=== PATIENT | male | born 1960 | race Caucasian/White ===

== ENCOUNTER 2023-01-01 08:17 | Outpatient (OUT) | payer OTHER, SELFPAY ==
[2023-01-01 09:12] LABS: Alanine Aminotransferase 40 U/L (16-63); Albumin Globulin Ratio 0.9; Albumin Level 3.5 g/dL (3.4-5.0); Alkaline Phosphatase 65 U/L (46-116); Anion Gap 12.2; Aspartate Amino Transferase 29 U/L (15-37); BUN Creatinine Ratio 21.7; Bilirubin Total 0.7 mg/dL (0.2-1.0); Calcium 9.1 mg/dL (8.5-10.1); Carbon Dioxide 28.7 mmol/L (21.0-32.0); Chloride 104 mmol/L (98-107); Chol HDL Ratio 2.1; Cholesterol 144 mg/dL (<=200); Estimated GFR (African America >60 (>=60); Estimated GFR (Non-African Ame >60 (>=60); Globulin 3.9 g/dL; Glucose 103 mg/dL (74-106); HDL Cholesterol 69 mg/dL (40-60); Potassium 3.9 mmol/L (3.5-5.1); Sodium 141 mmol/L (136-145); Total Protein 7.4 g/dL (6.4-8.2); Triglycerides 46 mg/dL (<=150); VLDL CHOLESTEROL 9.2 mg/dL
[2023-01-01 09:36] LABS: Basophils Percent Auto 0.6 % (0.2-2.0); Eosinophils Absolute Auto 0.1 10^3/uL (0.0-0.7); Eosinophils Percent Auto 1.9 % (0.9-7.0); Hematocrit 41.9 % (42.0-54.0); Hemoglobin 13.9 g/dL (14.0-18.0); Immature Granulocytes Abs Auto 0.04 10^3/uL (0.00-0.03); Immature Granulocytes Pct Auto 0.6 % (0.0-0.5); Lymphocytes Absolute Auto 1.8 10^3/uL (1.2-3.8); Lymphocytes Percent Auto 28.7 % (20.5-60.0); Mean Corpuscular HGB Conc 33.2 g/dL (29.9-35.2); Mean Corpuscular Hemoglobin 30.9 pg (25.9-34.0); Mean Corpuscular Volume 93.1 fL (80.0-94.0); Mean Platelet Volume 9.6 fL (9.5-13.5); Monocytes Absolute Auto 0.7 10^3/uL (0.3-0.8); Monocytes Percent Auto 11.1 % (1.7-12.0); Neutrophils Absolute Auto 3.6 10^3/uL (1.4-6.5); Neutrophils Percent Auto 57.1 % (43.0-75.0); Platelet Count 288 10^3/uL (150-450); Red Cell Distribution Width 14.4 % (11.0-15.0); White Blood Count 6.3 10^3/uL (4.0-11.0)
[2023-01-01 09:53] LABS: Estimated Average Glucose 108 mg/dL; Glycohemoglobin A1C 5.4 % (4.5-6.2)
== END 2023-01-01 08:18 | disposition home or self-care (01) ==
LOC: LAB 08:23
PROVIDERS: PCP Family Medicine; Visit Provider Family Medicine
DX: D64.9 Anemia, unspecified (principal); I10 Essential (primary) hypertension; E78.2 Mixed hyperlipidemia; R73.01 Impaired fasting glucose; Z79.899 Other long term (current) drug therapy
CPT/HCPCS: 36415; 80053; 80061; 83036; 85025

== ENCOUNTER 2023-06-17 09:17 | Outpatient (OUT) | payer MEDICARE, SELFPAY ==
[2023-06-17 09:57] LABS: Basophils Percent Auto 0.6 % (0.2-2.0); Eosinophils Absolute Auto 0.1 10^3/uL (0.0-0.7); Eosinophils Percent Auto 1.4 % (0.9-7.0); Hematocrit 41.7 % (42.0-54.0); Hemoglobin 13.5 g/dL (14.0-18.0); Immature Granulocytes Abs Auto 0.04 10^3/uL (0.00-0.03); Immature Granulocytes Pct Auto 0.6 % (0.0-0.5); Lymphocytes Absolute Auto 1.4 10^3/uL (1.2-3.8); Lymphocytes Percent Auto 20.1 % (20.5-60.0); Mean Corpuscular HGB Conc 32.4 g/dL (29.9-35.2); Mean Corpuscular Hemoglobin 30.5 pg (25.9-34.0); Mean Corpuscular Volume 94.3 fL (80.0-94.0); Mean Platelet Volume 10.2 fL (9.5-13.5); Monocytes Absolute Auto 0.8 10^3/uL (0.3-0.8); Monocytes Percent Auto 10.8 % (1.7-12.0); Neutrophils Absolute Auto 4.7 10^3/uL (1.4-6.5); Neutrophils Percent Auto 66.5 % (43.0-75.0); Platelet Count 236 10^3/uL (150-450); Red Blood Count 4.42 10^6/uL (4.70-6.10); Red Cell Distribution Width 14.6 % (11.0-15.0); White Blood Count 7.1 10^3/uL (4.0-11.0)
[2023-06-17 10:11] LABS: Estimated Average Glucose 114 mg/dL; Glycohemoglobin A1C 5.6 % (4.5-6.2)
[2023-06-17 10:24] LABS: Alanine Aminotransferase 37 U/L (16-63); Albumin Globulin Ratio 0.9; Albumin Level 3.4 g/dL (3.4-5.0); Alkaline Phosphatase 69 U/L (46-116); Anion Gap 11.1; Aspartate Amino Transferase 21 U/L (15-37); BUN Creatinine Ratio 18.9; Bilirubin Total 0.8 mg/dL (0.2-1.0); Calcium 9.1 mg/dL (8.5-10.1); Carbon Dioxide 30.8 mmol/L (21.0-32.0); Chloride 105 mmol/L (98-107); Chol HDL Ratio 2.1; Cholesterol 161 mg/dL (<=200); Estimated GFR (African America >60 (>=60); Estimated GFR (Non-African Ame >60 (>=60); Globulin 3.7 g/dL; Glucose 91 mg/dL (74-106); HDL Cholesterol 75 mg/dL (40-60); Potassium 3.9 mmol/L (3.5-5.1); Sodium 143 mmol/L (136-145); Total Protein 7.1 g/dL (6.4-8.2); Triglycerides 52 mg/dL (<=150); VLDL CHOLESTEROL 10.4 mg/dL
[2023-06-17 10:47] LABS: Prostate Specific Antigen Scrn 1.48 ng/mL (<=4.00)
== END 2023-06-17 09:18 | disposition home or self-care (01) ==
PROVIDERS: PCP Family Medicine; Visit Provider Family Medicine
DX: D50.0 Iron deficiency anemia secondary to blood loss (chronic) (principal); N18.6 End stage renal disease; R73.01 Impaired fasting glucose; K91.2 Postsurgical malabsorption, not elsewhere classified; Z79.899 Other long term (current) drug therapy; E53.8 Deficiency of other specified B group vitamins; Z12.5 Encounter for screening for malignant neoplasm of prostate
CPT/HCPCS: 36415; 80053; 80061; 82607; 82728; 83036; 83540; 85025; G0103

== ENCOUNTER 2023-12-03 07:29 | Outpatient (OUT) | payer SELFPAY ==
[2023-12-03 09:08] LABS: Estimated Average Glucose 114 mg/dL; Glycohemoglobin A1C 5.6 % (4.5-6.2)
[2023-12-03 10:55] LABS: Alanine Aminotransferase 39 U/L (16-63); Albumin Level 3.6 g/dL (3.4-5.0); Alkaline Phosphatase 72 U/L (46-116); Anion Gap 10.5; Aspartate Amino Transferase 27 U/L (15-37); BUN Creatinine Ratio 19.8; Bilirubin Total 0.9 mg/dL (0.2-1.0); Calcium 9.3 mg/dL (8.5-10.1); Carbon Dioxide 29.1 mmol/L (21.0-32.0); Chloride 103 mmol/L (98-107); Chol HDL Ratio 2.3; Cholesterol 165 mg/dL (<=200); Estimated GFR (African America >60 (>=60); Estimated GFR (Non-African Ame >60 (>=60); Globulin 3.7 g/dL; Glucose 93 mg/dL (74-106); HDL Cholesterol 73 mg/dL (40-60); Potassium 3.6 mmol/L (3.5-5.1); Sodium 139 mmol/L (136-145); Total Protein 7.3 g/dL (6.4-8.2); Triglycerides 49 mg/dL (<=150); VLDL CHOLESTEROL 9.8 mg/dL
== END 2023-12-03 07:30 | disposition home or self-care (01) ==
LOC: LAB 07:32
PROVIDERS: PCP Family Medicine; Visit Provider Family Medicine
DX: E78.2 Mixed hyperlipidemia (principal); I10 Essential (primary) hypertension; Z83.3 Family history of diabetes mellitus; R73.01 Impaired fasting glucose; Z79.899 Other long term (current) drug therapy
CPT/HCPCS: 36415; 80053; 80061; 83036

== ENCOUNTER 2023-12-12 15:47 | Emergency (ER) | payer MEDICARE, SELFPAY ==
--- OUTSIDE RECORDS SUMMARY | 2023-12-12 15:56 | XMS_ITS | CCD ---
Author Organization [facility] Care Team Providers Care Stroke Belt Sander Operator Name Role Phone SIMONE PRIDE Referring Unavailable KRIEGEL, GARIMA Admitting Unavailable KRIEGEL, GARIMA Attending Unavailable BUNTING, ANDERS Primary Care Unavailable EBRAHEIM, VASYL Admitting Unavailable UNKNOWN, PHYSICIAN Primary Care Unavailable UNKNOWN, PHYSICIAN Referring Unavailable [place] Procedure Practitioner Unavailab le EBRAHEIM, VASYL Attending Unavailable EBRAHEIM, VASYL Surgeon Unavailable BUNTING, DR MCNAMARA Primary Care Unavailable BUNTING, DR MCNAMARA Admitting Unavailable BUNTING, DR MCNAMARA Attending Unavailable BUNTING, DR MCNAMARA Consulting Unavailable BUNTING, DR MCNAMARA Primary Care Unavailable BUNTING, DR MCNAMARA Admitting Unavailable BUNTING, DR MCNAMARA Attending Unavailable BUNTING, DR MCNAMARA Consulting Unavailable BUNTING, DR MCNAMARA Primary Care Unavailable MISC, DR PINTO Attending Unavailable MISC, DR PINTO Admitting Unavailable BUNTING, DR MCNAMARA Primary Care Unavailable BUNTING, DR MCNAMARA Admitting Unavailable BUNTING, DR MCNAMARA Attending Unavailable BUNTING, DR MCNAMARA Consulting Unavailable Bunting, DO Anders Attending Provider Bunting, DO Mcnamara Primary Care Provider Bunting DOAnders Primary Care Provider Bunting, Anders Attending Unavailable Bunting, Anders Primary Care Unavailable Bunting, Anders Admitting Unavailable TRABOULSSI, MOURHAF Attending Unavailable BUNTING, ANDERS RAY Primary Care Unavailable TRABOULSSI, MOURHAF Referring Unavailable BUNTING, ANDERS RAY Primary Care Unavailable TRABOULSSI, MOURHAF Attending Unavailable TRABOULSSI, MOURHAF Referring Unavailable BUNTING, ANDERS RAY Primary Care Unavailable Allergies Allergy Classification Reported Allergen(s) Allergy Type Date of Onset Reaction(s) Facility (7 sources) Codeine; Translations: [CODEINE] Drug Allergy 4 Anxiety [facility] (7 sources) Morphine; Translations: [MORPHINE] Drug Allergy 4 Nausea/vomiting [facility] Medications Current Medications Medication Drug Class(es) Dates Sig (Normalized) Sig (Original) acetaminophen 500 mg oral tablet (1 source) Start: 10-01-2021 take 500 mg by mouth four times daily Acetaminophen Active 500 MG PO Four times daily September 30, 2021 11:00pm acetaminophen 325 mg / HYDROcodone bitartrate 5 mg oral tablet (1 source) Opioid Agonist Start: 10-01-2021 take 1 tablet by mouth every six hours Hydrocodone-Acetam inophen Active 1 TAB PO Q6H September 30, 2021 11:00pm 200 actuat albuterol 0.09 mg/actuat dry powder inhaler (1 source) beta2-Adrenergic Agonist Start: 10-01-2021 Albuterol Sulfate Active 2 INH INHALATION Q4H September 30, 2021 11:00pm amLODIPine 5 mg oral tablet (3 sources) Dihydropyridine Calcium Channel Maggie Start: 10-01-2021 take 5 mg by mouth once daily Amlodipine Active 5 MG PO Daily September 30, 2021 11:00pm take 1 tablet by mouth twice keaton ly amLODIPine (Norvasc) 5 mg tablet Take 1 tablet (5 mg) by mouth 2 times a day. Active aspirin 81 mg oral tablet (1 source) Platelet Aggregation Inhibitor, Nonsteroidal Anti-inflammatory Drug Start: 10-01-2021 take 81 mg by mouth once daily Aspirin Active 81 MG PO Daily September 30, 2021 11:00pm baclofen 10 mg oral tablet (1 source) gamma-Aminobutyric Acid-ergic Agonist Start: 10-01-2021 take 10 mg by mouth three times daily Baclofen Active 10 MG PO Three times daily September 30, 2021 11:00pm cholecalciferol 0.025 mg oral tablet (2 sources) Vitamin D take 2 tablets by mouth once daily cholecalciferol (Vitamin D3) 25 MCG (1000 UT) tablet Take 2 tablets (50 mcg) by mouth once daily. Active chondroitin sulfates 400 mg / glucosamine hydrochloride 500 mg oral tablet (2 sources) take 1 tablet by mouth twice daily glucosamine-chondr oitin 500-400 mg tablet Take 1 tablet by mouth 2 times a day. Active docusate sodium 50 mg / sennosides, chcf 8.6 mg oral tablet (1 source) Start: 10-01-2021 take 1 tablet by mouth twice daily Sennosides-Docusat e Sodium (Senexon-S) 8.6-50 mg Tablet Active 1 TAB-CAP PO Twice daily September 30, 2021 11:00pm 120 actuat fluticasone propionate 0.22 mg/actuat metered dose inhaler (3 sources) Corticosteroid Start: 10-01-2021 take 1 puff(s) by inhalation twice daily Fluticasone Propionate (Flovent Hfa) 220 mcg/actuation Hfa Aerosol Inhaler Active 1 PUFF INHALATION Twice daily September 30, 2021 11:00pm take 2 puff(s) by mouth twice da pham fluticasone (Flovent HFA) 220 mcg/actuation inhaler Inhale 2 puffs 2 times a day. Rinse mouth with water after use to reduce aftertaste and incidence of candidiasis. Do not swallow. Active hydroCHLOROthiazide 12.5 mg / lisinopril 10 mg oral tablet (3 sources) Thiazide Diuretic, Angiotensin Converting Enzyme Inhibitor Start: 10-01-2021 take 1 tablet by mouth once daily Lisinopril-Hydrochlorothiazide Active 1 TAB PO Daily September 30, 2021 11:00pm take 1 tablet by mouth once marta y lisinopril 20 mg tablet 20 mg, hydroCHLOROthiazide 12.5 mg tablet 12.5 mg Take 1 tablet by mouth once daily. Active take 1 tablet by mouth once marta y lisinopril 20 mg tablet 20 mg, hydroCHLOROthiazide 12.5 mg tablet 12.5 mg Take 1 tablet by mouth once daily. 0 Active ammonium lactate 120 mg/ml topical cream (1 source) Start: 10-01-2021 Ammonium Lacta te Active 1 APPLIC TOPICAL Twice daily September 30, 2021 11:00pm loperamide hydrochloride 2 mg oral tablet (3 sources) Opioid Agonist Start: 10-01-2021 take 2 mg by mouth four times daily Loperamide Active 2 MG PO Four times daily September 30, 2021 11:00pm take 1 tablet by adamaris three times daily as needed for diarrhea loperamide (Imodium A-D) 2 mg tablet Amando e 1 tablet (2 mg) by mouth 3 times a day as needed for diarrhea. Active magnesium oxide 400 mg oral tablet (1 source) Start: 10-28-2023 magnesium oxide (Mag-Ox) 400 mg (241.3 mg magnesium) tablet Indications: PVC (premature ventricular contraction) , SVT (supraventricular tachycardia) (CMS-HCC) Take one tablet daily with food, if tolerated can take two tablets 160 tablet 3 10/28/2023 Active omeprazole 20 mg delayed release oral capsule (1 source) Proton Pump Inhibitor Start: 10-01-2021 take 20 mg by mouth twice daily Omeprazole Active 20 MG PO Twice daily September 30, 2021 11:00pm pantoprazole 40 mg delayed release oral tablet (3 sources) Proton Pump Inhibitor Start: 10-01-2021 take 40 mg by mouth once daily Pantoprazole Active 40 MG PO Daily September 30, 2021 11:00pm take 1 tablet by mouth twice keaton ly pantoprazole (ProtoNix) 40 mg EC tablet Take 1 tablet (40 mg) by mouth 2 times a day. Do not crush, chew, or split. Active Completed/Discontinued Medications Medication Drug Class(es) Dates Sig (Normalized) Sig (Original) vitamin b12 0.1 mg oral tablet (2 sources) Vitamin B12 End: 10-28-2023 take 1 tablet by mouth once daily cyanocobalamin (Vitamin B-12) 100 mcg tablet Take 1 tablet (100 mcg) by mouth once daily. 10/28/2023 Discontinued (Discontinued by another clinician) Problems Active Problems Problem Classification Problem Date Documented Date Episodic/Chronic Cardiac dysrhythmias (10 sources) Multiple premature ventricular complexes; Translations: [Ventricular premature depolarization] Onset: 06-29-2023 06-29-2023 Chronic Diabetes mellitus without complication (1 source) Impaired fasting glucose; Translations: [IMPAIRED FASTING GLUCOSE] Onset: 06-24-2022 Episodic Disorders of lipid metabolism (5 sources) Mixed hyperlipidemia; Translations: [MIXED HYPERLIPIDEMIA] Onset: 11-29-2021 Chronic Essential hypertension (11 sources) Essential (primary) hypertension; Translations: [Essential hypertension] Onset: 12-03-2021 Chronic Nutritional deficiencies (1 source) Vitamin D deficiency, unspecified; Translations: [VITAMIN D DEFICIENCY UNSPECIFIED] Onset: 12-03-2021 Chronic Open wounds of extremities (1 source) Open wound of left knee; Translations: [Unspecified open wound, left knee, initial encounter] 10-28-2021 Episodic Other aftercare (1 source) Other terminal superintendent (current) drug therapy; Translations: [OTH HALFWAY CURRENT DRUG THERAPY] Onset: 06-24-2022 Episodic Other nutritional; endocrine; and metabolic disorders (4 sources) Overweight in adulthood with body mass index of 25 or more but less than 30; Translations: [Body mass index (BMI) 28.0-28.9, adult] Onset: 06-29-2023 06-29-2023 Episodic Other nutritional; endocrine; and metabolic disorders (2 sources) Body mass index (BMI) 28.0-28.9, adult; Translations: [Body mass index (BMI) 28.0-28.9, adult] Onset: 06-29-2023 Episodic Other screening for suspected conditions (not mental disorders or infectious disease) (1 source) Encounter for screening for malignant neoplasm of prostate; Translations: [ENC SCREEN MALIG NEOPLASM PROSTATE] Onset: 06-24-2022 Episodic Residual codes; unclassified (1 source) Family history of diabetes mellitus; Translations: [FAMILY HISTORY OF DIABETES MELLITUS] Onset: 06-24-2022 Episodic Residual codes; unclassified (1 source) Edema of left lower leg; Translations: [Localized edema] 10-01-2021 Episodic Residual codes; unclassified (1 source) History of operation on musculoskeletal system; Translations: [Other specified postprocedural states] 10-01-2021 Episodic Residual codes; unclassified (4 sources) Never smoked any substance; Translations: [Other specified health status] Onset: 06-29-2023 06-29-2023 Episodic Unclassified (2 sources) CONTACT W/AND (SUSP) EXPOS COVID-19; Translations: [CONTACT W/AND (SUSP) EXPOS COVID-19] Onset: 12-11-2021 Unclassified (1 source) Bradycardia, unspecified; Translations: [Bradycardia, unspecified] Onset: 06-23-2023 Unclassified (1 source) Supraventricular tachycardia, unspecified (CMS-HCC); Translations: [Supraventricular tachycardia, unspecified (CMS-HCC)] Onset: 06-29-2023 Unclassified (1 source) Supraventricular tachycardia, unspecified; Translations: [Supraventricular tachycardia, unspecified] Onset: 06-29-2023 Varicose veins of lower extremity (1 source) Varicose veins of lower limb co-occurrent with edema; Translations: [Varicose veins of bilateral lower extremities with other complications] 10-01-2021 Episodic Viral infection (1 source) COVID-19; Translations: [COVID-19] Onset: 12-11-2021 Past or Other Problems Problem Classification Problem Date Documented Date Episodic/Chronic Other aftercare (1 source) Encounter for therapeutic drug level monitoring; Translations: [ENC THERAPEUTC DRUG LEVL MONITORING] Onset: 12-03-2021 Episodic Residual codes; unclassified (2 sources) Other specified health status; Translations: [Other specified health status] Onset: 06-29-2023 Episodic Unclassified (1 source) CONTACT W/AND (SUSP) EXPOS COVID-19; Translations: [CONTACT W/AND (SUSP) EXPOS COVID-19] Onset: 12-10-2021 Unclassified (2 sources) Onset: 06-29-2023 Resolved: 10-28-2023 06-29-2023 Unclassified (1 source) Supraventricular tachycardia, unspecified (CMS-HCC); Translations: [Supraventricular tachycardia, unspecified (CMS-HCC)] Onset: 10-28-2023 Unclassified (1 source) Supraventricular tachycardia, unspecified; Translations: [Supraventricular tachycardia, unspecified] Onset: 06-29-2023 Results Test Name Value Interpretation Reference Range Facility ECG 12 Leadon 06-29-2023 Normal sinus rhythm [facility] Work Phone: ECG 12 lead ECGon 06-23-2023 ECG 12 lead ECG [facility] [place] [address] Electrocardiograph Report Signed Patient: Pj Martinez MR#: [id number] : 1960 Acct:[id number] Age/Sex: 63 / M ADM Date: 06/23/23 Loc: Room: Type: [facility] Attending Dr: Anders Salazar DO Ordering Provider: Anders Salazar DO Date of Service: 06/23/23/ ECG/ECG 12 lead ECG: see order Copies to: Test Reason : Blood Pressure : / mmHG Vent. Rate : 064 BPM Atrial Rate : 064 BPM P-R Int : 166 ms QRS Dur : 086 ms QT Int : 418 ms P-R-T Axes : 075 -02 063 degrees QTc Int : 431 ms Sinus rhythm with frequent premature ventricular complexes in a pattern of bigeminy Otherwise normal ECG No previous ECGs available Confirmed by Magy Abbott ([id number]) on 06/23/2023 4:38:00 PM Referred By: Electronically Signed By:Magy Abbott REVISED DOCUMENT/07/16/2023/ wilson (corrected prov sig) Transcribed By: MUS Signed By Magy Abbott MD [address] [facility] CBC AUTO DIFFon 06-21-2022 BASO # 0.1 103/ul Normal 0.0-0.1 [facility] Comment on above: Performed By: #### C BC #### [facility] [address] [place] [address] Dr. Virginia Orourke Basophils/100 WBC (Bld) 0.7 % Normal 0.2-2.0 [facility] Comment on above: Performed By: #### C BC #### [facility] [address] [address] [address] Virginia Orourke EO # 0.2 103/ul Normal 0.0-0.7 [facility] Comment on above: Performed By: #### C BC #### [facility] [address] [address] [address] Virginia Orourke Eosinophils/100 WBC (Bld) 2.1 % Normal 0.9-7.0 [facility] Comment on above: Performed By: #### C BC #### [facility] [address] [address] [address] Virginia Orourke Erythrocyte distribution width (RBC) [Ratio] 13.6 % Normal 11.0-15.0 [facility] Comment on above: Performed By: #### C BC #### [facility] [address] [place] [address] Dr. Virginia Orourke Hematocrit (Bld) [Volume fraction] 39.7 % Critically low 42.0-54.0 [facility] Comment on above: Performed By: #### C BC #### [facility] [address] [place] [address] Dr. Virginia Orourke Hemoglobin (Bld) [Mass/Vol] 13.9 g/dL Critically low 14.0-18.0 [facility] Comment on above: Performed By: #### C BC #### [facility] [address] [place] [address] Dr. Virginia Orourke IG # 0.01 10e3/ul Normal 0.00-0.03 [facility] Comment on above: Performed By: #### C BC #### [facility] [address] [place] [address] Dr. Virginia Orourke IG % 0.1 % Normal 0.0-0.5 [facility] Comment on above: Performed By: #### C BC #### [facility] [address] [place] [address] Dr. Virginia Orourke LYMPH # 1.7 103/ul Normal 1.2-3.8 [facility] Comment on above: Performed By: #### C BC #### [facility] [address] [place] [address] Dr. Virginia Orourke Lymphocytes/100 WBC (Bld) 23.6 % Normal 20.5-60.0 [facility] Comment on above: Performed By: #### C BC #### [facility] [address] [place] [address] Dr. Virginia Oorurke MANUAL DIFF REQ NO Normal [facility] Comment on above: Performed By: #### C BC #### [facility] [address] [place] [address] Dr. Virginia Orourke MCH (RBC) [Entitic mass] 30.1 pg Normal 25.9-34.0 [facility] Comment on above: Performed By: #### C BC #### [facility] [address] [place] [address] Dr. Virginia Orourke MCHC (RBC) [Mass/Vol] 35.0 g/dL Normal 29.9-35.2 [facility] Comment on above: Performed By: #### C BC #### [facility] [address] [address] [address] Virginia Orourke MCV (RBC) [Entitic vol] 85.9 fL Normal 80.0-94.0 [facility] Comment on above: Performed By: #### C BC #### [facility] [address] [address] [address] Virginia Orourke MONO # 0.8 103/ul Normal 0.3-0.8 [facility] Comment on above: Performed By: #### C BC #### [facility] [address] [address] [address] Virginia Orourke Monocytes/100 WBC (Bld) 10.4 % Normal 1.7-12.0 [facility] Comment on above: Performed By: #### C BC #### [facility] [address] [address] [address] Virginia Orourke NEUT # 4.6 103/ul Normal 1.4-6.5 [facility] Comment on above: Performed By: #### C BC #### [facility] [address] [address] [address] Virginia Orourke Neutrophils/100 WBC (Bld) 63.1 % Normal 43.0-75.0 [facility] Comment on above: Performed By: #### C BC #### [facility] [address] [address] [address] Virginia Orourke Platelet mean volume (Bld) [Entitic vol] 8.9 fL Critically low 9.5-13.5 [facility] Comment on above: Performed By: #### C BC #### [facility] [address] [address] [address] Virginia Orourke PLT 255 103/ul Normal 150-450 [facility] Comment on above: Performed By: #### C BC #### [facility] [address] [address] [address] Virginia Orourke RBC 4.62 106/ul Critically low 4.70-6.10 [facility] Comment on above: Performed By: #### C BC #### [facility] [address] [address] [address] Virginia Orourke WBC 7.2 103/ul Normal 4.0-11.0 [facility] Comment on above: Performed By: #### C BC #### [facility] [address] [place] [address] Dr. Virginia Orourke GLYCOHEMOGLOBIN A1Con 2022 ADA RECOMMENDATION SEE BELOW Normal [facility] Comment on above: Result Comment: ADA RECOMMENDED LIMIT 4.0 - 6.0 ADA THERAPEUTIC TARGET < 7.0 ACTION SUGGESTED > 7.0 Performed By: #### A 1C #### [facility] [address] [place] [address] Dr. Virginia Orourke Glucose [Mass/Vol] 111 mg/dL Normal [facility] Comment on above: Performed By: #### A 1C #### [facility] [address] [place] [address] Dr. Virginia Orourke HbA1c (Bld) [Mass fraction] 5.5 % Normal 4.5-6.2 [facility] Comment on above: Performed By: #### A 1C #### [facility] [address] [place] [address] Dr. Virginia Orourke LIPID PROFILEon 06-21-2022 CHOL-HDL RATIO NORM SEE BELOW Normal [facility] Comment on above: Result Comment: 3.3 - 4.4 LOW RISK 4.4 - 7.1 AVERAGE RISK 7.1 - 11.0 MODERATE RISK >11.0 HIGH RISK Performed By: #### C MP, LIPID #### [facility] [address] [place] [address] Dr. Virginia Orourke Cholesterol [Mass/Vol] 145 mg/dL Normal <=200 [facility] Comment on above: Performed By: #### C MP, LIPID #### [facility] [address] [place] [address] Dr. Virginia Orourke Cholesterol in HDL [Mass/Vol] 69 mg/dL Critically high 40-60 [facility] Comment on above: Performed By: #### C MP, LIPID #### [facility] [address] [place] [address] Dr. Virginia Orourke Cholesterol in LDL [Mass/Vol] 62.6 mg/dL Normal [facility] Comment on above: Performed By: #### C MP, LIPID #### [facility] [address] [address] [address] Virginia Orourke Cholesterol.total/Ch olesterol in HDL [Mass ratio] 2.1 {ratio} Normal [facility] Comment on above: Performed By: #### C MP, LIPID #### [facility] [address] [address] [address] Virginia Orourke HDL NORMAL > or = 60 mg/dl - LOW CARDIOVASCULAR RISK <40 mg/dl - HIGH CARDIOVASCULAR RISK Normal [facility] Comment on above: Performed By: #### C MP, LIPID #### [facility] [address] [place] [address] Dr. Virginia Orourke LDL CALC NORMAL SEE BELOW Normal [facility] Comment on above: Result Comment: <100 mg/dl OPTIMAL 100 - 129 mg/dl NEAR OR ABOVE OPTIMAL 130 - 159 mg/dl BORDERLINE HIGH 160 - 189 mg/dl HIGH >190 mg/dl VERY HIGH Performed By: #### C MP, LIPID #### [facility] [address] [address] [address] Virginia Orourke Triglyceride [Mass/Vol] 67 mg/dL Normal <=150 [facility] Comment on above: Performed By: #### C MP, LIPID #### [facility] [address] [place] [address] Dr. Virginia Orourke VLDL CALC 13.4 mg/dL Normal [facility] Comment on above: Performed By: #### C MP, LIPID #### [facility] [address] [place] [address] Dr. Virginia Orourke PROF 14(COMP METB)on 023 Albumin [Mass/Vol] 3.8 g/dL Normal 3.4-5.0 [facility] Comment on above: Performed By: #### C MP, LIPID #### [facility] [address] [place] [address] Dr. Virginia Orourke Albumin/Globulin [Mass ratio] 1.0 {ratio} Normal [facility] Comment on above: Performed By: #### C MP, LIPID #### [facility] [address] [address] [address] Virginia Orourke ALP [Catalytic activity/Vol] 81 U/L Normal 46-116 [facility] Comment on above: Performed By: #### C MP, LIPID #### [facility] [address] [address] [address] Virginia Orourke ALT [Catalytic activity/Vol] 29 U/L Normal 16-63 [facility] Comment on above: Performed By: #### C MP, LIPID #### [facility] [address] [address] [address] Virginia Orourke Anion gap [Moles/Vol] 12.1 mmol/L Normal [facility] Comment on above: Performed By: #### C MP, LIPID #### [facility] [address] [place] [address] Dr. Virginia Orourke AST [Catalytic activity/Vol] 24 U/L Normal 15-37 [facility] Comment on above: Performed By: #### C MP, LIPID #### [facility] [address] [address] [address] Virginia Orourke Bilirubin [Mass/Vol] 0.7 mg/dL Normal 0.2-1.0 [facility] Comment on above: Performed By: #### C MP, LIPID #### [facility] [address] [address] [address] Virginia Orourke Calcium [Mass/Vol] 9.3 mg/dL Normal 8.5-10.1 [facility] Comment on above: Performed By: #### C MP, LIPID #### [facility] [address] [address] [address] Virginia Orourke Chloride [Moles/Vol] 105 mmol/L Normal 98-107 [facility] Comment on above: Performed By: #### C MP, LIPID #### [facility] [address] [address] [address] Virginia Orourke CO2 [Moles/Vol] 29.5 mmol/L Normal 21.0-32.0 [facility] Comment on above: Performed By: #### C MP, LIPID #### [facility] [address] [address] [address] Virginia Orourke Creatinine [Mass/Vol] 0.80 mg/dL Normal 0.70-1.30 [facility] Comment on above: Performed By: #### C MP, LIPID #### [facility] [address] [address] [address] Virginia Orourke EGFR-AF SIERRA LEONEAN >60 Normal >=60 [facility] Comment on above: Performed By: #### C MP, LIPID #### [facility] [address] [address] [address] Virginia Orourke EGFR-NON AF SIERRA LEONEAN >60 Normal >=60 [facility] Comment on above: Performed By: #### C MP, LIPID #### [facility] [address] [place] [address] Dr. Virginia Orourke Globulin (S) [Mass/Vol] 3.7 g/dL Normal [facility] Comment on above: Performed By: #### C MP, LIPID #### [facility] Laboratory [address] [address] [address] Virginia Orourke Glucose [Mass/Vol] 107 mg/dL Critically high 74-106 [facility] Comment on above: Performed By: #### C MP, LIPID #### [facility] [address] [place] [address] Dr. Virginia Orourke Potassium [Moles/Vol] 3.6 mmol/L Normal 3.5-5.1 [facility] Comment on above: Performed By: #### C MP, LIPID #### [facility] [address] [address] [address] Virginia Orourke Protein [Mass/Vol] 7.5 g/dL Normal 6.4-8.2 [facility] Comment on above: Performed By: #### C MP, LIPID #### [facility] [address] [address] [address] Virginia Orourke Sodium [Moles/Vol] 143 mmol/L Normal 136-145 [facility] Comment on above: Performed By: #### C MP, LIPID #### [facility] [address] [address] [address] Virginia Orourke Urea nitrogen [Mass/Vol] 14.0 mg/dL Normal 7.0-18.0 [facility] Comment on above: Performed By: #### C MP, LIPID #### [facility] [address] [address] [address] Virginia Orourke Urea nitrogen/Creatinine [Mass ratio] 17.5 mg/mg Normal [facility] Comment on above: Performed By: #### C MP, LIPID #### [facility] [address] [address] [address] Virginia Orourke Covid-19 PCR (CVDTBH)on 11-22 SARS-CoV-2 (COVID-19) RNA ANDREW+probe Ql (Unsp spec) Detected Critically abnormal NOT DETECTED [facility] Comment on above: Result Comment: This test is not yet approved or cleared by the [place] FDA. When there are no FDA-approved or cleared tests available, and other criteria are met, FDA can make tests available under an emergency access mechanism called an Emergency Use Authorization (EUA). The EUA for this test is supported by the [place] of Health and Human Service's declaration that circumstances exist to justify the emergency use of in vitro diagnostics for the detection and/or diagnosis of the virus that causes COVID-19. This EUA will remain in effect for the duration of the COVID-19 declaration justifying emergency of IVDs, unless it is terminated or revoked by the FDA (after which the test may no longer be used). Performed By: #### C VDTBH #### [facility] [address] [place] [address] Dr. Virginia Orourke CBC AUTO DIFFon 11-29-2021 BASO # 0.0 103/ul Normal 0.0-0.1 [facility] Comment on above: Performed By: #### C BC #### [facility] [address] [address] [address] Virginia Orourke Basophils/100 WBC (Bld) 0.7 % Normal 0.2-2.0 [facility] Comment on above: Performed By: #### C BC #### [facility] [address] [place] [address] Dr. Virginia Orourke EO # 0.1 103/ul Normal 0.0-0.7 [facility] Comment on above: Performed By: #### C BC #### [facility] [address] [place] [address] Dr. Virginia Orourke Eosinophils/100 WBC (Bld) 1.3 % Normal 0.9-7.0 [facility] Comment on above: Performed By: #### C BC #### [facility] [address] [place] [address] Dr. Virginia Orourke Erythrocyte distribution width (RBC) [Ratio] 14.8 % Normal 11.0-15.0 [facility] Comment on above: Performed By: #### C BC #### [facility] [address] [place] [address] Dr. Virginia Orourke Hematocrit (Bld) [Volume fraction] 40.2 % Critically low 42.0-54.0 [facility] Comment on above: Performed By: #### C BC #### [facility] [address] [place] [address] Dr. Virginia Orourke Hemoglobin (Bld) [Mass/Vol] 13.1 g/dL Critically low 14.0-18.0 [facility] Comment on above: Performed By: #### C BC #### [facility] [address] [place] [address] Dr. Virginia Orourke IG # 0.02 10e3/ul Normal 0.00-0.03 [facility] Comment on above: Performed By: #### C BC #### [facility] [address] [place] [address] Dr. Virginia Orourke IG % 0.3 % Normal 0.0-0.5 [facility] Comment on above: Performed By: #### C BC #### [facility] [address] [place] [address] Dr. Virginia Orourke LYMPH # 1.4 103/ul Normal 1.2-3.8 [facility] Comment on above: Performed By: #### C BC #### [facility] [address] [address] [address] Virginia Orourke Lymphocytes/100 WBC (Bld) 22.1 % Normal 20.5-60.0 [facility] Comment on above: Performed By: #### C BC #### [facility] [address] [address] [address] Virginia Orourke MANUAL DIFF REQ NO Normal [facility] Comment on above: Performed By: #### C BC #### [facility] [address] [address] [address] Virginia Orourke MCH (RBC) [Entitic mass] 30.7 pg Normal 25.9-34.0 [facility] Comment on above: Performed By: #### C BC #### [facility] [address] [place] [address] Dr. Virginia Orourke MCHC (RBC) [Mass/Vol] 32.6 g/dL Normal 29.9-35.2 [facility] Comment on above: Performed By: #### C BC #### [facility] [address] [place] [address] Dr. Virginia Orourke MCV (RBC) [Entitic vol] 94.1 fL Critically high 80.0-94.0 [facility] Comment on above: Performed By: #### C BC #### [facility] [address] [place] [address] Dr. Virginia Orourke MONO # 0.7 103/ul Normal 0.3-0.8 [facility] Comment on above: Performed By: #### C BC #### [facility] [address] [place] [address] Dr. Virginia Orourke Monocytes/100 WBC (Bld) 11.4 % Normal 1.7-12.0 [facility] Comment on above: Performed By: #### C BC #### [facility] [address] [place] [address] Dr. Virginia Orourke NEUT # 3.9 103/ul Normal 1.4-6.5 [facility] Comment on above: Performed By: #### C BC #### [facility] [address] [place], [place] [id number] Dr. Virginia Orourke Neutrophils/100 WBC (Bld) 64.2 % Normal 43.0-75.0 [facility] Comment on above: Performed By: #### C BC #### [facility] [address] [place] [address] Dr. Virginia Orourke Platelet mean volume (Bld) [Entitic vol] 9.9 fL Normal 9.5-13.5 [facility] Comment on above: Performed By: #### C BC #### [facility] [address] [place] [address] Dr. Virginia Orourke PLT 242 103/ul Normal 150-450 [facility] Comment on above: Performed By: #### C BC #### [facility] [address] [place] [address] Dr. Virginia Orourke RBC 4.27 106/ul Critically low 4.70-6.10 [facility] Comment on above: Performed By: #### C BC #### [facility] [address] [place] [address] Dr. Virginia Orourke WBC 6.1 103/ul Normal 4.0-11.0 [facility] Comment on above: Performed By: #### C BC #### [facility] [address] [place] [address] Dr. Virginia Orourke GLYCOHEMOGLOBIN A1Con 2021 ADA RECOMMENDATION SEE BELOW Normal [facility] Comment on above: Result Comment: ADA RECOMMENDED LIMIT 4.0 - 6.0 ADA THERAPEUTIC TARGET < 7.0 ACTION SUGGESTED > 7.0 Performed By: #### L IPID, CMP #### [facility] [address] [place] [address] Dr. Virginia Orourke HbA1c (Bld) [Mass fraction] 5.5 % Normal 4.5-6.2 [facility] Comment on above: Performed By: #### L IPID, CMP #### [facility] [address] [place] [address] Dr. Virginia Oroukre LIPID PROFILEon 11-29-2021 CHOL-HDL RATIO NORM SEE BELOW Normal [facility] Comment on above: Result Comment: 3.3 - 4.4 LOW RISK 4.4 - 7.1 AVERAGE RISK 7.1 - 11.0 MODERATE RISK >11.0 HIGH RISK Performed By: #### L IPID, CMP #### [facility] [address] [address] [address] Virginia Orourke Cholesterol [Mass/Vol] 149 mg/dL Normal <=200 [facility] Comment on above: Performed By: #### L IPID, CMP #### [facility] [address] [address] [address] Virginia Orourke Cholesterol in HDL [Mass/Vol] 71 mg/dL Critically high 40-60 [facility] Comment on above: Performed By: #### L IPID, CMP #### [facility] [address] [address] [address] Virginia Orourke Cholesterol in LDL [Mass/Vol] 72.8 mg/dL Normal [facility] Comment on above: Performed By: #### L IPID, CMP #### [facility] [address] [address] [address] Virginia Orourke Cholesterol.total/Ch olesterol in HDL [Mass ratio] 2.1 {ratio} Normal [facility] Comment on above: Performed By: #### L IPID, CMP #### [facility] [address] [place] [address] Dr. Virginia Orourke HDL NORMAL > or = 60 mg/dl - LOW CARDIOVASCULAR RISK <40 mg/dl - HIGH CARDIOVASCULAR RISK Normal [facility] Comment on above: Performed By: #### L IPID, CMP #### [facility] [address] [place] [address] Dr. Virginia Orourke LDL CALC NORMAL SEE BELOW Normal [facility] Comment on above: Result Comment: <100 mg/dl OPTIMAL 100 - 129 mg/dl NEAR OR ABOVE OPTIMAL 130 - 159 mg/dl BORDERLINE HIGH 160 - 189 mg/dl HIGH >190 mg/dl VERY HIGH Performed By: #### L IPID, CMP #### [facility] [address] [place] [address] Dr. Virginia Orourke Triglyceride [Mass/Vol] 26 mg/dL Normal <=150 [facility] Comment on above: Performed By: #### L IPID, CMP #### [facility] [address] [address] [address] Virginia Orourke VLDL CALC 5.2 mg/dL Normal [facility] Comment on above: Performed By: #### L IPID, CMP #### [facility] [address] [place] [address] Dr. Virginia Orourke PROF 14(COMP METB)on 022 Albumin [Mass/Vol] 3.8 g/dL Normal 3.4-5.0 [facility] Comment on above: Performed By: #### L IPID, CMP #### [facility] [address] [place] [address] Dr. Virginia Orourke Albumin/Globulin [Mass ratio] 1.1 {ratio} Normal [facility] Comment on above: Performed By: #### L IPID, CMP #### [facility] [address] [place] [address] Dr. Virginia Orourke ALP [Catalytic activity/Vol] 73 U/L Normal 46-116 [facility] Comment on above: Performed By: #### L IPID, CMP #### [facility] [address] [place] [address] Dr. Virginia Orourke ALT [Catalytic activity/Vol] 39 U/L Normal 16-63 [facility] Comment on above: Performed By: #### L IPID, CMP #### [facility] [address] [place] [address] Dr. Virginia Orourke Anion gap [Moles/Vol] 9.2 mmol/L Normal [facility] Comment on above: Performed By: #### L IPID, CMP #### [facility] [address] [place] [address] Dr. Virginia Orourke AST [Catalytic activity/Vol] 29 U/L Normal 15-37 [facility] Comment on above: Performed By: #### L IPID, CMP #### [facility] [address] [place] [address] Dr. Virginia Orourke Bilirubin [Mass/Vol] 0.6 mg/dL Normal 0.2-1.0 [facility] Comment on above: Performed By: #### L IPID, CMP #### [facility] [address] [place] [address] Dr. Virginia Orourke Calcium [Mass/Vol] 9.2 mg/dL Normal 8.5-10.1 [facility] Comment on above: Performed By: #### L IPID, CMP #### [facility] [address] [place] [address] Dr. Virginia Orourke Chloride [Moles/Vol] 106 mmol/L Normal 98-107 [facility] Comment on above: Performed By: #### L IPID, CMP #### [facility] [address] [place] [address] Dr. Virginia Orourke CO2 [Moles/Vol] 31.4 mmol/L Normal 21.0-32.0 [facility] Comment on above: Performed By: #### L IPID, CMP #### [facility] [address] [place] [address] Dr. Virginia Orourke Creatinine [Mass/Vol] 0.94 mg/dL Normal 0.70-1.30 [facility] Comment on above: Performed By: #### L IPID, CMP #### [facility] [address] [place] [address] Dr. Virginia Orourke EGFR-AF SIERRA LEONEAN >60 Normal >=60 [facility] Comment on above: Performed By: #### L IPID, CMP #### [facility] [address] [place] [address] Dr. Virginia Orourke EGFR-NON AF SIERRA LEONEAN >60 Normal >=60 [facility] Comment on above: Performed By: #### L IPID, CMP #### [facility] [address] [place] [address] Dr. Virginia Orourke Globulin (S) [Mass/Vol] 3.6 g/dL Normal [facility] Comment on above: Performed By: #### L IPID, CMP #### [facility] [address] [place] [address] Dr. Virginia Orourke Glucose [Mass/Vol] 111 mg/dL Normal [facility] Comment on above: Performed By: #### L IPID, CMP #### [facility] [address] [place] [address] Dr. Virginia Orourke Potassium [Moles/Vol] 4.7 mmol/L Normal 3.5-5.1 [facility] Comment on above: Performed By: #### L IPID, CMP #### [facility] [address] [place] [address] Dr. Virginia Orourke Protein [Mass/Vol] 7.4 g/dL Normal 6.4-8.2 [facility] Comment on above: Performed By: #### L IPID, CMP #### [facility] [address] [place] [address] Dr. Virginia Orourke Sodium [Moles/Vol] 142 mmol/L Normal 136-145 [facility] Comment on above: Performed By: #### L IPID, CMP #### [facility] [address] [place] [address] Dr. Virginia Orourke Urea nitrogen [Mass/Vol] 17.0 mg/dL Normal 7.0-18.0 [facility] Comment on above: Performed By: #### L IPID, CMP #### [facility] [address] [place] [address] Dr. Virginia Orourke Urea nitrogen/Creatinine [Mass ratio] 18.1 mg/mg Normal [facility] Comment on above: Performed By: #### L IPID, CMP #### [facility] [address] [place] [address] Dr. Virginia Orourke VITAMIN D 25 OHon 11-29-2021 VIT D 25-OH 34.9 ng/mL Normal [facility] Comment on above: Performed By: #### V ITAD #### [facility] [address] [place] [address] Dr. Virginia Orourke VIT D RANGES SEE BELOW [facility] Comment on above: Result Comment: <20 ng/mL Vit D deficient 20 - <30 ng/mL Vit D insufficient 30 - 100 ng/mL Vit D sufficient >100 ng/mL Potential Toxicity Performed By: #### V ITAD #### [facility] [id number] Virginia Orourke Operative Reporton 2 Operative Report MR#: [id number] [facility] Pt. Name: Pj Martinez Room #: 0C Discharge Date: Birthdate: 1960 OPERATIVE REPORT DATE OF SURGERY: 09/05/2021 SURGEON: Garima Joshi MD PREOPERATIVE DIAGNOSES: Chronic wound left knee prepatellar area, nonhealing. POSTOPERATIVE DIAGNOSIS: Chronic wound left knee prepatellar area, nonhealing. PROCEDURES PERFORMED: 1. Excision of the wound in preparation for closure 4.2 x 2.7 cm. 2. Full-thickness skin graft from the left lower abdominal wall 4.2 x 2.7 cm. TAILOR'S AIDE: 1. Dr. Arias, PGY2. 2. KENDY Whitfield INDICATIONS: This patient is a pleasant 61-year-old man referred from the orthopedic clinic. He has prepatellar open wound nonhealing for many months, recommendation. On evaluation, he has indeed open wound with weak granulation over the base and rounding callus edges. Recommendation to the patient was to proceed with debridement of the wound, possible flap closure, possible skin graft closure, possible flap with the donor site skin grafting. All options discussed with the patient. The patient indicates understanding. He has minimal laxity of the surrounding tissue and flexion of the knee. Postprocedure requirements including knee mobilization as well as associated risks of surgery as bleeding, infection, need for additional procedures poor scarring and healing extensively discussed. The patient indicates understanding, his questions answered and the patient wants to proceed. Preoperatively, the patient was seen. Procedure and risks discussed. Consent signed. Marking was performed. PROCEDURE IN DETAIL: The patient was taken to the operating room, positioned supine on the table. General endotracheal anesthesia introduced. Area prepped and draped in usual sterile fashion. Time-out was called. Plans for surgery, site of surgery properly identified. No concerns expressed by the surgical team. The procedure started with excision of the wound with 2 mm margins through the full-thickness of the skin. A tangential excision of the base performed using #10 blade and additional rasping. Good capillary bleeding from the base identified and again significant thinning and deficiency of the lateral tissue identified. Based on this, decision was made to proceed with full-thickness skin grafting. The size of the defect at this point 4.2 x 2.7 cm. Selection was made on the previously prepped left lower abdominal wall as a donor site marked. Appropriate marking was performed and following local anesthesia with lidocaine 1% with epi mixed with Marcaine 0.25% at 1:1 mixture, total of 10 mL used. Elliptical incision carried through the skin through the full-thickness of the skin down to the subcutaneous tissue and full-thickness skin graft with adjacent subcutaneous tissue obtained. Meticulous hemostasis performed and donor site closed with 2-0 Vicryl, running 3-0 Monocryl, and application of the Dermabond to the skin completed the closure. Attention turned toward the skin graft. The obtained graft was de-fatted using Coronel scissors and pie crusted with a #15 blade through the surface of the graft. At this point, the graft was positioned into the defect providing sufficient coverage appropriately measured and stapling of the graft in the position performed on the periphery of the graft. Upon completion, Xeroform applied over the graft and bolstering performed using iodine foam. Foams secured with bradley peripherally providing sufficient pressure over the grafted site. At this point, Kerlix, Aleksander wrapping, and application of the knee immobilizer completed the procedure. At this point, the patient tolerated the procedure well. COMPLICATIONS: None. ESTIMATED BLOOD LOSS: Less than 50 mL. In good and stable condition, extubated, awakened, the patient returned to the recovery room. Electronically Signed by: Garima Joshi MD 09/09/2021 11:14 A Garima Joshi MD Date Dict: 09/05/2021/02:02 P/Garima Joshi MD Date Trans: 09/05/2021 11:50 P/leatha [id number] Normal [facility] Operative Reporton 2 Operative Report MR#: [id number] [facility] Pt. Name: Pj Martinez Room #: 0C Discharge Date: Birthdate: 1960 OPERATIVE REPORT DATE OF SURGERY: 09/05/2021 SURGEON: Garima Joshi MD Duplicate dictation to be removed Electronically Signed by: Garima Joshi MD 09/09/2021 11:14 A Garima Joshi MD I was present for the entire procedure. Date Dict: 09/05/2021/10:21 A/Flakita Arias MD Date Trans: 09/05/2021 11:37 A/mmo [id number] Normal [facility] POC GLUCOSE LABon 09-05-2021 Glucose [Mass/Vol] 103 mg/dL High 70-100 [facility] Comment on above: Performed By: #### [id number] #### [address] HAND LEFT 3 [facility] 03-20-2021 HAND LEFT 3 [facility] Department of Radiology [address] [place] [id number] Patient Name: PJ MARTINEZ : 1960 Sex: M Age: Race: White Pt. Location: Patient Status: O Ordered Date: 03/20/2021 12:50:00 PM Completed Date: 03/20/2021 12:58 PM Requesting Provider: GENIA DA SILVA Attending Provider: VASYL PRADO Report Copy To: Signs & Symptoms: S62.242A Disp fx of shaft of first metacarpal bone, left hand, init I10 History: Comments: evaluate Exam: HAND LEFT 3 VWS HAND LEFT 3 S 03/20/2021 12:58 PM CLINICAL INDICATIONS: S62.242A Disp fx of shaft of first metacarpal bone, left hand, init I10 TECHNOLOGIST COMMENTS: Follow up first digit of the left hand injury October 2020 QUESTION FOR THE RADIOLOGIST: evaluate PROTOCOL: AP,Lateral and Oblique views were obtained. COMPARISON: 02/18/2021. FINDINGS: Healing proximal first metacarpal fracture, not significantly changed from prior study. Reduced first carpometacarpal joint space suggestive of arthritis, similar to prior study. IMPRESSION: Healing proximal first metacarpal fracture, not significantly changed from prior study. Approved by:Kelsey Rivas03/20/2021 2:52 PM. I, Hetal Sandra,have reviewed the image(s) and agree with the findings in this report. Electronically signed: Hetal Sandra. Transcribed by: [email or web address], User Resident: KELSEY STOCK Electronically Signed by: HETAL SANDRA @ 03/20/2021 04:02 PM I personally read this/these film(s) with this resident Normal [facility] Comment on above: Order Comment: evalu ate HAND LEFT 3 [facility] 02-18-2021 HAND LEFT 3 [facility] Department of Radiology [address] [place] [id number] Patient Name: PJ MARTINEZ : 1960 Sex: M Age: Race: White Pt. Location: Patient Status: O Ordered Date: 02/18/2021 1:40:00 PM Completed Date: 02/18/2021 02:09 PM Requesting Provider: GENIA DA SILVA Attending Provider: VASYL PRADO Report Copy To: Signs & Symptoms: S62.242A Disp fx of shaft of first metacarpal bone, left hand, init I10 History: [place] Comments: Evaluate Exam: HAND LEFT 3 S HAND LEFT 3 S HISTORY: Fracture follow-up. COMPARISON: 01/16/2021. IMPRESSION: 1. Removal of hardware transfixing the first metacarpal fracture. There is unchanged alignment with apparent regions of osseous bridging. 2. Moderate first CMC arthritis. Electronically signed: Jordon Murphy. Transcribed by: [email or web address], User Resident: Electronically Signed by: JORDON MURPHY @ 02/18/2021 03:04 PM Normal [facility] Comment on above: Order Comment: Evalu ate HAND LEFT 3 Son 01-16-2021 HAND LEFT 3 [facility] Department of Radiology [address] [place] [id number] Patient Name: PJ MARTINEZ : 1960 Sex: M Age: Race: White Pt. Location: Patient Status: O Ordered Date: 01/16/2021 8:45:00 AM Completed Date: 01/16/2021 08:50 AM Requesting Provider: GENIA DA SILVA Attending Provider: VASYL PRADO Report Copy To: Signs & Symptoms: S62.242A Disp fx of shaft of first metacarpal bone, left hand, init I10 History: Comments: Evaluate Exam: HAND LEFT 3 [facility] HAND LEFT 3 S 01/16/2021 8:50 AM CLINICAL INDICATIONS: S62.242A Disp fx of shaft of first metacarpal bone, left hand, init I10 TECHNOLOGIST COMMENTS: left thumb surgery check healing QUESTION FOR THE RADIOLOGIST: Evaluate PROTOCOL: AP,Lateral and Oblique views were obtained. COMPARISON: 12/12/2020 FINDINGS: Stable alignment of first metacarpal fracture status post external pin fixation. Splint material obscures bone detail. Hardware is grossly intact. IMPRESSION: Stable alignment of first metacarpal fracture. Electronically signed: Milton Patiño. Transcribed by: [email or web address], User Resident: Electronically Signed by: MILTON PATIÑO @ 01/16/2021 05:02 PM Normal [facility] Comment on above: Order Comment: Evalu ate HAND LEFT 3 [facility] 12-12-2020 HAND LEFT 3 [facility] Department of Radiology [address] [place] [id number] Patient Name: PJ MARTINEZ : 1960 Sex: M Age: Race: White Pt. Location: Patient Status: Ordered Date: 12/12/2020 8:45:00 AM Completed Date: 12/12/2020 08:47 AM Requesting Provider: GENIA DA SILVA Attending Provider: Report Copy To: Signs & Symptoms: Z48.89 Encounter for other specified surgical aftercare I10 History: Comments: Evaluate Exam: HAND LEFT 3 [facility] HAND LEFT 3 S 12/12/2020 8:47 AM CLINICAL INDICATIONS: Z48.89 Encounter for other specified surgical aftercare I10 TECHNOLOGIST COMMENTS: ortho follow up. surgery to the left hand 2 weeks ago QUESTION FOR THE RADIOLOGIST: Evaluate PROTOCOL: AP,Lateral and Oblique views were obtained. COMPARISON: Intraoperative imaging, 2020 IMPRESSION: Overlying cast material limits fine osseous and soft tissue detail. Orthopedic pin fixation of subacute first metacarpal fracture. Alignment is unchanged, near anatomic. Fracture lucencies persistently visible. No acute hardware complication. Electronically signed: LIN WESTFALL. Transcribed by: [email or web address], User Resident: Electronically Signed by: LIN WESTFALL @ 12/12/2020 12:54 PM Normal [facility] Comment on above: Order Comment: Evalu ate HAND LEFT 2 Son 11-29-2020 HAND LEFT 2 [facility] Department of Radiology [address] [place] [id number] Patient Name: PJ MARTINEZ : 1960 Sex: M Age: Race: White Pt. Location: OUT Patient Status: O Ordered Date: 11/29/2020 4:00:00 PM Completed Date: 11/29/2020 07:22 PM Requesting Provider: VASYL PRADO Attending Provider: VASYL PRADO Report Copy To: Signs & Symptoms: CRPP VS ORIF LEFT 1ST METACARPAL History: Comments: CRPP VS ORIF LEFT 1ST METACARPAL Exam: HAND LEFT 2 VWS HAND LEFT 2 S 11/29/2020 7:22 PM SIGNS AND SYMPTOMS: CRPP VS ORIF LEFT 1ST METACARPAL TECHNOLOGIST COMMENTS: CRPP VS ORIF LEFT 1ST METACARPAL with Dr. PRADO. fluoro time 48 second, 8 images herbert c-arm QUESTION FOR THE RADIOLOGIST: CRPP VS ORIF LEFT 1ST METACARPAL PROTOCOL: AP(PA) and Lateral views were obtained. COMPARISON: None FINDINGS: Intraoperative fluoroscopy provided during left thumb ORIF. Percutaneous fixation pins placed spanning the first metacarpal fracture. 48 seconds fluoroscopy utilized. 8 saved images. IMPRESSION: Intraoperative fluoroscopy. Dictation for documentation purposes. Approved by:Shamar Fonseca11/30/2020 11:38 AM. I, Ming Rendon,have reviewed the image(s) and agree with the findings in this report. Electronically signed: Ming Rendon. Transcribed by: [email or web address], User Resident: SHAMAR EARL Electronically Signed by: MING RENDON @ 11/30/2020 11:49 AM I personally read this/these film(s) with this resident Normal [facility] Comment on above: Order Comment: CRPP VS ORIF LEFT 1ST METACARPAL Operative Reporton Operative Report MR#: [id number] [facility] Pt. Name: Pj Martinez Room #: 0C Discharge Date: Birthdate: 1960 OPERATIVE REPORT DATE OF SURGERY: 11/29/2020 SURGEON: Vasyl Prado M.D. PREOPERATIVE DIAGNOSIS: Left 1st metacarpal shaft fracture. POSTOPERATIVE DIAGNOSIS: Left 1st metacarpal shaft fracture. PROCEDURE PERFORMED: Closed reduction and percutaneous pinning, left 1st metacarpal. ASSISTANTS: 1. Scarlett Pang M.D. 2. Delio Saini M.D. 3. Cleve Perez M.D. ANESTHESIA: Monitored anesthesia with axillary block. SPECIMENS: None. IMPLANTS: 0.045 K-wire x1, 0.062 K-wire x1 with associated Jurgan balls. ESTIMATED BLOOD LOSS: Minimal. TOURNIQUET TIME: None used. COMPLICATIONS: None. INDICATION FOR PROCEDURE: The patient is a 60-year-old gentleman, who presented to the [facility] after sustaining injury to his left hand. X-ray imaging was obtained, which demonstrated a displaced left 1st metacarpal fracture. Given the amount of displacement on initial x-rays, we elected to proceed with closed versus open reduction of left 1st metacarpal fracture. The patient elected to proceed with the aforementioned procedure. DESCRIPTION OF PROCEDURE: The patient was met in the preoperative holding area. Informed consent was confirmed. The operative extremity was marked. The patient was taken back to the operating room and placed supine on the operating table. General anesthesia was induced without complications. A tourniquet was placed to the left upper arm, which was then prepped and draped in a standard sterile fashion. We began our procedure with a surgical time-out that confirmed the correct operative site, procedure, and laterality. We began with x-ray images in the AP and lateral views, which re-demonstrated a displaced 1st metacarpal fracture. There was slight apex dorsal angulation noted. This was able to be manually reduced with longitudinal traction and slight pronation of the thumb. This was then held manually and subsequently one 0.045 K-wire was placed from proximal to distal across the fracture site. This held our reduction provisionally and a 2nd 0.062 K-wire was used to cross pin starting distally to proximally. K-wire placement was confirmed in AP and lateral views and found to be satisfactory. There was no evidence of malrotation or malalignment following pinning. At this point, we were satisfied with our procedure and final x-ray images were obtained in the AP and lateral views. The K-wires were cut at the level of the skin and Jurgan balls were placed. The patient was awoken from anesthesia and transferred to PACU in good and stable condition. POSTOPERATIVE INSTRUCTIONS: The patient will be nonweightbearing to the left upper extremity. He will be discharged with pain control and instructions to follow up in 10-14 days for wound evaluation. I will anticipate pin removal in 6 weeks once the fracture healed. All questions and concerns were addressed to the patient and family prior to discharge. Electronically Signed by: Vasyl Prado M.D. 11/30/2020 05:48 P Vasyl Prado M.D. I was present for the rosales and critical portions and I was otherwise immediately available to assist. Date Dict: 11/29/2020/04:16 P/Scarlett Pang MD Date Trans: 11/29/2020 05:09 P/leatha [id number] Normal [facility] POC GLUCOSE LABon 11-29-2020 Glucose [Mass/Vol] 87 mg/dL Normal 70-100 [facility] Comment on above: Performed By: #### 8 [id number] #### [facility] [address] *MRSA/MSSA DNA NASALon 11-28 *MRSA/MSSA DNA NASAL Clinical Report: (D ) Specimen: NASAL SWAB Collected: 11/28/2020 12:22 Status: Final Last Updated: 11/29/2020 10:31 MSSA DNA (Final) Methicillin Susceptible Staphylococcus aureus DNA Detected MRSA DNA (Final) Negative Normal [facility] Comment on above: Performed By: #### 3 1595 ####[facility] [address] *SARS-CoV-2 COVID-19on 11-28 SARS-CoV-2 (COVID-19) RNA ANDREW+probe Ql (Unsp spec) Not detected Normal Not Detected [facility] Comment on above: Order Comment: The A ptima SARS-CoV-2 assay is a nucleic acid amplification test intended for the qualitative detection of RNA from SARS-CoV-2 isolated and purified from nasopharyngeal (HEAD START ASSISTANT TEACHER),oropharyngeal (OP), nasal swab, sputum, and bronchoalveolar lavage (BAL) specimens from patients with signs and symptoms of infection who are suspected of COVID-19. Results are for the identification of SARS-CoV-2 RNA. The SARS-CoV-2 RNA is generally detectable during the acute phase of infection. The Aptima SARS-CoV-2 Assay on the [place] [employer] [place] [employer] system is intended for use by laboratory personnel specifically instructed and trained in the operation of the [place] [employer] [place] [employer] system. The Aptima SARS-CoV-2 assay is only for use under the Food and Drug Administration Emergency Use Authorization. Testing is limited to laboratories certified under the Clinical Laboratory Improvement Amendments of 1988 (CLIA), 42 U.S.C. ???263a, to perform high complexity tests. Not Detected: Not detected does not preclude SARS-CoV-2 infection and should not be used as the sole basis for patient management decisions. Not detected results must be combined with clinical observations, patient history, and epidemiological information. Performed By: #### 3 1792 #### [facility] [address] APTTon 11-28-2020 aPTT Coag (Bld) [Time] 31.0 s Normal 25.0-35.0 [facility] Comment on above: Result Comment: ALL RESULTS MUST BE INTERPRETED WITH RESPECT TO BLOOD DRAWING ARTIFACT OR DILUTION ERROR OF ANTICOAGULANT AT THE TIME OF SAMPLING. THE APTT SHOULD NOT BE USED TO MONITOR UNFRACTIONATED HEPARIN THERAPY, THIS LABORATORY NO LONGER HAS AN ESTABLISHED THERAPEUTIC RANGE BASED ON THE APTT. IT IS RECOMMENDED THAT THE UFH - HEPARIN ASSAY (ANTI-XA ACTIVITY) BE USED FOR THIS PURPOSE. Performed By: #### 5 7307, [id number] ####[facility] [place] [address], [facility] BASIC METABOLIC PANELon Calcium [Mass/Vol] 9.6 mg/dL Normal 8.6-10.3 [facility] Comment on above: Performed By: #### 0 0071 ####[facility].[address] Chloride [Moles/Vol] 105 mmol/L Normal 98-107 [facility] Comment on above: Performed By: #### 0 0071 ####[facility] [place] [address], [facility] CO2 [Moles/Vol] 31 mmol/L Normal 21-[address] [facility] Comment on above: Performed By: #### 0 0071 ####[place] [address] [facility] [place] [address], [facility] Creatinine [Mass/Vol] 0.90 mg/dL Normal 0.70-1.30 [facility] Comment on above: Performed By: #### 0 0071 ####[place] [address], [facility] GFR/1.73 sq M.predicted among blacks MDRD (S/P/Bld) [Vol rate/Area] mL/min/{1.73_m2} Normal >60 [facility] Comment on above: Performed By: #### 0 0071 ####[place] [address] [facility] [place] [address], [facility] GFR/1.73 sq M.predicted among non-blacks MDRD (S/P/Bld) [Vol rate/Area] mL/min/{1.73_m2} Normal >60 [facility] Comment on above: Performed By: #### 0 0071 ####[facility] [place] [address], [facility] Glucose [Mass/Vol] 92 mg/dL Normal 70-100 [facility] Comment on above: Performed By: #### 0 0071 ####[place] [address] [facility] [place] [address], [facility] Potassium [Moles/Vol] 3.8 mmol/L Normal 3.5-5.1 [facility] Comment on above: Performed By: #### 0 0071 ####[facility] [address] Sodium [Moles/Vol] 141 mmol/L Normal 136-145 [facility] Comment on above: Performed By: #### 0 0071 ####[facility] [address] Urea nitrogen [Mass/Vol] 17 mg/dL Normal 7-25 [facility] Comment on above: Performed By: #### 0 0071 ####[facility] [address] CBC W/DIFFon 11-28-2020 ABS IMM GRANS 0.0 10*3/uL Normal 0.0-0.2 [facility] Comment on above: Performed By: #### 5 3 ####[place] [id number] ABS NEUTROPHILS 3.6 10*3/uL Normal 1.6-7.6 [facility] Comment on above: Performed By: #### 5 102 ####[place] [address] Basophils (Bld) [#/Vol] 0.1 10*3/uL Normal 0.0-0.2 [facility] Comment on above: Performed By: #### 5 3 ####[place] [address] Basophils/100 WBC (Bld) 1.0 % Normal 0.0-1.0 [facility] Comment on above: Performed By: #### 5 102 ####[address] Eosinophils (Bld) [#/Vol] 0.1 10*3/uL Normal 0.0-0.5 [facility] Comment on above: Performed By: #### 5 0103 ####[facility] [place] [address], [facility] Eosinophils/100 WBC (Bld) 2.0 % Normal 0.0-6.0 [facility] Comment on above: Performed By: #### 102 ####[facility].[address] Erythrocyte distribution width (RBC) [Ratio] 14.6 % Normal 11.5-15.0 [facility] Comment on above: Performed By: #### 102 ####[facility] [address] Hematocrit (Bld) [Volume fraction] 43.5 % Normal 39.0-50.0 [facility] Comment on above: Performed By: #### 102 ####[facility] [address] Hemoglobin (Bld) [Mass/Vol] 14.3 g/dL Normal 13.0-17.0 [facility] Comment on above: Performed By: #### 102 ####[facility] [address] IMMATURE GRANS 0.7 % Normal 0.0-1.0 [facility] Comment on above: Performed By: #### 102 ####[facility].[address] Lymphocytes (Bld) [#/Vol] 1.4 10*3/uL Normal 1.2-4.0 [facility] Comment on above: Performed By: #### 102 ####[facility] [address] Lymphocytes/100 WBC (Bld) 24.4 % Normal 20.0-45.0 [facility] Comment on above: Performed By: #### 5 0103 ####[facility] [address] MCH (RBC) [Entitic mass] 30.4 pg Normal 27.0-33.0 [facility] Comment on above: Performed By: #### 5 3 ####[facility] [address] MCHC (RBC) [Mass/Vol] 32.9 g/dL Normal 32.0-35.0 [facility] Comment on above: Performed By: #### 102 ####[facility] [address] MCV (RBC) [Entitic vol] 92.6 fL Normal 82.0-98.0 [facility] Comment on above: Performed By: #### 102 ####[facility] [address] Monocytes (Bld) [#/Vol] 0.7 10*3/uL Normal 0.1-1.0 [facility] Comment on above: Performed By: #### 102 ####[facility] [address] MONOS 11.2 % Normal 5.0-12.0 [facility] Comment on above: Performed By: #### 3 ####[facility] [address] Neutrophils/100 WBC (Bld) 60.7 % Normal 40.0-72.0 [facility] Comment on above: Performed By: #### 102 ####[facility] [address] Nucleated RBC/100 WBC (Bld) [Ratio] 0 % Normal 0-0 [facility] Comment on above: Performed By: #### 102 ####[facility] [place] [address], [facility] PLAT CNT 284 10*3/uL Normal 150-400 [facility] Comment on above: Performed By: #### 5 0103 ####[facility] [place] [address], [facility] RBC (Bld) [#/Vol] 4.70 10*6/uL Normal 4.20-5.70 [facility] Comment on above: Performed By: #### 5 0103 ####[facility] [place] [address], [facility] WBC (Bld) [#/Vol] 5.90 10*3/uL Normal 4.00-10.60 [facility] Comment on above: Performed By: #### 5 0103 ####[facility] [place], [place] [address] [place] [address] HAND LEFT 3 Son 11-28-2020 HAND LEFT 3 [facility] Department of Radiology [address] [place] [id number] Patient Name: PJ MARTINEZ : 1960 Sex: M Age: Race: White Pt. Location: Patient Status: O Ordered Date: 11/28/2020 11:20:00 AM Completed Date: 11/28/2020 11:26 AM Requesting Provider: GENIA DA SILVA Attending Provider: Report Copy To: Signs & Symptoms: S62.309A Unsp fracture of unsp metacarpal bone, init for clos fx I10 History: [place] Comments: Evaluate Exam: HAND LEFT 3 VWS HAND LEFT 3 VWS 11/28/2020 11:26 AM CLINICAL INDICATIONS: S62.309A Unsp fracture of unsp metacarpal bone, init for clos fx I10 TECHNOLOGIST COMMENTS: pt. injured left thumb yesterday; pain to entire left thumb QUESTION FOR THE RADIOLOGIST: Evaluate PROTOCOL: AP,Lateral and Oblique views were obtained. COMPARISON: No prior FINDINGS: Transverse fracture through the base of the first metacarpal. Mild lateral displacement. Some impaction. Fracture does not involve the articular surface through the proximal metadiaphyseal junction IMPRESSION: Transverse slightly impacted fracture of the proximal metadiaphyseal junction of the first metacarpal with slight lateral angulation. Mentioned above degenerative changes in the first carpal metacarpal joint with joint space narrowing Electronically signed: Rick Mota. Transcribed by: [email or web address], User Resident: Electronically Signed by: RICK MOTA @ 11/28/2020 05:09 PM Normal [facility] Comment on above: Order Comment: Evalu ate PROTHROMBIN TIMEon 1 INR Coag (PPP) [Relative time] 1.03 {INR} Normal 0.91-1.16 [facility] Comment on above: Result Comment: ACCC P RECOMMENDED INR FOR WARFARIN THERAPY ------- ------- CONDITION INR PROPHYLAXIS OF VENOUS THROMBOSIS 2-3 (HIGH-RISK SURGERY) TREATMENT OF VENOUS THROMBOSIS 2-3 TREATMENT OF PULMONARY EMBOLISM 2-3 PREVENTION OF SYSTEMIC EMBOLISM: 2-3 ACUTE MYOCARDIAL INFARCTION TISSUE HEART VALVES VALVULAR HEART DISEASE ATRIAL FIBRILLATION RECURRENT SYSTEMIC EMBOLISM MECHANICAL HEART VALVE 2.5-3.5 FROM: ORAL ANTICOAGULANTS. MECHANISM OF ACTION, CLINICAL EFFECTIVENESS, AND OPTIMAL THERAPEUTIC RANGE. CHEST 1995;108:231S-246S. Performed By: #### 5 7307, [address] ####[facility].[address] PT Coag (PPP) [Time] 13.5 s Normal 12.3-14.8 [facility] Comment on above: Result Comment: ALL RESULTS MUST BE INTERPRETED WITH RESPECT TO BLOOD DRAWING ARTIFACT OR DILUTION ERROR OF ANTICOAGULANT AT THE TIME OF SAMPLING. Performed By: #### 5 7307, 55569 ####[facility].[address] Vital Signs Date Time Vital Sign Value Performing Clinician Darien bonner 10-28-2023 14:09-0400 Body height 185.4 cm Catie Pineda MD Work Phone: [facility] 10-28-2023 14:09-0400 Body mass index (BMI) [Ratio] 28.23 kg/m2 Catie Pineda MD Work Phone: [facility] 10-28-2023 14:09-0400 Body weight 97.07 kg Catie Pineda MD Work Phone: [facility] 10-28-2023 14:09-0400 Diastolic blood pressure 82 mm[Hg] Catie Pineda MD Work Phone: [facility] 10-28-2023 14:09-0400 Heart rate 58 /min Catie Pineda MD Work Phone: [facility] 10-28-2023 14:09-0400 Systolic blood pressure 130 mm[Hg] Catie Pineda MD Work Phone: [facility] 06-29-2023 13:52-0500 Diastolic blood pressure 86 mm[Hg] Catie Pineda MD Work Phone: [facility] 06-29-2023 13:52-0500 Systolic blood pressure 138 mm[Hg] Catie Pineda MD Work Phone: [facility] 06-29-2023 13:51-0500 Body height 185.4 cm Catie Pineda MD Work Phone: [facility] 06-29-2023 13:51-0500 Body mass index (BMI) [Ratio] 28.37 kg/m2 Catie Pineda MD Work Phone: [facility] 06-29-2023 13:51-0500 Body weight 97.52 kg Catie Pineda MD Work Phone: [facility] 06-29-2023 13:51-0500 Heart rate 60 /min Catie Pineda MD Work Phone: [facility] Encounters Encounter Date Encounter Type Care Provider Facility Start: 10-28-2023 End: 10-28-2023 Office outpatient visit 15 minutes Catie Pineda MD Work Phone: [facility] Comment on above: Essential hypertensi on (Primary Dx); PVC (premature ventricular contraction); SVT (supraventricular tachycardia) ([facility]); BMI 28.0-28.9,adult; Never smoked any substance Start: 10-28-2023 End: 10-28-2023 ambulatory [facility] Start: 07-07-2023 End: 07-07-2023 ambulatory [facility] Start: 06-29-2023 End: 06-29-2023 Office consultation new/estab patient 60 min Catie Pineda MD Work Phone: [facility] Comment on above: Essential hypertensi on (Primary Dx); PVC (premature ventricular contraction); SVT (supraventricular tachycardia); Never smoked any substance; BMI 28.0-28.9,adult Start: 06-29-2023 End: 06-29-2023 ambulatory [facility] Start: 06-23-2023 End: 06-23-2023 ambulatory Anders Salazar Facility:[facility] Start: 06-23-2023 End: 06-23-2023 ambulatory DO Posadapatsy Salazar Work Phone: [facility] Work Phone: Start: 06-23-2023 End: 06-23-2023 Patient encounter procedure DO Anders Salazar Work Phone: [facility]-Electrodiagnostic s Work Phone: Start: 06-21-2022 End: 06-22-[address] ANDERS SALAZAR Facility:[facility] Start: 12-10-2021 End: 12-10-[address] ANDERS SALAZAR Facility:[facility] Start: 11-29-2021 End: 11-30-[address] ANDERS SALAZAR Facility:[facility] Start: 09-05-2021 End: 09-06-2021 ambulatory SIMONE PRIDE Facility:[facility] Start: 08-06-[address]ERS SALAZAR [facility] ity:[facility] Start: 11-29-2020 End: 11-30-2020 ambulatory VASYL PRADO Facility:[facility] Start: 12-04-2003 Evaluation and management of inpatient DO Anders Salazar Work Phone: [facility] Work Phone: Procedures Date Procedure Procedure Detail Performing Clinician Start: 07-07-2023 HOLTER OR EVENT CARD IAC MONITOR CATIE PINEDA Start: 06-29-2023 ECG 12-LEAD CATIE CHEN Start: 06-29-2023 Ecg routine ecg w/le ast 12 lds w/i&r Catie Pineda MD Work Phone: Start: 06-21-[address] ANDERS SALAZAR Comment on above: Performed By: #### P [facility] #### [facility] [address] [place] [address] Dr. Virginia Orourke Start: 11-29-2020 ANESTH LOWER ARM PROCEDURE SIMONE PRIDE Start: 11-29-2020 TREAT METACARPAL FRACTURE VASYL PRADO Plan of Treatment Date Care Activity Detail Author Start: 07-30-2028 DTaP/Tdap/Td Vaccine s (3 - Td or Tdap) DTaP/Tdap/Td Vaccines (3 - Td or Tdap) [facility] Start: 04-27-2024 End: 04-27-2024 Patient encounter procedure 04/27/2024 3:40 PM EST Office Visit [facility] [address] [place] [address] Catie Pineda MD [address] [facility] [address] [place] [address] [facility] Start: 01-24-2024 Influenza vaccination Influenz a Vaccine (Season Ended) [facility] Start: 10-28-2023 End: 10-28-2023 Patient encounter procedure 10/28/2023 2:00 PM EDT Office Visit [facility] [address] [place] [id number] Catie Pineda MD [address] [place] [address] [facility] Start: 07-07-2023 End: 07-07-2023 Professional / ancillary services management 07/07/2023 9:00 AM EST Ancillary Procedure [facility] [address] [place] [address] [facility] Start: 06-29-2023 End: 06-29-2024 Holter monitor study Holter Or Event Title I Assistant Cardiac Services Routine PVC (premature ventricular contraction) Expected: 06/29/2023, Expires: 06/29/2024 [facility] Service Area Work Phone: Comment on above: Expected: 06/29/2023 , Expires: 06/29/2024 Start: 2023 Pneumococcal Vaccine : 65+ Years (1 - PCV) Pneumococcal Vaccine: 65+ Years (1 - PCV) [facility] Start: 2023 Pneumococcal Vaccine : 65+ Years (1 of 1 - PCV) Pneumococcal Vaccine: 65+ Years (1 of 1 - PCV) [facility] Start: 01-23-2023 COVID-19 Vaccine ( season) COVID-19 Vaccine ( season) [facility] Start: 01-23-2023 Influenza vaccination Influenza Vacc ine (#1) [facility] Start: 2018 RSV patient s and/or patients aged 60+ years (1 - 1-dose 60+ series) RSV patients and/or patients aged 60+ years (1 - 1-dose 60+ series) [facility] Start: 2008 Zoster Vaccines (1 o f 2) Zoster Vaccines (1 of 2) [facility] Start: 1976 Diabetes mellitus screening Diabetes Screening [facility] Start: 1976 Hepatitis C screening Hepatitis C Sc [facility] Start: 1959 MMR Vaccines (1 of 1 - Standard series) MMR Vaccines (1 of 1 - Standard series) [facility] Start: 1960 Annual wellness visit Medicare Initial Physical (IPPE) [facility] Start: 1960 Lipid panel Lipid Panel [facility] Payers Date Payer Category Payer Self-pay [id number] 2023 Medicare MEDICARE MEDICAR E PART A AND B [id number] 2023-Present [id number] [place] [address] [id number] 2023 Private Health Insurance AETNA S UPPLEMENTAL AETNA SENIOR SUPPLEMENT [id number] 2023-Present [address] [place] [address] [id number] 2023 Medicare [id number] 2023 Private Health Insurance CLI [id number] 1959 Unknown [id number] 1959 Worker's Compensation [id number] 1958 Unknown [id number]. 647 1958 Unknown [id number]. 647 1958 Unknown [id number] [id number]. 593 1958 Unknown [id number]. 593 1958 Unknown [id number] [id number]. 593 1958 Unknown [id number] [id number]. 593 1958 Unknown [id number] [id number]. 1244 1958 Unknown [id number] [id number]. 1244 1958 Unknown [id number] [id number]. 1244 Unknown Regular Insurance Diana wood [id number] Unknown [id number] 531 Social History Date Type Detail Facility Start: 10-28-2021 End: 06-29-2023 Tobacco smoking status NHIS Never smoked tobacco (finding) [facility] Start: 1960 Sex Assigned At Male F [facility] Start: 06-29-2023 Tobacco use and exposure Smokeless tobacco non-user [facility] Work Phone: Start: 06-29-2023 End: 10-28-2023 Alcohol intake Ex-drinker (finding) [facility] Work Phone: Start: 06-29-2023 End: 10-28-2023 History of Social function [facility] Work Phone: Start: 06-29-2023 End: 10-28-2023 Tobacco use panel [facility] Work Phone: Start: 1960 Sex Assigned At Not on file U [facility] Work Phone: Start: 06-19-2023 End: 10-28-2023 Exposure to SARS-CoV-2 (event) Not sure [facility] History of Present illness Narrative 10-28-2023 Catie Pineda MD - 10/28/2023 2:00 PM EDT Note Date & Type Note Facility 10-28-2023 History of Present illness Narrative Subjective Pj Martinez is a 63 y.o. male Chief Complaint Follow-up HPI Patient is here for follow-up and management for recent evaluation for PVCs with remote history of SVT. Since last time I saw him he denies any cardiac complaint of chest pain, lightheadedness, dizziness or syncope. He reports rare palpitation. His recent Holter monitor showed frequent PACs and PVCs but no tacky arrhythmia. He described functional class I. He denies any other cardiac complaint. Assessment 1. Documentation of frequent PACs and PVCs PVCs. Minimally symptomatic on background of normal heart and no active cardiac symptoms 2. 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 Hypertension 4. Ulcerative colitis with prior hemicolectomy have a J-pouch 5. Obesity with BMI of 28 Plan 1. I believe patient arrhythmia is benign based on lack of active cardiac symptoms, functional class I, no evidence of coronary artery disease and no previous history of dizziness and no family history of sudden cardiac . 2. I reviewed the results of his Holter monitor with him 3. I just did a trial of magnesium oxide 400 mg twice daily if he can tolerate from GI standpoint 4. Patient was counseled regarding risk factor modification 5. Advised him to notify of change in cardiac status or symptoms Review of Systems All other systems reviewed and are negative. Vitals: 10/28/23 1409 BP: 130/82 BP Location: Right arm Patient Position: Sitting Pulse: 58 Weight: 97.1 kg (214 lb) Height: 1.854 m (6' 1 ) Objective Physical Exam Constitutional: Appearance: Normal appearance. HENT: Nose: Nose normal. Neck: Vascular: No carotid bruit. Cardiovascular: Rate and Rhythm: Normal rate. Pulses: Normal pulses. Heart sounds: Normal heart sounds. Pulmonary: Effort: Pulmonary effort is normal. Abdominal: General: Bowel sounds are normal. Palpations: Abdomen is soft. Musculoskeletal: General: Normal range of motion. Cervical back: Normal range of motion. Right lower leg: No edema. Left lower leg: No edema. Skin: General: Skin is warm and dry. Neurological: General: No focal deficit present. Mental Status: He is alert. Psychiatric: Mood and Affect: Mood normal. Behavior: Behavior normal. Thought Content: Thought content normal. Judgment: Judgment normal. Allergies Morphine and Codeine Current Medications Current Outpatient Medications: amLODIPine (Norvasc) 5 mg tablet, Take 1 tablet (5 mg) by mouth 2 times a day., Disp: , Rfl: cholecalciferol (Vitamin D3) 25 MCG (1000 UT) tablet, Take 2 tablets (50 mcg) by mouth once daily., Disp: , Rfl: fluticasone (Flovent HFA) 220 mcg/actuation inhaler, Inhale 2 puffs 2 times a day. Rinse mouth with water after use to reduce aftertaste and incidence of candidiasis. Do not swallow., Disp: , Rfl: glucosamine-chondroitin 500-400 mg tablet, Take 1 tablet by mouth 2 times a day., Disp: , Rfl: lisinopril 20 mg tablet 20 mg, hydroCHLOROthiazide 12.5 mg tablet 12.5 mg, Take 1 tablet by mouth once daily., Disp: , Rfl: loperamide (Imodium A-D) 2 mg tablet, Take 1 tablet (2 mg) by mouth 3 times a day as needed for diarrhea., Disp: , Rfl: pantoprazole (ProtoNix) 40 mg EC tablet, Take 1 tablet (40 mg) by mouth 2 times a day. Do not crush, chew, or split., Disp: , Rfl: magnesium oxide (Mag-Ox) 400 mg (241.3 mg magnesium) tablet, Take one tablet daily with food, if tolerated can take two tablets, Disp: 160 tablet, Rfl: 3 Assessment/Plan 1. Essential hypertension Follow Up In Cardiology 2. PVC (premature ventricular contraction) Follow Up In Cardiology magnesium oxide (Mag-Ox) 400 mg (241.3 mg magnesium) tablet 3. SVT (supraventricular tachycardia) ([facility]) magnesium oxide (Mag-Ox) 400 mg (241.3 mg magnesium) tablet 4. BMI 28.0-28.9,adult 5. Never smoked any substance Scribe Attestation By signing my name below, Roz Mcelroy LPN, Scribe attest that this documentation has been prepared under the direction and in the presence of Catie Pineda MD. Provider Attestation - Scribe documentation All medical record entries made by the Scribe were at my direction and personally dictated by me. I have reviewed the chart and agree that the record accurately reflects my personal performance of the history, physical exam, discussion and plan. documented in this encounter [facility] Work Phone: Instructions 10-28-2023 Patient Instructions Note Date & Type Note Facility 10-28-2023 Ashley Pacheco LPN - 10/28/2023 2:00 PM EDT Please bring all medicines, vitamins, and herbal supplements with you when you come to the office. Prescriptions will not be filled unless you are compliant with your follow up appointments or have a follow up appointment scheduled as per instruction of your physician. Refills should be requested at the time of your visit. BMI was above normal measurement. Current weight: 97.1 kg (214 lb) Weight change since last visit (-) denotes wt loss -1 lbs Weight loss needed to achieve BMI 25: 24.9 Lbs Weight loss needed to achieve BMI 30: -12.9 Lbs Provided instructions on dietary changes. documented in this encounter [facility] Work Phone: History of Present illness Narrative 06-29-2023 Catie Pineda MD - 06/29/2023 2:00 PM EST Note Date & Type Note Facility 06-29-2023 History of Present illness Narrative Cardiology Consultation- New Consult Reason for referral: Bigeminy HPI: Pj Martinez is a 63 y.o. male well-known to me from remote evaluation back in 2003 where he presented with SVT and ultimately underwent a referral for ablation which was done successfully with no recurrence for his AV cristian reentry tachycardia. During recent evaluation the patient was noted to have bigeminy on physical examination. An EKG was performed but the result was not available to me. The patient was suspected clinically to have PVCs. The patient denies any complaint of chest pain, palpitation, lightheadedness, dizziness or syncope. He report he is very active with described functional class I. Today's examination was normal his EKG is normal. Assessment 1. Recent observation of arrhythmia on clinical examination suspected to be PVCs. Unfortunately his outside EKG is not available to me 2. 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 Hypertension 4. Ulcerative colitis with prior hemicolectomy have a J-pouch 5. Obesity with BMI of 28 Plan 1. Considering the patient is completely asymptomatic and his physical examination and EKG is normal I recommended observant approach 2. Will do an outpatient 48-hour Holter monitor to assess for the burden of his arrhythmia 3. I will see him in 3 to 4-month in follow-up or earlier if the need arise 4. Patient was counseled regarding risk factor modification Past Medical History: He has no past medical history on file. Surgical History: He has a past surgical history that includes Atrial ablation surgery; Tonsillectomy; Hemorrhoid surgery; Total colectomy; Knee surgery (Right); Thumb arthroscopy (Left); and Vein ligation and stripping. Family History: Family History Problem Relation Name Age of Onset Diabetes Mother Breast cancer Mother Aortic aneurysm Mother Lung cancer Father Thyroid cancer Sister Other (bladder cancer) Brother Social History: Social History Tobacco Use Smoking status: Never Smokeless tobacco: Never Substance Use Topics Alcohol use: Not Currently Allergies: Morphine and Codeine Current Medications: Current Outpatient Medications: amLODIPine (Norvasc) 5 mg tablet, Take 1 tablet (5 mg) by mouth 2 times a day., Disp: , Rfl: cholecalciferol (Vitamin D3) 25 MCG (1000 UT) tablet, Take 2 tablets (50 mcg) by mouth once daily., Disp: , Rfl: cyanocobalamin (Vitamin B-12) 100 mcg tablet, Take 1 tablet (100 mcg) by mouth once daily., Disp: , Rfl: fluticasone (Flovent HFA) 220 mcg/actuation inhaler, Inhale 2 puffs 2 times a day. Rinse mouth with water after use to reduce aftertaste and incidence of candidiasis. Do not swallow., Disp: , Rfl: glucosamine-chondroitin 500-400 mg tablet, Take 1 tablet by mouth 2 times a day., Disp: , Rfl: lisinopril 20 mg tablet 20 mg, hydroCHLOROthiazide 12.5 mg tablet 12.5 mg, Take 1 tablet by mouth once daily., Disp: , Rfl: loperamide (Imodium A-D) 2 mg tablet, Take 1 tablet (2 mg) by mouth 3 times a day as needed for diarrhea., Disp: , Rfl: pantoprazole (ProtoNix) 40 mg EC tablet, Take 1 tablet (40 mg) by mouth 2 times a day. Do not crush, chew, or split., Disp: , Rfl: Vitals: Visit Vitals BP 138/86 (BP Location: Left arm, Patient Position: Sitting) Pulse 60 Ht 1.854 m (6' 1 ) Wt 97.5 kg (215 lb) BMI 28.37 kg/m Smoking Status Never BSA 2.24 m EKG done in office today Review of Systems All other systems reviewed and are negative. Objective Physical Exam Constitutional: Appearance: Normal appearance. He is normal weight. HENT: Nose: Nose normal. Neck: Vascular: No carotid bruit. Cardiovascular: Rate and Rhythm: Normal rate. Pulses: Normal pulses. Heart sounds: Normal heart sounds. Pulmonary: Effort: Pulmonary effort is normal. Abdominal: General: Bowel sounds are normal. Palpations: Abdomen is soft. Genitourinary: Rectum: Normal. Musculoskeletal: General: Normal range of motion. Cervical back: Normal range of motion. Right lower leg: No edema. Left lower leg: No edema. Skin: General: Skin is warm and dry. Neurological: General: No focal deficit present. Mental Status: He is alert. Psychiatric: Mood and Affect: Mood normal. Behavior: Behavior normal. Thought Content: Thought content normal. Judgment: Judgment normal. Assessment and Plan: 1. Essential hypertension 2. PVC (premature ventricular contraction) Follow Up In Cardiology Holter Or Event Title I Assistant ECG 12 Lead 3. SVT (supraventricular tachycardia) ECG 12 Lead 4. Never smoked any substance 5. BMI 28.0-28.9,adult Scribe Attestation By signing my name below, Lupe Mcelroy LPN , Scribe attest that this documentation has been prepared under the direction and in the presence of Catie Pineda MD. documented in this encounter [facility] Work Phone: Instructions 06-29-2023 Patient Instructions Note Date & Type Note Facility 06-29-2023 Instructions Faisal Soni MA - 06/29/2023 2:00 PM EST Please bring all medicines, vitamins, and herbal supplements with you when you come to the office. Prescriptions will not be filled unless you are compliant with your follow up appointments or have a follow up appointment scheduled as per instruction of your physician. Refills should be requested at the time of your visit. Fall Prevention Education Given documented in this encounter [facility] Work Phone: Evaluation note Note Date & Type Note Facility Evaluation note No assessment information [facility] Work Phone: Evaluation note Note Date & Type Note Facility Evaluation note Diagnosis Essential hypertension- Primary Unspecified essential hypertension PVC (premature ventricular contraction) Other premature beats SVT (supraventricular tachycardia) Other specified cardiac dysrhythmias Never smoked any substance BMI 28.0-28.9,adult documented in this encounter [facility] Work Phone: Evaluation note Note Date & Type Note Facility Evaluation note Diagnosis Essential hypertension- Primary Unspecified essential hypertension PVC (premature ventricular contraction) Other premature beats SVT (supraventricular tachycardia) ([facility]) Other specified cardiac dysrhythmias BMI 28.0-28.9,adult Never smoked any substance documented in this encounter [facility] Work Phone: Reason for referral (narrative) Consultation (Routine) - Authorized Note Date & Type Note Facility Reason for referral (narrati ve) Specialty Diagnoses / Procedures Referred By Peter jay Referred To Contact Cardiology Diagnoses Essential hypertension Procedures Follow Up In Cardiology Catie Pineda MD [address] [place] [address] 2, [place] [address] [place] [id number] Catie Pineda MD [address] [place] [address] 2, [place] [address] [place] [phone] Referral ID Status Reason Start Date Expiration Date V isits Requested Visits Authorized [id number] Authorized 10/28/2023 10/27/2024 1 1 [facility] Work Phone: Summary Purpose Family History No Family History Records Found Relationship Condition Age at Onset Recorded Date/T kenneth Not Specified Diabetes mellitus Unknown father Malignant neoplasm Unknown Advance Directives No Advanced Directives Records Found Advance Directive Response Recorded Date/ Time Advance Directives No August 05 019 7:01am Chief Complaint and Reason for Visit Chief Complaint ^ bradycardia Reason for Referral Specialty Diagnoses / Procedures Referred By Peter jay Referred To Contact Diagnoses PVC (premature ventricular contraction) SVT (supraventricular tachycardia) Procedures ECG 12 Lead Catie Pineda MD [address] [place] [address] 2, [place] [address] [place] [id number] Referral ID Status Reason Start Date Expiration Date V isits Requested Visits Authorized [id number] Authorized 06/29/2023 06/28/2024 1 1 Specialty Diagnoses / Procedures Referred By Contac t Referred To Contact Cardiology Diagnoses PVC (premature ventricular contraction) Procedures Holter Or Event Title I Assistant Catie Pineda MD [address] [facility], [place] [phone] Referral ID Status Reason Start Date Expiration Date V isits Requested Visits Authorized [id number] Pending Review 06/29/2023 06/28/2024 1 1 Specialty Diagnoses / Procedures Referred By Contac t Referred To Contact Cardiology Diagnoses PVC (premature ventricular contraction) Procedures Follow Up In Cardiology Catie Pineda MD [address] [facility], [place] [phone] Catie Pineda MD [address] [facility], [place] [phone] Referral ID Status Reason Start Date Expiration Date V isits Requested Visits Authorized [id number] Authorized 06/29/2023 06/28/2024 1 1 Additional Source Comments (unrecognized sect ion and content) No Status Records FoundNo Status Records FoundNo Status Records FoundNo Status Records Found INFORMATION SOURCE (unrecogn ized section and content) DATE CREATED AUTHOR 09/09/2021 [facility] DATE CREATED AUTHOR AUTHOR'S ORGANIZ ATION 06/25/2022 [facility] DATE CREATED AUTHOR AUTHOR'S ORGANIZ ATION 07/24/2023 [facility] DATE CREATED AUTHOR AUTHOR'S ORGANIZ ATION 10/30/2023 [facility] Director Of Religious Activities Teams (unrecognized sec tion and content) Team Status: Active Member Role Status Dates Anders Salazar DO Primary Care Provider Active Team Status: Active Member Role Status Dates Anders Salazar DO Attending Provider Active St art: December 04, 2003 Team Status: Inactive Member Role Status Dates Anders Salazar DO Primary Care Provide r, Attending Provider Active Start: June 23, 2023 End: June 23, 2023 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 Specialty Start Date End Date Justus Anders DO K[facility] [address] [facility] Anders Salazar MD [place] [phone] PCP - General Family Medicine 06/29/23 Goals (unrecognized section and content) Goals may be documented in a n alternate section Reason for Visit (unrecogniz ed section and content) Reason Comments New Patient Visit [facility] eminy Specialty Diagnoses / Procedures Referred By Peter jay Referred To Contact Diagnoses PVC (premature ventricular contraction) SVT (supraventricular tachycardia) Procedures ECG 12 Lead Catie Pineda MD [address] [place] [address] 2, [address] [address] Referral ID Status Reason Start Date Expiration Date V isits Requested Visits Authorized [id number] Authorized 06/29/2023 06/28/2024 1 1 Reason Comments Follow-up 5m Specialty Diagnoses / Procedures Referred By Peter jay Referred To Contact Cardiology Diagnoses PVC (premature ventricular contraction) Procedures Follow Up In Cardiology Catie Pineda MD [address] [place] [address] 2, [address] [address] Catie Pineda MD [address] [place] [address] 2, [address] [address] Referral ID Status Reason Start Date Expiration Date V isits Requested Visits Authorized [id number] Authorized 06/29/2023 06/28/2024 1 1 FOR RECORDS PERTAINING TO PATIENTS WHO ARE OR HAVE BEEN ENROLLED IN A CHEMICAL DEPENDENCY/SUBSTANCEABUSE PROGRAM, SOME INFORMATION MAY BE OMITTED. This clinical summary was aggregated from multiple sources. Caution should be exercised in using it in the provision of clinical care. This summary normalizes information from multiple sources, and as a consequence, information in this document may materially change the coding, format and clinical context of patient data. In addition, data may be omitted in some cases. CLINICAL DECISIONS SHOULD BE BASED ON THE PRIMARY CLINICAL RECORDS. [employer] [facility]. provides no warranty or guarantee of the accuracy or completeness of information in this document.
[2023-12-12 16:20] VITALS: BP 140/98; PULSE 63; TEMP 36.7; O2SAT 97; BMI 27.7
[2023-12-12] MEDS: LIDOCAINE HCL 1% 100 MG/10 ML MDV INJ (19:15)
[2023-12-12 19:49] VITALS: BP 115/82; PULSE 71; O2SAT 98
--- NOTE | 2023-12-13 07:52 | ED_ITS ---
HPI - Wound/Laceration General Chief Complaint: Wound/Laceration Stated Complaint: WOUND CHECK, LOWER RIGHT EXTREMITY Time Seen by Provider: 12/12/23 17:59 Source: patient Mode of arrival: walk-in Limitations: no limitations History of Present Illness HPI narrative: The patient is coming to the ER after he obtained a laceration after he was putting down a propane gas and it did hit his right leg causing a laceration, it did not fall on the leg but it actually hit it sideway The patient is up-to-date with vaccination with his last tetanus booster was within the last 5 years He had no pain with walking and just at the laceration site Related Data Previous Rx's ?Medication ?Instructions ?Recorded cephalexin 500 mg capsule 500 mg PO Q8H 7 days #21 caps 12/12/23 Allergies Allergy/AdvReac Type Severity Reaction Status Date / Time codeine Allergy Intermediate Agitated Verified 12/12/23 16:24 morphine Allergy Intermediate vomiting Verified 12/12/23 16:24 Review of Systems ROS Status of ROS 10 or more systems reviewed and unremark able except as noted in history and below Exam Narrative Exam Narrative: Nurses notes and vital signs reviewed and patient is not hypoxic. General: Well-appearing and in no apparent distress. Skin: Warm, dry, no pallor noted. No rash. Head: Normocephalic, atraumatic. Neck: Supple, non-tender. Eye: Pupils are equal, round and EOMI. No scleral icterus. Ears, Nose, Mouth, and Throat: TM are clear, no nasal mucosal hypertrophy. Oral mucosa is moist, no posterior oropharynx erythema, uvula is mid-line Cardiovascular: Regular Rate and Rhythm without murmur, gallop or rub. Respiratory: No accessory muscle use or respiratory distress. Lungs are clear to auscultation, no wheezing, rales or rhonchi Chest Wall: no tenderness Back: No midline thoracic or lumbar vertebral tenderness. No CVA tenderness Musculoskeletal: normal ROM, no calf or popliteal tenderness, on the medial aspect of the right leg mostly the patient have a laceration on the mid tibial level almost 3 x 3 cm L-shaped superficial with a very thin skin, no vascular injury detected GI: Abdomen is soft, non-distended. Normal bowel sounds. No masses appreciated. No tenderness to palpation. No rebound, guarding, or rigidity noted. Neurological: A&O x4. No cranial nerve dysfunction observed. No truncal ataxia. Moves all extremities. Sensation intact. Psychiatric: Cooperative and interactive. Normal mood and affect. Constitutional Vital Signs, click to edit/add: Last Vital Signs Temp 98.1 F 12/12/23 16:20 Pulse 71 12/12/23 19:49 Resp 18 12/12/23 19:49 BP 115/82 12/12/23 19:49 Pulse Ox 98 12/12/23 19:49 O2 Del Method Room Air 12/12/23 19:49 Course Vital Signs Vital signs: Vital Signs Temperature 98.1 F 12/12/23 16:20 Pulse Rate 63 12/12/23 16:20 Respiratory Rate 16 12/12/23 16:20 Blood Pressure 140/98 H 12/12/23 16:20 Pulse Oximetry 97 12/12/23 16:20 Oxygen Delivery Method Room Air 12/12/23 16:20 Temperature 98.1 F 12/12/23 16:20 Pulse Rate 71 12/12/23 19:49 Respiratory Rate 18 12/12/23 19:49 Blood Pressure 115/82 12/12/23 19:49 Pulse Oximetry 98 12/12/23 19:49 Oxygen Delivery Method Room Air 12/12/23 19:49 MDM - Wound/Laceration MDM Narrative Medical decision making narrative: After cleaning the area thoroughly with normal saline and the 2D The patient had almost 12 stitches not interrupted, 4-0 nylon Patient was tolerated the procedure well He was discharged home with Keflex as a prophylaxis due to his history of previous infection The patient is to follow up with primary care physician in next 2-3 days or to return to the emergency department should any of the signs or symptoms worsen or new symptoms develop. The patient agrees with the following Diagnosis and Treatment plan and the patient will be discharged home. Discharge Plan Discharge Stand Alone Forms: Portal Instructions Chief Complaint: Wound/Laceration Clinical Impression: Laceration Patient Disposition: Home, Self-Care Time of Disposition Decision: 19:27 Condition: Good Mode of Transportation: Private Vehicle Prescriptions / Home Meds: New cephalexin 500 mg capsule 500 mg PO Q8H 7 Days Qty: 21 0RF Print Language: Occitan Instructions: Laceration (DC) Referrals: ANDERS SALAZAR [Primary Care Provider] - 1 week Discharge Date/Time: 12/12/23 19:51
== END 2023-12-12 19:51 | disposition home or self-care (01) ==
PROVIDERS: Emergency Provider Emergency Medicine; PCP Family Medicine
DX: S81.811A Laceration without foreign body, right lower leg, initial encounter (principal); W22.8XXA Striking against or struck by other objects, initial encounter
CPT/HCPCS: 12002; 99284

== ENCOUNTER 2024-06-22 08:33 | Outpatient (OUT) | payer MEDICARE, SELFPAY ==
--- OUTSIDE RECORDS SUMMARY | 2024-06-22 08:48 | XMS_ITS | CCD ---
Author Organization [facility] Care Team Providers Care Ell Teacher Name Role Phone SIMONE PRIDE Referring Unavailable KRIEGEL, GARIMA Admitting Unavailable KRIEGEL, GARIMA Attending Unavailable BUNTING, ANDERS Primary Care Unavailable EBRAHEIM, VASYL Admitting Unavailable UNKNOWN, PHYSICIAN Primary Care Unavailable UNKNOWN, PHYSICIAN Referring Unavailable AR Procedure Practitioner Unavailab le EBRAHEIM, VASYL Attending [...] Care Provider Bunting DOAnders Primary Care Provider [phone] Bunting, Anders Attending Unavailable Bunting, Anders Primary Care Unavailable Bunting, Anders Admitting Unavailable TRABOULSSI, MOURHAF Attending Unavailable BUNTING, ANDERS RAY Primary Care Unavailable TRABOULSSI, MOURHAF Referring Unavailable BUNTING, ANDERS RAY Primary Care Unavailable TRABOULSSI, MOURHAF Attending Unavailable TRABOULSSI, MOURHAF Referring Unavailable BUNTING, ANDERS RAY Primary Care Unavailable Allergies Allergy Classification Reported Allergen(s) Allergy Type Date of Onset Reaction(s) Facility (8 sources) Codeine; Translations: [CODEINE] Drug Allergy 4 Anxiety [facility] Repository (8 sources) Morphine; Translations: [MORPHINE] Drug Allergy 4 Nausea/vomiting [facility] Medications Current Medications Medication Drug Class(es) [...] 2021 11:00pm amLODIPine 5 mg oral tablet (4 sources) Dihydropyridine Calcium Channel Maggie Start: 10-01-2021 [...] 2021 11:00pm cholecalciferol 0.025 mg oral tablet (3 sources) Vitamin D take 2 tablets by mouth once daily cholecalciferol (Vitamin D3) 25 MCG (1000 UT) tablet Take 2 tablets (50 mcg) by mouth once daily. Active chondroitin sulfates 400 mg / glucosamine hydrochloride 500 mg oral tablet (3 sources) take 1 tablet by mouth twice daily glucosamine-chondr oitin 500-400 mg tablet Take 1 tablet by mouth 2 times a day. Active docusate sodium 50 mg / sennosides, mcc 8.6 mg oral tablet (1 source) Start: 10-01-2021 take 1 tablet by mouth twice daily Sennosides-Docusat e Sodium (Senexon-S) 8.6-50 mg Tablet Active 1 TAB-CAP PO Twice daily September 30, 2021 11:00pm 120 actuat fluticasone propionate 0.22 mg/actuat metered dose inhaler (4 sources) Corticosteroid Start: 10-01-2021 take 1 puff(s) by inhalation twice daily Fluticasone Propionate (Flovent Hfa) 220 mcg/actuation Hfa Aerosol Inhaler Active 1 PUFF INHALATION Twice daily September 30, 2021 11:00pm End: 04-27-2024 take 2 puff(s) by mouth twice daily fluticasone (Flovent HFA) 220 mcg/actuation inhaler Inhale 2 puffs 2 times a day. Rinse mouth with water after use to reduce aftertaste and incidence of candidiasis. Do not swallow. 04/27/2024 Discontinued (Discontinued by another clinician) hydroCHLOROthiazide 12.5 mg / lisinopril 10 mg oral tablet (4 sources) Thiazide Diuretic, Angiotensin Converting Enzyme Inhibitor [...] 11:00pm loperamide hydrochloride 2 mg oral tablet (4 sources) Opioid Agonist Start: 10-01-2021 take 2 mg by mouth four times daily Loperamide Active 2 MG PO Four times daily September 30, 2021 11:00pm take 1 tablet by adamaris th three times daily as needed for diarrhea loperamide (Imodium A-D) 2 mg tablet Amando e 1 tablet (2 mg) by mouth 3 times a day as needed for diarrhea. Active 24 hr metoprolol succinate 25 mg extended release oral tablet (1 source) beta-Adrenergic Maggie Start: 04-27-2024 End: 04-27-2025 take 0.5 tablet by mouth once daily metoprolol succinate XL (Toprol-XL) 25 mg 24 hr tablet Indications: PVC (premature ventricular contraction) , SVT (supraventricular tachycardia) (CMS-HCC) Take 0.5 tablets (12.5 mg) by mouth once daily. Do not crush or chew. 45 tablet 3 04/27/2024 04/27/2025 Active 120 actuat mometasone furoate 0.22 mg/actuat dry powder inhaler (1 source) Corticosteroid Start: 04-13-2024 take 2 puff(s) by inhalation twice daily Asmanex Twisthaler 220 mcg/ actuation (120) inhaler Inhale 2 puffs 2 times a day. 04/13/2024 Active omeprazole 20 mg delayed release oral capsule (1 source) Proton Pump Inhibitor Start: 10-01-2021 take 20 mg by mouth twice daily Omeprazole Active 20 MG PO Twice daily September 30, 2021 11:00pm pantoprazole 40 mg delayed release oral tablet (4 sources) Proton Pump Inhibitor Start: 10-01-2021 take [...] Drug Class(es) Dates Sig (Normalized) Sig (Original) magnesium oxide 400 mg oral tablet (2 sources) Start: 10-28-2023 End: 04-27-2024 magnesium oxide (Mag-Ox) 400 mg (241.3 mg magnesium) tablet Indications: PVC (premature ventricular contraction) , SVT (supraventricular tachycardia) (CMS-HCC) Take one tablet daily with food, if tolerated can take two tablets 160 tablet 3 10/28/2023 04/27/2024 Discontinued (Discontinued by another clinician) vitamin b12 0.1 mg oral tablet (2 sources) Vitamin B12 End: 10-28-2023 take 1 tablet by mouth once daily cyanocobalamin (Vitamin B-12) 100 mcg tablet Take 1 tablet (100 mcg) by mouth once daily. 10/28/2023 Discontinued (Discontinued by another clinician) Problems Active Problems Problem Classification Problem Date Documented Date Episodic/Chronic Cardiac dysrhythmias (16 sources) Multiple premature ventricular complexes; Translations: [Ventricular premature depolarization] Onset: 06-29-2023 06-29-2023 Chronic Diabetes mellitus without complication (1 source) Impaired fasting glucose; Translations: [IMPAIRED FASTING GLUCOSE] Onset: 06-24-2022 Episodic Disorders of lipid metabolism (5 sources) Mixed hyperlipidemia; Translations: [MIXED HYPERLIPIDEMIA] Onset: 11-29-2021 Chronic Essential hypertension (14 sources) Essential (primary) hypertension; Translations: [Essential hypertension] Onset: 12-03-2021 Chronic Nutritional deficiencies (1 source) Vitamin D deficiency, unspecified; Translations: [VITAMIN D DEFICIENCY UNSPECIFIED] Onset: 12-03-2021 Chronic Open wounds of extremities (1 source) Open wound of left knee; Translations: [Unspecified open wound, left knee, initial encounter] 10-28-2021 Episodic Other aftercare (1 source) 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; Translations: [OTH [employer] CURRENT DRUG THERAPY] Onset: 06-24-2022 Episodic Other nutritional; endocrine; and metabolic disorders (6 sources) Overweight in adulthood with body mass [...] postprocedural states] 10-01-2021 Episodic Residual codes; unclassified (6 sources) Never smoked any substance; Translations: [Other [...] W/AND (SUSP) EXPOS COVID-19] Onset: 12-10-2021 Unclassified (3 sources) Onset: 06-29-2023 Resolved: 10-28-2023 06-29-2023 Unclassified (1 source) Supraventricular tachycardia, unspecified (CMS-HCC); Translations: [Supraventricular tachycardia, unspecified (CMS-HCC)] Onset: 10-28-2023 Unclassified (1 source) Supraventricular tachycardia, unspecified; Translations: [Supraventricular tachycardia, unspecified] Onset: 06-29-2023 Results Test Name Value Interpretation Reference Range Facility ECG 12 Leadon 04-27-2024 Sinus with occasional PVCs [facility] Work Phone: [facility] Work Phone: ECG 12 Leadon 06-29-2023 [facility] ECGon 06-23-2023 ECG 12 lead ECG [facility] [place] [address] Electrocardiograph Report Signed Patient: Pj Martinez MR#: [id number] : 1960 Acct:[id number] Age/Sex: 63 / M ADM Date: 06/23/23 Loc: Room: Type: [facility] Attending Dr: Anders Salazar DO Ordering Provider: [...] previous ECGs available Confirmed by Magy Abbott ([id number]) on 06/23/2023 4:38:00 PM Referred By: Electronically Signed By:Magy Abbott REVISED DOCUMENT/07/16/2023/ wilson (corrected prov sig) Transcribed By: MUS Signed By Magy Abbott MD 4 0006 [facility] CBC AUTO DIFFon 06-21-2022 BASO # 0.1 103/ul Normal 0.0-0.1 [facility] Comment on above: Performed By: #### C BC #### [facility] [address] [place] [address] Dr. Virginia Orourke Basophils/100 WBC (Bld) 0.7 % Normal 0.2-2.[address] [facility] Comment on above: Performed By: #### C BC #### [facility] [address] [place] [address] Dr. Virginia Orourke EO # 0.2 103/ul Normal 0.0-0.7 [facility] Comment on above: Performed By: #### C BC #### [facility] [address] [address] [address] Virginia Orourke Eosinophils/100 WBC (Bld) 2.1 % Normal 0.9-7.[address] [facility] Comment on above: Performed By: #### C BC #### [facility] [address] [place] [address] Dr. Virginia Orourke Erythrocyte distribution width (RBC) [Ratio] 13.6 % Normal 11.0-15.[address] [facility] Comment on above: Performed By: #### C BC #### [facility] [address] [place] [address] Dr. Virginia Orourke Hematocrit (Bld) [Volume fraction] 39.7 % Critically low 42.0-54.[address] [facility] Comment on above: Performed By: #### C BC #### [facility] [address] [place] [address] Dr. Virginia Orourke Hemoglobin (Bld) [Mass/Vol] 13.9 g/dL Critically low 14.0-18.[address] [facility] Comment on above: Performed By: #### C BC #### [facility] [address] [place] [address] Dr. Virginia Orourke IG # 0.01 10e3/ul Normal 0.00-0.03 [facility] Comment on above: Performed By: #### C BC #### [facility] [address] [place] [address] Dr. Virginia Orourke IG % 0.1 % Normal 0.0-0.5 [facility] Comment on above: Performed By: #### C BC #### [facility] [address] [place] [address] Dr. Virginia Orourke LYMPH # 1.7 103/ul Normal 1.2-3.[address] [facility] Comment on above: Performed By: #### C BC #### [facility] [address] [place] [address] Dr. Virginia Orourke Lymphocytes/100 WBC (Bld) 23.6 % Normal 20.5-60.[address] [facility] Comment on above: Performed By: #### C BC #### [facility] [address] [place] [address] Dr. Virginia Orourke MANUAL DIFF REQ NO Normal [facility] Comment on above: Performed By: #### C BC #### [facility] [address] [place] [address] Dr. Virginia Orourke MCH (RBC) [Entitic mass] 30.1 pg Normal 25.9-34.[address] [facility] Comment on above: Performed By: #### C BC #### [facility] [address] [place] [address] Dr. Virginia Orourke MCHC (RBC) [Mass/Vol] 35.0 g/dL Normal 29.9-35.2 [facility] Comment on above: Performed By: #### C BC #### [facility] [address] [place] [address] Dr. Virginia Orourke MCV (RBC) [Entitic vol] 85.9 fL Normal 80.0-94.[address] [facility] Comment on above: Performed By: #### C BC #### [facility] [address] [place] [address] Dr. Virginia Orourke MONO # 0.8 103/ul Normal 0.3-0.8 [facility] Comment on above: Performed By: #### C BC #### [facility] [address] [place] [address] Dr. Virginia Orourke Monocytes/100 WBC (Bld) 10.4 % Normal 1.7-12.[address] [facility] Comment on above: Performed By: #### C BC #### [facility] [address] [place] [address] Dr. Virginia Orourke NEUT # 4.6 103/ul Normal 1.4-6.[address] [facility] Comment on above: Performed By: #### C BC #### [facility] [address] [place] [address] Dr. Virginia Orourke Neutrophils/100 WBC (Bld) 63.1 % Normal 43.0-75.[address] [facility] Comment on above: Performed By: #### C BC #### [facility] [address] [place] [address] Dr. Virginia Orourke Platelet mean volume (Bld) [Entitic vol] 8.9 fL Critically low 9.5-13.[address] [facility] Comment on above: Performed By: #### C BC #### [facility] [address] [place] [address] Dr. Virginia Orourke PLT 255 103/ul Normal 150-[address] [facility] Comment on above: Performed By: #### C BC #### [facility] [address] [place] [address] Dr. Virginia Orourke RBC 4.62 106/ul Critically low 4.70-6.10 [facility] Comment on above: Performed By: #### C BC #### [facility] [address] [place] [address] Dr. Virginia Orourke WBC 7.2 103/ul Normal 4.0-11.[address] [facility] Comment on above: Performed By: #### C BC #### [facility] [address] [place] [address] Dr. Virginia Orourke GLYCOHEMOGLOBIN A1Con 2022 ADA RECOMMENDATION SEE BELOW Normal [facility] Comment on above: Result Comment: ADA RECOMMENDED LIMIT 4.0 - 6.0 ADA THERAPEUTIC TARGET < 7.0 ACTION SUGGESTED > 7.0 Performed By: #### A 1C #### [facility] [address] [place] [address] Dr. Virginia Orourke Glucose [Mass/Vol] 111 mg/dL Normal [facility] Comment on above: Performed By: #### A 1C #### [facility] [address] [place] [address] Dr. Virginia Orourke HbA1c (Bld) [Mass fraction] 5.5 % Normal 4.5-6.[address] [facility] Comment on above: Performed By: #### A 1C #### [facility] [address] [address] [address] Virginia Orourke LIPID PROFILEon 06-21-2022 CHOL-HDL RATIO NORM SEE BELOW Normal [facility] Comment on above: Result Comment: 3.3 - 4.4 LOW RISK 4.4 - 7.1 AVERAGE RISK 7.1 - 11.0 MODERATE RISK >11.0 HIGH RISK Performed By: #### C MP, LIPID #### [facility] [address] [address] [address] Virginia Orourke Cholesterol [Mass/Vol] 145 mg/dL Normal <=[address] [facility] Comment on above: Performed By: #### C MP, LIPID #### [facility] [address] [address] [address] Virginia Orourke Cholesterol in HDL [Mass/Vol] 69 mg/dL Critically high 40-[address] [facility] Comment on above: Performed By: #### C MP, LIPID #### [facility] [address] [address] [address] Virginia Orourke Cholesterol in LDL [Mass/Vol] 62.6 mg/dL Normal [facility] Comment on above: Performed By: #### C MP, LIPID #### [facility] [address] [place], [place] [address] Dr. Virginia Orourke Cholesterol.total/Ch olesterol in HDL [Mass ratio] 2.1 {ratio} Normal [facility] Comment on above: Performed By: #### C MP, LIPID #### [facility] [address] [address] [address] Virginia Orourke HDL NORMAL > or = 60 mg/dl - LOW CARDIOVASCULAR RISK <40 mg/dl - HIGH CARDIOVASCULAR RISK Normal [facility] Comment on above: Performed By: #### C MP, LIPID #### [facility] [address] [address] [address] Virginia Orourke LDL CALC NORMAL SEE BELOW Normal [facility] Comment on above: Result Comment: <100 mg/dl OPTIMAL 100 - 129 mg/dl NEAR OR ABOVE OPTIMAL 130 - 159 mg/dl BORDERLINE HIGH 160 - 189 mg/dl HIGH >190 mg/dl VERY HIGH Performed By: #### C MP, LIPID #### [facility] [address] [place] [address] Dr. Virginia Orourke Triglyceride [Mass/Vol] 67 mg/dL Normal <=[address] [facility] Comment on above: Performed By: #### C MP, LIPID #### [facility] [address] [place] [address] Dr. Virginia Orourke VLDL CALC 13.4 mg/dL Normal [facility] Comment on above: Performed By: #### C MP, LIPID #### [facility] [address] [place] [address] Dr. Virginia Orourke PROF 14(COMP METB)on 023 Albumin [Mass/Vol] 3.8 g/dL Normal 3.4-5.0 [facility] Comment on above: Performed By: #### C MP, LIPID #### [facility] [address] [place] [address] Dr. Virginia Orourke Albumin/Globulin [Mass ratio] 1.0 {ratio} Normal [facility] Comment on above: Performed By: #### C MP, LIPID #### [facility] [address] [place] [address] Dr. Virginia Orourke ALP [Catalytic activity/Vol] 81 U/L Normal 46-[address] [facility] Comment on above: Performed By: #### C MP, LIPID #### [facility] [address] [place] [address] Dr. Virginia Orourke ALT [Catalytic activity/Vol] 29 U/L Normal 16-[address] [facility] Comment on above: Performed By: #### C MP, LIPID #### [facility] [address] [place] [address] Dr. Virginia Orourke Anion gap [Moles/Vol] 12.1 mmol/L Normal [facility] Comment on above: Performed By: #### C MP, LIPID #### [facility] [address] [place] [address] Dr. Virginia Orourke AST [Catalytic activity/Vol] 24 U/L Normal 15-[address] [facility] Comment on above: Performed By: #### C MP, LIPID #### [facility] [address] [place] [address] Dr. Virginia Orourke Bilirubin [Mass/Vol] 0.7 mg/dL Normal 0.2-1.[address] [facility] Comment on above: Performed By: #### C MP, LIPID #### [facility] [address] [place] [address] Dr. Virginia Orourke Calcium [Mass/Vol] 9.3 mg/dL Normal 8.5-10.1 [facility] Comment on above: Performed By: #### C MP, LIPID #### [facility] [address] [place] [address] Dr. Virginia Orourke Chloride [Moles/Vol] 105 mmol/L Normal 98-[address] [facility] Comment on above: Performed By: #### C MP, LIPID #### [facility] [address] [place] [address] Dr. Virginia Orourke CO2 [Moles/Vol] 29.5 mmol/L Normal 21.0-32.0 [facility] Comment on above: Performed By: #### C MP, LIPID #### [facility] [address] [place] [address] Dr. Virginia Orourke Creatinine [Mass/Vol] 0.80 mg/dL Normal 0.70-1.[address] [facility] Comment on above: Performed By: #### C MP, LIPID #### [facility] [address] [place] [address] Dr. Virginia Orourke EGFR-AF ALBANIAN >60 Normal >=60 [facility] Comment on above: Performed By: #### C MP, LIPID #### [facility] [address] [place] [address] Dr. Virginia Orourke EGFR-NON AF ALBANIAN >60 Normal >=[address] [facility] Comment on above: Performed By: #### C MP, LIPID #### [facility] [address] [place] [address] Dr. Virginia Orourke Globulin (S) [Mass/Vol] 3.7 g/dL Normal [facility] Comment on above: Performed By: #### C MP, LIPID #### [facility] [address] [place] [address] Dr. Virginia Orourke Glucose [Mass/Vol] 107 mg/dL Critically high 74-106 [facility] Comment on above: Performed By: #### C MP, LIPID #### [facility] [address] [place] [address] Dr. Virginia Orourke Potassium [Moles/Vol] 3.6 mmol/L Normal 3.5-5.[address] [facility] Comment on above: Performed By: #### C MP, LIPID #### [facility] [address] [place] [address] Dr. Virginia Orourke Protein [Mass/Vol] 7.5 g/dL Normal 6.4-8.2 [facility] Comment on above: Performed By: #### C MP, LIPID #### [facility] [address] [place] [address] Dr. Virginia Orourke Sodium [Moles/Vol] 143 mmol/L Normal 136-145 [facility] Comment on above: Performed By: #### C MP, LIPID #### [facility] [address] [place] [address] Dr. Virginia Orourke Urea nitrogen [Mass/Vol] 14.0 mg/dL Normal 7.0-18.[address] [facility] Comment on above: Performed By: #### C MP, LIPID #### [facility] [address] [place] [address] Dr. Virginia Orourke Urea nitrogen/Creatinine [Mass ratio] 17.5 mg/mg Normal [facility] Comment on above: Performed By: #### C MP, LIPID #### [facility] [address] [place] [address] Dr. Virginia Orourke Covid-19 PCR ([facility]on 11-22 SARS-CoV-2 (COVID-19) RNA ANDREW+probe Ql (Unsp spec) Detected Critically abnormal NOT DETECTED [facility] Comment on above: Result Comment: This test is not yet approved or cleared by the [place] FDA. When there are no FDA-approved or cleared tests available, and other criteria are met, FDA can make tests available under an emergency access mechanism called an Emergency Use Authorization (EUA). The EUA for this test is supported by the [place] of Health and Human Service's declaration that [...] longer be used). Performed By: #### C VDTB #### [facility] [address] [place] [address] Dr. Virginia Orourke CBC AUTO DIFFon 11-29-2021 BASO # 0.0 103/ul Normal 0.0-0.[address] [facility] Comment on above: Performed By: #### C BC #### [facility] [address] [place] [address] Dr. Virginia Orourke Basophils/100 WBC (Bld) 0.7 % Normal 0.2-2.[address] [facility] Comment on above: Performed By: #### C BC #### [facility] [address] [place] [address] Dr. Virginia Orourke EO # 0.1 103/ul Normal 0.0-0.7 [facility] Comment on above: Performed By: #### C BC #### [facility] [address] [place] [address] Dr. Virginia Orourke Eosinophils/100 WBC (Bld) 1.3 % Normal 0.9-7.0 [facility] Comment on above: Performed By: #### C BC #### [facility] [address] [place] [address] Dr. Virginia Orourke Erythrocyte distribution width (RBC) [Ratio] 14.8 % Normal 11.0-15.[address] [facility] Comment on above: Performed By: #### C BC #### [facility] [address] [place] [address] Dr. Virginia Orourke Hematocrit (Bld) [Volume fraction] 40.2 % Critically low 42.0-54.[address] [facility] Comment on above: Performed By: #### C BC #### [facility] [address] [place] [address] Dr. Virginia Orourke Hemoglobin (Bld) [Mass/Vol] 13.1 g/dL Critically low 14.0-18.[address] [facility] Comment on above: Performed By: #### C BC #### [facility] [address] [place] [address] Dr. Virginia Orourke IG # 0.02 10e3/ul Normal 0.00-0.[address] [facility] Comment on above: Performed By: #### C BC #### [facility] [address] [place] [address] Dr. Virginia Orourke IG % 0.3 % Normal 0.0-0.[address] [facility] Comment on above: Performed By: #### C BC #### [facility] [address] [place] [address] Dr. Virginia Orourke LYMPH # 1.4 103/ul Normal 1.2-3.[address] [facility] Comment on above: Performed By: #### C BC #### [facility] [address] [place] [address] Dr. Virginia Orourke Lymphocytes/100 WBC (Bld) 22.1 % Normal 20.5-60.[address] [facility] Comment on above: Performed By: #### C BC #### [facility] [address] [place] [address] Dr. Virginia Orourke MANUAL DIFF REQ NO Normal [facility] Comment on above: Performed By: #### C BC #### [facility] [address] [place] [place] [address] Dr. Virginia Orourke MCH (RBC) [Entitic mass] 30.7 pg Normal 25.9-34.[address] [facility] Comment on above: Performed By: #### C BC #### [facility] [address] [place] [address] Dr. Virginia Orourke MCHC (RBC) [Mass/Vol] 32.6 g/dL Normal 29.9-35.[address] [facility] Comment on above: Performed By: #### C BC #### [facility] [address] [address] [address] Virginia Orourke MCV (RBC) [Entitic vol] 94.1 fL Critically high 80.0-94.[address] [facility] Comment on above: Performed By: #### C BC #### [facility] [address] [address] [address] Virginia Orourke MONO # 0.7 103/ul Normal 0.3-0.[address] [facility] Comment on above: Performed By: #### C BC #### [facility] [address] [place] [address] Dr. Virginia Orourke Monocytes/100 WBC (Bld) 11.4 % Normal 1.7-12.[address] [facility] Comment on above: Performed By: #### C BC #### [facility] [address] [place] [address] Dr. Virginia Orourke NEUT # 3.9 103/ul Normal 1.4-6.[address] [facility] Comment on above: Performed By: #### C BC #### [facility] [address] [place] [address] Dr. Virginia Orourke Neutrophils/100 WBC (Bld) 64.2 % Normal 43.0-75.[address] [facility] Comment on above: Performed By: #### C BC #### [facility] [address] [place] [address] Dr. Virginia Orourke Platelet mean volume (Bld) [Entitic vol] 9.9 fL Normal 9.5-13.[address] [facility] Comment on above: Performed By: #### C BC #### [facility] [address] [place] [address] Dr. Virginia Orourke PLT 242 103/ul Normal 150-450 [facility] Comment on above: Performed By: #### C BC #### [facility] [address] [place] [address] Dr. Virginia Orourke RBC 4.27 106/ul Critically low 4.70-6.10 [facility] Comment on above: Performed By: #### C BC #### [facility] [address] [address] [address] Virginia Orourke WBC 6.1 103/ul Normal 4.0-11.[address] [facility] Comment on above: Performed By: #### C BC #### [facility] [address] [address] [address] Virginia Orourke GLYCOHEMOGLOBIN A1Con 2021 ADA RECOMMENDATION SEE BELOW Normal [facility] Comment on above: Result Comment: ADA RECOMMENDED LIMIT 4.0 - 6.0 ADA THERAPEUTIC TARGET < 7.0 ACTION SUGGESTED > 7.0 Performed By: #### L IPID, CMP #### [facility] [address] [place] [address] Dr. Virginia Orourke HbA1c (Bld) [Mass fraction] 5.5 % Normal 4.5-6.[address] [facility] Comment on above: Performed By: #### L IPID, CMP #### [facility] [address] [address] [address] Virginia Orourke LIPID PROFILEon 11-29-2021 CHOL-HDL RATIO NORM SEE BELOW Normal [facility] Comment on above: Result Comment: 3.3 - 4.4 LOW RISK 4.4 - 7.1 AVERAGE RISK 7.1 - 11.0 MODERATE RISK >11.0 HIGH RISK Performed By: #### L IPID, CMP #### [facility] [address] [address] [address] Virginia Orourke Cholesterol [Mass/Vol] 149 mg/dL Normal <=[address] [facility] Comment on above: Performed By: #### L IPID, CMP #### [facility] [address] [address] [address] Virginia Orourke Cholesterol in HDL [Mass/Vol] 71 mg/dL Critically high 40-[address] [facility] Comment on above: Performed By: #### L IPID, CMP #### [facility] [address] [place] [address] Dr. Virginia Orourke Cholesterol in LDL [Mass/Vol] 72.8 mg/dL Normal [facility] Comment on above: Performed By: #### L IPID, CMP #### [facility] [address] [address] [address] Virginia Orourke Cholesterol.total/Ch olesterol in HDL [Mass ratio] 2.1 {ratio} Normal [facility] Comment on above: Performed By: #### L IPID, CMP #### [facility] [address] [address] [address] Virginia Orourke HDL NORMAL > or = 60 mg/dl - LOW CARDIOVASCULAR RISK <40 mg/dl - HIGH CARDIOVASCULAR RISK Normal [facility] Comment on above: Performed By: #### L IPID, CMP #### [facility] [address] [address] [address] Virginia Orourke LDL CALC NORMAL SEE BELOW Normal [facility] Comment on above: Result Comment: <100 mg/dl OPTIMAL 100 - 129 mg/dl NEAR OR ABOVE OPTIMAL 130 - 159 mg/dl BORDERLINE HIGH 160 - 189 mg/dl HIGH >190 mg/dl VERY HIGH Performed By: #### L IPID, CMP #### [facility] [address] [address] [address] Virginia Orourke Triglyceride [Mass/Vol] 26 mg/dL Normal <=[address] [facility] Comment on above: Performed By: #### L IPID, CMP #### [facility] [address] [address] [address] Virginia Orourke VLDL CALC 5.2 mg/dL Normal [facility] Comment on above: Performed By: #### L IPID, CMP #### [facility] [address] [address] [address] Virginia Orourke PROF 14(COMP METB)on 022 Albumin [Mass/Vol] 3.8 g/dL Normal 3.4-5.0 [facility] Comment on above: Performed By: #### L IPID, CMP #### [facility] [address] [address] [address] Virginia Orourke Albumin/Globulin [Mass ratio] 1.1 {ratio} Normal [facility] Comment on above: Performed By: #### L IPID, CMP #### [facility] [address] [address] [address] Virginia Orourke ALP [Catalytic activity/Vol] 73 U/L Normal 46-[address] [facility] Comment on above: Performed By: #### L IPID, CMP #### [facility] [address] [address] [address] Virginia Orourke ALT [Catalytic activity/Vol] 39 U/L Normal 16-[address] [facility] Comment on above: Performed By: #### L IPID, CMP #### [facility] [address] [address] [address] Virginia Orourke Anion gap [Moles/Vol] 9.2 mmol/L Normal [facility] Comment on above: Performed By: #### L IPID, CMP #### [facility] [address] [address] [address] Virginia Orourke AST [Catalytic activity/Vol] 29 U/L Normal 15-[address] [facility] Comment on above: Performed By: #### L IPID, CMP #### [facility] [address] [address] [address] Virginia Orourke Bilirubin [Mass/Vol] 0.6 mg/dL Normal 0.2-1.[address] [facility] Comment on above: Performed By: #### L IPID, CMP #### [facility] [address] [address] [address] Virginia Orourke Calcium [Mass/Vol] 9.2 mg/dL Normal 8.5-10.1 [facility] Comment on above: Performed By: #### L IPID, CMP #### [facility] [address] [address] [address] Virginia Orourke Chloride [Moles/Vol] 106 mmol/L Normal 98-[address] [facility] Comment on above: Performed By: #### L IPID, CMP #### [facility] [address] [address] [address] Virginia Orourke CO2 [Moles/Vol] 31.4 mmol/L Normal 21.0-32.0 [facility] Comment on above: Performed By: #### L IPID, CMP #### [facility] [address] [address] [address] Virginia Orourke Creatinine [Mass/Vol] 0.94 mg/dL Normal 0.70-1.30 [facility] Comment on above: Performed By: #### L IPID, CMP #### [facility] [address] [address] [address] Virginia Orourke EGFR-AF ALBANIAN >60 Normal >=60 [facility] Comment on above: Performed By: #### L IPID, CMP #### [facility] [address] [address] [address] Virginia Orourke EGFR-NON AF ALBANIAN >60 Normal >=[address] [facility] Comment on above: Performed By: #### L IPID, CMP #### [facility] [address] [address] [address] Virginia Orourke Globulin (S) [Mass/Vol] 3.6 g/dL Normal [facility] Comment on above: Performed By: #### L IPID, CMP #### [facility] [address] [address] [address] Virginia Orourke Glucose [Mass/Vol] 111 mg/dL Normal [facility] Comment on above: Performed By: #### L IPID, CMP #### [facility] [address] [address] [address] Virginia Orourke Potassium [Moles/Vol] 4.7 mmol/L Normal 3.5-5.1 [facility] Comment on above: Performed By: #### L IPID, CMP #### [facility] [address] [address] [address] Virginia Orourke Protein [Mass/Vol] 7.4 g/dL Normal 6.4-8.2 [facility] Comment on above: Performed By: #### L IPID, CMP #### [facility] [address] [address] [address] Virginia Orourke Sodium [Moles/Vol] 142 mmol/L Normal 136-145 [facility] Comment on above: Performed By: #### L IPID, CMP #### [facility] [address] [address] [address] Virginia Orourke Urea nitrogen [Mass/Vol] 17.0 mg/dL Normal 7.0-18.[address] [facility] Comment on above: Performed By: #### L IPID, CMP #### [facility] [address] [address] [address] Virginia Orourke Urea nitrogen/Creatinine [Mass ratio] 18.1 mg/mg Normal [facility] Comment on above: Performed By: #### L IPID, CMP #### [facility] [address] [address] [address] Virginia Orourke VITAMIN D 25 OHon 11-29-2021 VIT D 25-OH 34.9 ng/mL Normal [facility] Comment on above: Performed By: #### V ITAD #### [facility] [address] [place] [address] Dr. Virginia Orourke VIT D RANGES SEE BELOW Normal [facility] Comment on above: Result Comment: <20 ng/mL Vit D deficient 20 - <30 ng/mL Vit D insufficient 30 - 100 ng/mL Vit D sufficient >100 ng/mL Potential Toxicity Performed By: #### V ITAD #### [facility] [address] [place] [address] Dr. Virginia Orourke Operative Reporton 2 Operative Report MR#: [id number] [facility] Pt. Name: Pj Martinez Room #: 0 Discharge Date: Birthdate: 1960 OPERATIVE REPORT DATE OF SURGERY: 09/05/2021 SURGEON: Garima Joshi MD PREOPERATIVE DIAGNOSES: Chronic wound left knee prepatellar area, nonhealing. POSTOPERATIVE DIAGNOSIS: Chronic wound left knee prepatellar area, nonhealing. PROCEDURES PERFORMED: 1. Excision of the wound in preparation for closure 4.2 x 2.7 cm. 2. Full-thickness skin graft from the left lower abdominal wall 4.2 x 2.7 cm. VEGETABLE II FARMWORKER: 1. Dr. Arias, PGY2. 2. KENDY Whitfield [...] P/Garima Joshi MD Date Trans: 09/05/2021 11:50 P/mmo [id number] Normal [facility] Operative Reporton Operative Report MR#: [id number] [facility] Pt. Name: Pj Martinez Room #: 0C Discharge Date: Birthdate: 1960 OPERATIVE REPORT DATE OF SURGERY: 09/05/2021 SURGEON: Garima Joshi MD Duplicate dictation to be removed Electronically Signed by: Garima Joshi MD 09/09/2021 11:14 A Garima Joshi MD I was present for the entire procedure. Date Dict: 09/05/2021/10:21 A/Flakita Arias MD Date Trans: 09/05/2021 11:37 A/mmo [id number] Normal [facility] POC GLUCOSE LABon 09-05-2021 Glucose [Mass/Vol] 103 mg/dL High 70-100 [facility] Comment on above: Performed By: #### 8 [id number] #### [address] [place] [address], [facility] HAND LEFT 3 VWSon 03-20-2021 HAND LEFT 3 VWS [facility] Department of Radiology [address] [place] [id number] Patient Name: PJ MARTINEZ : 1960 Sex: M Age: Race: White Pt. Location: Patient Status: O Ordered Date: 03/20/2021 12:50:00 PM Completed Date: 03/20/2021 12:58 PM Requesting Provider: GENIA DA SILVA Attending Provider: VASYL PRADO Report Copy To: Signs & Symptoms: S62.242A Disp fx of shaft of first metacarpal bone, left hand, init I10 History: Comments: evaluate Exam: HAND LEFT 3 S HAND LEFT 3 S 03/20/2021 12:58 PM [...] report. Electronically signed: Hetal Sandra. Transcribed by: [email or web address], User Resident: KELSEY STOCK Electronically Signed by: HETAL SANDRA @ 03/20/2021 04:02 PM I personally read this/these film(s) with this resident Normal [facility] Comment on above: Order Comment: evalu ate HAND LEFT 3 VWSon 02-18-2021 HAND LEFT 3 VWS [facility] Department of Radiology [address] [place] [phone] Patient Name: PJ MARTINEZ : 1960 Sex: M Age: Race: White Pt. Location: Patient Status: O Ordered Date: 02/18/2021 1:40:00 PM Completed Date: 02/18/2021 02:09 PM Requesting Provider: GENIA DA SILVA Attending Provider: VASYL PRADO Report Copy To: Signs & Symptoms: S62.242A Disp fx of shaft of first metacarpal bone, left hand, init I10 History: [place] Comments: Evaluate Exam: HAND LEFT 3 VWS HAND LEFT 3 VWS HISTORY: Fracture follow-up. COMPARISON: 01/16/2021. IMPRESSION: 1. Removal of hardware transfixing the first metacarpal fracture. There is unchanged alignment with apparent regions of osseous bridging. 2. Moderate first CMC arthritis. Electronically signed: Jordon Murphy. Transcribed by: [email or web address], User Resident: Electronically Signed by: JORDON MURPHY @ 02/18/2021 03:04 PM Normal [facility] Comment on above: Order Comment: Evalu ate HAND LEFT 3 Son 01-16-2021 HAND LEFT 3 S [facility] Department of Radiology [address] [place] [phone] Patient Name: PJ MARTINEZ : 1960 Sex: M Age: Race: White Pt. Location: Patient Status: O Ordered Date: 01/16/2021 8:45:00 AM Completed Date: 01/16/2021 08:50 AM Requesting Provider: GENIA DA SILVA Attending Provider: VASYL PRADO Report Copy To: Signs & Symptoms: S62.242A Disp fx of shaft of first metacarpal bone, left hand, init I10 History: Comments: Evaluate Exam: HAND LEFT 3 [facility] HAND LEFT 3 [facility] 01/16/2021 8:50 AM CLINICAL INDICATIONS: S62.242A Disp [...] fracture. Electronically signed: Milton Patiño. Transcribed by: [email or web address], User Resident: Electronically Signed by: MILTON PATIÑO @ 01/16/2021 05:02 PM Normal [facility] Comment on above: Order Comment: Evalu ate HAND LEFT 3 Son 12-12-2020 HAND LEFT 3 S [facility] Department of Radiology [address] [place] [phone] Patient Name: PJ MARTINEZ : 1960 Sex: M Age: Race: White Pt. Location: Patient Status: Ordered Date: 12/12/2020 8:45:00 AM Completed Date: 12/12/2020 08:47 AM Requesting Provider: GENIA DA SILVA Attending Provider: Report Copy To: Signs & Symptoms: Z48.89 Encounter for other specified surgical aftercare I10 History: Comments: Evaluate Exam: HAND LEFT 3 [facility] HAND LEFT 3 S 12/12/2020 8:47 [...] complication. Electronically signed: LIN WESTFALL. Transcribed by: [email or web address], User Resident: Electronically Signed by: LIN WESTFALL @ 12/12/2020 12:54 PM Normal [facility] Comment on above: Order Comment: Evalu ate HAND LEFT 2 VWSon 11-29-2020 HAND LEFT 2 S [facility] Department of Radiology [address] [place] [phone] Patient Name: PJ MARTINEZ : 1960 Sex: M Age: Race: White Pt. Location: OUTP Patient Status: O Ordered Date: 11/29/2020 4:00:00 PM Completed Date: 11/29/2020 07:22 PM Requesting Provider: VASYL PRADO Attending Provider: VASYL PRADO Report Copy To: Signs & Symptoms: CRPP VS ORIF LEFT 1ST METACARPAL History: Comments: CRPP VS ORIF LEFT 1ST METACARPAL Exam: HAND LEFT 2 S HAND LEFT 2 S 11/29/2020 7:22 PM [...] Approved by:Shamar Fonseca11/30/2020 11:38 AM. I, Ming Saucedoarleen,have reviewed the image(s) and agree with the findings in this report. Electronically signed: Ming Rendon. Transcribed by: [email or web address], User Resident: SHAMAR EARL Electronically Signed by: MING RENDON @ 11/30/2020 11:49 AM I personally read this/these film(s) with this resident Normal [facility] Comment on above: Order Comment: CRPP VS ORIF LEFT 1ST METACARPAL Operative Reporton Operative Report MR#: [id number] [facility] Pt. Name: Pj Martinez Room #: 0C [...] Pang MD Date Trans: 11/29/2020 05:09 P/leatha [id number] Normal [facility] POC GLUCOSE LABon 11-29-2020 Glucose [Mass/Vol] 87 mg/dL Normal 70-100 [facility] Comment on above: Performed By: #### 8 [id number] #### [facility] [address] *MRSA/MSSA DNA NASALon 11-28 *MRSA/MSSA DNA NASAL Clinical Report: (D ) Specimen: NASAL SWAB Collected: 11/28/2020 12:22 Status: Final Last Updated: 11/29/2020 10:31 MSSA DNA (Final) Methicillin Susceptible Staphylococcus aureus DNA Detected MRSA DNA (Final) Negative Normal [facility] Comment on above: Performed By: #### 3 1595 ####[facility] *SARS-CoV-2 COVID-19on 11-28 SARS-CoV-2 (COVID-19) RNA ANDREW+probe Ql (Unsp spec) Not detected Normal Not Detected [facility] Comment on above: Order Comment: The A ptima SARS-CoV-2 assay is a nucleic acid amplification test intended for the qualitative detection of RNA from SARS-CoV-2 isolated and purified from nasopharyngeal (PAPER SLITTER),oropharyngeal (OP), nasal swab, sputum, and bronchoalveolar lavage (BAL) specimens from patients with signs and symptoms of infection who are suspected of COVID-19. Results are for the identification of SARS-CoV-2 RNA. The SARS-CoV-2 RNA is generally detectable during the acute phase of infection. The Aptima SARS-CoV-2 Assay on the [employer] [place] [employer] system is intended for use by laboratory personnel specifically instructed and trained in the operation of the [employer] [place] [employer] system. The Aptima SARS-CoV-2 assay is [...] and epidemiological information. Performed By: #### 3 7312 #### [facility] [address] [place] [address], [facility] APTTon 11-28-2020 aPTT Coag (Bld) [Time] 31.0 s Normal 25.0-35.0 [facility] Comment on above: Result Comment: ALL [...] THIS PURPOSE. Performed By: #### 5 7307, 15[address] ####[facility] [place] [address], [facility] BASIC METABOLIC PANELon Calcium [Mass/Vol] 9.6 mg/dL Normal 8.6-10.3 [facility] Comment on above: Performed By: #### 0 0071 ####[facility] [place] [address], [facility] Chloride [Moles/Vol] 105 mmol/L Normal 98-107 [facility] Comment on above: Performed By: #### 0 0071 ####[facility] [facility] [address], [facility] CO2 [Moles/Vol] 31 mmol/L Normal 21-31 [facility] Comment on above: Performed By: #### 0 0071 ####[facility] [facility] [place] [address], [facility] Creatinine [Mass/Vol] 0.90 mg/dL Normal 0.70-1.30 [facility] Comment on above: Performed By: #### 0 0071 ####[facility] [place] [address], [facility] GFR/1.73 sq M.predicted among blacks MDRD (S/P/Bld) [Vol rate/Area] mL/min/{1.73_m2} Normal >60 [facility] Comment on above: Performed By: #### 0 0071 ####[facility] [place] [address], [facility] GFR/1.73 sq M.predicted among non-blacks MDRD (S/P/Bld) [Vol rate/Area] mL/min/{1.73_m2} Normal >60 [facility] Comment on above: Performed By: #### 0 0071 ####[facility] [facility].[address] Glucose [Mass/Vol] 92 mg/dL Normal 70-100 [facility] Comment on above: Performed By: #### 0 0071 ####[address] [address] [facility].[address] Potassium [Moles/Vol] 3.8 mmol/L Normal 3.5-5.1 [facility] Comment on above: Performed By: #### 0 0071 ####[facility] [facility] [place] [address], [facility] Sodium [Moles/Vol] 141 mmol/L Normal 136-145 [facility] Comment on above: Performed By: #### 0 0071 ####[address] [place] [address], [facility] Urea nitrogen [Mass/Vol] 17 mg/dL Normal 7-25 [facility] Comment on above: Performed By: #### 0 0071 ####[facility] [facility] [place] [address], [facility] CBC W/DIFFon 11-28-2020 ABS IMM GRANS 0.0 10*3/uL Normal 0.0-0.2 The [facility] Comment on above: Performed By: #### 5 0103 ####[facility] [place] [address], [facility] ABS NEUTROPHILS 3.6 10*3/uL Normal 1.6-7.6 The [facility] Comment on above: Performed By: #### 5 0103 ####[facility] [place] [address], [facility] Basophils (Bld) [#/Vol] 0.1 10*3/uL Normal 0.0-0.2 [facility] Comment on above: Performed By: #### 5 0103 ####[facility] [place] [address], [facility] Basophils/100 WBC (Bld) 1.0 % Normal 0.0-1.0 [facility] Comment on above: Performed By: #### 3 ####[facility] Eosinophils (Bld) [#/Vol] 0.1 10*3/uL Normal 0.0-0.5 [facility] Comment on above: Performed By: #### 5 0103 ####[facility] Eosinophils/100 WBC (Bld) 2.0 % Normal 0.0-6.0 [facility] Comment on above: Performed By: #### 5 3 ####[facility] Erythrocyte distribution width (RBC) [Ratio] 14.6 % Normal 11.5-15.0 [facility] Comment on above: Performed By: #### 5 3 ####[facility] Hematocrit (Bld) [Volume fraction] 43.5 % Normal 39.0-50.0 [facility] Comment on above: Performed By: #### 5 3 ####[facility] Hemoglobin (Bld) [Mass/Vol] 14.3 g/dL Normal 13.0-17.0 [facility] Comment on above: Performed By: #### 5 3 ####[facility] IMMATURE GRANS 0.7 % Normal 0.0-1.0 The [facility] marlene [facility] Comment on above: Performed By: #### 5 3 ####[place] [address] Lymphocytes (Bld) [#/Vol] 1.4 10*3/uL Normal 1.2-4.0 [facility] Comment on above: Performed By: #### 102 ####[place] [address] Lymphocytes/100 WBC (Bld) 24.4 % Normal 20.0-45.0 [facility] Comment on above: Performed By: #### 5 3 ####[address] MCH (RBC) [Entitic mass] 30.4 pg Normal 27.0-33.0 [facility] Comment on above: Performed By: #### 5 3 ####[place] [address] MCHC (RBC) [Mass/Vol] 32.9 g/dL Normal 32.0-35.0 [facility] Comment on above: Performed By: #### 5 3 ####[address] MCV (RBC) [Entitic vol] 92.6 fL Normal 82.0-98.0 [facility] Comment on above: Performed By: #### 5 3 ####[facility] [facility] [place] [address], [facility] Monocytes (Bld) [#/Vol] 0.7 10*3/uL Normal 0.1-1.0 [facility] Comment on above: Performed By: #### 102 ####[facility] [facility] [place] [address], [facility] MONOS 11.2 % Normal 5.0-12.0 [facility] Comment on above: Performed By: #### 102 ####[facility] [place] [address], [facility] Neutrophils/100 WBC (Bld) 60.7 % Normal 40.0-72.0 The [facility] Comment on above: Performed By: #### 102 ####[facility] [place] [address], [facility] Nucleated RBC/100 WBC (Bld) [Ratio] 0 % Normal 0-0 [facility] Comment on above: Performed By: #### 102 ####[facility] [place] [address], [facility] PLAT CNT 284 10*3/uL Normal 150-400 The [facility] Comment on above: Performed By: #### 102 ####[facility] [place] [address], [facility] RBC (Bld) [#/Vol] 4.70 10*6/uL Normal 4.20-5.70 The [facility] Comment on above: Performed By: #### 102 ####[facility] [place] [address], [facility] WBC (Bld) [#/Vol] 5.90 10*3/uL Normal 4.00-10.60 The [facility] Comment on above: Performed By: #### 102 ####[facility] [place] [address] HAND LEFT 3 [facility] 11-28-2020 HAND LEFT 3 [facility] Department of Radiology [address] [place] [id number] Patient Name: PJ MARTINEZ : 1960 Sex: M Age: Race: White Pt. Location: 84 Patient Status: O Ordered Date: 11/28/2020 11:20:00 AM Completed Date: 11/28/2020 11:26 AM Requesting Provider: GENIA DA SILVA Attending Provider: Report Copy To: Signs & Symptoms: S62.309A Unsp fracture of unsp metacarpal bone, init for clos fx I10 History: Jen Comments: Evaluate Exam: HAND LEFT 3 [facility] HAND LEFT 3 [facility] 11/28/2020 11:26 AM CLINICAL INDICATIONS: S62.309A Unsp [...] narrowing Electronically signed: Rick Mota. Transcribed by: [email or web address], User Resident: Electronically Signed by: RICK MOTA @ 11/28/2020 05:09 PM Normal [facility] Comment on above: Order Comment: Evalu ate PROTHROMBIN TIMEon INR Coag (PPP) [Relative time] 1.03 {INR} Normal 0.91-1.16 [facility] Comment on above: Result Comment: ACCC P [...] CHEST 1995;108:[id number]. Performed By: #### 5 7307, [id number] ####[facility] [facility] [place] [address], [facility] PT Coag (PPP) [Time] 13.5 s Normal 12.3-14.8 [facility] Comment on above: Result Comment: ALL RESULTS MUST BE INTERPRETED WITH RESPECT TO BLOOD DRAWING ARTIFACT OR DILUTION ERROR OF ANTICOAGULANT AT THE TIME OF SAMPLING. Performed By: #### 5 7307, [id number] ####[facility] [place] [address], [facility] Vital Signs Date Time Vital Sign Value Performing Clinician Darien bonner 04-27-2024 15:33-0500 Body height 185.4 cm Catie Pineda MD Work Phone: [facility] 04-27-2024 15:33-0500 Body mass index (BMI) [Ratio] 27.18 kg/m2 Catie Pineda MD Work Phone: [facility] 04-27-2024 15:33-0500 Body weight 93.44 kg Catie Pineda MD Work Phone: [facility] 04-27-2024 15:33-0500 Diastolic blood pressure 74 mm[Hg] Catie Pineda MD Work Phone: [facility] 04-27-2024 15:33-0500 Heart rate 61 /min Catie Pineda MD Work Phone: [facility] 04-27-2024 15:33-0500 Systolic blood pressure 136 mm[Hg] Catie Pineda MD Work Phone: [facility] 10-28-2023 14:09-0400 Body height 185.4 cm Catie Pineda MD Work Phone: [facility] 10-28-2023 14:09-0400 Body mass index (BMI) [Ratio] 28.23 kg/m2 Catie Pineda MD Work Phone: [facility] 10-28-2023 14:09-0400 Body weight 97.07 kg Catie Pineda MD Work Phone: [facility] 10-28-2023 14:09-0400 Diastolic blood pressure 82 mm[Hg] Catie Pineda MD Work Phone: [facility] 10-28-2023 14:09-0400 Heart rate 58 /min Catie Pineda MD Work Phone: [facility] 10-28-2023 14:09-0400 Systolic blood pressure 130 mm[Hg] Catie Pineda MD Work Phone: [facility] 06-29-2023 13:52-0500 Diastolic blood pressure 86 mm[Hg] Catie Pineda MD Work Phone: [facility] 06-29-2023 13:52-0500 Systolic blood pressure 138 mm[Hg] Catie Pineda MD Work Phone: [facility] 06-29-2023 13:51-0500 Body height 185.4 cm Catie Pineda MD Work Phone: [facility] 06-29-2023 13:51-0500 Body mass index (BMI) [Ratio] 28.37 kg/m2 Catie Pineda MD Work Phone: [facility] 06-29-2023 13:51-0500 Body weight 97.52 kg Catie Pineda MD Work Phone: [facility] 06-29-2023 13:51-0500 Heart rate 60 /min Catie Pineda MD Work Phone: [facility] Encounters Encounter Date Encounter Type Care Provider Facility Start: 04-27-2024 End: 04-27-2024 Office outpatient visit 25 minutes Catie Pineda MD Work Phone: [facility] Comment on above: PVC (premature ventr icular contraction) (Primary Dx); Essential hypertension; SVT (supraventricular tachycardia) ([facility]); BMI 28.0-28.9,adult; Never smoked any substance Start: 10-28-2023 End: 10-28-2023 Office outpatient visit 15 minutes Catie Pineda MD Work Phone: [facility] Comment on above: Essential hypertensi on (Primary Dx); PVC (premature ventricular contraction); SVT (supraventricular tachycardia) (CMS-HCC); BMI 28.0-28.9,adult; Never smoked any substance Start: 10-28-2023 End: 10-28-2023 ambulatory [facility] Start: 07-07-2023 End: 07-07-2023 ambulatory [facility] Start: 06-29-2023 End: 06-29-2023 Office consultation new/estab patient 60 min Catie Pineda MD Work Phone: [facility] Comment on above: Essential hypertensi on (Primary Dx); PVC (premature ventricular contraction); SVT (supraventricular tachycardia); Never smoked any substance; BMI 28.0-28.9,adult Start: 06-29-2023 End: 06-29-2023 ambulatory [facility] Start: 06-23-2023 End: 06-23-2023 ambulatory Anders Salazar Facility:[facility] Start: 06-23-2023 End: 06-23-2023 ambulatory DO Anders Salazar Work Phone: [facility] Work Phone: Start: 06-23-2023 End: 06-23-2023 Patient encounter procedure DO Anders Salazar Work Phone: [facility]-Electrodiagnostic s Work Phone: Start: 06-21-2022 End: 06-22-[address] ANDERS SALAZAR Facility:[facility] Start: 12-10-2021 End: 12-10-[address] ANDERS SALAZAR Facility:[facility] Start: 11-29-2021 End: 11-30-[address] ANDERS SALAZAR Facility:[facility] Start: 09-05-2021 End: 09-06-2021 ambulatory SIMONE PRIDE Facility:[facility] Start: 08-06-[address] ANDERS SALAZAR Facil ity:[facility] Start: 11-29-2020 End: 11-30-2020 ambulatory VASYL PRADO Facility:[facility] Start: 12-04-2003 Evaluation and management of inpatient DO Anders Salazar Work Phone: [facility] Work Phone: Procedures Date Procedure Procedure Detail Performing Clinician Start: 04-27-2024 Ecg routine ecg w/le ast 12 lds w/i&r Catie Pineda MD Work Phone: Start: 07-07-2023 HOLTER OR EVENT CARD IAC MONITOR CATIE PINEDA Start: 06-29-2023 ECG 12-LEAD CATIE CHEN Start: 06-29-2023 Ecg routine ecg w/le ast 12 lds w/i&r Catie Pineda MD Work Phone: Start: 06-21-[address] ANDERS SALAZAR Comment on above: Performed By: #### P [facility] #### [facility] [address] [place] [address] Dr. Virginia Orourke Start: 11-29-2020 ANESTH LOWER ARM PROCEDURE SIMONE PRIDE Start: 11-29-2020 TREAT METACARPAL FRACTURE VASYL PRADO Plan of Treatment Date Care Activity Detail Author Start: 2033 RSV High Risk: (Elde rly (60+) or Population) (1 - 1-dose 75+ series) RSV High Risk: (Elderly (60+) or Population) (1 - 1-dose 75+ series) [facility] Start: 07-30-2028 DTaP/Tdap/Td Vaccine s (3 - Td or Tdap) DTaP/Tdap/Td Vaccines (3 - Td or Tdap) [facility] Start: 11-08-2024 End: 11-08-2024 Patient encounter procedure 11/08/2024 3:20 PM EDT Office Visit [facility] [address] [place] [address] Catie Pineda MD [address] [facility] [address] [place] [address] [facility] Start: 04-27-2024 End: 04-27-2024 Patient encounter procedure 04/27/2024 3:40 PM EST Office Visit [facility] [address] [place] [address] Catie Pineda MD [address] [facility], [address] [place] [address] [facility] Start: 01-24-2024 COVID-19 Vaccine ( season) COVID-19 Vaccine ( season) [facility] Start: 01-24-2024 Influenza vaccination [facility] Start: 10-28-2023 End: 10-28-2023 Patient encounter procedure 10/28/2023 2:00 PM EDT Office Visit [facility] Selin Anderson [facility] [address] [place] [id number] Catie [facility]ineda [facility] [address] [place] [address] [facility] Start: 07-07-2023 End: 07-07-2023 Professional / ancillary services management 07/07/2023 9:00 AM EST Ancillary Procedure [facility] [address] [place] [address] [facility] Start: 06-29-2023 End: 06-29-2024 Holter monitor study 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 Tender Cardiac Services Routine PVC (premature ventricular contraction) Expected: 06/29/2023, Expires: 06/29/2024 [facility] Work Phone: Comment on above: Expected: 06/29/2023 , Expires: 06/29/2024 Start: 2023 Pneumococcal Vaccine : 65+ Years (1 - PCV) Pneumococcal Vaccine: 65+ Years (1 - PCV) [facility] Start: 2023 Pneumococcal Vaccine : 65+ Years (1 of 1 - PCV) Pneumococcal Vaccine: 65+ Years (1 of 1 - PCV) [facility] Start: 01-23-2023 COVID-19 Vaccine ( season) COVID-19 Vaccine ( season) [facility] Start: 01-23-2023 Influenza vaccination Influenza Vacc ine (#1) [facility] Start: 2018 RSV patient s and/or patients aged 60+ years (1 - 1-dose 60+ series) RSV patients and/or patients aged 60+ years (1 - 1-dose 60+ series) [facility] Start: 2008 Zoster Vaccines (1 o f 2) Zoster Vaccines (1 of 2) [facility] Start: 1976 Diabetes mellitus screening Diabetes Screening [facility] Start: 1976 Hepatitis C screening Hepatitis C Sc reening [facility] Start: 1959 MMR Vaccines (1 of 1 - Standard series) MMR Vaccines (1 of 1 - Standard series) [facility] Start: 1960 Annual wellness visit Medicare Initial Physical (IPPE) [facility] Start: 1960 Lipid panel Lipid Panel [facility] Start: 1960 Medicare Annual Wellness Visit Medicare Annual Wellness Visit (AWV) [facility] Payers Date Payer Category Payer Self-pay [id number] 2023 Medicare [id number] 2023 Medicare supplementa l policy (as second payer) [employer] SENIOR SUPPLEMENT [id number] 2023 Private Health Insurance [employer] S UPPLEMENTAL AETNA SENIOR SUPPLEMENT [id number] 2023-Present [address] [place] [address] [id number] 2023 Medicare [id number] 2023 Private Health Insurance [id number] 1959 Unknown [id number] 1959 Worker's Compensation [id number] 1960 Unknown [id number] 647 1960 Unknown [id number] [id number]. 647 1960 Unknown [id number] [id number]. 593 1960 Unknown [id number] [id number]. 593 1960 Unknown [id number] [id number]. 593 1958 Unknown [id number] [id number]. 593 1960 Unknown [id number] [id number]. 1244 1960 Unknown [id number] [id number]. 1244 1960 Unknown [id number] [id number] 1244 Unknown Regular Insurance Diana wood [id number] Unknown [id number] 531 Social History Date Type Detail Facility Start: 10-28-2021 End: 06-29-2023 Tobacco smoking status NHIS Never smoked tobacco (finding) [facility] Start: 1960 Sex Assigned At Male [facility] Start: 06-29-2023 Tobacco use and exposure Smokeless tobacco non-user [facility] Work Phone: Start: 06-29-2023 End: 04-27-2024 Alcohol intake Ex-drinker (finding) [facility] Work Phone: Start: 06-29-2023 End: 10-28-2023 History of Social function [facility] Work Phone: Start: 06-29-2023 End: 10-28-2023 Tobacco use panel [facility] Work Phone: Start: 1960 Sex Assigned At Not on file U [facility] Work Phone: Start: 06-19-2023 End: 04-27-2024 Exposure to SARS-CoV-2 (event) Not sure [facility] Clinical Notes 06-29-2023 to 04-27-2024 Catie Pineda MD - 04/27/2024 3:40 PM ESTPatient InstructionsCatie Pineda MD - 10/28/2023 2:00 PM EDTPatient InstructionsCatie Pineda MD - 06/29/2023 2:00 PM EST Note Date & Type Note Facility 04-27-2024 History of Present illness Narrative Subjective Pj Martinez is a 64 y.o. male Chief Complaint Follow-up HPI Patient is here for follow-up to management for previous evaluation for palpitation with documentation of PACs and PVCs. Unfortunately he did not tolerate magnesium to his GI pathology. He denies chest pain, lightheadedness, dizziness or syncope. He remains active. Assessment 1. Documentation of frequent PACs and [...] of his Holter monitor with him 3. Patient was unable to tolerate magnesium due to his history of ulcerative colitis. I told him to try Toprol-XL 12.5 mg once daily 4. Patient was counseled regarding risk factor modification 5. Advised him to notify of change in cardiac status or symptoms 6. Will see him back in 6 months Review of Systems Cardiovascular: Positive for palpitations. All other systems reviewed and are negative. Vitals: 04/27/24 1533 BP: 136/74 BP Location: Right arm Patient Position: Sitting Pulse: 61 Weight: 93.4 kg (206 lb) Height: 1.854 m (6' 1 ) [...] 2 times a day., Disp: , Rfl: Asmanex Twisthaler 220 mcg/ actuation (120) inhaler, Inhale 2 puffs 2 times a day., Disp: , Rfl: cholecalciferol (Vitamin D3) 25 MCG (1000 UT) tablet, Take 2 tablets (50 mcg) by mouth once daily., Disp: , Rfl: glucosamine-chondroitin 500-400 mg tablet, [...] crush, chew, or split., Disp: , Rfl: metoprolol succinate XL (Toprol-XL) 25 mg 24 hr tablet, Take 0.5 tablets (12.5 mg) by mouth once daily. Do not crush or chew., Disp: 45 tablet, Rfl: 3 Assessment/Plan 1. PVC (premature ventricular contraction) metoprolol succinate XL (Toprol-XL) 25 mg 24 hr tablet ECG 12 Lead 2. Essential hypertension Follow Up In Cardiology Follow Up In Cardiology 3. SVT (supraventricular tachycardia) ([facility]) metoprolol succinate XL (Toprol-XL) 25 mg 24 hr tablet ECG 12 Lead 4. BMI 28.0-28.9,adult 5. Never smoked any substance Scribe Attestation By signing my name below, IRoz LPN, Scribe attest that this documentation has [...] discussion and plan. documented in this encounter [facility] Work Phone: 04-27-2024 Instructions Rzo Pacheco LPN - 04/27/2024 3:40 PM EST Please bring all medicines, vitamins, and herbal supplements with you when you come to the office. Prescriptions will not be filled unless you are compliant with your follow up appointments or have a follow up appointment scheduled as per instruction of your physician. Refills should be requested at the time of your visit. BMI was above normal measurement. Current weight: 93.4 kg (206 lb) Weight change since last visit (-) denotes wt loss -8 lbs Weight loss needed to achieve BMI 25: 16.9 Lbs Weight loss needed to achieve BMI 30: -20.9 Lbs Provided instructions on dietary changes Provided instructions on exercise. Toprol xl 12.5 mg daily Follow up 6 months documented in this encounter [facility] Work Phone: 10-28-2023 History of Present illness Narrative Subjective [...] mg magnesium) tablet 3. SVT (supraventricular tachycardia) ([facility]) magnesium oxide (Mag-Ox) 400 mg (241.3 mg magnesium) tablet 4. BMI 28.0-28.9,adult 5. Never smoked any substance Scribe Attestation By signing my name below, I, Roz Felix LPN , Scribpietro attest that this documentation has been prepared [...] discussion and plan. documented in this encounter [facility] Work Phone: 10-28-2023 Instructions Roz Pacheco LPN - 10/28/2023 2:00 PM EDT [...] on dietary changes. 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 SVT (supraventricular tachycardia) ECG 12 Lead 4. Never smoked any substance 5. BMI 28.0-28.9,adult Scribe Attestation By signing my name below, Lupe Mcelroy Nany Hobbs LPN , Scribe attest that this documentation has been prepared under the direction and in the presence of Catie Pineda MD. documented in this encounter [facility] Work Phone: 06-29-2023 Instructions Faisal Soni MA - 06/29/2023 [...] Prevention Education Given documented in this encounter [facility] Work Phone: Evaluation note No assessment inform ation available [facility] Work Phone: Evaluation note Diagnosis Essential hypertension- Primary Unspecified essential hypertension PVC (premature ventricular contraction) Other premature beats SVT (supraventricular tachycardia) Other specified cardiac dysrhythmias Never smoked any substance BMI 28.0-28.9,adult documented in this encounter [facility] Work Phone: Evaluation note* Diagnosis Essential hypertension- Primary Unspecified essential hypertension PVC (premature ventricular contraction) Other premature beats SVT (supraventricular tachycardia) (CMS-HCC) Other specified cardiac dysrhythmias BMI 28.0-28.9,adult Never smoked any substance documented in this encounter [facility] Work Phone: Evaluation note* Diagnosis PVC (premature ventricular contraction)- Primary Other premature beats Essential hypertension Unspecified essential hypertension SVT (supraventricular tachycardia) (CMS-HCC) Other specified cardiac dysrhythmias BMI 28.0-28.9,adult Never smoked any substance documented in this encounter [facility] Work Phone: Reason for referral (narrative)* Consultation (Routine) - Authorized Specialty Diagnoses / Procedures Referred By Peter jay Referred To Contact Cardiology Diagnoses Essential hypertension Procedures Follow Up In Cardiology Catie Pineda MD [address] [place] [address] [address], [address] [place] [address] Catie Pineda MD [address] [place] [address] [address], [address] [place] [address] Referral ID Status Reason Start Date Expiration Date V isits Requested Visits Authorized [id number] Authorized 10/28/2023 10/27/2024 1 1 [facility] Work Phone: Summary Purpose Family History Relationship Condition Age at Onset Recorded Date/T kenneth Not Specified Diabetes mellitus Unknown father Malignant neoplasm Unknown Advance Directives Advance Directive Response Recorded Date/ Time Advance Directives No August 05, 019 7:01am Chief Complaint and Reason for Visit Chief Complaint ^ bradycardia Reason for Referral Specialty Diagnoses / Procedures Referred By Peter jay Referred To Contact Diagnoses PVC (premature ventricular contraction) SVT (supraventricular tachycardia) Procedures ECG 12 Lead Catie Pineda MD [address] [place] [address] [address], [address] [address] Referral ID Status Reason Start Date Expiration Date V isits Requested Visits Authorized [id number] Authorized 06/29/2023 06/28/2024 1 1 Specialty Diagnoses / Procedures Referred By Peter jay Referred To Contact Cardiology Diagnoses PVC (premature ventricular contraction) 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 Catie Pineda MD [address] [facility] 2, [address] [address] Referral ID Status Reason Start Date Expiration Date V isits Requested Visits Authorized [id number] Pending Review 06/29/2023 06/28/2024 1 1 Specialty Diagnoses / Procedures Referred By Contac t Referred To Contact Cardiology Diagnoses PVC (premature ventricular contraction) Procedures Follow Up In Cardiology Catie Pineda MD [address] [place] [address] 2, [address] [address] Catie Pineda MD [address] [place] [address] [address], [address] [address] Referral ID Status Reason Start Date Expiration Date V isits Requested Visits Authorized [id number] Authorized 06/29/2023 06/28/2024 1 1 Additional Source Comments (unrecognized sect ion and content) No Status Records FoundNo Status Records FoundNo Status Records FoundNo Status Records Found INFORMATION SOURCE (unrecogn ized section and content) DATE CREATED AUTHOR 09/09/2021 [facility] DATE CREATED AUTHOR AUTHOR'S ORGANIZ ATION 06/25/2022 [facility] DATE CREATED AUTHOR AUTHOR'S ORGANIZ ATION 07/24/2023 [facility] DATE CREATED AUTHOR AUTHOR'S ORGANIZ ATION 10/30/2023 [facility] Positive Printer Operator Teams (unrecognized sec tion and content) Team Status: Active Member Role Status Dates Anders Salazar DO Primary Care Provider Active Team Status: Active Member Role Status Dates Anders Salazar DO Attending Provider Active St art: December 04, 2003 Team Status: Inactive Member Role Status Dates Anders Salazar DO Primary Care Provide r, Attending Provider Active Start: June 23, 2023 End: June 23, 2023 Ell Teacher Relationship Specialty Start Date End Date Anders Salazar DO [address] [place] [address] PCP - General Family Medicine 06/29/23 Ell Teacher Relationship Specialty Start Date End Date Anders Salazar DO [address] [place] [address] PCP - General Family Medicine 06/29/23 Goals (unrecognized section and content) Goals may be documented in a n alternate section Reason for Visit (unrecogniz ed section and content) Reason Comments New Patient Visit Ctczzsyh-[id number]-Glt eminy Specialty Diagnoses / Procedures Referred By Contac t Referred To Contact Diagnoses PVC (premature ventricular contraction) SVT (supraventricular tachycardia) Procedures ECG 12 Lead Catie Pineda MD [address] [facility] 2, [place] [phone] Referral ID Status Reason Start Date Expiration Date V isits Requested Visits Authorized [id number] Authorized 06/29/2023 06/28/2024 1 1 Reason Comments Follow-up 5m Specialty Diagnoses / Procedures Referred By Contac t Referred To Contact Cardiology Diagnoses PVC (premature ventricular contraction) Procedures Follow Up In Cardiology Catie Pineda MD [facility] [address] [facility], [place] [phone] Catie Pineda MD [address] [place] [address] 2, [place] [phone] Referral ID Status Reason Start Date Expiration Date V ViaViewts Requested Visits Authorized [id number] Authorized 06/29/2023 06/28/2024 1 1 Reason Comments Follow-up 6m with ekg Specialty Diagnoses / Procedures Referred By Contac t Referred To Contact Cardiology Diagnoses Essential hypertension Procedures Follow Up In Cardiology Catie Pineda MD [address], [place] [id number] Phone: tel: fax: Catie Pineda MD [address] [facility], [place] [phone] Phone: tel: fax: Referral ID Status Reason Start Date Expiration Date V isits Requested Visits Authorized [id number] Authorized 10/28/2023 10/27/2024 1 1 FOR RECORDS PERTAINING TO PATIENTS [...] BE BASED ON THE PRIMARY CLINICAL RECORDS. [facility] [facility]. provides no warranty or guarantee of the accuracy or [phone] in [phone] [id number]
[2024-06-22 09:16] LABS: Basophils Absolute Auto 0.1 10^3/uL (0.0-0.1); Basophils Percent Auto 1.1 % (0.2-2.0); Eosinophils Absolute Auto 0.1 10^3/uL (0.0-0.7); Eosinophils Percent Auto 2.3 % (0.9-7.0); Hematocrit 40.1 % (42.0-54.0); Hemoglobin 13.3 g/dL (14.0-18.0); Immature Granulocytes Abs Auto 0.01 10^3/uL (0.00-0.03); Immature Granulocytes Pct Auto 0.2 % (0.0-0.5); Lymphocytes Absolute Auto 1.5 10^3/uL (1.2-3.8); Lymphocytes Percent Auto 32.7 % (20.5-60.0); Mean Corpuscular HGB Conc 33.2 g/dL (29.9-35.2); Mean Corpuscular Hemoglobin 30.7 pg (25.9-34.0); Mean Corpuscular Volume 92.6 fL (80.0-94.0); Monocytes Absolute Auto 0.6 10^3/uL (0.3-0.8); Monocytes Percent Auto 13.8 % (1.7-12.0); Neutrophils Absolute Auto 2.2 10^3/uL (1.4-6.5); Neutrophils Percent Auto 49.9 % (43.0-75.0); Platelet Count 216 10^3/uL (150-450); Red Blood Count 4.33 10^6/uL (4.70-6.10); White Blood Count 4.4 10^3/uL (4.0-11.0)
[2024-06-22 09:39] LABS: Estimated Average Glucose 111 mg/dL; Glycohemoglobin A1C 5.5 % (4.5-6.2)
[2024-06-22 10:17] LABS: Alanine Aminotransferase 33 U/L (16-63); Albumin Globulin Ratio 1.1; Albumin Level 3.6 g/dL (3.4-5.0); Alkaline Phosphatase 81 U/L (46-116); Anion Gap 8.5; Aspartate Amino Transferase 27 U/L (15-37); BUN Creatinine Ratio 22.7; Bilirubin Total 0.8 mg/dL (0.2-1.0); Calcium 9.1 mg/dL (8.5-10.1); Carbon Dioxide 31.7 mmol/L (21.0-32.0); Chloride 108 mmol/L (98-107); Chol HDL Ratio 2.6; Cholesterol 151 mg/dL (<=200); Estimated GFR (African America >60 (>=60 mL/min/1.73m^2); Estimated GFR (Non-African Ame >60 (>=60 mL/min/1.73m^2); Globulin 3.2 g/dL; Glucose 96 mg/dL (74-106); HDL Cholesterol 57 mg/dL (40-60); LDL Cholesterol Calculated 77.8 mg/dL; Potassium 4.2 mmol/L (3.5-5.1); Sodium 144 mmol/L (136-145); Total Protein 6.8 g/dL (6.4-8.2); Triglycerides 81 mg/dL (<=150); VLDL CHOLESTEROL 16.2 mg/dL
[2024-06-23 05:07] LABS: Vitamin B12 677 pg/mL (232-1245)
== END 2024-06-22 08:34 | disposition home or self-care (01) ==
PROVIDERS: PCP Family Medicine; Visit Provider Family Medicine
DX: R73.01 Impaired fasting glucose (principal); Z85.3 Personal history of malignant neoplasm of breast; Z83.49 Family history of other endocrine, nutritional and metabolic diseases; Z79.899 Other long term (current) drug therapy; E53.8 Deficiency of other specified B group vitamins; I10 Essential (primary) hypertension; E78.2 Mixed hyperlipidemia
CPT/HCPCS: 36415; 80053; 80061; 82607; 83036; 85025; G0103

== ENCOUNTER 2024-06-29 10:02 | Outpatient (OUT) | payer MEDICARE, SELFPAY ==
--- OUTSIDE RECORDS SUMMARY | 2024-06-29 10:11 | XMS_ITS | CCD ---
Author Organization [facility] Care Team Providers Care Corporate Communications Manager Name Role Phone SIMONE PRIDE Referring Unavailable KRIEGEL, GARIMA Admitting Unavailable KRIEGEL, GARIMA Attending Unavailable BUNTING, ANDERS Primary Care Unavailable EBRAHEIM, VASYL Admitting Unavailable UNKNOWN, PHYSICIAN Primary Care Unavailable UNKNOWN, PHYSICIAN Referring Unavailable [place] Procedure Practitioner Unavailab le EBRAHEIM, VASYL Attending [...] Care Provider Bunting DOAnders Primary Care Provider [phone] Bunting, Anders Attending Unavailable Bunting, Anders Primary [...] Translations: [CODEINE] Drug Allergy 4 Anxiety [facility] (8 sources) Morphine; Translations: [MORPHINE] Drug Allergy 4 Nausea/vomiting [facility] Medications Current Medications Medication Drug [...] 10-28-2021 Episodic Other aftercare (1 source) Other long term care pharmacist (current) drug therapy; Translations: [OTH [employer] SPECIALIST CURRENT DRUG THERAPY] Onset: 06-24-2022 Episodic Other [...] 12 Leadon 04-27-2024 Sinus with occasional PVCs [facility] Work Phone: [facility] Work Phone: ECG 12 Leadon 06-29-2023 [facility]: [facility] 12 lead ECGon 06-23-2023 ECG 12 lead ECG [facility] [place] [address] Electrocardiograph Report Signed Patient: Pj Martinez MR#: [id number] : 1960 Acct:[id number] Age/Sex: 63 / M ADM Date: 06/23/23 Loc: Room: Type: [facility] Attending Dr: Anders Salazar DO Ordering [...] previous ECGs available Confirmed by Magy Abbott ([id number]) on 06/23/2023 4:38:00 PM Referred By: Electronically Signed By:Magy Abbott REVISED DOCUMENT/07/16/2023/ wilson (corrected prov sig) Transcribed By: MUS Signed By Magy Abbott MD [address] [facility] CBC AUTO DIFFon 06-21-2022 BASO # 0.1 103/ul Normal 0.0-0.1 [facility] Comment on above: Performed By: #### C BC #### [facility] [address] [place] [address] Dr. Virginia Orourke Basophils/100 WBC (Bld) 0.7 % Normal 0.2-2.0 [facility] Comment on above: Performed By: #### C BC #### [facility] [address] [place] [address] Dr. Virginia Orourke EO # 0.2 103/ul Normal 0.0-0.7 [facility] Comment on above: Performed By: #### C BC #### [facility] [address] [address] [address] Virginia Orourke Eosinophils/100 WBC (Bld) 2.1 % Normal 0.9-7.0 [facility] Comment on above: Performed By: #### C BC #### [facility] [address] [place] [address] Dr. Virginia Orourke Erythrocyte distribution width (RBC) [Ratio] 13.6 % Normal 11.0-15.0 [facility] Comment on above: Performed By: #### C BC #### [facility] [address] [place] [address] Dr. Virginia Orourke Hematocrit (Bld) [Volume fraction] 39.7 % Critically low 42.0-54.0 [facility] Comment on above: Performed By: #### C BC #### [facility] [address] [place] [address] Dr. Virginia Orourke Hemoglobin (Bld) [Mass/Vol] 13.9 g/dL Critically low 14.0-18.0 [facility] Comment on above: Performed By: #### C BC #### [facility] [address] [place] [address] Dr. Virginia Orourke IG # 0.01 10e3/ul Normal 0.00-0.03 [facility] Comment on above: Performed By: #### C BC #### [facility] [address] [place] [address] Dr. Virginia Orourke IG % 0.1 % Normal 0.0-0.5 [facility] Comment on above: Performed By: #### C BC #### [facility] [address] [place] [address] Dr. Virginia Orourke LYMPH # 1.7 103/ul Normal 1.2-3.8 [facility] Comment on above: Performed By: #### C BC #### [facility] [address] [place] [address] Dr. Virginia Orourke Lymphocytes/100 WBC (Bld) 23.6 % Normal 20.5-60.0 [facility] Comment on above: Performed By: #### C BC #### [facility] [address] [place] [address] Dr. Virginia Orourke MANUAL DIFF REQ NO Normal [facility] Comment on above: Performed By: #### C BC #### [facility] [address] [place] [address] Dr. Virginia Orourke MCH (RBC) [Entitic mass] 30.1 pg Normal 25.9-34.0 [facility] Comment on above: Performed By: #### C BC #### [facility] [address] [place] [address] Dr. Virginia Orourke MCHC (RBC) [Mass/Vol] 35.0 g/dL Normal 29.9-35.2 [facility] Comment on above: Performed By: #### C BC #### [facility] [address] [place] [address] Dr. Virginia Orourke MCV (RBC) [Entitic vol] 85.9 fL Normal 80.0-94.0 [facility] Comment on above: Performed By: #### C BC #### [facility] [address] [place] [address] Dr. Virginia Orourke MONO # 0.8 103/ul Normal 0.3-0.8 [facility] Comment on above: Performed By: #### C BC #### [facility] [address] [place] [address] Dr. Virginia Orourke Monocytes/100 WBC (Bld) 10.4 % Normal 1.7-12.0 [facility] Comment on above: Performed By: #### C BC #### [facility] [address] [place] [address] Dr. Virginia Orourke NEUT # 4.6 103/ul Normal 1.4-6.5 [facility] Comment on above: Performed By: #### C BC #### [facility] [address] [place] [address] Dr. Virginia Orourke Neutrophils/100 WBC (Bld) 63.1 % Normal 43.0-75.0 [facility] Comment on above: Performed By: #### C BC #### [facility] [address] [place] [address] Dr. Virginia Orourke Platelet mean volume (Bld) [Entitic vol] 8.9 fL Critically low 9.5-13.5 [facility] Comment on above: Performed By: #### C BC #### [facility] [address] [place] [address] Dr. Virginia Orourke PLT 255 103/ul Normal 150-450 [facility] Comment on above: Performed By: #### C BC #### [facility] [address] [place] [address] Dr. Virginia Orourke RBC 4.62 106/ul Critically low 4.70-6.10 [facility] Comment on above: Performed By: #### C BC #### [facility] [address] [place] [address] Dr. Virginia Orourke WBC 7.2 103/ul Normal 4.0-11.0 [facility] Comment on above: Performed By: #### C BC #### [facility] [address] [place] [address] Dr. Virginia Orourke GLYCOHEMOGLOBIN A1Con 2022 ADA RECOMMENDATION SEE BELOW Normal [facility] Comment on above: Result Comment: ADA RECOMMENDED LIMIT 4.0 - 6.0 ADA THERAPEUTIC TARGET < 7.0 ACTION SUGGESTED > 7.0 Performed By: #### A 1C #### [facility] [address] [place] [address] Dr. Virginia Orourke Glucose [Mass/Vol] 111 mg/dL Normal [facility] Comment on above: Performed By: #### A 1C #### [facility] [address] [place] [address] Dr. Virginia Orourke HbA1c (Bld) [Mass fraction] 5.5 % Normal 4.5-6.2 [facility] Comment on above: Performed By: #### A 1C #### [facility] [address] [address] [address] Virginia Orourke LIPID PROFILEon 06-21-2022 CHOL-HDL RATIO NORM SEE BELOW Normal [facility] Comment on above: Result Comment: 3.3 - 4.4 LOW RISK 4.4 - 7.1 AVERAGE RISK 7.1 - 11.0 MODERATE RISK >11.0 HIGH RISK Performed By: #### C MP, LIPID #### [facility] [address] [address] [address] Virginia Orourke Cholesterol [Mass/Vol] 145 mg/dL Normal <=200 [facility] Comment on above: Performed By: #### C MP, LIPID #### [facility] [address] [address] [address] Virginia Orourke Cholesterol in HDL [Mass/Vol] 69 mg/dL Critically high 40-60 [facility] Comment on above: Performed By: #### C MP, LIPID #### [facility] [address] [address] [address] Virginia Orourke Cholesterol in LDL [Mass/Vol] 62.6 mg/dL Normal [facility] Comment on above: Performed By: #### C MP, LIPID #### [facility] [address] [place], [place] [address] Dr. Virginia Orourke Cholesterol.total/Ch olesterol in HDL [Mass ratio] 2.1 {ratio} Normal [facility] Comment on above: Performed By: #### C MP, LIPID #### [facility] [address] [address] [address] Virginia Orourke HDL NORMAL > or = 60 mg/dl - LOW CARDIOVASCULAR RISK <40 mg/dl - HIGH CARDIOVASCULAR RISK Normal [facility] Comment on above: Performed By: #### C MP, LIPID #### [facility] [address] [address] [address] Virginia Orourke LDL CALC NORMAL SEE BELOW Normal [facility] Comment on above: Result Comment: <100 mg/dl OPTIMAL 100 - 129 mg/dl NEAR OR ABOVE OPTIMAL 130 - 159 mg/dl BORDERLINE HIGH 160 - 189 mg/dl HIGH >190 mg/dl VERY HIGH Performed By: #### C MP, LIPID #### [facility] [address] [place] [address] Dr. Virginia Orourke Triglyceride [Mass/Vol] 67 mg/dL Normal <=150 [facility] Comment on above: Performed By: #### C MP, LIPID #### [facility] [address] [place] [address] Dr. Virginia Orourke VLDL CALC 13.4 mg/dL Normal [facility] Comment on above: Performed By: #### C MP, LIPID #### [facility] [address] [place] [address] Dr. Virginia Orourke PROF 14(COMP METB)on 023 Albumin [Mass/Vol] 3.8 g/dL Normal 3.4-5.0 [facility] Comment on above: Performed By: #### C MP, LIPID #### [facility] [address] [place] [address] Dr. Virginia Orourke Albumin/Globulin [Mass ratio] 1.0 {ratio} Normal [facility] Comment on above: Performed By: #### C MP, LIPID #### [facility] [address] [place] [address] Dr. Virginia Orourke ALP [Catalytic activity/Vol] 81 U/L Normal 46-116 [facility] Comment on above: Performed By: #### C MP, LIPID #### [facility] [address] [place] [address] Dr. Virginia Orourke ALT [Catalytic activity/Vol] 29 U/L Normal 16-63 [facility] Comment on above: Performed By: #### C MP, LIPID #### [facility] [address] [place] [address] Dr. Virginia Orourke Anion gap [Moles/Vol] 12.1 mmol/L Normal [facility] Comment on above: Performed By: #### C MP, LIPID #### [facility] [address] [place] [address] Dr. Virginia Orourke AST [Catalytic activity/Vol] 24 U/L Normal 15-37 [facility] Comment on above: Performed By: #### C MP, LIPID #### [facility] [address] [place] [address] Dr. Virginia Orourke Bilirubin [Mass/Vol] 0.7 mg/dL Normal 0.2-1.0 [facility] Comment on above: Performed By: #### C MP, LIPID #### [facility] [address] [place] [address] Dr. Virginia Orourke Calcium [Mass/Vol] 9.3 mg/dL Normal 8.5-10.1 [facility] Comment on above: Performed By: #### C MP, LIPID #### [facility] [address] [place] [address] Dr. Virginia Orourke Chloride [Moles/Vol] 105 mmol/L Normal 98-107 [facility] Comment on above: Performed By: #### C MP, LIPID #### [facility] [address] [place] [address] Dr. Virginia Orourke CO2 [Moles/Vol] 29.5 mmol/L Normal 21.0-32.[address] [facility] Comment on above: Performed By: #### C MP, LIPID #### [facility] [address] [place] [address] Dr. Virginia Orourke Creatinine [Mass/Vol] 0.80 mg/dL Normal 0.70-1.30 [facility] Comment on above: Performed By: #### C MP, LIPID #### [facility] [address] [place] [address] Dr. Virginia Orourke EGFR-AF YEMENI >60 Normal >=60 [facility] Comment on above: Performed By: #### C MP, LIPID #### [facility] [address] [place] [address] Dr. Virginia Orourke EGFR-NON AF YEMENI >60 Normal >=60 [facility] Comment on above: Performed By: #### C MP, LIPID #### [facility] [address] [place] [address] Dr. Virginia Orourke Globulin (S) [Mass/Vol] 3.7 g/dL Normal [facility] Comment on above: Performed By: #### C MP, LIPID #### [facility] [address] [place] [address] Dr. Virginia Orourke Glucose [Mass/Vol] 107 mg/dL Critically high 74-106 [facility] Comment on above: Performed By: #### C MP, LIPID #### [facility] [address] [place] [address] Dr. Virginia Orourke Potassium [Moles/Vol] 3.6 mmol/L Normal 3.5-5.1 [facility] Comment on above: Performed By: #### C MP, LIPID #### [facility] [address] [place] [address] Dr. Virginia Orourke Protein [Mass/Vol] 7.5 g/dL Normal 6.4-8.2 [facility] Comment on above: Performed By: #### C MP, LIPID #### [facility] [address] [place] [address] Dr. Virginia Orourke Sodium [Moles/Vol] 143 mmol/L Normal 136-145 [facility] Comment on above: Performed By: #### C MP, LIPID #### [facility] [address] [place] [address] Dr. Virginia Orourke Urea nitrogen [Mass/Vol] 14.0 mg/dL Normal 7.0-18.0 [facility] Comment on above: Performed By: #### C MP, LIPID #### [facility] [address] [place] [address] Dr. Virginia Orourke Urea nitrogen/Creatinine [Mass ratio] 17.5 mg/mg Normal [facility] Comment on above: Performed By: #### C MP, LIPID #### [facility] [address] [place] [address] Dr. Virginia Orourke [facility]22 SARS-CoV-2 (COVID-19) RNA ANDREW+probe Ql (Unsp spec) Detected Critically abnormal NOT DETECTED [facility] Comment on above: Result Comment: This test is not yet approved or cleared by the [place] FDA. When there are no FDA-approved or cleared tests available, and other criteria are met, FDA can make tests available under an emergency access mechanism called an Emergency Use Authorization (EUA). The EUA for this test is supported by the [place] of Health and Human Service's declaration that [...] used). Performed By: #### C VDTB #### [facility] [address] [place] [address] Dr. Virginia Orourke CBC AUTO DIFFon 11-29-2021 BASO # 0.0 103/ul Normal 0.0-0.1 [facility] Comment on above: Performed By: #### C BC #### [facility] [address] [place] [address] Dr. Virginia Orourke Basophils/100 WBC (Bld) 0.7 % Normal 0.2-2.0 [facility] Comment on above: Performed By: #### C BC #### [facility] [address] [place] [address] Dr. Virginia Orourke EO # 0.1 103/ul Normal 0.0-0.7 [facility] Comment on above: Performed By: #### C BC #### [facility] [address] [place] [address] Dr. Virginia Orourke Eosinophils/100 WBC (Bld) 1.3 % Normal 0.9-7.0 [facility] Comment on above: Performed By: #### C BC #### [facility] [address] [place] [address] Dr. Virginia Orourke Erythrocyte distribution width (RBC) [Ratio] 14.8 % Normal 11.0-15.0 [facility] Comment on above: Performed By: #### C BC #### [facility] [address] [place] [address] Dr. Virginia Orourke Hematocrit (Bld) [Volume fraction] 40.2 % Critically low 42.0-54.0 [facility] Comment on above: Performed By: #### C BC #### [facility] [address] [place] [address] Dr. Virginia Orourke Hemoglobin (Bld) [Mass/Vol] 13.1 g/dL Critically low 14.0-18.0 [facility] Comment on above: Performed By: #### C BC #### [facility] [address] [place] [address] Dr. Virginia Orourke IG # 0.02 10e3/ul Normal 0.00-0.03 [facility] Comment on above: Performed By: #### C BC #### [facility] [address] [place] [address] Dr. Virginia Orourke IG % 0.3 % Normal 0.0-0.5 [facility] Comment on above: Performed By: #### C BC #### [facility] [address] [place] [address] Dr. Virginia Orourke LYMPH # 1.4 103/ul Normal 1.2-3.8 [facility] Comment on above: Performed By: #### C BC #### [facility] [address] [place] [address] Dr. Virginia Orourke Lymphocytes/100 WBC (Bld) 22.1 % Normal 20.5-60.0 [facility] Comment on above: Performed By: #### C BC #### [facility] [address] [place] [address] Dr. Virginia Orourke MANUAL DIFF REQ NO Normal [facility] Comment on above: Performed By: #### C BC #### [facility] [address] [place] [address] Dr. Virginia Orourke MCH (RBC) [Entitic mass] 30.7 pg Normal 25.9-34.0 [facility] Comment on above: Performed By: #### C BC #### [facility] [address] [place] [address] Dr. Virginia Orourke MCHC (RBC) [Mass/Vol] 32.6 g/dL Normal 29.9-35.2 [facility] Comment on above: Performed By: #### C BC #### [facility] [address] [address] [address] Virginia Orourke MCV (RBC) [Entitic vol] 94.1 fL Critically high 80.0-94.0 [facility] Comment on above: Performed By: #### C BC #### [facility] [address] [address] [address] Virginia Orourke MONO # 0.7 103/ul Normal 0.3-0.8 [facility] Comment on above: Performed By: #### C BC #### [facility] [address] [place] [address] Dr. Virginia Orourke Monocytes/100 WBC (Bld) 11.4 % Normal 1.7-12.0 [facility] Comment on above: Performed By: #### C BC #### [facility] [address] [place] [address] Dr. Virginia Orourke NEUT # 3.9 103/ul Normal 1.4-6.5 [facility] Comment on above: Performed By: #### C BC #### [facility] [address] [place] [address] Dr. Virginia Orourke Neutrophils/100 WBC (Bld) 64.2 % Normal 43.0-75.0 [facility] Comment on above: Performed By: #### C BC #### [facility] [address] [place] [address] Dr. Virginia Orourke Platelet mean volume (Bld) [Entitic vol] 9.9 fL Normal 9.5-13.5 [facility] Comment on above: Performed By: #### C BC #### [facility] [address] [place] [address] Dr. Virginia Orourke PLT 242 103/ul Normal 150-450 [facility] Comment on above: Performed By: #### C BC #### [facility] [address] [place] [address] Dr. Virginia Orourke RBC 4.27 106/ul Critically low 4.70-6.10 [facility] Comment on above: Performed By: #### C BC #### [facility] [address] [address] [address] Virginia Orourke WBC 6.1 103/ul Normal 4.0-11.0 [facility] Comment on above: Performed By: #### C BC #### [facility] [address] [address] [address] Virginia Orourke GLYCOHEMOGLOBIN A1Con 2021 ADA RECOMMENDATION SEE BELOW Normal [facility] Comment on above: Result Comment: ADA RECOMMENDED LIMIT 4.0 - 6.0 ADA THERAPEUTIC TARGET < 7.0 ACTION SUGGESTED > 7.0 Performed By: #### L IPID, CMP #### [facility] [address] [place] [address] Dr. Virginia Orourke HbA1c (Bld) [Mass fraction] 5.5 % Normal 4.5-6.2 [facility] Comment on above: Performed By: #### L IPID, CMP #### [facility] [address] [address] [address] Virginia Orourke LIPID PROFILEon 11-29-2021 CHOL-HDL RATIO NORM SEE BELOW Normal [facility] Comment on above: Result Comment: 3.3 - 4.4 LOW RISK 4.4 - 7.1 AVERAGE RISK 7.1 - 11.0 MODERATE RISK >11.0 HIGH RISK Performed By: #### L IPID, CMP #### [facility] [address] [address] [address] Virginia Orourke Cholesterol [Mass/Vol] 149 mg/dL Normal <=200 [facility] Comment on above: Performed By: #### L IPID, CMP #### [facility] [address] [address] [address] Virginia Orourke Cholesterol in HDL [Mass/Vol] 71 mg/dL Critically high 40-60 [facility] Comment on above: Performed By: #### L IPID, CMP #### [facility] [address] [place] [address] Dr. Virginia Orourke Cholesterol in LDL [Mass/Vol] 72.8 mg/dL Normal [facility] Comment on above: Performed By: #### L IPID, CMP #### [facility] [address] [address] [address] Virginia Orourke Cholesterol.total/Ch olesterol in HDL [Mass ratio] 2.1 {ratio} Normal [facility] Comment on above: Performed By: #### L IPID, CMP #### [facility] [address] [address] [address] Virginia Orourke HDL NORMAL > or = 60 mg/dl - LOW CARDIOVASCULAR RISK <40 mg/dl - HIGH CARDIOVASCULAR RISK Normal [facility] Comment on above: Performed By: #### L IPID, CMP #### [facility] [address] [address] [address] Virginia Orourke LDL CALC NORMAL SEE BELOW Normal [facility] Comment on above: Result Comment: <100 mg/dl OPTIMAL 100 - 129 mg/dl NEAR OR ABOVE OPTIMAL 130 - 159 mg/dl BORDERLINE HIGH 160 - 189 mg/dl HIGH >190 mg/dl VERY HIGH Performed By: #### L IPID, CMP #### [facility] [address] [address] [address] Virginia Orourke Triglyceride [Mass/Vol] 26 mg/dL Normal <=150 [facility] Comment on above: Performed By: #### L IPID, CMP #### [facility] [address] [address] [address] Virginia Orourke VLDL CALC 5.2 mg/dL Normal [facility] Comment on above: Performed By: #### L IPID, CMP #### [facility] [address] [address] [address] Virginia Orourke PROF 14(COMP METB)on 022 Albumin [Mass/Vol] 3.8 g/dL Normal 3.4-5.0 [facility] Comment on above: Performed By: #### L IPID, CMP #### [facility] [address] [address] [address] Virginia Orourke Albumin/Globulin [Mass ratio] 1.1 {ratio} Normal [facility] Comment on above: Performed By: #### L IPID, CMP #### [facility] [address] [address] [address] Virginia Orourke ALP [Catalytic activity/Vol] 73 U/L Normal 46-116 [facility] Comment on above: Performed By: #### L IPID, CMP #### [facility] [address] [address] [address] Virginia Orourke ALT [Catalytic activity/Vol] 39 U/L Normal 16-63 [facility] Comment on above: Performed By: #### L IPID, CMP #### [facility] [address] [address] [address] Virginia Orourke Anion gap [Moles/Vol] 9.2 mmol/L Normal [facility] Comment on above: Performed By: #### L IPID, CMP #### [facility] [address] [address] [address] Virginia Orourke AST [Catalytic activity/Vol] 29 U/L Normal 15-37 [facility] Comment on above: Performed By: #### L IPID, CMP #### [facility] [address] [address] [address] Virginai Orourke Bilirubin [Mass/Vol] 0.6 mg/dL Normal 0.2-1.0 [facility] Comment on above: Performed By: #### L IPID, CMP #### [facility] [address] [address] [address] Virginia Orourke Calcium [Mass/Vol] 9.2 mg/dL Normal 8.5-10.1 [facility] Comment on above: Performed By: #### L IPID, CMP #### [facility] [address] [address] [address] Virginia Orourke Chloride [Moles/Vol] 106 mmol/L Normal 98-107 [facility] Comment on above: Performed By: #### L IPID, CMP #### [facility] [address] [address] [address] Virginia Orourke CO2 [Moles/Vol] 31.4 mmol/L Normal 21.0-32.[address] [facility] Comment on above: Performed By: #### L IPID, CMP #### [facility] [address] [address] [address] Virginia Orourke Creatinine [Mass/Vol] 0.94 mg/dL Normal 0.70-1.30 [facility] Comment on above: Performed By: #### L IPID, CMP #### [facility] [address] [address] [address] Virginia Orourke EGFR-AF YEMENI >60 Normal >=60 [facility] Comment on above: Performed By: #### L IPID, CMP #### [facility] [address] [address] [address] Virginia Orourke EGFR-NON AF YEMENI >60 Normal >=60 [facility] Comment on above: Performed By: #### L IPID, CMP #### [facility] [address] [address] [address] Virginia Orourke Globulin (S) [Mass/Vol] 3.6 g/dL Normal [facility] Comment on above: Performed By: #### L IPID, CMP #### [facility] [address] [address] [address] Virginia Orourke Glucose [Mass/Vol] 111 mg/dL Normal [facility] Comment on above: Performed By: #### L IPID, CMP #### [facility] [address] [address] [address] Virginia Orourke Potassium [Moles/Vol] 4.7 mmol/L Normal 3.5-5.1 [facility] Comment on above: Performed By: #### L IPID, CMP #### [facility] [address] [address] [address] Virginia Orourke Protein [Mass/Vol] 7.4 g/dL Normal 6.4-8.2 [facility] Comment on above: Performed By: #### L IPID, CMP #### [facility] [address] [address] [address] Virginia Orourke Sodium [Moles/Vol] 142 mmol/L Normal 136-145 [facility] Comment on above: Performed By: #### L IPID, CMP #### [facility] [address] [address] [address] Virginia Orourke Urea nitrogen [Mass/Vol] 17.0 mg/dL Normal 7.0-18.0 [facility] Comment on above: Performed By: #### L IPID, CMP #### [facility] [address] [address] [address] Virginia Orourke Urea nitrogen/Creatinine [Mass ratio] 18.1 mg/mg Normal [facility] Comment on above: Performed By: #### L IPID, CMP #### [facility] [address] [address] [address] Virginia Orourke VITAMIN D 25 OHon 11-29-2021 VIT D 25-OH 34.9 ng/mL Normal [facility] Comment on above: Performed By: #### V ITAD #### [facility] [address] [place] [address] Dr. Virginia Orourke VIT D RANGES SEE BELOW Normal [facility] Comment on above: Result Comment: <20 ng/mL Vit D deficient 20 - <30 ng/mL Vit D insufficient 30 - 100 ng/mL Vit D sufficient >100 ng/mL Potential Toxicity Performed By: #### V ITAD #### [facility] [address] [place] [address] Dr. Virginia Orourke Operative Reporton 2 Operative Report MR#: [id number] S [facility] Pt. Name: Pj Martinez Room #: [...] lower abdominal wall 4.2 x 2.7 cm. CHRONIC CARE NURSE: 1. Dr. Arias, PGY2. 2. KENDY Whitfield [...] Joshi MD Date Trans: 09/05/2021 11:50 P/mmo [id number] Normal [facility] Operative Reporton Operative Report MR#: [id number] [facility] Pt. Name: Pj Martinez Room #: 0C Discharge Date: Birthdate: 1960 OPERATIVE REPORT DATE OF SURGERY: 09/05/2021 SURGEON: Garima Joshi MD Duplicate dictation to be removed Electronically Signed by: Garima Joshi MD 09/09/2021 11:14 A Garima Joshi MD I was present for the entire procedure. Date Dict: 09/05/2021/10:21 A/Flakita Arias MD Date Trans: 09/05/2021 11:37 A/mmo [id number] Normal [facility] POC GLUCOSE LABon 09-05-2021 Glucose [Mass/Vol] 103 mg/dL High 70-100 [facility] Comment on above: Performed By: #### 8 5499 #### [address] [place] [address], [facility] HAND LEFT 3 VWSon 03-20-2021 HAND LEFT 3 VWS [facility] Department of Radiology [address] [place] [phone] Patient Name: PJ MARTINEZ : 1960 [...] report. Electronically signed: Hetal Sandra. Transcribed by: [email or web address], User Resident: KELSEY STOCK Electronically Signed by: HETAL SANDRA @ 03/20/2021 04:02 PM I personally read this/these film(s) with this resident Normal [facility] Comment on above: Order Comment: evalu ate HAND LEFT 3 VWSon 02-18-2021 HAND LEFT 3 VWS [facility] Department of Radiology [address] [place] [phone] Patient Name: PJ MARTINEZ : 1960 Sex: M Age: Race: White Pt. Location: Patient Status: O Ordered Date: 02/18/2021 1:40:00 PM Completed Date: 02/18/2021 02:09 PM Requesting Provider: GENIA DA SILVA Attending Provider: VASYL PRADO Report Copy To: Signs & Symptoms: S62.242A Disp fx of shaft of first metacarpal bone, left hand, init I10 History: [place] Comments: Evaluate Exam: HAND LEFT 3 VWS HAND LEFT 3 VWS HISTORY: Fracture follow-up. COMPARISON: 01/16/2021. IMPRESSION: 1. Removal of hardware transfixing the first metacarpal fracture. There is unchanged alignment with apparent regions of osseous bridging. 2. Moderate first CMC arthritis. Electronically signed: Jordon Murphy. Transcribed by: [email or web address], User Resident: Electronically Signed by: JORDON MURPHY @ 02/18/2021 03:04 PM Normal [facility] Comment on above: Order Comment: Evalu ate HAND LEFT 3 Son 01-16-2021 HAND LEFT 3 S [facility] Department of Radiology [address] [place] [phone] Patient Name: PJ MARTINEZ : 1960 Sex: M Age: Race: White Pt. Location: Patient Status: O Ordered Date: 01/16/2021 8:45:00 AM Completed Date: 01/16/2021 08:50 AM Requesting Provider: GENIA DA SILVA Attending Provider: VASYL PRADO Report Copy To: Signs & Symptoms: S62.242A Disp fx of shaft of first metacarpal bone, left hand, init I10 History: Comments: Evaluate Exam: HAND LEFT 3 [facility] HAND LEFT 3 [facility] 01/16/2021 8:50 AM CLINICAL INDICATIONS: S62.242A [...] fracture. Electronically signed: Milton Patiño. Transcribed by: [email or web address], User Resident: Electronically Signed by: MILTON PATIÑO @ 01/16/2021 05:02 PM Normal [facility] Comment on above: Order Comment: Evalu ate HAND LEFT 3 Son 12-12-2020 HAND LEFT 3 [facility] Department of Radiology [address] [place] [phone] Patient Name: PJ MARTINEZ : 1960 Sex: M Age: Race: White Pt. Location: Patient Status: Ordered Date: 12/12/2020 8:45:00 AM Completed Date: 12/12/2020 08:47 AM Requesting Provider: GENIA DA SILVA Attending Provider: Report Copy To: Signs & Symptoms: Z48.89 Encounter for other specified surgical aftercare I10 History: Comments: Evaluate Exam: HAND LEFT 3 [facility] HAND LEFT 3 S 12/12/2020 8:47 [...] complication. Electronically signed: LIN WESTFALL. Transcribed by: [email or web address], User Resident: Electronically Signed by: LIN WESTFALL @ 12/12/2020 12:54 PM Normal [facility] Comment on above: Order Comment: Evalu ate HAND LEFT 2 VWSon 11-29-2020 HAND LEFT 2 [facility] Department of Radiology [address] [place] [phone] Patient Name: PJ MARTINEZ : 1960 [...] report. Electronically signed: Ming Rendon. Transcribed by: [email or web address], User Resident: SHAMAR EARL Electronically Signed by: MING RENDON @ 11/30/2020 11:49 AM I personally read this/these film(s) with this resident Normal [facility] Comment on above: Order Comment: CRPP VS ORIF LEFT 1ST METACARPAL Operative Reporton Operative Report MR#: [id number] [facility] Pt. Name: Pj Martinez Room #: [...] Pang MD Date Trans: 11/29/2020 05:09 P/leatha [id number] Normal [facility] POC GLUCOSE LABon 11-29-2020 Glucose [Mass/Vol] 87 mg/dL Normal 70-100 [facility] Comment on above: Performed By: #### 8 5499 #### [facility] [address] *MRSA/MSSA DNA NASALon 11-28 *MRSA/MSSA DNA NASAL Clinical Report: (D ) Specimen: NASAL SWAB Collected: 11/28/2020 12:22 Status: Final Last Updated: 11/29/2020 10:31 MSSA DNA (Final) Methicillin Susceptible Staphylococcus aureus DNA Detected MRSA DNA (Final) Negative Normal [facility] Comment on above: Performed By: #### 3 1595 ####[facility] *SARS-CoV-2 COVID-19on 11-28 SARS-CoV-2 (COVID-19) RNA ANDREW+probe Ql (Unsp spec) Not detected Normal Not Detected [facility] Comment on above: Order Comment: The A ptima SARS-CoV-2 assay is a nucleic acid amplification test intended for the qualitative detection of RNA from SARS-CoV-2 isolated and purified from nasopharyngeal (OIL LABORATORY ANALYST),oropharyngeal (OP), nasal swab, sputum, and bronchoalveolar lavage (BAL) specimens from patients with signs and symptoms of infection who are suspected of COVID-19. Results are for the identification of SARS-CoV-2 RNA. The SARS-CoV-2 RNA is generally detectable during the acute phase of infection. The Aptima SARS-CoV-2 Assay on the [employer] system is intended for use by laboratory personnel specifically instructed and trained in the operation of the [employer] system. The Aptima SARS-CoV-2 assay is [...] and epidemiological information. Performed By: #### 3 2002 #### [facility] [address] [place] [address], [facility] APTTon 11-28-2020 aPTT Coag (Bld) [Time] 31.0 s Normal 25.0-35.0 [facility] Comment on above: Result Comment: ALL [...] THIS PURPOSE. Performed By: #### 5 7307, 36717 ####[facility] [place] [address], [facility] BASIC METABOLIC PANELon Calcium [Mass/Vol] 9.6 mg/dL Normal 8.6-10.3 [facility] Comment on above: Performed By: #### 0 0071 ####[facility] [place] [address], [facility] Chloride [Moles/Vol] 105 mmol/L Normal 98-107 [facility] Comment on above: Performed By: #### 0 0071 ####[facility] [facility] [place] [address], [facility] CO2 [Moles/Vol] 31 mmol/L Normal 21-31 [facility] Comment on above: Performed By: #### 0 0071 ####[facility] [facility] [place] [address], [facility] Creatinine [Mass/Vol] 0.90 mg/dL Normal 0.70-1.30 [facility] Comment on above: Performed By: #### 0 0071 ####[facility] [place] [address], [facility] GFR/1.73 sq M.predicted among blacks MDRD (S/P/Bld) [Vol rate/Area] mL/min/{1.73_m2} Normal >60 [facility] Comment on above: Performed By: #### 0 0071 ####[facility] [place] [address], [facility] GFR/1.73 sq M.predicted among non-blacks MDRD (S/P/Bld) [Vol rate/Area] mL/min/{1.73_m2} Normal >60 [facility] Comment on above: Performed By: #### 0 0071 ####[facility] [facility].[address] Glucose [Mass/Vol] 92 mg/dL Normal 70-100 [facility] Comment on above: Performed By: #### 0 0071 ####[id number] [facility].[address] Potassium [Moles/Vol] 3.8 mmol/L Normal 3.5-5.1 [facility] Comment on above: Performed By: #### 0 0071 ####[facility] [facility] [place] [address], [facility] Sodium [Moles/Vol] 141 mmol/L Normal 136-145 [facility] Comment on above: Performed By: #### 0 0071 ####[address] [place] [address], [facility] Urea nitrogen [Mass/Vol] 17 mg/dL Normal 7-25 [facility] Comment on above: Performed By: #### 0 0071 ####[facility] [facility] [place] [address], [facility] CBC W/DIFFon 11-28-2020 ABS IMM GRANS 0.0 10*3/uL Normal 0.0-0.2 [facility] Comment on above: Performed By: #### 5 0103 ####[facility] [place] [address], [facility] ABS NEUTROPHILS 3.6 10*3/uL Normal 1.6-7.6 [facility] Comment on above: Performed By: #### 5 0103 ####[facility] [place] [address], [facility] Basophils (Bld) [#/Vol] 0.1 10*3/uL Normal 0.0-0.2 [facility] Comment on above: Performed By: #### 5 0103 ####[facility] [place] [address], [facility] Basophils/100 WBC (Bld) 1.0 % Normal 0.0-1.0 [facility] Comment on above: Performed By: #### 3 ####[facility] Eosinophils (Bld) [#/Vol] 0.1 10*3/uL Normal 0.0-0.5 [facility] Comment on above: Performed By: #### 5 0103 ####[facility] Eosinophils/100 WBC (Bld) 2.0 % Normal 0.0-6.0 [facility] Comment on above: Performed By: #### 5 3 ####[facility] Erythrocyte distribution width (RBC) [Ratio] 14.6 % Normal 11.5-15.0 [facility] Comment on above: Performed By: #### 5 3 ####[facility] Hematocrit (Bld) [Volume fraction] 43.5 % Normal 39.0-50.0 [facility] Comment on above: Performed By: #### 5 3 ####[facility] Hemoglobin (Bld) [Mass/Vol] 14.3 g/dL Normal 13.0-17.0 [facility] Comment on above: Performed By: #### 5 3 ####[facility] IMMATURE GRANS 0.7 % Normal 0.0-1.0 The [facility] marlene [facility] Comment on above: Performed By: #### 5 3 ####[id number] Lymphocytes (Bld) [#/Vol] 1.4 10*3/uL Normal 1.2-4.0 [facility] Comment on above: Performed By: #### 102 ####[address] Lymphocytes/100 WBC (Bld) 24.4 % Normal 20.0-45.0 [facility] Comment on above: Performed By: #### 5 3 ####[address] MCH (RBC) [Entitic mass] 30.4 pg Normal 27.0-33.0 [facility] Comment on above: Performed By: #### 5 3 ####[id number] MCHC (RBC) [Mass/Vol] 32.9 g/dL Normal 32.0-35.0 [facility] Comment on above: Performed By: #### 5 3 ####[address] MCV (RBC) [Entitic vol] 92.6 fL Normal 82.0-98.0 [facility] Comment on above: Performed By: #### 5 3 ####[facility] [facility] [place] [address], [facility] Monocytes (Bld) [#/Vol] 0.7 10*3/uL Normal 0.1-1.0 [facility] Comment on above: Performed By: #### 102 ####[facility] [facility] [place] [address], [facility] MONOS 11.2 % Normal 5.0-12.0 [facility] Comment on above: Performed By: #### 102 ####[facility] [facility] [place] [address], [facility] Neutrophils/100 WBC (Bld) 60.7 % Normal 40.0-72.0 [facility] Comment on above: Performed By: #### 102 ####[facility] [facility] [place] [address], [facility] Nucleated RBC/100 WBC (Bld) [Ratio] 0 % Normal 0-0 [facility] Comment on above: Performed By: #### 102 ####[facility] [facility] [place] [address], [facility] PLAT CNT 284 10*3/uL Normal 150-400 The [facility] Comment on above: Performed By: #### 102 ####[facility] [facility] [place] [address], [facility] RBC (Bld) [#/Vol] 4.70 10*6/uL Normal 4.20-5.70 [facility] Comment on above: Performed By: #### 102 ####[facility] [facility] [place] [address], [facility] WBC (Bld) [#/Vol] 5.90 10*3/uL Normal 4.00-10.60 [facility] Comment on above: Performed By: #### 102 ####[facility] [facility] [place] [address] HAND LEFT 3 [facility] 11-28-2020 HAND LEFT [address] [facility] Department of Radiology [address] [place] [phone] Patient Name: PJ MARTINEZ : 1960 Sex: M Age: Race: White Pt. Location: 84 Patient Status: O Ordered Date: 11/28/2020 11:20:00 AM Completed Date: 11/28/2020 11:26 AM Requesting Provider: GENIA DA SILVA Attending Provider: Report Copy To: Signs & Symptoms: S62.309A Unsp fracture of unsp metacarpal bone, init for clos fx I10 History: Jen Comments: Evaluate Exam: HAND LEFT 3 [facility] HAND LEFT 3 [facility] 11/28/2020 11:26 AM CLINICAL INDICATIONS: S62.309A [...] narrowing Electronically signed: Rick Mota. Transcribed by: [email or web address], User Resident: Electronically Signed by: RICK MOTA @ 11/28/2020 05:09 PM Normal [facility] Comment on above: Order Comment: Evalu ate PROTHROMBIN TIMEon INR Coag (PPP) [Relative time] 1.03 {INR} Normal 0.91-1.16 [facility] Comment on above: Result Comment: ACCC [...] CHEST 1995;[id number]. Performed By: #### 5 7307, 11753 ####[facility] [facility] [place] [address], [facility] PT Coag (PPP) [Time] 13.5 s Normal 12.3-14.8 [facility] Comment on above: Result Comment: ALL RESULTS MUST BE INTERPRETED WITH RESPECT TO BLOOD DRAWING ARTIFACT OR DILUTION ERROR OF ANTICOAGULANT AT THE TIME OF SAMPLING. Performed By: #### 5 7307, 24381 ####[facility] [facility] [place] [address], [facility] Vital Signs Date Time Vital Sign Value Performing Clinician Darien bonner 04-27-2024 15:33-0500 Body height 185.4 cm Catie Pineda MD Work Phone: [facility] 04-27-2024 15:33-0500 Body mass index (BMI) [Ratio] 27.18 kg/m2 Catie Pineda MD Work Phone: [facility] 04-27-2024 15:33-0500 Body weight 93.44 kg Catie Pineda MD Work Phone: [facility] 04-27-2024 15:33-0500 Diastolic blood pressure 74 mm[Hg] Catie Pineda MD Work Phone: [facility] 04-27-2024 15:33-0500 Heart rate 61 /min Catie Pineda MD Work Phone: [facility] 04-27-2024 15:33-0500 Systolic blood pressure 136 mm[Hg] Catie Pineda MD Work Phone: [facility] 10-28-2023 14:09-0400 Body height 185.4 cm Catie Pineda MD Work Phone: [facility] 10-28-2023 14:09-0400 Body mass index (BMI) [Ratio] 28.23 kg/m2 Catie Pineda MD Work Phone: [facility] 10-28-2023 14:09-0400 Body weight 97.07 kg Catie Pineda MD Work Phone: [facility] 10-28-2023 14:09-0400 Diastolic blood pressure 82 mm[Hg] Catie Pineda MD Work Phone: [facility] 10-28-2023 14:09-0400 Heart rate 58 /min Catie Pineda MD Work Phone: [facility] 10-28-2023 14:09-0400 Systolic blood pressure 130 mm[Hg] Catie Pineda MD Work Phone: [facility] 06-29-2023 13:52-0500 Diastolic blood pressure 86 mm[Hg] Catie Pineda MD Work Phone: [facility] 06-29-2023 13:52-0500 Systolic blood pressure 138 mm[Hg] Catie Pineda MD Work Phone: [facility] 06-29-2023 13:51-0500 Body height 185.4 cm Catie Pineda MD Work Phone: [facility] 06-29-2023 13:51-0500 Body mass index (BMI) [Ratio] 28.37 kg/m2 Catie Pineda MD Work Phone: [facility] 06-29-2023 13:51-0500 Body weight 97.52 kg Catie Pineda MD Work Phone: [facility] 06-29-2023 13:51-0500 Heart rate 60 /min Catie Pineda MD Work Phone: [facility] Encounters Encounter Date Encounter Type Care Provider Facility Start: 04-27-2024 End: 04-27-2024 Office outpatient visit 25 minutes Catie Pineda MD Work Phone: [facility] Comment on above: PVC (premature ventr icular contraction) (Primary Dx); Essential hypertension; SVT (supraventricular tachycardia) ([facility]-H[facility]); BMI 28.0-28.9,adult; Never smoked any substance Start: 10-28-2023 End: 10-28-2023 Office outpatient visit 15 minutes Catie Pineda MD Work Phone: [facility] Comment on above: Essential hypertensi on (Primary Dx); PVC (premature ventricular contraction); SVT (supraventricular tachycardia) ([facility]-HCC); BMI 28.0-28.9,adult; Never smoked any substance Start: 10-28-2023 End: 10-28-2023 ambulatory [facility] Start: 07-07-2023 End: 07-07-2023 ambulatory [facility] Start: 06-29-2023 End: 06-29-2023 Office consultation new/estab patient 60 min Catie Pineda MD Work Phone: [facility] Comment on above: Essential hypertensi on (Primary Dx); PVC (premature ventricular contraction); SVT (supraventricular tachycardia); Never smoked any substance; BMI 28.0-28.9,adult Start: 06-29-2023 End: 06-29-2023 ambulatory [facility] Start: 06-23-2023 End: 06-23-2023 ambulatory Anders Salazar Facility:[facility] Start: 06-23-2023 End: 06-23-2023 ambulatory DO Anders Salazar Work Phone: [facility] Work Phone: Start: 06-23-2023 End: 06-23-2023 Patient encounter procedure DO Anders Salazar Work Phone: [facility]-Electrodiagnostic s Work Phone: Start: 06-21-2022 End: 06-22-[address] ANDERS SALAZAR Facility:[facility] Start: 12-10-2021 End: 12-10-[address] ANDERS SALAZAR Facility:[facility] Start: 11-29-2021 End: 11-30-[address] ANDERS SALAZAR Facility:[facility] Start: 09-05-2021 End: 09-06-2021 ambulatory SIMONE PRIDE Facility:[facility] Start: 08-06-[address] ANDERS SALAZAR Facil ity:[facility] Start: 11-29-2020 End: 11-30-2020 ambulatory VASYL PRADO Facility:[facility] Start: 12-04-2003 Evaluation and management of inpatient DO Anders Salazar Work Phone: [facility] Work Phone: Procedures [...] Comment on above: Performed By: #### P [facility] #### [facility] [address] [place] [address] Dr. Virginia Orourke Start: 11-29-2020 ANESTH LOWER ARM PROCEDURE SIMONE PRIDE Start: 11-29-2020 TREAT METACARPAL FRACTURE VASYL PRADO Plan of Treatment Date Care Activity Detail Author Start: 2033 RSV High Risk: (Elde rly (60+) or Population) (1 - 1-dose 75+ series) RSV High Risk: (Elderly (60+) or Population) (1 - 1-dose 75+ series) [facility] [facility] Start: 07-30-2028 DTaP/Tdap/Td Vaccine s (3 - Td or Tdap) DTaP/Tdap/Td Vaccines (3 - Td or Tdap) [facility] Start: 11-08-2024 End: 11-08-2024 Patient encounter procedure 11/08/2024 3:20 PM EDT Office Visit [facility] [address] [place] [address] Catie Pineda MD [address] [facility] [address] [place] [address] [facility] Start: 04-27-2024 End: 04-27-2024 Patient encounter procedure 04/27/2024 3:40 PM EST Office Visit [facility] [address] [place] [address] Catie Pineda MD [address] [facility] [address] [place] [address] [facility] Start: 01-24-2024 COVID-19 Vaccine ( season) COVID-19 Vaccine ( season) [facility] Start: 01-24-2024 Influenza vaccination [facility] Start: 10-28-2023 End: 10-28-2023 Patient encounter procedure 10/28/2023 2:00 PM EDT Office Visit [facility] Selin Anderson [facility] [address] [place] [phone] [facility] [address] [place] [address] [facility] Start: 07-07-2023 End: 07-07-2023 Professional / ancillary services management 07/07/2023 9:00 AM EST Ancillary Procedure [facility] [address] [facility] [address] [place] [address] [facility] Start: 06-29-2023 End: 06-29-2024 Holter monitor study Holter Or Event Saturation [facility] Routine PVC (premature ventricular contraction) Expected: 06/29/2023, Expires: 06/29/2024 [facility] Service Area Work Phone: Comment on above: Expected: 06/29/2023 , Expires: 06/29/2024 Start: 2023 Pneumococcal Vaccine : 65+ Years (1 - PCV) Pneumococcal Vaccine: 65+ Years (1 - PCV) [facility] Start: 2023 Pneumococcal Vaccine : 65+ Years (1 of 1 - PCV) Pneumococcal Vaccine: 65+ Years (1 of 1 - PCV) [facility] Start: 01-23-2023 COVID-19 Vaccine ( season) COVID-19 Vaccine ( season) [facility] Start: 01-23-2023 Influenza vaccination Influenza Vacc ine (#1) [facility] Start: 2018 RSV patient s and/or patients aged 60+ years (1 - 1-dose 60+ series) RSV patients and/or patients aged 60+ years (1 - 1-dose 60+ series) [facility] Start: 2008 Zoster Vaccines (1 o f 2) Zoster Vaccines (1 of 2) [facility] Start: 1976 Diabetes mellitus screening Diabetes Screening [facility] Start: 1976 Hepatitis C screening Hepatitis C Sc reening [facility] Start: 1959 MMR Vaccines (1 of 1 - Standard series) MMR Vaccines (1 of 1 - Standard series) [facility] Start: 1960 Annual wellness visit Medicare Initial Physical (IPPE) [facility] Start: 1960 Lipid panel Lipid Panel [facility] Start: 1960 Medicare Annual Wellness Visit Medicare Annual Wellness Visit (AWV) [facility] Payers Date Payer Category Payer Self-pay [id number] 2023 Medicare [id number] 2023 Medicare supplementa l policy (as second payer) [employer] SENIOR SUPPLEMENT [id number] 2023 Private Health Insurance [employer]ET[employer] S UPPLEMENTAL AETNA SENIOR SUPPLEMENT [id number] 2023-Present [address] [place] [address] [id number] 2023 Medicare [id number] 2023 Private Health Insurance [id number] 1959 Unknown [id number] 1959 Worker's Compensation [id number] 1958 Unknown [id number]. 647 1958 Unknown [id number] [id number]. 647 1958 Unknown [id number] [id number]. 593 1958 Unknown [id number] [id number]. 593 1958 Unknown [id number] [id number]. 593 1958 Unknown [id number] [id number]. 593 1958 Unknown [id number] [id number]. 1244 1958 Unknown [id number] [id number]. 1244 1958 Unknown [id number] [id number]. 1244 Unknown Regular Insurance Diana wood [id number] Unknown [id number] 531 Social History Date Type Detail Facility Start: 10-28-2021 End: 06-29-2023 Tobacco smoking status NHIS Never smoked tobacco (finding) [facility] Start: 1960 Sex Assigned At Male F [facility] Start: 06-29-2023 Tobacco use and exposure Smokeless tobacco non-user [facility] Work Phone: Start: 06-29-2023 End: 04-27-2024 Alcohol intake Ex-drinker (finding) [facility] Work Phone: Start: 06-29-2023 End: 10-28-2023 History of Social function [facility] Work Phone: Start: 06-29-2023 End: 10-28-2023 Tobacco use panel [facility] Work Phone: Start: 1960 Sex Assigned At Not on file U [facility] Work Phone: Start: 06-19-2023 End: 04-27-2024 Exposure to SARS-CoV-2 (event) Not sure [facility] Clinical Notes 06-29-2023 to 04-27-2024 Catie [...] Up In Cardiology 3. SVT (supraventricular tachycardia) ([facility]) metoprolol succinate XL (Toprol-XL) 25 mg 24 [...] discussion and plan. documented in this encounter [facility] Work Phone: 04-27-2024 Instructions Roz Pacheco LPN - 04/27/2024 3:40 PM EST [...] up 6 months documented in this encounter [facility] Work Phone: 10-28-2023 History of Present [...] mg magnesium) tablet 3. SVT (supraventricular tachycardia) ([facility]) magnesium oxide (Mag-Ox) 400 mg (241.3 mg [...] discussion and plan. documented in this encounter [facility] Work Phone: 10-28-2023 Instructions Roz Pacheco [...] on dietary changes. documented in this encounter [facility] Work Phone: 02-05-2024 History of Present [...] Follow Up In Cardiology Holter Or Event Saturation Diver ECG 12 Lead 3. SVT (supraventricular tachycardia) ECG 12 Lead 4. Never smoked any substance 5. BMI 28.0-28.9,adult Scribe Attestation By signing my name below, Lupe Mcelroy Nany Hobbs LPN , Scribe attest that this documentation has been prepared under the direction and in the presence of Catie Pineda MD. documented in this encounter [facility] Work Phone: 06-29-2023 Instructions Faisal Soni [...] Prevention Education Given documented in this encounter [facility] Work Phone: Evaluation note No assessment inform ation available [facility] Work Phone: Evaluation note Diagnosis Essential hypertension- Primary Unspecified essential hypertension PVC (premature ventricular contraction) Other premature beats SVT (supraventricular tachycardia) Other specified cardiac dysrhythmias Never smoked any substance BMI 28.0-28.9,adult documented in this encounter [facility] Work Phone: Evaluation note* Diagnosis Essential hypertension- Primary Unspecified essential hypertension PVC (premature ventricular contraction) Other premature beats SVT (supraventricular tachycardia) (CMS-HCC) Other specified cardiac dysrhythmias BMI 28.0-28.9,adult Never smoked any substance documented in this encounter [facility] Work Phone: Evaluation note* Diagnosis PVC (premature ventricular contraction)- Primary Other premature beats Essential hypertension Unspecified essential hypertension SVT (supraventricular tachycardia) (CMS-HCC) Other specified cardiac dysrhythmias BMI 28.0-28.9,adult Never smoked any substance documented in this encounter [facility] Work Phone: Reason for referral (narrative)* Consultation (Routine) - Authorized Specialty Diagnoses / Procedures Referred By Peter jay Referred To Contact Cardiology Diagnoses Essential hypertension Procedures Follow Up In Cardiology Catie Pineda MD [address] [place] [address] [address] [place] [address] Catie Pineda MD [address] [place] [address] [address], [address] [place] [address] Referral ID Status Reason Start Date Expiration Date V isits Requested Visits Authorized [id number] Authorized 10/28/2023 10/27/2024 1 1 [facility] Work Phone: Summary Purpose Family History [...] Procedures ECG 12 Lead Catie Pineda MD [address] [place] [address] [address], [address] [address] Referral ID Status Reason Start Date Expiration Date V isits Requested Visits Authorized [id number] Authorized 06/29/2023 06/28/2024 1 1 Specialty Diagnoses / Procedures Referred By Peter jay Referred To Contact Cardiology Diagnoses PVC (premature ventricular contraction) Procedures Holter Or Event Saturation Diver Catie Pineda MD [facility] [facility] 2, [address] [address] Referral ID Status Reason Start Date Expiration Date V isits Requested Visits Authorized [id number] Pending Review 06/29/2023 06/28/2024 1 1 Specialty Diagnoses / Procedures Referred By Contac t Referred To Contact Cardiology Diagnoses PVC (premature ventricular contraction) Procedures Follow Up In Cardiology Catie Pineda MD [address] [place] [address] [address], [address] [address] Catie Pnieda MD [address] [place] [address] [address], [address] [address] Referral ID Status Reason Start Date Expiration Date V isits Requested Visits Authorized [id number] Authorized 06/29/2023 06/28/2024 1 1 Additional Source Comments (unrecognized sect ion and content) No Status Records FoundNo Status Records FoundNo Status Records FoundNo Status Records Found INFORMATION SOURCE (unrecogn ized section and content) DATE CREATED AUTHOR 09/09/2021 [facility] DATE CREATED AUTHOR AUTHOR'S ORGANIZ ATION 06/25/2022 [facility] DATE CREATED AUTHOR AUTHOR'S ORGANIZ ATION 07/24/2023 [facility] DATE CREATED AUTHOR AUTHOR'S ORGANIZ ATION 10/30/2023 [facility] [employer] Teams (unrecognized sec tion and content) Team Status: Active Member Role Status Dates Anders Salazar DO Primary Care Provider Active Team Status: Active Member Role Status Dates Anders Salazar DO Attending Provider Active St art: December 04, 2003 Team Status: Inactive Member Role Status Dates Anders Salazar DO Primary Care Provide r, Attending Provider Active Start: June 23, 2023 End: June 23, 2023 Corporate Communications Manager Relationship Specialty Start Date End Date Anders Salazar DO [address] [place] [address] PCP - General Family Medicine 06/29/23 Corporate Communications Manager Relationship Specialty Start Date End Date Anders Salazar DO [address] [place] [address] PCP - General Family Medicine 06/29/23 Goals (unrecognized section and content) Goals may be documented in a n alternate section Reason for Visit (unrecogniz ed section and content) Reason Comments New Patient Visit [id number] Specialty Diagnoses / Procedures Referred By Contac t Referred To Contact Diagnoses PVC (premature ventricular contraction) SVT (supraventricular tachycardia) Procedures ECG 12 Lead Catie Pineda MD [address] [facility] 2, [place] [id number] Referral ID Status Reason Start Date Expiration Date V isits Requested Visits Authorized [id number] Authorized 06/29/2023 06/28/2024 1 1 Reason Comments Follow-up 5m Specialty Diagnoses / Procedures Referred By Contac t Referred To Contact Cardiology Diagnoses PVC (premature ventricular contraction) Procedures Follow Up In Cardiology Catie Pineda MD [facility] [address] [facility] 2, [place] [id number] Catie Pineda MD [address] [place] [address] 2, [place] [phone] Referral ID Status Reason Start Date Expiration Date V Silent Edgets Requested Visits Authorized [id number] Authorized 06/29/2023 06/28/2024 1 1 Reason Comments Follow-up 6m with ekg Specialty Diagnoses / Procedures Referred By Contac t Referred To Contact Cardiology Diagnoses Essential hypertension Procedures Follow Up In Cardiology Catie Pineda MD [address], [place] [id number] Phone: tel: fax: Catie Pineda MD [address] [facility] 2, [place] [address] Phone: tel: fax: Referral ID Status Reason Start Date Expiration Date V isits Requested Visits Authorized [id number] Authorized 10/28/2023 10/27/2024 1 1 FOR RECORDS [...] BE BASED ON THE PRIMARY CLINICAL RECORDS. [facility]. provides no warranty or guarantee of the accuracy or completeness of information in this document.
[2024-06-29 11:14] LABS: Prostate Specific Antigen Scrn 2.22 ng/mL (<=4.00)
== END 2024-06-29 10:03 | disposition home or self-care (01) ==
LOC: LAB 10:03
PROVIDERS: PCP Family Medicine; Visit Provider Family Medicine
DX: Z12.5 Encounter for screening for malignant neoplasm of prostate (principal)
CPT/HCPCS: 36415; G0103

== ENCOUNTER 2024-12-05 08:01 | Outpatient (OUT) | payer MEDICARE, SELFPAY ==
--- OUTSIDE RECORDS SUMMARY | 2024-12-05 08:07 | XMS_ITS | Clinical Summary ---
Author Organization [facility] Address [id number] [place] [address] Care Team Providers Care Econometrician Name Role Phone Messi Jerome Primary Care Provider Allergies Active Allergy Reactions Criticality Noted Date Comments Codeine 05/18/2021 Feels wired up and unable to sleep. Morphine Nausea 05/18/2021 Medications pantoprazole (PROTONIX) 40 mg EC tablet Take 40 mg by mouth 2 (two) times a day. Active loperamide (IMODIUM) 2 mg capsule Take 4 mg by mouth 3 (three) times a day as needed for diarrhea. Take 2- 2mg tabs Active lisinopril-hydr oCHLOROthiazide (PRINZIDE,ZESTO RETIC) 10-12.5 mg per tablet Take 1 tablet by mouth daily. Active amLODIPine (NORVASC) 5 mg tablet Take 5 mg by mouth 2 (two) times a day. Active fluticasone propionate (FLOVENT HFA) 220 mcg/actuation inhaler Inhale 2 puffs 2 (two) times a day. Active acetaminophen (TYLENOL) 500 mg tablet Take 2 tablets (1,000 mg total) by mouth every 8 (eight) hours. 180 tablet 1 1 Active albuterol (PROVENTIL HFA;VENTOLIN HFA) 90 mcg/actuation inhaler albuterol sulfate HFA 90 mcg/actuation aerosol inhaler Active ammonium lactate (AMLACTIN) 12 % cream 1 Active glucosam-chond- hyalu-CF borate 750 mg-100 mg- 1.65 mg-108 mg tablet Take by mouth daily. Active Active Problems Problem Noted Date Diagnosed Date Open wound of left knee 07/29/2021 Pre-op evaluation 05/19/2021 Septic prepatellar bursitis of left knee 021 HTN (hypertension) GERD (gastroesophageal reflux disease) Social History Tobacco Use Types Packs/Day Years Used Date Smoking Tobacco: Never Smokeless Tobacco: Never Alcohol Use Standard Drinks/Week Comments Yes 0 (1 standard drink = 0.6 oz pur e alcohol) occassionally Childcare Answer Date Recorded Childcare Unknown 11/03/2018 Employment Answer Date Recorded Employment Unknown 11/03/2018 Sex and Gender Information Value Date Recorded Sex Assigned at Not on file Legal Sex Male 12:12 PM EDT Gender Identity Not on file Sexual Orientation Not on file Last Filed Vital Signs Vital Sign Reading Time Taken Comments Blood Pressure 126/74 07/09/2021 2:38 PM EST Pulse 65 07/09/2021 2:38 PM EST Temperature 36.5 C (97.7 F) 07/29/2021 9:43 AM EST Respiratory Rate 18 05/23/2021 11:10 AM EST Oxygen Saturation 95% 07/09/2021 2:38 PM EST Inhaled Oxygen Concentration - - Weight 95.3 kg (210 lb) 07/29/2021 9:43 AM EST Height 185.4 cm (6' 1 ) 07/29/2021 9:43 AM EST Body Mass Index 27.71 07/29/2021 9:43 AM EST Plan of Treatment Health Maintenance Due Date Last Done Comments Depression Screening 1970 Tobacco Screening 1970 Adult BMI Screening 1976 Zoster (Shingles) Vaccine (1 of 2) 2008 Fall Risk Screening 2023 COVID-19 Vaccine (2 - 2023- season) 01/24/202412/2020 Influenza Vaccine 01/23/2025 DTaP,Tdap and Td Vaccines (3 - Td or Tdap) 07/30/2028 07/30/2018, 11/30/2014 Goals Goal Patient Goal Type Associated Problems Recent Progress Patient-Stated? Author Discharge General Yes Katarina George, RN Note: Evaluation of progress towards goal: Patient plans to discharge home self care with support from his Medical Devices Not on file Insurance [employer] Advance Directives * Full Code (Latest Code Status on File) Date Activated Date Inactivated Comments 05/19/2021 12:29 AM 05/23/2021 4:27 PM Care Teams Econometrician Relationship Specialty Start Date End Date Messi Jerome DO [address] [place] [address] PCP - General Family Medicine 05/18/21
--- OUTSIDE RECORDS SUMMARY | 2024-12-05 08:07 | XMS_ITS | Encounter Summary ---
Author Organization [facility] Address [address] [place] [address] Phone Care Team Providers Care Assurance Assistant Name Role Phone Messi Jerome DO Primary Care Provider [phone]- [phone] Encounter Details Date Type Department Care Team (Late st Contact Info) Description 06/24/2023 Scanned Document [facility] [address] [place] [id number] Scanning, Generic Provider Social History Tobacco Use Types Packs/Day Years Used Date Smoking Tobacco: Never Assessed Sex and Gender Information Value Date Recorded Sex Assigned at Not on file Legal Sex Male 3:33 AM EST Gender Identity Not on file Sexual Orientation Not on file documented as of this encounter Plan of Treatment Upcoming Encounters Date Type Department Care Team (Late st Contact Info) Description 08/08/2025 2:30 PM EDT Office Visit [place] [id number] [facility] [address] [place] [address] Moreno Pineda MD [address] [facility] [address] [place] [address] documented as of this encounter Visit Diagnoses Not on filedocumented in this encounter Care Teams Assurance Assistant Relationship Specialty Start Date End Date Messi Jerome DO [address] [facility] [place] [address] PCP - General Family Medicine 06/29/23 documented as of this encounter
--- OUTSIDE RECORDS SUMMARY | 2024-12-05 08:07 | XMS_ITS | Clinical Summary ---
Author Organization [facility] Address [address] [place] [address] Phone Care Team Providers Care Sfdc Consultant Name Role Phone Messi Jerome DO Primary Care Provider [phone]- [phone] Allergies Active Allergy Reactions Criticality Noted Date Comments Codeine Anxiety Low 06/29/2023 Morphine Nausea/vomiting 06/29/2023 Medications pantoprazole (ProtoNix) 40 mg EC tablet Take 1 tablet (40 mg) by mouth 2 times a day. Do not crush, chew, or split. Active loperamide (Imodium A-D) 2 mg tablet Take 1 tablet (2 mg) by mouth 3 times a day as needed for diarrhea. Active lisinopril 20 mg tablet 20 mg, hydroCHLOROthiazide 12.5 mg tablet 12.5 mg Take 1 tablet by mouth once daily. Active amLODIPine (Norvasc) 5 mg tablet Take 1 tablet (5 mg) by mouth 2 times a day. Active glucosamine-chondroiti n 500-400 mg tablet Take 1 tablet by mouth 2 times a day. Active cholecalciferol (Vitamin D3) 25 MCG (1000 UT) tablet Take 2 tablets (50 mcg) by mouth once daily. Active metoprolol succinate XL (Toprol-XL) 25 mg 24 hr tabletIndications:PVC (premature ventricular contraction),SVT (supraventricular tachycardia) Take 0.5 tablets (12.5 mg) by mouth once daily. Do not crush or chew. 45 tablet 3 04/27/20 24 2024 Active fluticasone (Flovent HFA) 220 mcg/actuation inhaler Inhale 1 puff 2 times a day. Rinse mouth with water after use to reduce aftertaste and incidence of candidiasis. Do not swallow. Active Asmanex Twisthaler 220 mcg/ actuation (120) inhaler Inhale 2 puffs 2 times a day. 04/13/20 24 2024 Discyarelis barclay(The rapy complete d) Active Problems Problem Noted Date Diagnosed Date Palpitations 11/08/2024 Hx of varicose veins 11/08/2024 PVC (premature ventricular contraction) 06/29/19 Essential hypertension 06/29/2023 SVT (supraventricular tachycardia) 06/29/2023 Never smoked any substance 06/29/2023 BMI 27.0-27.9,adult 06/29/2023 Encounters Date Type Department Care Team Description 11/08/2024 3:20 PM EDT Office Visit [address] [address] Moreno Pineda MD PVC (premature ventricular contraction) (Primary Dx); Essential hypertension; SVT (supraventricular tachycardia); BMI 27.0-27.9,adult; Never smoked any substance; Palpitations; Hx of varicose veins 11/08/2024 Travel 11/03/2024 Travel from Last 3 Months Family History Medical History Relation Name Comments bladder cancer Brother Lung cancer Father Aortic aneurysm Mother Breast cancer Mother Diabetes Mother Thyroid cancer Sister Relation Name Status Comments Brother Father Mother Sister Social History Tobacco Use Types Packs/Day Years Used Date Smoking Tobacco: Never Smokeless Tobacco: Never Tobacco Cessation:Counseling Given: Not Answered Alcohol Use Standard Drinks/Week Comments Not Currently 0 (1 standard drink = 0.6 oz pur e alcohol) Sex and Gender Information Value Date Recorded Sex Assigned at Not on file Legal Sex Male 3:33 AM EST Gender Identity Not on file Sexual Orientation Not on file Last Filed Vital Signs Vital Sign Reading Time Taken Comments Blood Pressure 126/72 11/08/2024 3:18 PM EDT Pulse 62 11/08/2024 3:18 PM EDT Temperature - - Respiratory Rate - - Oxygen Saturation - - Inhaled Oxygen Concentration - - Weight 95.3 kg (210 lb) 11/08/2024 3:18 PM EDT Height 185.4 cm (6' 1 ) 11/08/2024 3:18 PM EDT Body Mass Index 27.71 11/08/2024 3:18 PM EDT Plan of Treatment Upcoming Encounters Date Type Department Care Team (Late st Contact Info) Description 08/08/2025 2:30 PM EDT Office Visit [facility] [address] [facility] [address] [place] [id number] Moreno Pineda MD [address] [facility] [address] [place] [address] Health Maintenance Due Date Last Done Comments Lipid Panel 1960 Medicare Annual Wellness Vis it (AWV) 1960 MMR Vaccines (1 of 1 - Standard series) 1959 Diabetes Screening 1976 Hepatitis C Screening 1976 Pneumococcal Vaccine (1 of 1 - PCV) 2008 Zoster Vaccines (1 of 2) 2008 COVID-19 Vaccine (2 - 2023-2 5 season) 2024 07/30/2020 Influenza Vaccine (#1) 2025 DTaP/Tdap/Td Vaccines (3 - T d or Tdap) 07/30/2028 07/30/2018, 11/30/2014 RSV High Risk: (Elderly (60+ ) or Population) (1 - 1-dose 75+ series) 2033 HIB Vaccines Aged Out No longer eligi ble based on patient's age to complete this topic HPV Vaccines (No Doses Required) Completed Hepatitis A Vaccines Aged Out No long er eligible based on patient's age to complete this topic Hepatitis B Vaccines Aged Out No long er eligible based on patient's age to complete this topic IPV Vaccines Aged Out No longer eligi ble based on patient's age to complete this topic Meningococcal Vaccine Aged Out No liliana kimmy eligible based on patient's age to complete this topic Rotavirus Vaccines Aged Out No longer eligible based on patient's age to complete this topic Insurance MEDICARE PART A AND B SENIOR SUPPLEMENT MEDICARE PART A AND B SENIOR SUPPLEMENT Care Teams Sfdc Consultant Relationship Specialty Start Date End Date Messi Jerome DO [address] [place] [address] PCP - General Family Medicine 06/29/23
--- OUTSIDE RECORDS SUMMARY | 2024-12-05 08:07 | XMS_ITS | Encounter Summary ---
Author Organization [facility] Address [address] [place], [place] [id number] Care Team Providers Care Manufacturing Technician Name Role Phone Messi Jerome DO Primary Care Provider [phone]- [phone] Source Comments In the event this information is protected by the Federal Confidentiality of Alcohol and Drug AbusePatient Records regulations: The Federal rules restrict any use of the information to criminally investigate or prosecute any alcohol or drug abuse patient.[facility] Encounter Details Date Type Department Care Team (Latest Contact Info) Description 09/21/2007 Prob Sum Review Provider, [facility] Social History Tobacco Use Types Packs/Day Years Used Date Smoking Tobacco: Never Assessed Sex and Gender Information Value Date Recorded Sex Assigned at Not on file Legal Sex Male 8:59 AM EST Gender Identity Not on file Sexual Orientation Not on file documented as of this encounter Plan of Treatment Not on file documented as of this encounter Visit Diagnoses Not on filedocumented in this encounter Care Teams Manufacturing Technician Relationship Specialty Start Date End Date Messi Jerome DO [address] [facility] [place] [address] PCP - General 03/26/01 documented as of this encounter
--- OUTSIDE RECORDS SUMMARY | 2024-12-05 08:07 | XMS_ITS | Encounter Summary ---
[facility] Address [id number] [address] [place] [address] Care Team Providers Care Fishery Biologist Name Role Phone Messi Jerome Primary Care Provider Encounter Details Date Type Department Care Team (Late st Contact Info) Description 06/20/2021 Orders Only [facility] [address] [place] [id number] Sarah Carvajal RN Social History Tobacco Use Types Packs/Day Years [...] on file Sexual Orientation Not on file COVID-19 Exposure Response Date Recorded In the last month, have you been in contact with someone who was confirmed or suspected to have Coronavirus / COVID-19? No / Unsure 06/19/2021 1:20 PM EST documented as of this encounter Plan of Treatment Not on file documented as of this encounter Goals Goal Patient Goal Type Associated Problems Recent Progress Patient-Stated? Author Discharge General Yes Katarina George, RN Note: Evaluation of progress towards goal: Patient plans to discharge home self care with support from his documented as of this encounter Visit Diagnoses Not on filedocumented in this encounter Additional Health Concerns Infection Onset Date Last Indicated Resolved Time COVID-19 Rule-Out 09/03/2021 09/03/2021 09/04/2021 10:48 AM EDT documented as of this encounter Care Teams Fishery Biologist Relationship Specialty Start Date End Date Messi Jerome DO [address] [place] [address] PCP - General Family Medicine 05/18/21 documented as of this encounter
--- OUTSIDE RECORDS SUMMARY | 2024-12-05 08:08 | XMS_ITS | Clinical Summary ---
Author Organization [facility] Address [address] [place] [address] Care Team Providers Care Holter Scanning Technician Name Role Phone Unavailable Primary Care Provider Unavailabl e Social History Tobacco Use Types Packs/Day Years Used Date Smoking Tobacco: Never Assessed Sex and Gender Information Value Date Recorded Sex Assigned at Not on file Legal Sex Male 6:39 PM EDT Gender Identity Not on file Sexual Orientation Not on file Plan of Treatment Not on file Insurance [employer]
--- OUTSIDE RECORDS SUMMARY | 2024-12-05 08:08 | XMS_ITS | Encounter Summary ---
Author Organization [email or web address] [facility] Address [id number] [address] [place] [address] Care Team Providers Care Health Promotion Educator Name Role Phone Messi Jerome Primary Care Provider Encounter Details Date Type Department Care Team ([facility] [address] Contact Info) Description 06/04/2021 Telephone [facility] [address] [place] [id number] Garcia Davidson MD [address] [facility] [address] [address] Social History Tobacco Use Types Packs/Day Years [...] have Coronavirus / COVID-19? No / Unsure 06/06/2021 1:38 PM EST documented as of this encounter Miscellaneous Notes * Telephone Encounter - Garcia Davidson MD - 06/04/2021 1:14 PM EST Set a clinic follow-up * Telephone Encounter - Robb Shane Ishan - 06/04/2021 1:14 PM EST Patient is scheduled for 06/06/21 with Sigrid. documented in this encounter Plan of Treatment Not on file documented as of this encounter Goals Goal Patient Goal Type Associated Problems Recent Progress Patient-Stated? Author Discharge General Yes Katarina George, DARLYN Note: Evaluation of progress towards goal: Patient plans to discharge home self care with support from his documented as of this encounter Visit Diagnoses Not on filedocumented in this encounter Additional Health Concerns Infection Onset Date Last Indicated Resolved Time COVID-19 Rule-Out 09/03/2021 09/03/2021 09/04/2021 10:48 AM EDT documented as of this encounter Care Teams Health Promotion Educator Relationship Specialty Start Date End Date Messi Jerome DO [address] [place] [address] PCP - General Family Medicine 05/18/21 documented as of this encounter
--- OUTSIDE RECORDS SUMMARY | 2024-12-05 08:08 | XMS_ITS | Clinical Summary ---
Author Organization [facility] Address [address] [place] [id number] Care Team Providers Care Fire Prevention Forester Name Role Phone Messi Jerome DO Primary Care Provider [phone]- [phone] Allergies Active Allergy Reactions Criticality Noted Date Comments Nellie Other: See Comments 11/18/2017 Can't sleep Morphine GI Upset 11/18/2017 Vomiting Medications ranitidine hcl(ZANTAC 300 MG TAB) Take one(1) tablet two(2) times daily. 0 8 Active FLUTICASONE 44 MCG/ACTUATION AEROSOL INHALER one puff twice per day 0 8 Active lisinopril 10 mg ORAL tablet Take 20 mg by mouth once daily. Active fluticasone (FLOVENT) 220 mcg/actuation inhaler Inhale 2 Puffs as instructed twice daily. Active vvfbzsao-qknjb-fn alu-CF borate 750 mg-100 mg- 1.65 mg-108 mg tab Take by mouth once daily. Active lisinopril-hydroc hlorothiazide (PRINZIDE,ZESTORE TIC) 20-12.5 mg per tablet Take 1 tablet by mouth once daily. Active amLODIPine (NORVASC) 10 mg tablet Take 20 mg by mouth once daily. Active loperamide (IMODIUM) 2 mg cap(s)Indications :Ulcerative pancolitis with other complication (HCC) TAKE 2 CAPSULES BY MOUTH 4 TIMES A DAY NEEDED 720 capsule 3 9 Active Active Problems Problem Noted Date Diagnosed Date Chronic universal ulcerative colitis 09/22/2007 Family History Medical History Relation Comments Crohn's [Other] Brother Lung Cancer [Other] Father Breast Cancer Mother Relation Status Comments Brother Father Mother Social History Tobacco Use Types Packs/Day Years Used Date Smoking Tobacco: Never Smokeless Tobacco: Never Alcohol Use Standard Drinks/Week Comments No 0 (1 standard drink = 0.6 oz pur e alcohol) Area Deprivation Index Answer Date Jaciel rded National Score (1-100), lower number is lower ri sk Not on file 04/30/2020 State Score (1-10), lower number is lower risk N ot on file 04/30/2020 Data from: https://www.neighborhoodatlas.medicine.[facility]/. Last address used for calculation Not on file 04/30/2020 Sex and Gender Information Value Date Recorded Sex Assigned at Not on file Legal Sex Male 8:59 AM EST Gender Identity Not on file Sexual Orientation Not on file Last Filed Vital Signs Vital Sign Reading Time Taken Comments Blood Pressure 158/86 09/12/2015 1:26 PM EDT Pulse 54 09/12/2015 1:26 PM EDT Temperature 36.1 C (97 F) 09/12/2015 1:26 PM EDT Respiratory Rate 20 08/27/2011 10:38 AM EDT Oxygen Saturation 99% 09/12/2015 1:26 PM EDT Inhaled Oxygen Concentration - - Weight 90.7 kg (200 lb) 11/18/2017 3:11 PM EDT Height 185.4 cm (6' 1 ) 11/18/2017 3:11 PM EDT Body Mass Index 26.39 11/18/2017 3:11 PM EDT Plan of Treatment Health Maintenance Due Date Last Done Comments Anxiety Screening 1976 Depression Screening 1976 Hepatitis C Screening 1976 DTaP,Tdap,Td Vaccine (1 - Tdap) [address] Colonography 2003 Cologuard (FIT-DNA) 2003 Colonoscopy 2003 Colorectal Cancer Screening 2003 Diabetes Screening 2003 Fecal Occult Blood 2003 Prostate Cancer Screening Discussion 2003 Sigmoidoscopy 2003 Pneumococcal Vaccine: 50+ (1 of 1 - PCV) 2008 Shingrix Vaccine (1 of 2) 2008 Covid-19 Vaccine (1 - season) 2024 Advance Directive Discussion 05/25/2024 Influenza Vaccine (#1) 2025 RSV Vaccine (1 - 1-dose 75+ series) 2033 Insurance [facility] PPO Care Teams Fire Prevention Forester Relationship Specialty Start Date End Date Messi Jerome DO [address] [facility] [place] [place] [address] PCP - General 03/26/01
[2024-12-05 10:23] LABS: Alanine Aminotransferase 34 U/L (16-63); Albumin Globulin Ratio 1.0; Albumin Level 3.5 g/dL (3.4-5.0); Alkaline Phosphatase 60 U/L (46-116); Anion Gap 11.2; Aspartate Amino Transferase 23 U/L (15-37); Blood Urea Nitrogen 18.0 mg/dL (7.0-18.0); Calcium 9.2 mg/dL (8.5-10.1); Carbon Dioxide 31.0 mmol/L (21.0-32.0); Chloride 107 mmol/L (98-107); Cholesterol 147 mg/dL (<=200); Estimated GFR (African America >60 (>=60 mL/min/1.73m^2); Estimated GFR (Non-African Ame >60 (>=60 mL/min/1.73m^2); Globulin 3.4 g/dL; Glucose 97 mg/dL (74-106); HDL Cholesterol 79 mg/dL (40-60); Potassium 4.2 mmol/L (3.5-5.1); Sodium 145 mmol/L (136-145); Total Protein 6.9 g/dL (6.4-8.2); Triglycerides 41 mg/dL (<=150); VLDL CHOLESTEROL 8.2 mg/dL
== END 2024-12-05 08:02 | disposition home or self-care (01) ==
PROVIDERS: PCP Family Medicine; Visit Provider Family Medicine
DX: E78.2 Mixed hyperlipidemia (principal); I10 Essential (primary) hypertension; R73.01 Impaired fasting glucose; Z79.899 Other long term (current) drug therapy
CPT/HCPCS: 36415; 80053; 80061; 83036

== ENCOUNTER 2025-04-02 23:14 | Emergency (ER) | payer MEDICARE, SELFPAY ==
[2025-04-02 23:22] VITALS: BP 149/96; PULSE 60; TEMP 36.7; O2SAT 98; BMI 27.7
--- NOTE | 2025-04-02 23:30 | PC.NURSE ---
this patient drove himself to the er dept with a complain of a nose bleed onset 03/29/2025 while sleeping in bed. this patient left side nose bleed occurs on and off but today re started around 3:00 pm while sitting in his chair. this patient has placed a tissue in the left side of his nose. i removed this tissue and no visible bleeding at this time but i did place nose clamp on this patient's nose
--- OUTSIDE RECORDS SUMMARY | 2025-04-03 00:07 | XMS_ITS | CCD ---
Author Organization [facility] Care Team Providers Care Director Of Collections And Archives Name Role Phone SIMONE PRIDE Referring Unavailable KRIEGEL, GARIMA Admitting Unavailable KRIEGELGARIMA Attending Unavailable BUNTING, ANDERS Primary Care Unavailable EBRAHEIM, FARTUN Admitting Unavailable UNKNOWN, PHYSICIAN Primary Care Unavailable UNKNOWN, PHYSICIAN Referring Unavailable AK Procedure Practitioner Unavailab le EBRAHEIM, FARTUN Attending Unavailable EBRAHEIM, FARTUN Surgeon Unavailable BUNTING, DR MCNAMARA Primary Care [...] BUNTING, DR MCNAMARA Consulting Unavailable Bunting, DO Mcnamara Attending Provider Bunting, DO Anders Primary Care Provider Bunting Anders FAULKNER Ray Primary Care Provider Bunting DO, Anders Ray Primary Care Provider [phone] TRABARI MITTALF Attending Unavailable TRABOULSSI, MOURHAF Referring Unavailable BUNTING, ANDERS RAY Primary Care Unavailable TRABOULSSI, MOURHAF Attending Unavailable TRABOULSSI, MOURHAF Referring Unavailable BUNTING, ANDERS RAY Primary Care Unavailable Bunting Anders FAULKNER Attending Provider Bunting DO, Anders Primary Care Provider Jeni Muniz APRN Attending Provider Anders Jerome Primary Care Unavailable Jeni Muniz Attending Unavailable Jeni Muniz Admitting Unavailable Allergies Allergy ClassificationReported Allergen(s)Allergy TypeDate of OnsetReaction(s) Facility (10 sources)Codeine; Translations: [CODEINE]Drug Siirlce77-60-7510TkxycruFkh [facility] Repository (10 sources)Morphine; Translations: [MORPHINE]Drug Wlgconc02-96-5107 Nausea/vomitingThe [facility] Medications Current Medications MedicationDrug Class(es)DatesSig (Normalized)Sig (Original)acetaminophen 500 mg oral capsule (2 sources)Start: 02-83-7199xkga 1 capsule by mouth four times daily as needed for painStart: 69-77-1292gyeh 500 mg by mouth four times dailyAcetaminophen Active 500 MG PO Four times daily September 30, 2021 11:00pmacetaminophen 325 mg / HYDROcodone bitartrate 5 mg oral tablet (2 sources)Opioid AgonistStart: 90-48-5772twrk 1 tablet by mouth every six hours as needed for geqf570 actuat albuterol 0.09 mg/actuat dry powder inhaler (2 sources)beta2-Adrenergic AgonistStart: 42-31-1094qlATBAVtuv 5 mg oral tablet (6 sources)Dihydropyridine Calcium Channel BlockerStart: 53-28-9534btir 1 tablet by mouth once dailytake 1 tablet by mouth twice dailyamLODIPine (Norvasc) 5 mg tablet Take 1 tablet (5 mg) by mouth 2 times a day. Activeaspirin 81 mg oral tablet (2 sources)Platelet Aggregation Inhibitor, Nonsteroidal Anti-inflammatory Drug Start: 92-29-6228woem 1 capsule by mouth once dailybaclofen 10 mg oral tablet (2 sources)gamma-Aminobutyric Acid-ergic AgonistStart: 50-99-6022zwgz 1 tablet by mouth three times dailycholecalciferol 0.025 mg oral tablet (4 sources)Vitamin Dtake 2 tablets by mouth once dailycholecalciferol (Vitamin D3) 25 MCG (1000 UT) tablet Take 2 tablets (50 mcg) by mouth once daily. Active chondroitin sulfates 400 mg / glucosamine hydrochloride 500 mg oral tablet (4 sources)take 1 tablet by mouth twice dailyglucosamine-chondroitin 500-400 mg tablet Take 1 tablet by mouth 2 times a day. Activedocusate sodium 50 mg / sennosides, skilled nursing 8.6 mg oral tablet (2 sources)Start: 16-94-8395vlyk 1 tablet by mouth twice daily as needed for mqdcnnqddzyv921 actuat fluticasone propionate 0.22 mg/actuat metered dose inhaler (6 sources)CorticosteroidStart: 34-57-8328viyx 1 puff(s) by inhalation twice daily End: 38-89-1211ovxl 2 puff(s) by mouth twice dailyfluticasone (Flovent HFA) 220 mcg/actuation inhaler Inhale 2 puffs 2 times a day. Rinse mouth with water after use to reduce aftertaste and incidence of candidiasis. Do not swallow. 04/27/2024 Discontinued (Discontinued by another clinician)hydroCHLOROthiazide 12.5 mg / lisinopril 10 mg oral tablet (6 sources)Thiazide Diuretic, Angiotensin Converting Enzyme InhibitorStart: 90-44-7411gwsw 1 tablet by mouth once dailytake 1 tablet by mouth once daily lisinopril 20 mg tablet 20 mg, hydroCHLOROthiazide 12.5 mg tablet 12.5 mg Take 1 tablet by mouth once daily. Activetake 1 tablet by mouth once dailylisinopril 20 mg tablet 20 mg, hydroCHLOROthiazide 12.5 mg tablet 12.5 mg Take 1 tablet by mouth once daily. 0 Activeammonium lactate 120 mg/ml topical cream (2 sources)Start: 22-76-4209hxxfighyxe hydrochloride 2 mg oral tablet (6 sources)Opioid AgonistStart: 70-36-1486ckfr 1 tablet by mouth four times dailytake 1 tablet by mouth three times daily as needed for diarrhealoperamide (Imodium A-D) 2 mg tablet Take 1 tablet (2 mg) by mouth 3 times a day as needed for diarrhea. Dbnokm67 hr metoprolol succinate 25 mg extended release oral tablet (2 sources)beta-Adrenergic BlockerStart: 04-27-2024 End: 90-49-5942uqaq 0.5 tablet by mouth once dailymetoprolol succinate XL (Toprol-XL) 25 mg 24 hr tablet Indications: PVC (premature ventricular contr action) , SVT (supraventricular tachycardia) Take 0.5 tablets (12.5 mg) by mouth once daily. Do notcrush or chew. 45 tablet 3 04/27/2024 04/27/2025 Active omeprazole 20 mg delayed release oral capsule (2 sources)Proton Pump InhibitorStart: 82-63-1655dpfi 1 capsule by mouth twice dailypantoprazole 40 mg delayed release oral tablet (6 sources)Proton Pump InhibitorStart: 36-80-1048izyo 1 tablet by mouth once dailytake 1 tablet by mouth twice dailypantoprazole (ProtoNix) 40 mg EC tablet Take 1 tablet (40 mg) by mouth 2 times a day. Do not crush,chew, or split. Active Completed/Discontinued Medications MedicationDrug Class(es)DatesSig (Normalized)Sig (Original)magnesium oxide 400 mg oral tablet (2 sources)Start: 10-28-2023 End: 75-40-5563jiitmxwlm oxide (Mag-Ox) 400 mg (241.3 mg magnesium) tablet Indications: PVC (premature ventricularcontraction) , SVT (supraventricular tachycardia) (CMS-HCC) Take one tablet daily with food, if tolerated can take two tablets 160 tablet 3 10/28/2023 04/27/2024 Discontinued (Discontinued by anotherclinician)120 actuat mometasone furoate 0.22 mg/actuat dry powder inhaler (2 sources)CorticosteroidStart: 04-13-2024 End: 74-08-8254eqbw 2 puff(s) by inhalation twice dailyAsmanex Twisthaler 220 mcg/ actuation (120) inhaler Inhale 2 puffs 2 times a day. 04/13/2024 11/08/2024 Discontinued (Therapy completed)vitamin b12 0.1 mg oral tablet (2 sources)Vitamin B12 End: 95-72-9978hefh 1 tablet by mouth once dailycyanocobalamin (Vitamin B-12) 100 mcg tablet Take 1 tablet (100 mcg) by mouth once daily. 10/28/2023 Discontinued (Discontinued by another clinician) Problems Active Problems Problem ClassificationProblemDateDocumented DateEpisodic/ChronicCardiac dysrhythmias (20 sources)Multiple premature ventricular complexes; Translations: [Ventricular premature depolarization]Onset: 544708-81-6627FgcbisyDyfmdsg dysrhythmias (2 sources)Palpitations; Translations: [Palpitations]Onset: 560952-82-0377 EpisodicDiabetes mellitus without complication (1 source)Impaired fasting glucose; Translations: [IMPAIRED FASTING GLUCOSE] Onset: 06-44-4957IigmzeojBxmmirjig of lipid metabolism (5 sources)Mixed hyperlipidemia; Translations: [MIXED HYPERLIPIDEMIA]Onset: 84-67-0951ZmfvujoXclwymlct hypertension (17 sources)Essential (primary) hypertension; Translations: [Essential hypertension]Onset: 41-19-3182XxlzjunLxrrljlqioy deficiencies (1 source)Vitamin D deficiency, unspecified; Translations: [VITAMIN D DEFICIENCY UNSPECIFIED]Onset: 35-32-2608KgmsdueKkap wounds of extremities (2 sources)Open wound of left knee; Translations: [Unspecified open wound, left knee, initial encounter]08-50-3766AoezvozoNqsl wounds of extremities (3 sources)Injury of right leg; Translations: [Unspecified open wound, right lower leg, initial encounter]Onset: 929031-45-1223IqsxvrsuVddch aftercare (1 source)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; Translations: [OTH KNIFEMAN CURRENT DRUG THERAPY]Onset: 56-71-5089YkxxdzviHehps circulatory disease (2 sources)H/O: varicose veins; Translations: [Personal history of other diseases of the circulatory system]Onset: 043347-78-3774HnvrzlypPuvkn nutritional; endocrine; and metabolic disorders (8 sources)Overweight in adulthood with body mass index of 25 or more but less than 30; Translations: [Body mass index (BMI) 28.0-28.9, adult]Onset: 06-29-2023 81-63-8737GxlhzklmDiwhc nutritional; endocrine; and metabolic disorders (2 sources)Body mass index (BMI) 27.0-27.9, adult; Translations: [Body mass index (BMI) 27.0-27.9, adult]Onset: 75-89-0580LoghohyhJxvap screening for suspected conditions (not mental disorders or infectious disease) (1 source)Encounter for screening for malignant neoplasm of prostate; Translations: [ENC SCREEN MALIG NEOPLASM PROSTATE]Onset: 01-29-4445Tybgoogu Residual codes; unclassified (1 source)Family history of diabetes mellitus; Translations: [FAMILY HISTORY OF DIABETES MELLITUS]Onset: 72-32-0958YcdqzhjuKyvvsvat codes; unclassified (2 sources)Edema of left lower leg; Translations: [Localized edema]10-01-2021 EpisodicResidual codes; unclassified (2 sources)History of operation on musculoskeletal system; Translations: [Other specified postprocedural states]92-54-5792CbcdoysmJlgdvkgo codes; unclassified (8 sources)Never smoked any substance; Translations: [Other specified health status]Onset: 852198-92-4672QtecjvojOyxuriaeplad (2 sources)CONTACT W/AND (SUSP) EXPOS COVID-19; Translations: [CONTACT W/AND (SUSP) EXPOS COVID-19]Onset: 79-24-7854Slujqqphokyo (1 source)Supraventricular tachycardia, unspecified; Translations: [Supraventricular tachycardia, unspecified]Onset: 79-58-3743Uweglvsweslc (1 source)Supraventricular tachycardia, unspecified (CMS-HCC); Translations: [Supraventricular tachycardia, unspecified (CMS-HCC)]Onset: 39-12-8377Vttnjtda veins of lower extremity (3 sources)Varicose veins of lower limb co-occurrent with edema; Translations: [Varicose veins of bilateral lower extremities with other complications] 87-46-8071BkzbgjtwTabsw infection (1 source)COVID-19; Translations: [COVID-19]Onset: 12-11-2021 Past or Other Problems Problem ClassificationProblemDateDocumented DateEpisodic/ChronicOther aftercare (1 source)Encounter for therapeutic drug level monitoring; Translations: [ENC THERAPEUTC DRUG LEVL MONITORING]Onset: 46-21-5885DfmpwzgeZwoso nutritional; endocrine; and metabolic disorders (2 sources)Body mass index (BMI) 28.0-28.9, adult; Translations: [Body mass index (BMI) 28.0-28.9, adult]Onset: 00-27-2632KvfbnpuoCctqgiya codes; unclassified (2 sources)Other specified health status; Translations: [Other specified health status]Onset: 73-63-8624FxomzpfxXylmudvhntmy (1 source)CONTACT W/AND (SUSP) EXPOS COVID-19; Translations: [CONTACT W/AND (SUSP) EXPOS COVID-19]Onset: 04-50-9355Duuxyqenmyut (4 sources)Onset: 06-29-2023 Resolved: 412315-51-9258Vxuvkvxzoutv (1 source)Supraventricular tachycardia, unspecified; Translations: [Supraventricular tachycardia, unspecified]Onset: 17-71-2849Xcjtexcfogif (1 source)Supraventricular tachycardia, unspecified (CMS-HCC); Translations: [Supraventricular tachycardia, unspecified (CMS-HCC)]Onset: 04-27-2024 Results Test NameValueInterpretationReference RangeFacilityECG [address] [place] 24-91-7588Kufrp with occasional PVCsUniversHenry [facility] Work Phone: [facility] Work Phone: ecg [address] [place] 12-07-0649Lcsjmg sinus rhythmCPACS [facility] Work Phone: CBC AUTO DIFFon 10-19-8095KZBJ #0.1 103/ulNormal 0.0-0.1[facility] HospitalComment on above:Performed By: #### CBC #### [facility] [address] [address] [address] Virginia Lundysophils/100 WBC (Bld)0.7 %Normal0.2-2.0[facility] Comment on above:Performed By: #### CBC #### [facility] [address] [address] [address] Virginia Fuller #0.2 103/ulNormal0.0-0.7The [facility] CenterComment on above: Performed By: #### CBC #### [facility] [address] [address] [address] Virginia Ngosinophils/100 WBC (Bld)2.1 %Normal0.9-7.0The [facility] Comment on above:Performed By: #### CBC #### [facility] [address] [address] [address] Virginia Ngrythrocyte distribution width (RBC) [Ratio]13.6 %Gwsmjj06.0-15.0 The [facility] CenterComment on above:Performed By: #### CBC #### [facility] [address] [place] [address] Dr. Virginia OrourkeHematocrit (Bld) [Volume fraction]39.7 %Critically low42.0-54.0 The [facility] CenterComment on above:Performed By: #### CBC #### [facility] [address] [place] [address] Dr. Virginia OrourkeHemoglobin (Bld) [Mass/Vol]13.9 g/dLCritically low14.0-18.0The [facility] CenterComment on above:Performed By: #### CBC #### [facility] [address] [place] [address] Dr. Virginia Chavez #0.01 10e3/ulNormal0.00-0.03The [facility] CenterComment on above:Performed By: #### CBC #### [facility] [address] [place] [address] Dr. Virginia Chavez %0.1 %Normal0.0-0.5The [facility] CenterComment on above: Performed By: #### CBC #### [facility] [address] [place] [address] Dr. Virginia Myers #1.7 103/ulNormal1.2-3.8The [facility] CenterComment on above:Performed By: #### CBC #### [facility] [address] [place] [address] Dr. Virginia Kochmphocytes/100 WBC (Bld)23.6 %Ounzcl83.5-60.0The [facility] CenterComment on above:Performed By: #### CBC #### [facility] [address] [place] [address] Dr. Virginia YeeUAL DIFF REQNONormalThe [facility] CenterComment on above: Performed By: #### CBC #### [facility] [address] [place] [address] Dr. Virginia Lassiter (RBC) [Entitic mass]30.1 nhXmoorp89.9-34.0The [facility] CenterComment on above:Performed By: #### CBC #### [facility] [address] [place] [address] Dr. Virginia Dia (RBC) [Mass/Vol]35.0 g/fDOehfam63.9-35.2The [facility] CenterComment on above:Performed By: #### CBC #### [facility] [address] [place] [address] Dr. Virginia Dia (RBC) [Entitic vol]85.9 eETxzach34.0-94.0The [facility] CenterComment on above:Performed By: #### CBC #### [facility] [address] [place] [address] Dr. Virginia Davalos #0.8 103/ulNormal0.3-0.8The [facility] CenterComment on above:Performed By: #### CBC #### [facility] [address] [place] [address] Dr. Virginia Owensocytes/100 WBC (Bld)10.4 %Normal1.7-12.0The [facility] Comment on above:Performed By: #### CBC #### [facility] [address] [place] [address] Dr. Virginia Lopez #4.6 103/ulNormal1.4-6.5The [facility] CenterComment on above:Performed By: #### CBC #### [facility] [address] [place] [address] Dr. Virginia Mossutrophils/100 WBC (Bld)63.1 %Vpbmlw97.0-75.0The [facility] CenterComment on above:Performed By: #### CBC #### [facility] [address] [place] [address] Dr. Virginia Lucialet mean volume (Bld) [Entitic vol]8.9 fLCritically low 9.5-13.5The [facility] CenterComment on above:Performed By: #### CBC #### [facility] [address] [address] [address] Virginia OrourkePLT255 103/fxJnhgbv959-926Ldz [facility] on above: Performed By: #### CBC #### [facility] [address] [address] [address] Virginia OrourkeRBC4.62 106/ulCritically low4.70-6.10The [facility] CenterComaspirus [facility] on above:Performed By: #### CBC #### [facility] [address] [address] [address] Virginia OrourkeWBC7.2 103/ulNormal4.0-11.0The [facility] on above: Performed By: #### CBC #### [facility] [address] [place] [address] Dr. Virginia OrourkeGLYCOHEMOGLOBIN A1Con 31-97-3004UXX RECOMMENDATIONSEE BELOWUniversity Hospitals Elyria Medical CenterComaspirus [facility] river hospital on above:Result Comment: ADA RECOMMENDED LIMIT 4.0 - 6.0 ADA THERAPEUTIC TARGET < 7.0 ACTION SUGGESTED > 7.0Performed By: #### A1C #### [facility] [address] [place] [address] Dr. Virginia OrourkeGlucose [Mass/Vol]111 mg/dLNoMercy Health on above:Performed By: #### A1C #### [facility] [address] [place] [address] Dr. Virginia OrourkeHbA1c (Bld) [Mass fraction]5.5 %Normal4.5-6.2The [facility] on above:Performed By: #### A1C #### [facility] [address] [place] [address] Dr. Virginia OrourkeLIPID PROFILEon 99-05-9693PLYI-HDL RATIO NORMSEE [facility] on above:Result Comment: 3.3 - 4.4 LOW RISK 4.4 - 7.1 AVERAGE RISK 7.1 - 11.0 MODERATE RISK >11.0 HIGH RISKPerformed By: #### CMP, LIPID #### [facility] [address] [place], [place] [id number] Dr. Virginia OrourkeCholesterol [Mass/Vol]145 mg/dLNormal<=200[facility] Comment on above:Performed By: #### CMP, LIPID #### [facility] [address] [address] [address] Virginia OrourkeCholesterol in HDL [Mass/Vol]69 mg/dLCritically mfko14-33Qfg [facility] CenterComment on above:Performed By: #### CMP, LIPID #### [facility] [address] [address] [address] Virginia OrourkeCholesterol in LDL [Mass/Vol]62.6 mg/dLCleveland Clinic Mercy HospitalComment on above:Performed By: #### CMP, LIPID #### [facility] [address] [place] [address] Dr. Virginia Hernandezesterdanica.total/Cholesterol in HDL [Mass ratio]2.1 {ratio} NormalThe [facility] CenterComment on above:Performed By: #### CMP, LIPID #### [facility] [address] [place] [address] Dr. Virginia Hawthorne NORMAL> or = 60 mg/dl - LOW CARDIOVASCULAR RISK <40 mg/dl - HIGH CARDIOVASCULAR RISKCleveland Clinic Mercy HospitalComment on above:Performed By: #### CMP, LIPID #### [facility] [address] [place] [address] Dr. Virginia OrourkeLDL CALC NORMALSEE BELOWCleveland Clinic Mercy HospitalComment on above:Result Comment: <100 mg/dl OPTIMAL 100 - 129 mg/dl NEAR OR ABOVE OPTIMAL 130 - 159 mg/dl BORDERLINE HIGH 160 - 189 mg/dl HIGH >190 mg/dl VERY HIGH Performed By: #### CMP, LIPID #### [facility] [address] [place] [address] Dr. Virginia OrourkeTriglyceride [Mass/Vol]67 mg/dLNormal<=150[facility] Comment on above:Performed By: #### CMP, LIPID #### [facility] [address] [place] [address] Dr. Virginia OrourkeVLDL CALC13.4 mg/dLNormalThe [facility] CenterComment on above: Performed By: #### CMP, LIPID #### [facility] [address] [place] [address] Dr. Virginia Smalls 14(COMP METB)on 90-64-4586Acekbdi [Mass/Vol]3.8 g/dLNormal 3.4-5.0The [facility] CenterComment on above:Performed By: #### CMP, LIPID #### [facility] [address] [place] [address] Dr. Virginia OrourkeAlbumin/Globulin [Mass ratio]1.0 {ratio}NormalThe [facility] CenterComment on above:Performed By: #### CMP, LIPID #### [facility] [address] [place] [address] Dr. Virginia Sullivan [Catalytic activity/Vol]81 U/CUkhcdx71-613Lau [facility] CenterComment on above:Performed By: #### CMP, LIPID #### [facility] [address] [place] [address] Dr. Virginia Ureña [Catalytic activity/Vol]29 U/FBdoeqe73-05Pvo [facility] CenterComment on above:Performed By: #### CMP, LIPID #### [facility] [address] [place] [address] Dr. Virginia Vega gap [Moles/Vol]12.1 mmol/LNormalThe [facility] Comment on above:Performed By: #### CMP, LIPID #### [facility] [address] [place] [address] Dr. Virginia Patten [Catalytic activity/Vol]24 U/AJnvvrm02-30Ccu [facility] CenterComment on above:Performed By: #### CMP, LIPID #### [facility] [address] [place] [address] Dr. Virginia OrourkeBilirubin [Mass/Vol]0.7 mg/dLNormal0.2-1.0The [facility] Comment on above:Performed By: #### CMP, LIPID #### [facility] [address] [place] [address] Dr. Yilan ChangCalcium [Mass/Vol]9.3 mg/dLNormal8.5-10.1The [facility] Comment on above:Performed By: #### CMP, LIPID #### [facility] [address] [place] [address] Dr. Virginia OrourkeChloride [Moles/Vol]105 mmol/VEtcwcx60-986Ora [facility] Comment on above:Performed By: #### CMP, LIPID #### [facility] [address] [place] [address] Dr. Virginia OrourkeCO2 [Moles/Vol]29.5 mmol/LTtjqpu37.0-32.0The [facility] Comment on above:Performed By: #### CMP, LIPID #### [facility] [address] [place] [address] Dr. Virginia OrourkeCreatinine [Mass/Vol]0.80 mg/dLNormal0.70-1.30The [facility] CenterComment on above:Performed By: #### CMP, LIPID #### [facility] [address] [place] [address] Dr. Virginia NgGFR-AF CROATIAN>60Normal>=60The [facility] CenterComment on above:Performed By: #### CMP, LIPID #### [facility] [address] [place] [address] Dr. Virginia NgGFR-NON AF CROATIAN>60Normal>=60The [facility] CenterComment on above:Performed By: #### CMP, LIPID #### [facility] [address] [place] [address] Dr. Virginia OrourkeGlobulin (S) [Mass/Vol]3.7 g/dLNormalThe [facility] CenterComment on above:Performed By: #### CMP, LIPID #### [facility] [address] [place] [address] Dr. Virginia OrourkeGlucose [Mass/Vol]107 mg/dLCritically ridm42-402Kyc [facility] CenterComment on above:Performed By: #### CMP, LIPID #### [facility] [address] [place] [address] Dr. Virginia OrourkePotassium [Moles/Vol]3.6 mmol/LNormal3.5-5.1The [facility] Comment on above:Performed By: #### CMP, LIPID #### [facility] [address] [place] [address] Dr. Virginia OrourkeProtein [Mass/Vol]7.5 g/dLNormal6.4-8.2The [facility] Comment on above:Performed By: #### CMP, LIPID #### [facility] [address] [address] [address] Virginia OrourkeSodium [Moles/Vol]143 mmol/NJprpqp086-052Nzl [facility] Comment on above:Performed By: #### CMP, LIPID #### [facility] [address] [place] [address] Dr. Virginia OrourkeUrea nitrogen [Mass/Vol]14.0 mg/dLNormal7.0-18.0The [facility] CenterComment on above:Performed By: #### CMP, LIPID #### [facility] [address] [place] [address] Dr. Virginia Kwon nitrogen/Creatinine [Mass ratio]17.5 mg/mgNormalThe [facility] CenterComment on above:Performed By: #### CMP, LIPID #### [facility] [address] [place] [address] Dr. Virginia OrourkeCovid-19 PCR ([facility])on 97-93-1465WMFE-CoV-2 (COVID-19) RNA ANDREW+probe Ql (Unsp spec)DetectedCritically abnormalNOT DETECTEDThe [facility] CenterComment on above:Result Comment: This test is not yet approved or cleared by the [place] FDA. When there are no FDA-approved or cleared tests available, and other criteria are met, FDA can make tests available under an emergency access mechanism called an Emergency Use Authorization (EUA). The EUA for this test is supported by the [employer] Supervisor of Health and Human Service's declaration that circumstances exist to justify the emergency use of in vitro diagnostics for the detection and/or diagnosis of the virusthat causes COVID-19. This EUA will remain in effect for the duration of the COVID-19 declaration ju stifying emergency of IVDs, unless it is terminated or revoked by the FDA (after which the test mayno longer be used).Performed By: #### CVDTBH #### [facility] [address] [address] [address] Virginia Armstrong AUTO DIFFon 51-55-1575IFSG #0.0 103/ulNormal0.0-0.1The [facility] Medical CenterComment on above:Performed By: #### CBC #### [facility] [address] [place] [address] Dr. Virginia OrourkeBasophils/100 WBC (Bld)0.7 %Normal0.2-2.0The [facility] Comment on above:Performed By: #### CBC #### [facility] [address] [place] [address] Dr. Virginia Fuller #0.1 103/ulNormal0.0-0.7The [facility] CenterComment on above: Performed By: #### CBC #### [facility] [address] [place] [address] Dr. Virginia Ngosinophils/100 WBC (Bld)1.3 %Normal0.9-7.0The [facility] Comment on above:Performed By: #### CBC #### [facility] [address] [place] [address] Dr. Virginia Ngrythrocyte distribution width (RBC) [Ratio]14.8 %Crsmua42.0-15.[address] [facility] HospitalComment on above:Performed By: #### CBC #### [facility] [address] [place] [address] Dr. Vriginia OrourkeHematocrit (Bld) [Volume fraction]40.2 %Critically low42.0-54.[address] Anne HospitalComment on above:Performed By: #### CBC #### [facility] [address] [place] [address] Dr. Virginia OrourkeHemoglobin (Bld) [Mass/Vol]13.1 g/dLCritically low14.0-18.0The [facility] Hospitalment on above:Performed By: #### CBC #### [facility] [address] [address] [address] Virginia Chavez #0.02 10e3/ulNormal0.00-0.03The [facility] CenterComment on above:Performed By: #### CBC #### [facility] [address] [place] [address] Dr. Virginia Chavez %0.3 %Normal0.0-0.5The [facility] CenterComaspirus iron river hospital on above: Performed By: #### CBC #### [facility] [address] [place] [address] Dr. Virginia Myers #1.4 103/ulNormal1.2-3.8The [facility] CenterComaspirus iron river hospital on above:Performed By: #### CBC #### [facility] [address] [place] [address] Dr. Virginia Bradshawhocytes/100 WBC (Bld)22.1 %Ijtzsw47.5-60.0The [facility] on above:Performed By: #### CBC #### [facility] [address] [place] [address] Dr. Virginia YeeUAL DIFF REQNONormalThe [facility] on above: Performed By: #### CBC #### [facility] [address] [place] [address] Dr. Virginia Dia (RBC) [Entitic mass]30.7 ulFjtazs85.9-34.0The [facility] Hospitalment on above:Performed By: #### CBC #### [facility] [address] [place] [address] Dr. Virginia Dia (RBC) [Mass/Vol]32.6 g/zROizqbb06.9-35.2The [facility] on above:Performed By: #### CBC #### [facility] [address] [place] [address] Dr. Virginia Dia (RBC) [Entitic vol]94.1 fLCritically high80.0-94.0The [facility] CenterComment on above:Performed By: #### CBC #### [facility] [address] [address] [address] Virginia Davalos #0.7 103/ulNormal0.3-0.8The [facility] CenterComment on above:Performed By: #### CBC #### [facility] [address] [address] [address] Virginia Owensocytes/100 WBC (Bld)11.4 %Normal1.7-12.0The [facility] Comment on above:Performed By: #### CBC #### [facility] [address] [place] [address] Dr. Virginia Lopez #3.9 103/ulNormal1.4-6.5The [facility] CenterComment on above:Performed By: #### CBC #### [facility] [address] [place] [address] Dr. Virginia Mossutrophils/100 WBC (Bld)64.2 %Fkqbsf90.0-75.0The [facility] CenterComment on above:Performed By: #### CBC #### [facility] [address] [place] [address] Dr. Virginia Rush mean volume (Bld) [Entitic vol]9.9 fLNormal9.5-13.5The [facility] CenterComment on above:Performed By: #### CBC #### [facility] [address] [place] [address] Dr. Virginia OrourkePLT242 103/bxAjckcq855-605Dvc [facility] CenterComment on above: Performed By: #### CBC #### [facility] [address] [place] [address] Dr. Virginia OrourkeRBC4.27 106/ulCritically low4.70-6.10The [facility] CenterComment on above:Performed By: #### CBC #### [facility] [address] [place] [address] Dr. Virginia OrourkeWBC6.1 103/ulNormal4.0-11.0The [facility] CenterComment on above: Performed By: #### CBC #### [facility] [address] [address] [address] Virginia OrourkeGLYCOHEMOGLOBIN A1Con 53-07-5568BEA RECOMMENDATIONSEE BELOWNormdc The [facility] CenterComaspirus iron [facility] hospital on above:Result Comment: ADA RECOMMENDED LIMIT 4.0 - 6.0 ADA THERAPEUTIC TARGET < 7.0 ACTION SUGGESTED > 7.0Performed By: #### LIPID, CMP #### [facility] [address] [place] [address] Dr. Virginia OrourkeHbA1c (Bld) [Mass fraction]5.5 %Normal4.5-6.2The [facility] on above:Performed By: #### LIPID, CMP #### [facility] [address] [place] [address] Dr. Virginia NarvaezID PROFILEon 54-10-7141MSWL-HDL RATIO NORMSEE BELOWCleveland Clinic Mercy HospitalComaspirus iron river hospital on above:Result Comment: 3.3 - 4.4 LOW RISK 4.4 - 7.1 AVERAGE RISK 7.1 - 11.0 MODERATE RISK >11.0 HIGH RISKPerformed By: #### LIPID, CMP #### [facility] [address] [place] [address] Dr. Virginia Hernandezesterol [Mass/Vol]149 mg/dLNormal<=200The [facility] Comment on above:Performed By: #### LIPID, CMP #### [facility] [address] [place] [address] Dr. Virginia Hernandezesterol in HDL [Mass/Vol]71 mg/dLCritically zcnf89-22Rdl [facility] on above:Performed By: #### LIPID, CMP #### [facility] [address] [place] [address] Dr. Virginia OrourkeCholesterol in LDL [Mass/Vol]72.8 mg/dLNoMercy Health on above:Performed By: #### LIPID, CMP #### [facility] [address] [place] [address] Dr. Virginia Hernandezesterdanica.total/Cholesterol in HDL [Mass ratio]2.1 {ratio} NormalThe [facility] CenterComment on above:Performed By: #### LIPID, CMP #### [facility] [address] [address] [address] Virginia Hawthorne NORMAL> or = 60 mg/dl - LOW CARDIOVASCULAR RISK <40 mg/dl - HIGH CARDIOVASCULAR RISKCleveland Clinic Mercy HospitalComment on above:Performed By: #### LIPID, CMP #### [facility] [address] [address] [address] Virginia OrourkeLDL CALC NORMALSEE BELOWNoSelect Medical Specialty Hospital - YoungstownComment on above:Result Comment: <100 mg/dl OPTIMAL 100 - 129 mg/dl NEAR OR ABOVE OPTIMAL 130 - 159 mg/dl BORDERLINE HIGH 160 - 189 mg/dl HIGH >190 mg/dl VERY HIGH Performed By: #### LIPID, CMP #### [facility] [address] [place] [address] Dr. Virginia OrourkeTriglyceride [Mass/Vol]26 mg/dLNormal<=150The [facility] Comment on above:Performed By: #### LIPID, CMP #### [facility] [address] [address] [address] Virginia OrourkeVLDL CALC5.2 mg/dLNoSelect Medical Specialty Hospital - YoungstownComment on above: Performed By: #### LIPID, CMP #### [facility] [address] [place] [address] Dr. Virginia OrourkePROF 14(COMP METB)on 66-49-2680Txjdidb [Mass/Vol]3.8 g/dLNormal 3.4-5.0B[facility] Crille Hospitalment on above:Performed By: #### LIPID, CMP #### [facility] [address] [address] [address] Virginia OrourkeAlbumin/Globulin [Mass ratio]1.1 {ratio}NormalThe [facility] CenterComment on above:Performed By: #### LIPID, CMP #### [facility] [address] [address] [address] Virginia SullivanP [Catalytic activity/Vol]73 U/KKfafuh09-877Kof Diana HospitalComment on above:Performed By: #### LIPID, CMP #### [facility] [address] [address] [address] Virginia Ureña [Catalytic activity/Vol]39 U/MAavcxp95-75Dqs [facility] CenterComment on above:Performed By: #### LIPID, CMP #### [facility] [address] [address] [address] Virginia Thorpeon gap [Moles/Vol]9.2 mmol/LNormalThe [facility] CenterComment on above:Performed By: #### LIPID, CMP #### [facility] [address] [address] [address] Virginia OrourkeAST [Catalytic activity/Vol]29 U/HUqpixe89-80Xwf [facility] CenterComment on above:Performed By: #### LIPID, CMP #### [facility] [address] [address] [address] Virginia OrourkeBilirubin [Mass/Vol]0.6 mg/dLNormal0.2-1.0The [facility] Comment on above:Performed By: #### LIPID, CMP #### [facility] [address] [address] [address] Virginia OrourkeCalcium [Mass/Vol]9.2 mg/dLNormal8.5-10.1The [facility] Comment on above:Performed By: #### LIPID, CMP #### [facility] [address] [address] [address] Virginia OrourkeChloride [Moles/Vol]106 mmol/ZItgjcb33-804Ijg [facility] Comment on above:Performed By: #### LIPID, CMP #### [facility] [address] [address] [address] Virginia OrourkeCO2 [Moles/Vol]31.4 mmol/TEyrubu48.0-32.0The [facility] Comment on above:Performed By: #### LIPID, CMP #### [facility] [address] [address] [address] Virginia OrourkeCreatinine [Mass/Vol]0.94 mg/dLNormal0.70-1.30[facility] Anne HospitalComment on above:Performed By: #### LIPID, CMP #### [facility] [address] [address] [address] Virginia NgGFR-AF CROATIAN>60Normal>=60The [facility] CenterComment on above:Performed By: #### LIPID, CMP #### [facility] [address] [address] [address] Virgiina NgGFR-NON AF CROATIAN>60Normal>=60The [facility] CenterComment on above:Performed By: #### LIPID, CMP #### [facility] [address] [address] [address] Virginia OrourkeGlobulin (S) [Mass/Vol]3.6 g/dLNormSamaritan HospitalComment on above:Performed By: #### LIPID, CMP #### [facility] [address] [address] [address] Virginia OrourkeGlucose [Mass/Vol]111 mg/dLNormSamaritan HospitalComment on above:Performed By: #### LIPID, CMP #### [facility] [address] [address] [address] Virginia OrourkePotassium [Moles/Vol]4.7 mmol/LNormal3.5-5.1[facility] Comment on above:Performed By: #### LIPID, CMP #### [facility] [address] [address] [address] Virginia OrourkeProtein [Mass/Vol]7.4 g/dLNormal6.4-8.2[facility] Comment on above:Performed By: #### LIPID, CMP #### [facility] [address] [address] [address] Virginia OrourkeSodium [Moles/Vol]142 mmol/BXwdznw620-805Hav [facility] Comment on above:Performed By: #### LIPID, CMP #### [facility] [address] [address] [address] Virginia OrourkeUrea nitrogen [Mass/Vol]17.0 mg/dLNormal7.0-18.0[facility] Anne HospitalComment on above:Performed By: #### LIPID, CMP #### [facility] [address] [place] [address] Dr. Virginia OrourkeUrea nitrogen/Creatinine [Mass ratio]18.1 mg/mgNoSelect Medical Specialty Hospital - YoungstownComment on above:Performed By: #### LIPID, CMP #### [facility] [address] [place] [address] Dr. Virginia OrourkeVITAMIN D 25 OHon 32-99-1870UJY D 25-OH34.9 ng/mLNormalThe [facility] CenterComment on above:Performed By: #### VITAD #### [facility] [address] [place] [address] Dr. Virginia LawsonT D RANGESSEE BELOWCleveland Clinic Mercy HospitalComment on above: Result Comment: <20 ng/mL Vit D deficient 20 - <30 ng/mL Vit D insufficient 30 - 100 ng/mL Vit D sufficient >100 ng/mL Potential ToxicityPerformed By: #### VITAD #### [facility] [address] [place] [address] Dr. Virginia OrourkeOperative Reporton [id number] ReportMR#: [id number] S [facility] Pt. Name: Chayo Harris Room #: 0C Discharge Date: Birthdate: 1960 [...] lower abdominal wall 4.2 x 2.7 cm. FLATWORK PRESSER: 1. Dr. Arias, PGY2. 2. KENDY Whitfield [...] Joshi MD Date Trans: 09/05/2021 11:50 P/mmo DN_JN:[id number] Health Allen HospitalOperative Reporton [id number] ReportMR#: [id number] S [facility] Pt. Name: Chayo Harris Room #: 0C Discharge Date: Birthdate: 1960 OPERATIVE REPORT DATE OF SURGERY: 09/05/2021 SURGEON: Garima Joshi MD Duplicate dictation to be removed Electronically Signed by: Garima Joshi MD 09/09/2021 11:14 A Garima Joshi MD I was present for the entire procedure. Date Dict: 09/05/2021/10:21 A/Flakita Arias MD Date Trans: 09/05/2021 11:37 A/nasreeno DN_JN:[id number]. Mary's Medical Center GLUCOSE LAB on 51-47-5547Skmvpsv [Mass/Vol]103 mg/yCZhzi06-310Taq [facility] HospitalComment on above:Performed By: #### [id number] #### [facility] [address] [place] [address], [facility] HOSPITALHAND LEFT 3 Son 37-09-9849IISL LEFT 3 VWSUniversity of Ennis Regional [facility] Department of Radiology [address] [place] [id number] Patient Name: CHAYO HARRIS : 1960 Sex: M Age: Race: White Pt. Location: 84 Patient Status: O Ordered Date: 03/20/2021 12:50:00 PM Completed Date: 03/20/2021 12:58 PM Requesting Provider: GENIA DA SILVA Attending Provider: FARTUN PRADO Report Copy To: Signs & Symptoms: S62.242A Disp fx of shaft of first metacarpal bone, left hand, init I10 History: Comments: evaluate Exam: HAND LEFT 3 S HAND LEFT 3 VWS 03/20/2021 12:58 PM CLINICAL INDICATIONS: S62.242A Disp [...] prior study. Approved by:Kelsey Rivas03/20/2021 2:52 PM. IHetal,have reviewed the image(s) and agree with the findings in this report. Electronically signed: Hetal Nur. Transcribed by: [email or web address], User Resident: KELSEY STOCK Electronically Signed by: HETAL NUR @ 03/20/2021 04:02 PM I personally read this/these film(s) with this residentMercy Health Allen HospitalComment on above:Order Comment: evaluateHAND LEFT 3 VWSon 54-70-8343KVTI LEFT 3 SUniBarnesville Hospital Department of Radiology [address] [place] [phone] Patient Name: CHAYO HARRIS : 1960 Sex: M Age: Race: White Pt. Location: Patient Status: O Ordered Date: 02/18/2021 1:40:00 PM Completed Date: 02/18/2021 02:09 PM Requesting Provider: GENIA DA SILVA Attending Provider: FARTUN PRADO Report Copy To: Signs & Symptoms: S62.242A Disp fx of shaft of first metacarpal bone, left hand, init I10 History: [place] Comments: Evaluate Exam: HAND LEFT 3 VWS HAND LEFT 3 VWS HISTORY: Fracture follow-up. COMPARISON: 01/16/2021. IMPRESSION: 1. Removal of hardware transfixing the first metacarpal fracture. There is unchanged alignment with apparent regions of osseous bridging. 2. Moderate first CMC arthritis. Electronically signed: Jordon Murphy. Transcribed by: [email or web address], User Resident: Electronically Signed by: JORDON MURPHY @ 02/18/2021 03:04 [facility] AdministrationComment on above:Order Comment: EvaluateHAND LEFT 3 VWS on [id number] LEFT 3 SUniBarnesville Hospital Department of Radiology [address] [place] [phone] Patient Name: CHAYO HARRIS : 1960 Sex: M Age: Race: White Pt. Location: Patient Status: O Ordered Date: 01/16/2021 8:45:00 AM Completed Date: 01/16/2021 08:50 AM Requesting Provider: GENIA DA SILVA Attending Provider: FARTUN PRADO Report Copy To: Signs & Symptoms: S62.242A Disp fx of shaft of first metacarpal bone, left hand, init I10 History: Comments: Evaluate Exam: HAND LEFT 3 VWS HAND LEFT 3 VWS 01/16/2021 8:50 AM CLINICAL INDICATIONS: S62.242A Disp [...] of first metacarpal fracture. Electronically signed: Milton Chun. Transcribed by: [email or web address], User Resident: Electronically Signed by: MILTON CHUN @ 01/16/2021 05:02 [facility] AdministrationComment on above:Order Comment: EvaluateHAND LEFT 3 VWSon 61-79-3023XIRT LEFT 3 SUniBarnesville Hospital Department of Radiology [address] [place] [phone] Patient Name: CHAYO HARRIS : 1960 Sex: M Age: Race: White Pt. Location: Patient Status: Ordered Date: 12/12/2020 8:45:00 AM Completed Date: 12/12/2020 08:47 AM Requesting Provider: GENIA DA SILVA Attending Provider: Report Copy To: Signs & Symptoms: Z48.89 Encounter for other specified surgical aftercare I10 History: Comments: Evaluate Exam: HAND LEFT 3 VWS HAND LEFT 3 VWS 12/12/2020 8:47 AM CLINICAL INDICATIONS: Z48.89 Encounter [...] complication. Electronically signed: LIN WESTFALL. Transcribed by: [email or web address], User Resident: Electronically Signed by: LIN WESTFALL @ 12/12/2020 12:54 PMNormalSheltering Arms HospitalComment on above:Order Comment: EvaluateHAND LEFT 2 VWSon 28-55-9021LFVA LEFT 2 SUniBarnesville Hospital Department of Radiology [address] [place] [phone] Patient Name: CHAYO HARRIS : 1960 Sex: M Age: Race: White Pt. Location: OUTP Patient Status: O Ordered Date: 11/29/2020 4:00:00 PM Completed Date: 11/29/2020 07:22 PM Requesting Provider: FARTUN PRADO Attending Provider: FARTUN PRADO Report Copy To: Signs & Symptoms: CRPP VS ORIF LEFT 1ST METACARPAL History: Comments: CRPP VS ORIF LEFT 1ST METACARPAL Exam: HAND LEFT 2 VWS HAND LEFT 2 VWS 11/29/2020 7:22 PM SIGNS AND SYMPTOMS: CRPP [...] Approved by:Shamar Fonseca11/30/2020 11:38 AM. I, Ming Justice,have reviewed the image(s) and agree with the findings in this report. Electronically signed: Ming Motley. Transcribed by: [email or web address], User Resident: SHAMAR EARL Electronically Signed by: MING MOTLEY @ 11/30/2020 11:49 AM I personally read this/these film(s) with this residentMercy Health Allen HospitalComment on above:Order Comment: CRPP VS ORIF LEFT 1ST METACARPALOperative Reporton [id number] ReportMR#: [id number] S [facility] Pt. Name: Chayo Harris Room #: 0C Discharge Date: Birthdate: 1960 OPERATIVE REPORT DATE OF SURGERY: 11/29/2020 SURGEON: Fartun Prado M.D. PREOPERATIVE DIAGNOSIS: Left 1st metacarpal [...] family prior to discharge. Electronically Signed by: Fartun Prado M.D. 11/30/2020 05:48 P Fartun Prado M.D. I was present for the rosales and critical portions and I was otherwise immediately available to assist. Date Dict: 11/29/2020/04:16 P/Scarlett Pang MD Date Trans: 11/29/2020 05:09 P/leatha DN_JN:[id number]. Mary's Medical Center GLUCOSE LAB on 15-00-6557Jfoungv [Mass/Vol]87 mg/wTItnebi55-276Zkb [facility] HospitalComment on above:Performed By: #### [id number] #### [facility] [address] [facility]*MRSA/MSSA DNA NASALon 11-28-2020*MRSA/MSSA DNA NASAL Clinical Report: (D) Specimen: NASAL SWAB Collected: 11/28/2020 12:22 Status: Final Last Updated: 11/29/2020 10:31 MSSA DNA (Final) Methicillin Susceptible Staphylococcus aureus DNA Detected MRSA DNA (Final) NegativeNormalThe [facility] HospitalComment on above:Performed By: #### [id number] ####[facility]*SARS-CoV-2 COVID-19on 16-97-6785RPLA-CoV-2 (COVID-19) RNA ANDREW+probe Ql (Unsp spec)Not detectedNormalNot DetectedThe [facility] HospitalComment on above:Order Comment: The Aptima SARS-CoV-2 assay is a nucleic acid amplification test intended for the qualitative detection of RNA from SARS-CoV-2 isolated and purified from nasopharyngeal (FOREIGN LANGUAGE INTERPRETER),oropharyngeal (OP), nasal swab, sputum, and bronchoalveolar lavage (BAL) specimens from patients with signs and symptoms of infection who are suspected of COVID-19. Results are for the identification of SARS-CoV-2 RNA. The SARS-CoV-2 RNA is generally detectable during the acute phase of infection. The Aptima SARS-CoV-2 Assay on the [employer] and BitComet Fusion system is intended for use by laboratory personnel specifically instructed and trained in the operation of the [place] and [place] Fusion system. The Aptima SARS-CoV-2 assay is [...] with clinical observations, patient history, and epidemiological information.Performed By: #### [id number] #### [facility] [address] [id number], [facility] TINGLEY HOSPITALAPTTon 95-62-8790kZDJ Coag (Bld) [Time]31.0 sNormal 25.0-35.0The [facility] HospitalComment on above:Result Comment: ALL RESULTS MUST BE INTERPRETED WITH RESPECT TO BLOOD DRAWING ARTIFACT OR DILUTION ERROR OF ANTICOAGULANT AT THE TIME OF SAMPLING. THE APTT SHOULD NOT BE USED TO MONITOR UNFRACTIONATED HEPARIN THERAPY, THIS LABORATORY NO LONGER HAS AN ESTABLISHED THERAPEUTIC RANGE BASED ON THE APTT. IT IS RECOMMENDED THAT THE UFH - HEPARIN ASSAY (ANTI-XA ACTIVITY) BE USED FOR THIS PURPOSE.Performed By: #### [id number], [id number] ####[facility] [facility] [place] [address], [facility] BASIC METABOLIC PANELon 14-48-3122Zeaadae [Mass/Vol]9.6 mg/dLNormal8.6-10.3The [facility] HospitalComment on above:Performed By: #### [id number] ####[facility] [facility] [place] [address], [facility] Chloride [Moles/Vol]105 mmol/NPhkqcq95-028Pca [facility] HospitalComment on above:Performed By: #### [id number] ####[facility] [facility] [place] [address], [facility] T[facility] HOSPITALCO2 [Moles/Vol]31 mmol/LNormal 21-31The [facility] HospitalComment on above:Performed By: #### [id number] ####[facility] [facility] [place] [address], [facility] HOSPITALCreatinine [Mass/Vol]0.90 mg/dLNormal0.70-1.30The [facility] HospitalComment on above:Performed By: #### [id number] ####[facility] [facility] [place] [address], USAGFR/1.73 sq M.predicted among blacks MDRD (S/P/Bld) [Vol rate/Area]mL/min/{1.73_m2}Normal>60 The [facility] HospitalComment on above:Performed By: #### [id number] ####[place] [address], [facility] GFR/1.73 sq M.predicted among non-blacks MDRD (S/P/Bld) [Vol rate/Area] mL/min/{1.73_m2}Normal>60The [facility] HospitalComment on above:Performed By: #### [id number] ####[address] [place] [address], [facility] HOSPITALGlucose [Mass/Vol]92 mg/zCPkhvuj37-964Hkw [facility] Memorial HospitalComment on above:Performed By: #### 13366 ####[address] [place] [address], [facility] Potassium [Moles/Vol]3.8 mmol/LNormal3.5-5.1The [facility] Memorial HospitalComment on above:Performed By: #### 76481 ####[address] [place] [address], [facility]ALSodium [Moles/Vol]141 mmol/L Nycvru696-690Ejr [facility] HospitalComment on above:Performed By: #### 35193 ####[address] [place] [address], [facility] HOSPITALUrea nitrogen [Mass/Vol]17 mg/dLNormal7-25The [facility] HospitalComment on above:Performed By: #### 77663 ####[address] [place] [address], [facility]OSPITALCBC W/DIFFon 16-36-5949WGQ IMM GRANS0.0 10*3/uLNormal0.0-0.2The [facility] HospitalComment on above:Performed By: #### 45605 ####[address] [place] [address], USAABS NEUTROPHILS3.6 10*3/uLNormal 1.6-7.6The [facility] Memorial HospitalComment on above:Performed By: #### 45550 ####[facility] [facility] [place] [address], [facility]OSPITALBasophils (Bld) [#/Vol]0.1 10*3/uLNormal0.0-0.2The [facility] HospitalComment on above:Performed By: #### 46928 ####[address] [place] [address], [facility]OSPITALBasophils/100 WBC (Bld)1.0 %Normal0.0-1.0The [facility] HospitalComment on above: Performed By: #### 28885 ####[address] [place] [address], USAEosinophils (Bld) [#/Vol]0.1 10*3/uLNormal0.0-0.5The [facility] HospitalComment on above:Performed By: #### 62018 ####[facility] [facility] [place] [address], [place] Eosinophils/100 WBC (Bld)2.0 %Normal0.0-6.0The [facility] HospitalComment on above:Performed By: #### 26005 ####[place] [address] [facility] [place] [address], USAErythrocyte distribution width (RBC) [Ratio]14.6 %Ymhktl44.5-15.0The [facility] HospitalComment on above:Performed By: #### 46227 ####[address] [place] [address], [facility]OSPITALHematocrit (Bld) [Volume fraction]43.5 % Qdyewd28.0-50.0The [facility] HospitalComment on above:Performed By: #### 47164 ####[facility] [facility] [place] [address], USAHemoglobin (Bld) [Mass/Vol]14.3 g/tKEnlbwd28.0-17.0The [facility] HospitalComment on above:Performed By: #### 84059 ####[facility] [facility] [place] [address], [facility] HOSPITALIMMATURE GRANS 0.7 %Normal0.0-1.0The [facility] HospitalComment on above: Performed By: #### 17968 ####[facility] [place] [address].[place] [address], [facility] HOSPITALLymphocytes (Bld) [#/Vol]1.4 10*3/uLNormal1.2-4.0The [facility] HospitalComment on above:Performed By: #### 91359 ####[facility] [place] [address].[place] [address], [place] Lymphocytes/100 WBC (Bld)24.4 %Bqnrsk29.0-45.0The [facility] HospitalComment on above:Performed By: #### 00735 ####[address] [place] [address], [facility]OSPITALMCH (RBC) [Entitic mass]30.4 pg Cgumfi75.0-33.0The [facility] HospitalComment on above:Performed By: #### 30915 ####[facility] [place] [address].[place] [address], [facility] HOSPITALMCHC (RBC) [Mass/Vol]32.9 g/bCXtzcau14.0-35.0The [facility] HospitalComment on above:Performed By: #### 85391 ####[facility] [place] [address].[place] [address], [facility]OSPITALMCV (RBC) [Entitic vol]92.6 uCYvlhiz12.0-98.0The [facility] HospitalComment on above:Performed By: #### 10754 ####[facility] [facility] [place] [address], USAMonocytes (Bld) [#/Vol]0.7 10*3/uLNormal 0.1-1.0The [facility] HospitalComment on above:Performed By: #### 14653 ####[facility] [facility] [place] [address], MQFSVOEH35.2 %Normal5.0-12.0The [facility] Comment on above:Performed By: #### 61868 ####[facility] [facility] [place] [address], USANeutrophils/100 WBC (Bld)60.7 % Bkkfdb85.0-72.0The [facility] HospitalComment on above:Performed By: #### 71253 ####[facility] [facility] [place] [address], USANucleated RBC/100 WBC (Bld) [Ratio]0 %Normal0-0The [facility] HospitalComment on above:Performed By: #### 03772 ####[facility] [facility] [place] [address], [place] PLAT ZID825 10*3/rKFvpumq005-310Sfm [facility] HospitalComment on above:Performed By: #### 78831 ####[facility] [facility] [place] [address], USARBC (Bld) [#/Vol]4.70 10*6/uLNormal4.20-5.70 The [facility] HospitalComment on above:Performed By: #### 10167 ####[facility] [facility] [place] [address], [place] WBC (Bld) [#/Vol]5.90 10*3/uLNormal4.00-10.60The [facility] HospitalComment on above:Performed By: #### 88577 ####[facility] [place] [address], [facility]OSPITALHAND LEFT 3 VWSon 91-06-3814LWBO LEFT 3 SUniBarnesville Hospital Department of Radiology [address] [facility] [place] [address] Patient Name: CHAYO HARRIS : 1960 Sex: M Age: Race: White Pt. Location: Patient Status: O Ordered Date: 11/28/2020 11:20:00 AM Completed Date: 11/28/2020 11:26 AM Requesting Provider: GENIA DA SILVA Attending Provider: Report Copy To: Signs & Symptoms: S62.309A Unsp fracture of unsp metacarpal bone, init for clos fx I10 History: [place] Comments: Evaluate Exam: HAND LEFT 3 VWS [...] with joint space narrowing Electronically signed: Rick Toney. Transcribed by: [email or web address], User Resident: Electronically Signed by: RICK TONEY @ 11/28/2020 05:09 PMNormalThe [facility] Memorial HospitalComment on above:Order Comment: Evaluate PROTHROMBIN TIMEon 12-51-4910NLB Coag (PPP) [Relative time]1.03 {INR}Normal 0.91-1.16The [facility] Memorial HospitalComment on above:Result Comment: ACCCP RECOMMENDED INR FOR WARFARIN THERAPY ------- CONDITION INR PROPHYLAXIS OF VENOUS THROMBOSIS 2-3 (HIGH-RISK SURGERY) TREATMENT OF VENOUS THROMBOSIS 2-3 TREATMENT OF PULMONARY EMBOLISM 2-3 PREVENTION OF SYSTEMIC EMBOLISM: 2-3 ACUTE MYOCARDIAL INFARCTION TISSUE HEART VALVES VALVULAR HEART DISEASE ATRIAL FIBRILLATION RECURRENT SYSTEMIC EMBOLISM MECHANICAL HEART VALVE 2.5-3.5 FROM: ORAL ANTICOAGULANTS. MECHANISM OF ACTION, CLINICAL EFFECTIVENESS, AND OPTIMAL THERAPEUTIC RANGE. CHEST 1995;108:231S-246S.Performed By: #### 70818, 56777 ####[facility] [place] [address], USAPT Coag (PPP) [Time]13.5 s Odftfr97.3-14.8The [facility] HospitalComment on above:Result Comment: ALL RESULTS MUST BE INTERPRETED WITH RESPECT TO BLOOD DRAWING ARTIFACT OR DILUTION ERROR OF ANTICOAGULANT AT THE TIME OF SAMPLING.Performed By: #### 26174, 61760 ####[facility] Vital Signs Date TimeVital SignValuePerforming YyfctxeelDdlsinkp82-09-1835 11:21-0400Body hnihyrnhgmo26 [degF]Anders Bunting DO Work Phone: 1(195)[address] [place], [place] 4997007-31-2025 11:21-0400 Diastolic blood yjspfjln39 mm[Hg]Anders Bunting DO Work Phone: 1(751)[address] [place], [place] 4997007-31-2025 11:21-0400 Heart rate57 /minDarrin Bunting DO Work Phone: 1(923)[address] [place], [place] 4997007-31-2025 11:21-0400 Systolic blood mm[Hg]Anders Bunting DO Work Phone: 1(588)[address] [place], [place] 4997007-10-2025 11:32-0400 Body yhuiqq747.42 cmDarrin Bunting DO Work Phone: 1(713)[address] [place], [place] 4997007-10-2025 11:32-0400 Body mass index (BMI) [Ratio]27 kg/q3Cfamok Bunting DO Work Phone: 1(725)[address] [place], [place] 4997007-10-2025 11:32-0400 Body xdhifh46.98 kgDarrin Bunting DO Work Phone: 1(610)[address] [place], [place] 4997007-10-2025 11:22-0400 Respiratory rate18 /minDarrin Bunting DO Work Phone: 1(217)[address] [place], [place] 4997006-17-2025 15:18-0400 Body vgqyrb292.4 cmMoreno Pineda MD Work Phone: [facility]06-17-2025 15:18-0400 Body mass index (BMI) [Ratio]27.71 kg/g7YajummzMoreno Pineda MD Work Phone: [facility]06-17-2025 15:18-0400 Body hjcdud13.25 kgMokarinaf Traboulssi MD Work Phone: [phone])[address]06-17-2025 15:18-0400 Diastolic blood nnhxatrs88 mm[Hg]Moreno Pineda MD Work Phone: 1(440)[address]06-17-2025 15:18-0400 Heart rate62 /Juli Pineda MD Work Phone: 1(440)[address]06-17-2025 15:18-0400 Systolic blood otqwofut816 mm[Hg]Moreno Pineda MD Work Phone: 1(440)[address]12-04-2024 15:33-0500 Body qdejwa612.4 Max Pineda MD Work Phone: 1(440)[address]12-04-2024 15:33-0500 Body mass index (BMI) [Ratio]27.18 kg/e4HkpuvupMoreno Pineda MD Work Phone: 1(440)[address]12-04-2024 15:33-0500 Body qeedvr40.44 kgMoreno Pineda MD Work Phone: 1(440)[address]12-04-2024 15:33-0500 Diastolic blood sonrtjtf55 mm[Hg]Moreno Pineda MD Work Phone: [phone])[address]12-04-2024 15:33-0500 Heart rate61 /Juli Pineda MD Work Phone: 1(440)[address]12-04-2024 15:33-0500 Systolic blood jyuxlwet264 mm[Hg]Moreno Pineda MD Work Phone: 1(440)[address]06-05-2024 14:09-0400 Body .4 Max Pineda MD Work Phone: [phone])[address]06-05-2024 14:09-0400 Body mass index (BMI) [Ratio]28.23 kg/a8PvkfmgqMoreno Pineda MD Work Phone: 1(879)[address]06-05-2024 14:09-0400 Body .07 kgMoreno Pineda MD Work Phone: 1(768)[address]06-05-2024 14:09-0400 Diastolic blood avchurfc12 mm[Hg]Moreno Pineda MD Work Phone: [phone])[address]06-05-2024 14:09-0400 Heart rate58 /Juli Pineda MD Work Phone: 1(587)[address]06-05-2024 14:09-0400 Systolic blood pdeghenq540 mm[Hg]Moreno Pineda MD Work Phone: 1(645)[address]02-05-2024 13:52-0500 Diastolic blood unujuyhk12 mm[Hg]Moreno iPneda MD Work Phone: 1(629)[address]02-05-2024 13:52-0500 Systolic blood kofdqvpx962 mm[Hg]Moreno Pineda MD Work Phone: 1(536)[address]02-05-2024 13:51-0500 Body offajd472.4 cmMoreno Pineda MD Work Phone: 1(216)[address]02-05-2024 13:51-0500 Body mass index (BMI) [Ratio]28.37 kg/o2ZxzdmepMoreno Pineda MD Work Phone: 1(717)[address]02-05-2024 13:51-0500 Body zghxho83.52 kgMoreno Pineda MD Work Phone: 1(968)[address]02-05-2024 13:51-0500 Heart rate60 /Juli Pineda MD Work Phone: [phone] Encounters Encounter DateEncounter TypeCare ProviderFacilityStart: 12-22-2024 End: 70-30-8631wqqjisubevDpyxtb Bunting DO Work Phone: [facility] Work Phone: Start: 12-22-2024 End: 32-28-2576Fkxoixipnr Humberto Rivera BURIAL NEEDS SALESPERSON-Wound Care Evelia Work Phone: Start: 11-08-2024 End: 90-59-0934Fdmbyu outpatient visit 25 Kerri Pineda MD Work Phone: uh [employer] Power GroupComment on above:PVC (premature ventricular contraction) (Primary Dx); Essential hypertension; SVT (supraventricular tachycardia); BMI 27.0-27.9,adult; Never smoked any substance; Palpitations; Hx of varicose veinsStart: 11-08-2024 End: 47-39-8587gyxvwosonmXNONLZIAdventHealth Murray AmbulatoryStart: 04-27-2024 End: 67-53-4458Dygfrz outpatient visit 25 Kerri Pineda MD Work Phone: uh [employer] Power GroupComment on above:PVC (premature ventricular contraction) (Primary Dx); Essential hypertension; SVT (supraventricular tachycardia) ([facility]-H[facility]); BMI 28.0-28.9,adult; Never smoked any substanceStart: 04-27-2024 End: 55-51-8114iewrbeguzhTEPZWFJAdventHealth Murray AmbulatoryStart: 10-28-2023 End: 98-32-7700Pgisav outpatient visit 15 Kerri Pineda MD Work Phone: uh [employer] GroupComment on above:Essential hypertension (Primary Dx); PVC (premature ventricular contraction); SVT (supraventricular tachycardia) ([facility]-H[facility]); BMI 28.0-28.9,adult; Never smoked any substanceStart: 06-29-2023 End: 78-38-3911Bsityy consultation new/estab patient 60 Juli Pineda MD Work Phone: uh [employer] GroupComment on above:Essential hypertension (Primary Dx); PVC (premature ventricular contraction); SVT (supraventricular tachycardia); Never smoked any substance; BMI 28.0-28.9,adultStart: 06-23-2023 End: 84-13-5902iefpmjvabuTB Anders Bunting Work Phone: [facility] Work Phone: Start: 06-23-2023 End: 43-61-2144Ykselqt encounter procedureDO Anders Buncelestine Work Phone: [facility]-Electrodiagnostics Work Phone: Start: 06-21-2022 End: 98-44-1587xcbtrkoeqmJD ANDERS BUNTINGFacility:Y7Jtlaq: 12-10-2021 End: 25-62-4143wdtveowoguEZ ANDERS BUNTINGFacility:O1Mmvko: 11-29-2021 End: 40-50-6380kkkuhjtbbkFF ANDERS BUNTINGFacility:X3Xrlev: 09-05-2021 End: 54-11-1153tapozzcofbGHQBVZK BAIRFacility:UTMCStart: 47-37-5940nkzeltlombWU ANDERS BUNTINGFacility:L6Gnbba: 11-29-2020 End: 23-06-6991sjyrbhgbfuIJLHF EBRAHEIMFacility:UTMCStart: 62-32-9567Vijnrqwoza and management of inpatientDO Anders Buncelestine Work Phone: [facility] Work Phone: Procedures DateProcedureProcedure DetailPerforming ClinicianStart: 66-69-5577Igv routine ecg w/least 12 lds w/i&rMvijay Pineda MD Work Phone: Start: 94-27-7209Myp routine ecg w/least 12 lds w/i&r Moreno Pineda MD Work Phone: Start: 25-77-6847IIK screeningDR ANDERS BUNCELESTINEComment on above:Performed By: #### PSASC #### [facility] [address] [place] [address] Dr. Virginia Valencia: 77-40-4408DDYEVA LOWER ARM PROCEDURESIMONE Praterrt: 31-94-8984CLQZE METACARPAL FRACTURENABIL KOBIRENEE Plan of Treatment DateCare ActivityDetailAuthorStart: 26-10-5421GEU High Risk: (Elderly (60+) or Population) (1 - 1-dose 75+ series)RSV High Risk: (Elderly (60+) or Population) (1 - 1-dose 75+ series)[facility] Start: 21-72-3532GZtA/Tdap/Td Vaccines (3 - Td or Tdap)DTaP/Tdap/Td Vaccines (3 - Td or Tdap)[facility] HealthStart: 08-08-2025 End: 94-69-0408Rljsosu encounter onnasryct73/17/2026 2:30 PM EDT Office Visit [address] [phone] Moreno Pineda MD [facility], [address] [address] [facility]: 17-32-7454Rqzjjzzvk vaccinationInfluenza Vaccine (Season Ended)[facility]: 11-08-2024 End: 27-79-0500Tlukjzc encounter lerhziluf87/17/2025 3:20 PM EDT Office Visit [address] [phone] Moreno Pineda MD [facility] [facility], [address] [address] [facility]: 04-27-2024 End: 53-90-1845Zyraubh encounter kcqizzchr61/04/2024 3:40 PM EST Office Visit [address] [phone] Moreno Pineda MD [facility] [facility], [address] [place] [address] [facility]art: 06-32-7976KGQEU-19 Vaccine ( season)COVID-19 Vaccine ( season)[facility] Start: 88-66-4500Xqizhnpef vaccinationUnMemorial Hospital: 10-28-2023 End: 70-66-9125Dxjpnjr encounter vnspraapo65/05/2024 2:00 PM EDT Office Visit [address] [place] [phone] Moreno Pineda MD [address] [facility], [address] [place] [address] [facility]: 07-07-2023 End: 09-84-1272Npqqytniwrov / ancillary services crjlmzbcef69/13/2024 9:00 AM EST Ancillary Procedure [place] [address] [facility] [address] [place] [address] [facility]: 06-29-2023 End: 54-28-3524Mqpppj monitor study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 Cardiac Services Routine PVC (premature ventricular contraction) Expected: 06/29/2023, Expires: 06/29/2024[facility] Service Area Work Phone: Comment on above:Expected: 06/29/2023, Expires: 06/29/2024Start: 74-19-3759Xfzawssfkeia Vaccine: 65+ Years (1 - PCV)Pneumococcal Vaccine: 65+ Years (1 - PCV)[facility]: 2023 Pneumococcal Vaccine: 65+ Years (1 of 1 - PCV)Pneumococcal Vaccine: 65+ Years (1 of 1 - PCV)[facility]: 07-63-9811PKUGI-19 Vaccine ( season)COVID-19 Vaccine ( season)[facility]: 92-70-4641Iycamqifv vaccinationInfluenza Vaccine (#1)[facility]: 62-71-3102YFM patients and/or patients aged 60+ years (1 - 1-dose 60+ series)RSV patients and/or patients aged 60+ years (1 - 1-dose 60+ series)[facility]: 24-93-9630Tezhrsjcjtub vaccinationPneumococcal Vaccine (1 of 1 - PCV)[facility]: 77-03-8657Moxeny Vaccines (1 of 2)Zoster Vaccines (1 of 2)[facility]: 31-16-5428Rwxplckd mellitus screeningDiabetes ScreeningUnMemorial Hospital: 1978 Hepatitis C screeningHepatitis C ScreeningUnRegional Medical Center Start: 41-39-7201TUL Vaccines (1 of 1 - Standard series)MMR Vaccines (1 of 1 - Standard series)[facility]: 74-69-8317Ovdyvq wellness visitMedicare Initial Physical (IPPE)[facility] Start: 08-67-8318Hxgtc panelLipid PanelUnMemorial Hospital: 1960Medicare Annual Wellness VisitMedicare Annual Wellness Visit (AWV) [facility] Immunizations Immunization DateImmunizationNotesCare UabsqslwUcoteezn69-94-3586wwntuem toxoid, reduced diphtheria toxoid, and acellular pertussis vaccine, adsorbedDarrin Bunting DO Work Phone: [facility] Payers DatePayer CategoryPayerPolicy [id number] 2023Medicare [id number] 2023Medicare supplemental policy (as second payer)[employer] SENIOR SUPPLEMENT Member Subscriber Plan / Payer (Effective 2023-Present) Name: Chayo Harris Relation to Subscriber: Self Name: Chayo Harris Payer ID: Not on file Group ID: Not on file Type: Not on file Address: [id number] [id number] 96-68-3237Jqjxebj Health InsuranceAETNA SUPPLEMENTAL AETNA SENIOR SUPPLEMENT [id number] 2023-Present [id number] [id number] [id number] Health [id number] Worker's [id number] 2.1.703830.3.57[id number] 2.1.886136.3.57[id number] 2..1.067272.3.57[id number] .1.154274.3.57[id number] 2..1.471699.3.57[id number] 2.1.562206.3.57[id number] 2..1.607081.3.579.[id number] 2.16.840.1.417164.3.579.2.1244UnknownRegular InsuranceSaint Francis Memorial Hospital [id number] 2.16.840.1.261403.3.579.2.531 Social History DateTypeDetailFacilityStart: 10-28-2021 End: 52-73-9711Yjxgpqk smoking status NHISNever smoked tobacco (finding) [facility]ertart: 62-56-2426Baf Assigned At BirthMale [facility] Centertart: 49-11-7019Krlgcfs use and exposure Smokeless tobacco non-userUnRegional Medical Center Work Phone: Start: 06-29-2023 End: 91-54-1176Avqrjku intakeEx-drinker (finding)[facility] Work Phone: Start: 06-29-2023 End: 56-94-4564Roswsnj of Social functionUnRegional Medical Center Work Phone: Start: 06-29-2023 End: 75-69-6599Mukjdwx use panelKettering Health Work Phone: Start: 05-51-1535Cjh Assigned At BirthNot on file [facility] Work Phone: Start: 06-19-2023 End: 94-27-9608Kiihtuou to SARS-CoV-2 (event)Not sureKettering HealthSexMale (finding)[facility] Clinical Notes 06-29-2023 to 12-01-2024 Note Date & UqkkUuylJlwavinv89-27-6538 Progress note Author Jeni Muniz [facility] Medical CenterNote Date/TimeJuly 2024 11:[address] [address] Wound Center Provider Note Signed Patient: Chayo Harris MR#: [id number] : 1960 Acct:[id number] Age/Sex: 64 / M Copies to: DO Jeni Rossi, JOANN~ HPI Date of Visit Date of Visit: Date of Service: 12/01/2024 Time of Service: 11:27 Narrative HPI: 09/22/2024-Chayo is a 64-year-old male who presents to [facility] wound center for evaluation and treatment of traumatic wound of the right lower leg. Patient reports that he was carrying a plant outside when he dropped the container on his leg, subsequently causing the wound. Shallow full-thickness wound is comprised of both red moist tissue and yellow adherent slough-we will plan to initiate Vashe cleanse, honey gel for autolytic debridement, alginate silver and a bordered foam. Periwound with notable signs of venous insufficiency including varicosities and hemosiderin staining. No acute signs or symptoms of infection present at today's visit. Patient reports he is comfortable performing his own dressings and we will send to yaima isaac. I will see Chayo back in 1 to 2 weeks. 10/04/2024-Joseph presents to [facility] wound center for follow-up evaluation and treatment of traumatic wound of the right lower leg. Upon exam, decreased measurements noted. We will plan to change the treatment to Vashe cleanse, honey gel and collagen powder mixture, as well as alginate silver and a bordered foam. No acute signs or symptoms of infection noted at today's visit. Patient continues to perform his own dressing changes without difficulty. We will see him back inthe office in 2 weeks. 10/19/2024- Joseph presents to [facility] wound center for follow up evaluation and treatment of RLE traumatic wound. Improvement noted at today's visit, with decreased measurements on exam. No acute s/s of infection noted. We will plan toswitch the treatment to Vashe cleanse, collagen Ag pad, alginate, and bordered foam. Patient remains comfortable performing his own dressing changes at this time. We willsee Joseph back in 2-3 weeks. 11/10/2024- Joseph presents to the office today for follow up evaluation and treatment of traumatic wound of the right lower anterior leg. Continued improvement is noted, with decreased measurements and improved tissue quality. No acute s/s of infection noted. We will continue the current treatment of V ashecleanse, Collagen Ag, alginate, and bordered foam. Joseph remains comfortable performing his own dressing changes. We will see the patient back in the office in 2-3 weeks. 12/01/2024- Time presents to [facility] wound center for follow-up evaluationand treatment of traumatic wound of the right lower extremity. Upon exam, significant improvement is noted with the ulcer nearly healed at today's visit. We will continue the current treatment of Vashe cleanse, collagen Ag pad, and bordered foam. No acute s/s of infection present at today's visit. Patient continues to perform his own dressing changes without difficulty. We will see Joseph back in the office in 2-3 weeks. Subjective Pain Right Lower Leg: Pain Intensity: 0 Wound/Ulcer History When did wound start?: September 20, 2024 Hit leg with a palm tree. Mode of Arrival/ Net C Developer: Personal vehicle Lives with:: Spouse Who helps w/ dressing change?: Self Smoking Status: Never smoker [facility] Medical History (Updated 09/22/24 @ 13:42 by Jeni Muniz APRN) Leg wound, right History of ulcerative colitis Vitamin D deficiency GERD (gastroesophageal reflux disease) Dyslipidemia HTN (hypertension) Surgical History H/O bursectomy H/O colectomy Family History Mother Diabetes Father Cancer Father Cancer Legacy FamHx Problem: Diagnosed with Cancer Family history of lung cancer Mother Diabetes Hypertension Heart disease Social History Smoking Status: Never smoker Substance Use Type: None Grafts History of Graft History of Graft?: No Exam Physical Exam Vital Signs: Temp Pulse Resp BP O2 Del Method 98.2 F 50 L 18 129/83 Room Air 12/01/24 11:22 12/01/24 11:22 12/01/24 11:22 12/01/24 11:22 12/01/24 11:22 Const General: cooperative, comfortable, no acute distress and well groomed Nutritional Appearance: average body habitus Lower/Upper Extremity Exam Vascular Exam-Edema Right Lower Extremity: Edema Degree: 2+ Edema Type: Non-Pitting Vascular Exam-Pulses Right Brachial: Pulse Assessment Method: NIBP Right Dorsalis Pedis: Pulse Assessment Method: Palpation Right Posterior Tibial: Pulse Assessment Method: Palpation Objective Meds/Allergies Home Medications acetaminophen 500 mg capsule 500 mg PO QID PRN Pain 10/01/21 [History Confirmed 10/15/21] albuterol sulfate 90 mcg/actuation breath activated powder inhaler 2 inh inhalation Q4H PRN Shortness Of Breath 10/01/21 [History Confirmed 10/15/21] amlodipine 5 mg tablet 5 mg PO DAILY 10/01/21 [History Confirmed 10/15/21] ammonium lactate 12 % topical cream 1 applic topical BID 10/01/21 [History Confirmed 10/15/21] aspirin 81 mg capsule 81 mg PO DAILY 10/01/21 [History Confirmed 10/15/21] baclofen 10 mg tablet 10 mg PO TID 10/01/21 [History Confirmed 10/15/21] fluticasone propionate 220 mcg/actuation HFA aerosol inhaler (Flovent HFA) 1 puff inhalation BID 10/01/21 [History Confirmed 10/15/21] hydrocodone 5 mg-acetaminophen 325 mg tablet 1 tab PO Q6H PRN Pain 10/01/21 [History Confirmed 10/15/21] lisinopril 10 mg-hydrochlorothiazide 12.5 mg tablet 1 tab PO DAILY 10/01/21 [History Confirmed 10/15/21] loperamide 2 mg tablet 2 mg PO QID 10/01/21 [History Confirmed 10/15/21] omeprazole 20 mg capsule,delayed release 20 mg PO BID 10/01/21 [History Confirmed 10/15/21] pantoprazole 40 mg tablet,delayed release 40 mg PO DAILY 10/01/21 [History Confirmed 10/15/21] sennosides 8.6 mg-docusate sodium 50 mg tablet (Senexon-S) 1 tab-cap PO BID PRN Constipation 10/01/21 [History Confirmed 10/15/21] Allergies codeine Allergy (Unknown, Unverified 11/13/22 14:19) Unknown Reaction, dizziness morphine Allergy (Unknown, Unverified 11/13/22 14:19) Nausea, stomach upset Wound/Ulcer Right Lower Leg: Type: Traumatic Thickness: Full Bed Appearance: Beefy Red, Ramirez-Perez and Yellow Percent of Wound Bed Granulated/Red: 90 Percent of Devitalized: 10 Length (cm): 0.8 Width (cm): 0.5 Depth (cm): 0.1 CM Sq: 0.400 Surrounding Tissue Appearance: Ramirez-Perez Surrounding Tissue Temp: Warm Drainage Amount: Moderate Drainage Description: Serosanguineous Drainage Odor: No Odor Lidocaine Applied Topically: 2% Jelly Procedures Time Out: 2 Patient Identifiers, Correct Patient, Correct Side/Site, Correct Procedure and Safety Issues Reviewed Procedure: The right lower leg wound was anesthetized with topical 2% lidocaine. A curettewas used to perform debridement for the removal of 0.4 cm? of devitalized tissueconsisting of slough and fibrin. Debridement was down to healthy bleeding tissue. Estimated blood loss was minimal. Hemostasis was achieved by applying direct pressure. The right lower leg wound now appears 100% red. The size remains the same. The patient tolerated the procedure well with no pain. Results Height: 6 ft 1 in Weight: 92.986 kg Body Mass Index: 27.0 Assessment/Plan Assessment/Plan (1) Leg wound, right: Code(s): S81.801A - Unspecified open wound, right lower leg, initial encounter Plan: September 20, 2024 (2) Varicose veins of both legs with edema: Code(s): I83.893 - Varicose veins of bilateral lower extremities with other complications Plan See orders and HPI. Time spent with patient Time Spent With Patient (min): 10 Dictated By: Jeni Muniz APRN DD/ 1127 Signed By: <Electronically signed by JOANN Muniz> 12/01/24 1133 [facility] Work Phone: [phone] [place] [address] Wound Center Provider Note Signed Patient: Chayo Harris MR#: [id number] : 1960 Acct:[id number] Age/Sex: 64 / M Copies to: Anders Jerome,DO Jeni Muniz APRN~ HPI Date of Visit Date of Visit: Date of Service: 12/01/2024 Time of Service: 11:27 Narrative HPI: 09/22/2024-Chayo is a 64-year-old male who presents to [facility] wound center for evaluation and treatment of traumatic wound of the right lower leg. Patient reports that he was carrying a plant outside when he dropped the container on his leg, subsequently causing the wound. Shallow full-thickness wound is comprised of both red moist tissue and yellow adherent slough-we will plan to initiate Vashe cleanse, honey gel for autolytic debridement, alginate silver and a bordered foam. Periwound with notable signs of venous insufficiency including varicosities and hemosiderin staining. No acute signs or symptoms of infection present at today's visit. Patient reports he is comfortable performing his own dressings and we will send to yaima [facility]. I will see Chayo back in 1 to 2 weeks. 10/04/2024-Joseph presents to [facility] wound center for follow-up evaluation and treatment of traumatic wound of the right lower leg. Upon exam, decreased measurements noted. We will plan to change the treatment to Vashe cleanse, honey gel and collagen powder mixture, as well as alginate silver and a bordered foam. No acute signs or symptoms of infection noted at today's visit. Patient continues to perform his own dressing changes without difficulty. We will see him back inthe office in 2 weeks. 10/19/2024- Joseph presents to [facility] wound center for follow up evaluation and treatment of RLE traumatic wound. Improvement noted at today's visit, with decreased measurements on exam. No acute s/s of infection noted. We will plan toswitch the treatment to Vashe cleanse, collagen Ag pad, alginate, and bordered foam. Patient remains comfortable performing his own dressing changes at this time. We willsee Joseph back in 2-3 weeks. 11/10/2024- Joseph presents to the office today for follow up evaluation and treatment of traumatic wound of the right lower anterior leg. Continued improvement is noted, with decreased measurements and improved tissue quality. No acute s/s of infection noted. We will continue the current treatment of V ashecleanse, Collagen Ag, alginate, and bordered foam. Joseph remains comfortable performing his own dressing changes. We will see the patient back in the office in 2-3 weeks. 12/01/2024- John presents to [facility] wound center for follow-up evaluationand treatment of traumatic wound of the right lower extremity. Upon exam, significant improvement is noted with the ulcer nearly healed at today's visit. We will continue the current treatment of Vashe cleanse, collagen Ag pad, and bordered foam. No acute s/s of infection present at today's visit. Patient continues to perform his own dressing changes without difficulty. We will see Joseph back in the office in 2-3 weeks. Subjective Pain Right Lower Leg: Pain Intensity: 0 Wound/Ulcer History When did wound start?: September 20, 2024 Hit leg with a palm tree. Mode of Arrival/ Net C Developer: Personal vehicle Lives with:: Spouse Who helps w/ dressing change?: Self Smoking Status: Never smoker [facility] Medical History (Updated 09/22/24 @ 13:42 by Jeni Muniz APRN) Leg wound, right History of ulcerative colitis Vitamin D deficiency GERD (gastroesophageal reflux disease) Dyslipidemia HTN (hypertension) Surgical History H/O bursectomy H/O colectomy Family History Mother Diabetes Father Cancer Father Cancer Legacy FamHx Problem: Diagnosed with Cancer Family history of lung cancer Mother Diabetes Hypertension Heart disease Social History Smoking Status: Never smoker Substance Use Type: None Grafts History of Graft History of Graft?: No Exam Physical Exam Vital Signs: Temp Pulse Resp BP O2 Del Method 98.2 F 50 L 18 129/83 Room Air 12/01/24 11:22 12/01/24 11:22 12/01/24 11:22 12/01/24 11:22 12/01/24 11:22 Const General: cooperative, comfortable, no acute distress and well groomed Nutritional Appearance: average body habitus Lower/Upper Extremity Exam Vascular Exam-Edema Right Lower Extremity: Edema Degree: 2+ Edema Type: Non-Pitting Vascular Exam-Pulses Right Brachial: Pulse Assessment Method: NIBP Right Dorsalis Pedis: Pulse Assessment Method: Palpation Right Posterior Tibial: Pulse Assessment Method: Palpation Objective Meds/Allergies Home Medications acetaminophen 500 mg capsule 500 mg PO QID PRN Pain 10/01/21 [History Confirmed 10/15/21] albuterol sulfate 90 mcg/actuation breath activated powder inhaler 2 inh inhalation Q4H PRN Shortness Of Breath 10/01/21 [History Confirmed 10/15/21] amlodipine 5 mg tablet 5 mg PO DAILY 10/01/21 [History Confirmed 10/15/21] ammonium lactate 12 % topical cream 1 applic topical BID 10/01/21 [History Confirmed 10/15/21] aspirin 81 mg capsule 81 mg PO DAILY 10/01/21 [History Confirmed 10/15/21] baclofen 10 mg tablet 10 mg PO TID 10/01/21 [History Confirmed 10/15/21] fluticasone propionate 220 mcg/actuation HFA aerosol inhaler (Flovent HFA) 1 puff inhalation BID 10/01/21 [History Confirmed 10/15/21] hydrocodone 5 mg-acetaminophen 325 mg tablet 1 tab PO Q6H PRN Pain 10/01/21 [History Confirmed 10/15/21] lisinopril 10 mg-hydrochlorothiazide 12.5 mg tablet 1 tab PO DAILY 10/01/21 [History Confirmed 10/15/21] loperamide 2 mg tablet 2 mg PO QID 10/01/21 [History Confirmed 10/15/21] omeprazole 20 mg capsule,delayed release 20 mg PO BID 10/01/21 [History Confirmed 10/15/21] pantoprazole 40 mg tablet,delayed release 40 mg PO DAILY 10/01/21 [History Confirmed 10/15/21] sennosides 8.6 mg-docusate sodium 50 mg tablet (Senexon-S) 1 tab-cap PO BID PRN Constipation 10/01/21 [History Confirmed 10/15/21] Allergies codeine Allergy (Unknown, Unverified 11/13/22 14:19) Unknown Reaction, dizziness morphine Allergy (Unknown, Unverified 11/13/22 14:19) Nausea, stomach upset Wound/Ulcer Right Lower Leg: Type: Traumatic Thickness: Full Bed Appearance: Beefy Red, Ramirez-Perez and Yellow Percent of Wound Bed Granulated/Red: 90 Percent of Devitalized: 10 Length (cm): 0.8 Width (cm): 0.5 Depth (cm): 0.1 CM Sq: 0.400 Surrounding Tissue Appearance: Ramirez-Perez Surrounding Tissue Temp: Warm Drainage Amount: Moderate Drainage Description: Serosanguineous Drainage Odor: No Odor Lidocaine Applied Topically: 2% Jelly Procedures Time Out: 2 Patient Identifiers, Correct Patient, Correct Side/Site, Correct Procedure and Safety Issues Reviewed Procedure: The right lower leg wound was anesthetized with topical 2% lidocaine. A curettewas used to perform debridement for the removal of 0.4 cm? of devitalized tissueconsisting of slough and fibrin. Debridement was down to healthy bleeding tissue. Estimated blood loss was minimal. Hemostasis was achieved by applying direct pressure. The right lower leg wound now appears 100% red. The size remains the same. The patient tolerated the procedure well with no pain. Results Height: 6 ft 1 in Weight: 92.986 kg Body Mass Index: 27.0 Assessment/Plan Assessment/Plan (1) Leg wound, right: Code(s): S81.801A - Unspecified open wound, right lower leg, initial encounter Plan: September 20, 2024 (2) Varicose veins of both legs with edema: Code(s): I83.893 - Varicose veins of bilateral lower extremities with other complications Plan See orders and HPI. Time spent with patient Time Spent With Patient (min): 10 Dictated By: Jeni Muniz APRN DD/ 1127 Signed By: 12/01/24 1133 [facility]06-19-2025 Progress note Author Jeni Muniz [facility] CenterNote Date/TimeJune 2024 11:30[place] [address] Wound Center Provider Note Signed Patient: Chayo Harris MR#: [id number] : 1960 Acct:[id number] Age/Sex: 64 / M Copies to: Anders Jerome,DO Jeni Muniz APRN~ HPI Date of Visit Date of Visit: Date of Service: 11/10/2024 Time of Service: 11:27 Narrative HPI: 09/22/2024-Chayo is a 64-year-old male who presents to [facility] wound center for evaluation and treatment of traumatic wound of the right lower leg. Patient reports that he was carrying a plant outside when he dropped the container on his leg, subsequently causing the wound. Shallow full-thickness wound is comprised of both red moist tissue and yellow adherent slough-we will plan to initiate Vashe cleanse, honey gel for autolytic debridement, alginate silver and a bordered foam. Periwound with notable signs of venous insufficiency including varicosities and hemosiderin staining. No acute signs or symptoms of infection present at today's visit. Patient reports he is comfortable performing his own dressings and we will send to y[facility]. I will see Chayo back in 1 to 2 weeks. 10/04/2024-Joseph presents to [facility] wound center for follow-up evaluation and treatment of traumatic wound of the right lower leg. Upon exam, decreased measurements noted. We will plan to change the treatment to Vashe cleanse, honey gel and collagen powder mixture, as well as alginate silver and a bordered foam. No acute signs or symptoms of infection noted at today's visit. Patient continues to perform his own dressing changes without difficulty. We will see him back inthe office in 2 weeks. 10/19/2024- Joseph presents to [facility] wound center for follow up evaluation and treatment of RLE traumatic wound. Improvement noted at today's visit, with decreased measurements on exam. No acute s/s of infection noted. We will plan toswitch the treatment to Vashe cleanse, collagen Ag pad, alginate, and bordered foam. Patient remains comfortable performing his own dressing changes at this time. We willsee Joseph back in 2-3 weeks. 11/10/2024- Joseph presents to the office today for follow up evaluation and treatment of traumatic wound of the right lower anterior leg. Continued improvement is noted, with decreased measurements and improved tissue quality. No acute s/s of infection noted. We will continue the current treatment of V ashecleanse, Collagen Ag, alginate, and bordered foam. Joseph remains comfortable performing his own dressing changes. We will see the patient back in the office in 2-3 weeks. Subjective Pain Right Lower Leg: Pain Intensity: 0 Wound/Ulcer History When did wound start?: September 20, 2024 Hit leg with a palm tree. Mode of Arrival/ Net C Developer: Personal vehicle Lives with:: Spouse Who helps w/ dressing change?: Self Smoking Status: Never smoker [facility] Medical History (Updated 09/22/24 @ 13:42 by Jeni Muniz APRN) Leg wound, right History of ulcerative colitis Vitamin D deficiency GERD (gastroesophageal reflux disease) Dyslipidemia HTN (hypertension) Surgical History H/O bursectomy H/O colectomy Family History Mother Diabetes Father Cancer Father Cancer Legacy FamHx Problem: Diagnosed with Cancer Family history of lung cancer Mother Diabetes Hypertension Heart disease Social History Smoking Status: Never smoker Substance Use Type: None Grafts History of Graft History of Graft?: No Exam Physical Exam Vital Signs: Temp Pulse Resp BP O2 Del Method 98.6 F 55 L 18 143/87 H Room Air 11/10/24 11:18 11/10/24 11:18 10/19/24 11:26 11/10/24 11:18 11/10/24 11:18 Const General: cooperative, comfortable, no acute distress and well groomed Nutritional Appearance: average body habitus Lower/Upper Extremity Exam Vascular Exam-Edema Right Lower Extremity: Edema Degree: 2+ Edema Type: Non-Pitting Vascular Exam-Pulses Right Brachial: Pulse Assessment Method: NIBP Right Dorsalis Pedis: Pulse Assessment Method: Palpation Right Posterior Tibial: Pulse Assessment Method: Palpation Objective Meds/Allergies Home Medications acetaminophen 500 mg capsule 500 mg PO QID PRN Pain 10/01/21 [History Confirmed 10/15/21] albuterol sulfate 90 mcg/actuation breath activated powder inhaler 2 inh inhalation Q4H PRN Shortness Of Breath 10/01/21 [History Confirmed 10/15/21] amlodipine 5 mg tablet 5 mg PO DAILY 10/01/21 [History Confirmed 10/15/21] ammonium lactate 12 % topical cream 1 applic topical BID 10/01/21 [History Confirmed 10/15/21] aspirin 81 mg capsule 81 mg PO DAILY 10/01/21 [History Confirmed 10/15/21] baclofen 10 mg tablet 10 mg PO TID 10/01/21 [History Confirmed 10/15/21] fluticasone propionate 220 mcg/actuation HFA aerosol inhaler (Flovent HFA) 1 puff inhalation BID 10/01/21 [History Confirmed 10/15/21] hydrocodone 5 mg-acetaminophen 325 mg tablet 1 tab PO Q6H PRN Pain 10/01/21 [History Confirmed 10/15/21] lisinopril 10 mg-hydrochlorothiazide 12.5 mg tablet 1 tab PO DAILY 10/01/21 [History Confirmed 10/15/21] loperamide 2 mg tablet 2 mg PO QID 10/01/21 [History Confirmed 10/15/21] omeprazole 20 mg capsule,delayed release 20 mg PO BID 10/01/21 [History Confirmed 10/15/21] pantoprazole 40 mg tablet,delayed release 40 mg PO DAILY 10/01/21 [History Confirmed 10/15/21] sennosides 8.6 mg-docusate sodium 50 mg tablet (Senexon-S) 1 tab-cap PO BID PRN Constipation 10/01/21 [History Confirmed 10/15/21] Allergies codeine Allergy (Unknown, Unverified 11/13/22 14:19) Unknown Reaction, dizziness morphine Allergy (Unknown, Unverified 11/13/22 14:19) Nausea, stomach upset Wound/Ulcer Right Lower Leg: Type: Traumatic Thickness: Full Bed Appearance: Ramirez-Perez and Yellow Percent of Wound Bed Granulated/Red: 50 Percent of Devitalized: 50 Length (cm): 1.8 Width (cm): 1.1 Depth (cm): 0.1 CM Sq: 1.980 Surrounding Tissue Appearance: Ramirez-Perez Surrounding Tissue Temp: Warm Drainage Amount: Moderate Drainage Description: Serosanguineous Drainage Odor: No Odor Lidocaine Applied Topically: 2% Jelly Procedures Time Out: 2 Patient Identifiers, Correct Patient, Correct Side/Site, Correct Procedure and Safety Issues Reviewed Procedure: The right lower leg wound was anesthetized with topical 2% lidocaine. A curettewas used to perform debridement for the removal of 1 cm? of devitalized tissue consisting of slough and fibrin. Debridement was down to healthy bleeding tissue. Estimated blood loss was minimal. Hemostasis was achieved by applying direct pressure. The right lower leg wound now appears 10% more red. The size remains thesame. The patient tolerated the procedure well with no pain. Results Height: 6 ft 1 in Weight: 92.986 kg Body Mass Index: 27.0 Assessment/Plan Assessment/Plan (1) Leg wound, right: Code(s): S81.801A - Unspecified open wound, right lower leg, initial encounter Plan: September 20, 2024 (2) Varicose veins of both legs with edema: Code(s): I83.893 - Varicose veins of bilateral lower extremities with other complications Plan See orders and HPI. Time spent with patient Time Spent With Patient (min): 12 Dictated By: Jeni Muniz APRN DD/ 1127 Signed By: <Electronically signed by JOANN Muniz> 11/10/24 1130 [facility] Work Phone: 1(767) 154-478906-19-2025 [place] [address] Wound Center Provider Note Signed Patient: Chayo Harris MR#: [id number] : 1960 Acct:[id number] Age/Sex: 64 / M Copies to: Anders Jerome,DO Jeni Muniz APRN~ HPI Date of Visit Date of Visit: Date of Service: 11/10/2024 Time of Service: 11:27 Narrative HPI: 09/22/2024-Chayo is a 64-year-old male who presents to [facility] wound center for evaluation and treatment of traumatic wound of the right lower leg. Patient reports that he was carrying a plant outside when he dropped the container on his leg, subsequently causing the wound. Shallow full-thickness wound is comprised of both red moist tissue and yellow adherent slough-we will plan to initiate Vashe cleanse, honey gel for autolytic debridement, alginate silver and a bordered foam. Periwound with notable signs of venous insufficiency including varicosities and hemosiderin staining. No acute signs or symptoms of infection present at today's visit. Patient reports he is comfortable performing his own dressings and we will send to [facility]. I will see Chayo back in 1 to 2 weeks. 10/04/2024-Joseph presents to [facility] wound center for follow-up evaluation and treatment of traumatic wound of the right lower leg. Upon exam, decreased measurements noted. We will plan to change the treatment to Vashe cleanse, honey gel and collagen powder mixture, as well as alginate silver and a bordered foam. No acute signs or symptoms of infection noted at today's visit. Patient continues to perform his own dressing changes without difficulty. We will see him back inthe office in 2 weeks. 10/19/2024- Joseph presents to [facility] wound center for follow up evaluation and treatment of RLE traumatic wound. Improvement noted at today's visit, with decreased measurements on exam. No acute s/s of infection noted. We will plan toswitch the treatment to Vashe cleanse, collagen Ag pad, alginate, and bordered foam. Patient remains comfortable performing his own dressing changes at this time. We willsee Joseph back in 2-3 weeks. 11/10/2024- Joseph presents to the office today for follow up evaluation and treatment of traumatic wound of the right lower anterior leg. Continued improvement is noted, with decreased measurements and improved tissue quality. No acute s/s of infection noted. We will continue the current treatment of V ashecleanse, Collagen Ag, alginate, and bordered foam. Joseph remains comfortable performing his own dressing changes. We will see the patient back in the office in 2-3 weeks. Subjective Pain Right Lower Leg: Pain Intensity: 0 Wound/Ulcer History When did wound start?: September 20, 2024 Hit leg with a palm tree. Mode of Arrival/ Net C Developer: Personal vehicle Lives with:: Spouse Who helps w/ dressing change?: Self Smoking Status: Never smoker [facility] Medical History (Updated 09/22/24 @ 13:42 by Jeni Muniz APRN) Leg wound, right History of ulcerative colitis Vitamin D deficiency GERD (gastroesophageal reflux disease) Dyslipidemia HTN (hypertension) Surgical History H/O bursectomy H/O colectomy Family History Mother Diabetes Father Cancer Father Cancer Legacy FamHx Problem: Diagnosed with Cancer Family history of lung cancer Mother Diabetes Hypertension Heart disease Social History Smoking Status: Never smoker Substance Use Type: None Grafts History of Graft History of Graft?: No Exam Physical Exam Vital Signs: Temp Pulse Resp BP O2 Del Method 98.6 F 55 L 18 143/87 H Room Air 11/10/24 11:18 11/10/24 11:18 10/19/24 11:26 11/10/24 11:18 11/10/24 11:18 Const General: cooperative, comfortable, no acute distress and well groomed Nutritional Appearance: average body habitus Lower/Upper Extremity Exam Vascular Exam-Edema Right Lower Extremity: Edema Degree: 2+ Edema Type: Non-Pitting Vascular Exam-Pulses Right Brachial: Pulse Assessment Method: NIBP Right Dorsalis Pedis: Pulse Assessment Method: Palpation Right Posterior Tibial: Pulse Assessment Method: Palpation Objective Meds/Allergies Home Medications acetaminophen 500 mg capsule 500 mg PO QID PRN Pain 10/01/21 [History Confirmed 10/15/21] albuterol sulfate 90 mcg/actuation breath activated powder inhaler 2 inh inhalation Q4H PRN Shortness Of Breath 10/01/21 [History Confirmed 10/15/21] amlodipine 5 mg tablet 5 mg PO DAILY 10/01/21 [History Confirmed 10/15/21] ammonium lactate 12 % topical cream 1 applic topical BID 10/01/21 [History Confirmed 10/15/21] aspirin 81 mg capsule 81 mg PO DAILY 10/01/21 [History Confirmed 10/15/21] baclofen 10 mg tablet 10 mg PO TID 10/01/21 [History Confirmed 10/15/21] fluticasone propionate 220 mcg/actuation HFA aerosol inhaler (Flovent HFA) 1 puff inhalation BID 10/01/21 [History Confirmed 10/15/21] hydrocodone 5 mg-acetaminophen 325 mg tablet 1 tab PO Q6H PRN Pain 10/01/21 [History Confirmed 10/15/21] lisinopril 10 mg-hydrochlorothiazide 12.5 mg tablet 1 tab PO DAILY 10/01/21 [History Confirmed 10/15/21] loperamide 2 mg tablet 2 mg PO QID 10/01/21 [History Confirmed 10/15/21] omeprazole 20 mg capsule,delayed release 20 mg PO BID 10/01/21 [History Confirmed 10/15/21] pantoprazole 40 mg tablet,delayed release 40 mg PO DAILY 10/01/21 [History Confirmed 10/15/21] sennosides 8.6 mg-docusate sodium 50 mg tablet (Senexon-S) 1 tab-cap PO BID PRN Constipation 10/01/21 [History Confirmed 10/15/21] Allergies codeine Allergy (Unknown, Unverified 11/13/22 14:19) Unknown Reaction, dizziness morphine Allergy (Unknown, Unverified 11/13/22 14:19) Nausea, stomach upset Wound/Ulcer Right Lower Leg: Type: Traumatic Thickness: Full Bed Appearance: Ramirez-Perez and Yellow Percent of Wound Bed Granulated/Red: 50 Percent of Devitalized: 50 Length (cm): 1.8 Width (cm): 1.1 Depth (cm): 0.1 CM Sq: 1.980 Surrounding Tissue Appearance: Ramirez-Perez Surrounding Tissue Temp: Warm Drainage Amount: Moderate Drainage Description: Serosanguineous Drainage Odor: No Odor Lidocaine Applied Topically: 2% Jelly Procedures Time Out: 2 Patient Identifiers, Correct Patient, Correct Side/Site, Correct Procedure and Safety Issues Reviewed Procedure: The right lower leg wound was anesthetized with topical 2% lidocaine. A curettewas used to perform debridement for the removal of 1 cm? of devitalized tissue consisting of slough and fibrin. Debridement was down to healthy bleeding tissue. Estimated blood loss was minimal. Hemostasis was achieved by applying direct pressure. The right lower leg wound now appears 10% more red. The size remains thesame. The patient tolerated the procedure well with no pain. Results Height: 6 ft 1 in Weight: 92.986 kg Body Mass Index: 27.0 Assessment/Plan Assessment/Plan (1) Leg wound, right: Code(s): S81.801A - Unspecified open wound, right lower leg, initial encounter Plan: September 20, 2024 (2) Varicose veins of both legs with edema: Code(s): I83.893 - Varicose veins of bilateral lower extremities with other complications Plan See orders and HPI. Time spent with patient Time Spent With Patient (min): 12 Dictated By: Jeni Muniz APRN DD/ [id number] Signed By: 11/10/24 1130 [facility]06-17-2025 History of Present illness Narrative * Moreno Pineda MD - 11/08/2024 3:20 PM EDT Chief Complaint Patient presents with Follow-up 6 month, hypertension Subjective Chayo Harris is a 64 y.o. male HPI Patient is here for follow-up continue management for history of palpitation, PACs and PVCs and remote history of SVT and hypertension. Since last time I saw him he denies any cardiac complaint of chest pain, lightheadedness, dizziness or syncope. He reports marked improvement of his palpitation. Scruff functional class I. He is scheduled to have lab work in the near future. Assessment 1. Documentation of frequent PACs and PVCs PVCs. Minimally symptomatic on background of normal heart and no active cardiac symptoms. He reports marked improvement with low-dose metoprolol. His cardiac workup almost 10 years ago was negative. He denies any changes 2. 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 Hypertension controlled with current dose of amlodipine and metoprolol 4. Ulcerative colitis with prior hemicolectomy have a J-pouch 5. Obesity with BMI of 27 6. Varicosis veins s/p multiple procedures including venous stripping and sclerosing injection of agent Plan 1. I believe patient arrhythmia is benign based on lack of active cardiac symptoms, functional class I, no evidence of coronary artery disease and no previous history of dizziness and no family history of sudden cardiac . An improvement of his symptoms with low-dose beta-bg 2. I reviewed the results of his Holter monitor with him 3. Patient was unable to tolerate magnesium due to his history of ulcerative colitis. 4. Patient was counseled regarding risk factor modification 5. Advised him to notify of change in cardiac status or symptoms 6. Will see him back in 9 months with an EKG and advised him to forward copy of his lab work when it is done to me Review of Systems All other systems reviewed and are negative. Vitals: 11/08/24 1518 BP: 126/72 BP Location: Right arm Patient Position: Sitting Pulse: 62 Weight: 95.3 kg (210 lb) Height: 1.854 m (6' 1 ) [...] Morphine and Codeine Current Medications Current Outpatient Medications Medication Instructions amLODIPine (NORVASC) 5 mg, 2 times daily cholecalciferol (Vitamin D3) 25 MCG (1000 UT) tablet 2 tablets, Daily fluticasone (Flovent HFA) 220 mcg/actuation inhaler 1 puff, 2 times daily RT glucosamine-chondroitin 500-400 mg tablet 1 tablet, 2 times daily lisinopril 20 mg tablet 20 mg, hydroCHLOROthiazide 12.5 mg tablet 12.5 mg 1 tablet, Daily loperamide (IMODIUM A-D) 2 mg, 3 times daily PRN metoprolol succinate XL (TOPROL-XL) 12.5 mg, oral, Daily, Do not crush or chew. pantoprazole (PROTONIX) 40 mg, 2 times daily Assessment/Plan 1. PVC (premature ventricular contraction) 2. Essential hypertension Follow Up In Cardiology Follow Up In Cardiology 3. SVT (supraventricular tachycardia) 4. BMI 27.0-27.9,adult 5. Never smoked any substance 6. Palpitations 7. Hx of varicose veins Scribe Attestation By signing my name below, Roz Mcelroy LPN, Scribe attest that this documentation has been prepared under the direction and in the presence of MD Brock. Provider Attestation - Scribe documentation All medical record entries made by the Scribe were at my direction and personally dictated by me. Ihave reviewed the chart and agree that the record accurately reflects my personal performance of the history, physical exam, discussion and plan. documented in this [facility] Work Phone: [phone]) 422-543606-17-2025 Instructions* Patient Instructions* Roz Pacheco LPN - 11/08/2024 3:20 PM EDT Please bring all medicines, vitamins, and herbal supplements with you when you come to the office. Prescriptions will not be filled unless you are compliant with your follow up appointments or have a follow up appointment scheduled as per instruction of your physician. Refills should be requested at the time of your visit. BMI was above normal measurement. Current weight: 95.3 kg (210 lb) Weight change since last visit (-) denotes wt loss 4 lbs Weight loss needed to achieve BMI 25: 20.9 Lbs Weight loss needed to achieve BMI 30: -16.9 Lbs Provided instructions on dietary changes Provided instructions on exercise. documented in this [facility] Work Phone: 1(892) 250-750505-28-2025 Progress note Author Jeni Muniz [facility] CenterNote Date/TimeMay 2024 11:35[place] [address] Wound Center Provider Note Signed Patient: Chayo Harris MR#: [id number] : 1960 Acct:[id number] Age/Sex: 64 / M Copies to: DO Jeni Rossi APRN~ HPI Date of Visit Date of Visit: Date of Service: 10/19/2024 Time of Service: 11:31 Narrative HPI: 09/22/2024-Chayo is a 64-year-old male who presents to [facility] wound center for evaluation and treatment of traumatic wound of the right lower leg. Patient reports that he was carrying a plant outside when he dropped the container on his leg, subsequently causing the wound. Shallow full-thickness wound is comprised of both red moist tissue and yellow adherent slough-we will plan to initiate Vashe cleanse, honey gel for autolytic debridement, alginate silver and a bordered foam. Periwound with notable signs of venous insufficiency including varicosities and hemosiderin staining. No acute signs or symptoms of infection present at today's visit. Patient reports he is comfortable performing his own dressings and we will send to yaima isaac. I will see Chayo back in 1 to 2 weeks. 10/04/2024-Joseph presents to [facility] wound center for follow-up evaluation and treatment of traumatic wound of the right lower leg. Upon exam, decreased measurements noted. We will plan to change the treatment to Vashe cleanse, honey gel and collagen powder mixture, as well as alginate silver and a bordered foam. No acute signs or symptoms of infection noted at today's visit. Patient continues to perform his own dressing changes without difficulty. We will see him back inthe office in 2 weeks. 10/19/2024- Joseph presents to [facility] wound center for follow up evaluation and treatment of RLE traumatic wound. Improvement noted at today's visit, with decreased measurements on exam. No acute s/s of infection noted. We will plan toswitch the treatment to Vashe cleanse, collagen Ag pad, alginate, and bordered foam. Patient remains comfortable performing his own dressing changes at this time. We willsee Joseph back in 2-3 weeks. Subjective Pain Right Lower Leg: Pain Intensity: 0 Wound/Ulcer History When did wound start?: September 20, 2024 Hit leg with a palm tree. Mode of Arrival/ Net C Developer: Personal vehicle Lives with:: Spouse Who helps w/ dressing change?: Self Smoking Status: Never smoker [facility] Medical History (Updated 09/22/24 @ 13:42 by Jeni Muniz APRN) Leg wound, right History of ulcerative colitis Vitamin D deficiency GERD (gastroesophageal reflux disease) Dyslipidemia HTN (hypertension) Surgical History H/O bursectomy H/O colectomy Family History Mother Diabetes Father Cancer Father Cancer Legacy FamHx Problem: Diagnosed with Cancer Family history of lung cancer Mother Diabetes Hypertension Heart disease Social History Smoking Status: Never smoker Substance Use Type: None Grafts History of Graft History of Graft?: No Exam Physical Exam Vital Signs: Temp Pulse Resp BP O2 Del Method 97.7 F 61 18 152/84 H Room Air 10/19/24 11:26 10/19/24 11:26 10/19/24 11:26 10/19/24 11:26 10/19/24 11:26 Const General: cooperative, comfortable, no acute distress and well groomed Nutritional Appearance: average body habitus Lower/Upper Extremity Exam Vascular Exam-Edema Right Lower Extremity: Edema Degree: 2+ Edema Type: Non-Pitting Vascular Exam-Pulses Right Brachial: Pulse Assessment Method: NIBP Right Dorsalis Pedis: Pulse Assessment Method: Palpation Right Posterior Tibial: Pulse Assessment Method: Palpation Objective Meds/Allergies Home Medications acetaminophen 500 mg capsule 500 mg PO QID PRN Pain 10/01/21 [History Confirmed 10/15/21] albuterol sulfate 90 mcg/actuation breath activated powder inhaler 2 inh inhalation Q4H PRN Shortness Of Breath 10/01/21 [History Confirmed 10/15/21] amlodipine 5 mg tablet 5 mg PO DAILY 10/01/21 [History Confirmed 10/15/21] ammonium lactate 12 % topical cream 1 applic topical BID 10/01/21 [History Confirmed 10/15/21] aspirin 81 mg capsule 81 mg PO DAILY 10/01/21 [History Confirmed 10/15/21] baclofen 10 mg tablet 10 mg PO TID 10/01/21 [History Confirmed 10/15/21] fluticasone propionate 220 mcg/actuation HFA aerosol inhaler (Flovent HFA) 1 puff inhalation BID 10/01/21 [History Confirmed 10/15/21] hydrocodone 5 mg-acetaminophen 325 mg tablet 1 tab PO Q6H PRN Pain 10/01/21 [History Confirmed 10/15/21] lisinopril 10 mg-hydrochlorothiazide 12.5 mg tablet 1 tab PO DAILY 10/01/21 [History Confirmed 10/15/21] loperamide 2 mg tablet 2 mg PO QID 10/01/21 [History Confirmed 10/15/21] omeprazole 20 mg capsule,delayed release 20 mg PO BID 10/01/21 [History Confirmed 10/15/21] pantoprazole 40 mg tablet,delayed release 40 mg PO DAILY 10/01/21 [History Confirmed 10/15/21] sennosides 8.6 mg-docusate sodium 50 mg tablet (Senexon-S) 1 tab-cap PO BID PRN Constipation 10/01/21 [History Confirmed 10/15/21] Allergies codeine Allergy (Unknown, Unverified 11/13/22 14:19) Unknown Reaction, dizziness morphine Allergy (Unknown, Unverified 11/13/22 14:19) Nausea, stomach upset Wound/Ulcer Right Lower Leg: Type: Traumatic Thickness: Full Bed Appearance: Beefy Red and Yellow Percent of Wound Bed Granulated/Red: 75 Percent of Devitalized: 25 Length (cm): 2.9 Width (cm): 2.2 Depth (cm): 0.2 CM Sq: 6.380 Surrounding Tissue Appearance: Hyperpigmented Surrounding Tissue Temp: Warm Drainage Amount: Moderate Drainage Description: Serosanguineous Drainage Odor: No Odor Procedures Time Out: 2 Patient Identifiers, Correct Patient, Correct Side/Site, Correct Procedure and Safety Issues Reviewed Procedure: The right lower leg wound was anesthetized with topical 2% lidocaine. A curettewas used to perform debridement for the removal of 6 cm? of devitalized tissue consisting of slough and fibrin. Debridement was down to healthy bleeding tissue. Estimated blood loss was minimal. Hemostasis was achieved by applying direct pressure. The right lower leg wound now appears 10% more red. The size remains thesame. The patient tolerated the procedure well with no pain. Results Height: 6 ft 1 in Weight: 92.986 kg Body Mass Index: 27.0 Assessment/Plan Assessment/Plan (1) Leg wound, right: Code(s): S81.801A - Unspecified open wound, right lower leg, initial encounter Plan: September 20, 2024 (2) Varicose veins of both legs with edema: Code(s): I83.893 - Varicose veins of bilateral lower extremities with other complications Plan See orders and HPI. Time spent with patient Time Spent With Patient (min): 12 Dictated By: Jeni Muniz APRN DD/ 113 Signed By: <Electronically signed by JOANN Muniz> 10/19/24 1135 [facility] Work Phone: [phone] 449-529605-28-2025 [place] [address] Wound Center Provider Note Signed Patient: Chayo Harris MR#: [id number] : 1960 Acct:[id number] Age/Sex: 64 / M Copies to: Anders Jerome,DO Jeni Muniz APRN~ HPI Date of Visit Date of Visit: Date of Service: 10/19/2024 Time of Service: 11:31 Narrative HPI: 09/22/2024-Chayo is a 64-year-old male who presents to [facility] wound center for evaluation and treatment of traumatic wound of the right lower leg. Patient reports that he was carrying a plant outside when he dropped the container on his leg, subsequently causing the wound. Shallow full-thickness wound is comprised of both red moist tissue and yellow adherent slough-we will plan to initiate Vashe cleanse, honey gel for autolytic debridement, alginate silver and a bordered foam. Periwound with notable signs of venous insufficiency including varicosities and hemosiderin staining. No acute signs or symptoms of infection present at today's visit. Patient reports he is comfortable performing his own dressings and we will send to yaima isaac. I will see Chayo back in 1 to 2 weeks. 10/04/2024-Joseph presents to [facility] wound center for follow-up evaluation and treatment of traumatic wound of the right lower leg. Upon exam, decreased measurements noted. We will plan to change the treatment to Vashe cleanse, honey gel and collagen powder mixture, as well as alginate silver and a bordered foam. No acute signs or symptoms of infection noted at today's visit. Patient continues to perform his own dressing changes without difficulty. We will see him back inthe office in 2 weeks. 10/19/2024- Joseph presents to [facility] wound center for follow up evaluation and treatment of RLE traumatic wound. Improvement noted at today's visit, with decreased measurements on exam. No acute s/s of infection noted. We will plan toswitch the treatment to Vashe cleanse, collagen Ag pad, alginate, and bordered foam. Patient remains comfortable performing his own dressing changes at this time. We willsee Joseph back in 2-3 weeks. Subjective Pain Right Lower Leg: Pain Intensity: 0 Wound/Ulcer History When did wound start?: September 20, 2024 Hit leg with a palm tree. Mode of Arrival/ Net C Developer: Personal vehicle Lives with:: Spouse Who helps w/ dressing change?: Self Smoking Status: Never smoker [facility] Medical History (Updated 09/22/24 @ 13:42 by Jeni Muniz APRN) Leg wound, right History of ulcerative colitis Vitamin D deficiency GERD (gastroesophageal reflux disease) Dyslipidemia HTN (hypertension) Surgical History H/O bursectomy H/O colectomy Family History Mother Diabetes Father Cancer Father Cancer Legacy FamHx Problem: Diagnosed with Cancer Family history of lung cancer Mother Diabetes Hypertension Heart disease Social History Smoking Status: Never smoker Substance Use Type: None Grafts History of Graft History of Graft?: No Exam Physical Exam Vital Signs: Temp Pulse Resp BP O2 Del Method 97.7 F 61 18 152/84 H Room Air 10/19/24 11:26 10/19/24 11:26 10/19/24 11:26 10/19/24 11:26 10/19/24 11:26 Const General: cooperative, comfortable, no acute distress and well groomed Nutritional Appearance: average body habitus Lower/Upper Extremity Exam Vascular Exam-Edema Right Lower Extremity: Edema Degree: 2+ Edema Type: Non-Pitting Vascular Exam-Pulses Right Brachial: Pulse Assessment Method: NIBP Right Dorsalis Pedis: Pulse Assessment Method: Palpation Right Posterior Tibial: Pulse Assessment Method: Palpation Objective Meds/Allergies Home Medications acetaminophen 500 mg capsule 500 mg PO QID PRN Pain 10/01/21 [History Confirmed 10/15/21] albuterol sulfate 90 mcg/actuation breath activated powder inhaler 2 inh inhalation Q4H PRN Shortness Of Breath 10/01/21 [History Confirmed 10/15/21] amlodipine 5 mg tablet 5 mg PO DAILY 10/01/21 [History Confirmed 10/15/21] ammonium lactate 12 % topical cream 1 applic topical BID 10/01/21 [History Confirmed 10/15/21] aspirin 81 mg capsule 81 mg PO DAILY 10/01/21 [History Confirmed 10/15/21] baclofen 10 mg tablet 10 mg PO TID 10/01/21 [History Confirmed 10/15/21] fluticasone propionate 220 mcg/actuation HFA aerosol inhaler (Flovent HFA) 1 puff inhalation BID 10/01/21 [History Confirmed 10/15/21] hydrocodone 5 mg-acetaminophen 325 mg tablet 1 tab PO Q6H PRN Pain 10/01/21 [History Confirmed 10/15/21] lisinopril 10 mg-hydrochlorothiazide 12.5 mg tablet 1 tab PO DAILY 10/01/21 [History Confirmed 10/15/21] loperamide 2 mg tablet 2 mg PO QID 10/01/21 [History Confirmed 10/15/21] omeprazole 20 mg capsule,delayed release 20 mg PO BID 10/01/21 [History Confirmed 10/15/21] pantoprazole 40 mg tablet,delayed release 40 mg PO DAILY 10/01/21 [History Confirmed 10/15/21] sennosides 8.6 mg-docusate sodium 50 mg tablet (Senexon-S) 1 tab-cap PO BID PRN Constipation 10/01/21 [History Confirmed 10/15/21] Allergies codeine Allergy (Unknown, Unverified 11/13/22 14:19) Unknown Reaction, dizziness morphine Allergy (Unknown, Unverified 11/13/22 14:19) Nausea, stomach upset Wound/Ulcer Right Lower Leg: Type: Traumatic Thickness: Full Bed Appearance: Beefy Red and Yellow Percent of Wound Bed Granulated/Red: 75 Percent of Devitalized: 25 Length (cm): 2.9 Width (cm): 2.2 Depth (cm): 0.2 CM Sq: 6.380 Surrounding Tissue Appearance: Hyperpigmented Surrounding Tissue Temp: Warm Drainage Amount: Moderate Drainage Description: Serosanguineous Drainage Odor: No Odor Procedures Time Out: 2 Patient Identifiers, Correct Patient, Correct Side/Site, Correct Procedure and Safety Issues Reviewed Procedure: The right lower leg wound was anesthetized with topical 2% lidocaine. A curettewas used to perform debridement for the removal of 6 cm? of devitalized tissue consisting of slough and fibrin. Debridement was down to healthy bleeding tissue. Estimated blood loss was minimal. Hemostasis was achieved by applying direct pressure. The right lower leg wound now appears 10% more red. The size remains thesame. The patient tolerated the procedure well with no pain. Results Height: 6 ft 1 in Weight: 92.986 kg Body Mass Index: 27.0 Assessment/Plan Assessment/Plan (1) Leg wound, right: Code(s): S81.801A - Unspecified open wound, right lower leg, initial encounter Plan: September 20, 2024 (2) Varicose veins of both legs with edema: Code(s): I83.893 - Varicose veins of bilateral lower extremities with other complications Plan See orders and HPI. Time spent with patient Time Spent With Patient (min): 12 Dictated By: Jeni Muniz APRN DD/ 30 Signed By: 10/19/241134 [facility]05-13-2025 Progress note Author Jeni Muniz [facility] CenterNote Date/TimeMay 2024 1:48[place] [address] Wound Center Provider Note Signed Patient: Chayo Harris MR#: [id number] : 1960 Acct:[id number] Age/Sex: 64 / M Copies to: DO Jeni Rossi APRN~ HPI Date of Visit Date of Visit: Date of Service: 10/04/2024 Time of Service: 13:47 Narrative HPI: 09/22/2024-Chayo is a 64-year-old male who presents to [facility] wound center for evaluation and treatment of traumatic wound of the right lower leg. Patient reports that he was carrying a plant outside when he dropped the container on his leg, subsequently causing the wound. Shallow full-thickness wound is comprised of both red moist tissue and yellow adherent slough-we will plan to initiate Vashe cleanse, honey gel for autolytic debridement, alginate silver and a bordered foam. Periwound with notable signs of venous insufficiency including varicosities and hemosiderin staining. No acute signs or symptoms of infection present at today's visit. Patient reports he is comfortable performing his own dressings and we will send to yaima isaac. I will see Chayo back in 1 to 2 weeks. 10/04/2024-Joseph presents to [facility] wound center for follow-up evaluation and treatment of traumatic wound of the right lower leg. Upon exam, decreased measurements noted. We will plan to change the treatment to Vashe cleanse, honey gel and collagen powder mixture, as well as alginate silver and a bordered foam. No acute signs or symptoms of infection noted at today's visit. Patient continues to perform his own dressing changes without difficulty. We will see him back inthe office in 2 weeks. Subjective Pain Right Lower Leg: Pain Intensity: 0 Wound/Ulcer History When did wound start?: September 20, 2024 Hit leg with a palm tree. Mode of Arrival/ Net C Developer: Personal vehicle Lives with:: Spouse Who helps w/ dressing change?: Self Smoking Status: Never smoker [facility] Medical History (Updated 09/22/24 @ 13:42 by Jeni Muniz APRN) Leg wound, right History of ulcerative colitis Vitamin D deficiency GERD (gastroesophageal reflux disease) Dyslipidemia HTN (hypertension) Surgical History H/O bursectomy H/O colectomy Family History Mother Diabetes Father Cancer Father Cancer Legacy FamHx Problem: Diagnosed with Cancer Family history of lung cancer Mother Diabetes Hypertension Heart disease Social History Smoking Status: Never smoker Substance Use Type: None Grafts History of Graft History of Graft?: No Exam Physical Exam Vital Signs: Temp Pulse Resp BP O2 Del Method 98.6 F 67 18 130/81 Room Air 10/04/24 13:42 10/04/24 13:42 10/04/24 13:42 10/04/24 13:42 10/04/24 13:42 Const General: cooperative, comfortable, no acute distress and well groomed Nutritional Appearance: average body habitus Lower/Upper Extremity Exam Vascular Exam-Edema Right Lower Extremity: Edema Degree: 2+ Edema Type: Pitting Vascular Exam-Pulses Right Brachial: Pulse Assessment Method: NIBP Right Dorsalis Pedis: Pulse Assessment Method: Palpation Right Posterior Tibial: Pulse Assessment Method: Palpation Objective Meds/Allergies Home Medications acetaminophen 500 mg capsule 500 mg PO QID PRN Pain 10/01/21 [History Confirmed 10/15/21] albuterol sulfate 90 mcg/actuation breath activated powder inhaler 2 inh inhalation Q4H PRN Shortness Of Breath 10/01/21 [History Confirmed 10/15/21] amlodipine 5 mg tablet 5 mg PO DAILY 10/01/21 [History Confirmed 10/15/21] ammonium lactate 12 % topical cream 1 applic topical BID 10/01/21 [History Confirmed 10/15/21] aspirin 81 mg capsule 81 mg PO DAILY 10/01/21 [History Confirmed 10/15/21] baclofen 10 mg tablet 10 mg PO TID 10/01/21 [History Confirmed 10/15/21] fluticasone propionate 220 mcg/actuation HFA aerosol inhaler (Flovent HFA) 1 puff inhalation BID 10/01/21 [History Confirmed 10/15/21] hydrocodone 5 mg-acetaminophen 325 mg tablet 1 tab PO Q6H PRN Pain 10/01/21 [History Confirmed 10/15/21] lisinopril 10 mg-hydrochlorothiazide 12.5 mg tablet 1 tab PO DAILY 10/01/21 [History Confirmed 10/15/21] loperamide 2 mg tablet 2 mg PO QID 10/01/21 [History Confirmed 10/15/21] omeprazole 20 mg capsule,delayed release 20 mg PO BID 10/01/21 [History Confirmed 10/15/21] pantoprazole 40 mg tablet,delayed release 40 mg PO DAILY 10/01/21 [History Confirmed 10/15/21] sennosides 8.6 mg-docusate sodium 50 mg tablet (Senexon-S) 1 tab-cap PO BID PRN Constipation 10/01/21 [History Confirmed 10/15/21] Allergies codeine Allergy (Unknown, Unverified 11/13/22 14:19) Unknown Reaction, dizziness morphine Allergy (Unknown, Unverified 11/13/22 14:19) Nausea, stomach upset Wound/Ulcer Right Lower Leg: Type: Traumatic Thickness: Full Bed Appearance: Beefy Red and Yellow Percent of Wound Bed Granulated/Red: 50 Percent of Devitalized: 50 Length (cm): 3.2 Width (cm): 2.7 Depth (cm): 0.1 CM Sq: 8.640 Surrounding Tissue Appearance: Hyperpigmented Surrounding Tissue Temp: Warm Drainage Amount: Moderate Drainage Description: Serosanguineous Drainage Odor: No Odor Results Height: 6 ft 1 in Weight: 92.986 kg Body Mass Index: 27.0 Assessment/Plan Assessment/Plan (1) Leg wound, right: Code(s): S81.801A - Unspecified open wound, right lower leg, initial encounter Plan: September 20, 2024 (2) Varicose veins of both legs with edema: Code(s): I83.893 - Varicose veins of bilateral lower extremities with other complications Plan See orders and HPI. Time spent with patient Time Spent With Patient (min): 12 Dictated By: Jnei Mnuiz APRN DD/ 46 Signed By: <Electronically signed by JOANN Muniz> 10/04/248 [facility] Work Phone: [phone]) 253-686205-13-2025 [place] [address] Wound Center Provider Note Signed Patient: Chayo Harris MR#: [id number] : 1960 Acct:[id number] Age/Sex: 64 / M Copies to: DO Jeni Rossi APRN~ HPI Date of Visit Date of Visit: Date of Service: 10/04/2024 Time of Service: 13:47 Narrative HPI: 09/22/2024-Chayo is a 64-year-old male who presents to [facility] wound center for evaluation and treatment of traumatic wound of the right lower leg. Patient reports that he was carrying a plant outside when he dropped the container on his leg, subsequently causing the wound. Shallow full-thickness wound is comprised of both red moist tissue and yellow adherent slough-we will plan to initiate Vashe cleanse, honey gel for autolytic debridement, alginate silver and a bordered foam. Periwound with notable signs of venous insufficiency including varicosities and hemosiderin staining. No acute signs or symptoms of infection present at today's visit. Patient reports he is comfortable performing his own dressings and we will send to yaima isaac. I will see Chayo back in 1 to 2 weeks. 10/04/2024-Joseph presents to [facility] wound center for follow-up evaluation and treatment of traumatic wound of the right lower leg. Upon exam, decreased measurements noted. We will plan to change the treatment to Vashe cleanse, honey gel and collagen powder mixture, as well as alginate silver and a bordered foam. No acute signs or symptoms of infection noted at today's visit. Patient continues to perform his own dressing changes without difficulty. We will see him back inthe office in 2 weeks. Subjective Pain Right Lower Leg: Pain Intensity: 0 Wound/Ulcer History When did wound start?: September 20, 2024 Hit leg with a palm tree. Mode of Arrival/ Net C Developer: Personal vehicle Lives with:: Spouse Who helps w/ dressing change?: Self Smoking Status: Never smoker [facility] Medical History (Updated 09/22/24 @ 13:42 by Jeni Muniz APRN) Leg wound, right History of ulcerative colitis Vitamin D deficiency GERD (gastroesophageal reflux disease) Dyslipidemia HTN (hypertension) Surgical History H/O bursectomy H/O colectomy Family History Mother Diabetes Father Cancer Father Cancer Legacy FamHx Problem: Diagnosed with Cancer Family history of lung cancer Mother Diabetes Hypertension Heart disease Social History Smoking Status: Never smoker Substance Use Type: None Grafts History of Graft History of Graft?: No Exam Physical Exam Vital Signs: Temp Pulse Resp BP O2 Del Method 98.6 F 67 18 130/81 Room Air 10/04/24 13:42 10/04/24 13:42 10/04/24 13:42 10/04/24 13:42 10/04/24 13:42 Const General: cooperative, comfortable, no acute distress and well groomed Nutritional Appearance: average body habitus Lower/Upper Extremity Exam Vascular Exam-Edema Right Lower Extremity: Edema Degree: 2+ Edema Type: Pitting Vascular Exam-Pulses Right Brachial: Pulse Assessment Method: NIBP Right Dorsalis Pedis: Pulse Assessment Method: Palpation Right Posterior Tibial: Pulse Assessment Method: Palpation Objective Meds/Allergies Home Medications acetaminophen 500 mg capsule 500 mg PO QID PRN Pain 10/01/21 [History Confirmed 10/15/21] albuterol sulfate 90 mcg/actuation breath activated powder inhaler 2 inh inhalation Q4H PRN Shortness Of Breath 10/01/21 [History Confirmed 10/15/21] amlodipine 5 mg tablet 5 mg PO DAILY 10/01/21 [History Confirmed 10/15/21] ammonium lactate 12 % topical cream 1 applic topical BID 10/01/21 [History Confirmed 10/15/21] aspirin 81 mg capsule 81 mg PO DAILY 10/01/21 [History Confirmed 10/15/21] baclofen 10 mg tablet 10 mg PO TID 10/01/21 [History Confirmed 10/15/21] fluticasone propionate 220 mcg/actuation HFA aerosol inhaler (Flovent HFA) 1 puff inhalation BID 10/01/21 [History Confirmed 10/15/21] hydrocodone 5 mg-acetaminophen 325 mg tablet 1 tab PO Q6H PRN Pain 10/01/21 [History Confirmed 10/15/21] lisinopril 10 mg-hydrochlorothiazide 12.5 mg tablet 1 tab PO DAILY 10/01/21 [History Confirmed 10/15/21] loperamide 2 mg tablet 2 mg PO QID 10/01/21 [History Confirmed 10/15/21] omeprazole 20 mg capsule,delayed release 20 mg PO BID 10/01/21 [History Confirmed 10/15/21] pantoprazole 40 mg tablet,delayed release 40 mg PO DAILY 10/01/21 [History Confirmed 10/15/21] sennosides 8.6 mg-docusate sodium 50 mg tablet (Senexon-S) 1 tab-cap PO BID PRN Constipation 10/01/21 [History Confirmed 10/15/21] Allergies codeine Allergy (Unknown, Unverified 11/13/22 14:19) Unknown Reaction, dizziness morphine Allergy (Unknown, Unverified 11/13/22 14:19) Nausea, stomach upset Wound/Ulcer Right Lower Leg: Type: Traumatic Thickness: Full Bed Appearance: Beefy Red and Yellow Percent of Wound Bed Granulated/Red: 50 Percent of Devitalized: 50 Length (cm): 3.2 Width (cm): 2.7 Depth (cm): 0.1 CM Sq: 8.640 Surrounding Tissue Appearance: Hyperpigmented Surrounding Tissue Temp: Warm Drainage Amount: Moderate Drainage Description: Serosanguineous Drainage Odor: No Odor Results Height: 6 ft 1 in Weight: 92.986 kg Body Mass Index: 27.0 Assessment/Plan Assessment/Plan (1) Leg wound, right: Code(s): S81.801A - Unspecified open wound, right lower leg, initial encounter Plan: September 20, 2024 (2) Varicose veins of both legs with edema: Code(s): I83.893 - Varicose veins of bilateral lower extremities with other complications Plan See orders and HPI. Time spent with patient Time Spent With Patient (min): 12 Dictated By: Jeni Muniz APRN DD/ 46 Signed By: 10/04/24 1348 [facility]05-01-2025 Progress note Author Jeni Muniz [facility] CenterNote Date/TimeMay 2024 1:44pm[place] [address] Wound Center Provider Note Signed Patient: Chayo Harris MR#: [id number] : 1960 Acct:[id number] Age/Sex: 64 / M Copies to: DO Jeni Rossi APRN~ HPI Date of Visit Date of Visit: Date of Service: 09/22/2024 Time of Service: 13:41 Narrative HPI: 09/22/2024-Chayo is a 64-year-old male who presents to [facility] wound center for evaluation and treatment of traumatic wound of the right lower leg. Patient reports that he was carrying a plant outside when he dropped the container on his leg, subsequently causing the wound. Shallow full-thickness wound is comprised of both red moist tissue and yellow adherent slough-we will plan to initiate Vashe cleanse, honey gel for autolytic debridement, alginate silver and a bordered foam. Periwound with notable signs of venous insufficiency including varicosities and hemosiderin staining. No acute signs or symptoms of infection present at today's visit. Patient reports he is comfortable performing his own dressings and we will send to yaima isaac. I will see Chayo back in 1 to 2 weeks. Subjective Pain Right Lower Leg: Pain Intensity: 0 Wound/Ulcer History When did wound start?: September 20, 2024 Hit leg with a palm tree. Mode of Arrival/ Net C Developer: Personal vehicle Lives with:: Spouse Who helps w/ dressing change?: Self Smoking Status: Never smoker [facility] Medical History (Updated 09/22/24 @ 13:42 by Jeni Muniz APRN) Leg wound, right History of ulcerative colitis Vitamin D deficiency GERD (gastroesophageal reflux disease) Dyslipidemia HTN (hypertension) Surgical History H/O bursectomy H/O colectomy Family History Mother Diabetes Father Cancer Father Cancer Legacy FamHx Problem: Diagnosed with Cancer Family history of lung cancer Mother Diabetes Hypertension Heart disease Social History Smoking Status: Never smoker Substance Use Type: None Grafts History of Graft History of Graft?: No Exam Physical Exam Vital Signs: Temp Pulse Resp BP O2 Del Method 98.2 F 53 L 20 131/78 Room Air 09/22/24 13:32 09/22/24 13:32 09/22/24 13:32 09/22/24 13:32 05/01/25 13:32 Const General: cooperative, comfortable, no acute distress and well groomed Nutritional Appearance: average body habitus Lower/Upper Extremity Exam Vascular Exam-Edema Right Lower Extremity: Edema Type: Non-Pitting Vascular Exam-Pulses Right Brachial: Pulse Assessment Method: NIBP Right Dorsalis Pedis: Pulse Assessment Method: Palpation Right Posterior Tibial: Pulse Assessment Method: Palpation Objective Meds/Allergies Home Medications acetaminophen 500 mg capsule 500 mg PO QID PRN Pain 10/01/21 [History Confirmed 10/15/21] albuterol sulfate 90 mcg/actuation breath activated powder inhaler 2 inh inhalation Q4H PRN Shortness Of Breath 10/01/21 [History Confirmed 10/15/21] amlodipine 5 mg tablet 5 mg PO DAILY 10/01/21 [History Confirmed 10/15/21] ammonium lactate 12 % topical cream 1 applic topical BID 10/01/21 [History Confirmed 10/15/21] aspirin 81 mg capsule 81 mg PO DAILY 10/01/21 [History Confirmed 10/15/21] baclofen 10 mg tablet 10 mg PO TID 10/01/21 [History Confirmed 10/15/21] fluticasone propionate 220 mcg/actuation HFA aerosol inhaler (Flovent HFA) 1 puff inhalation BID 10/01/21 [History Confirmed 10/15/21] hydrocodone 5 mg-acetaminophen 325 mg tablet 1 tab PO Q6H PRN Pain 10/01/21 [History Confirmed 10/15/21] lisinopril 10 mg-hydrochlorothiazide 12.5 mg tablet 1 tab PO DAILY 10/01/21 [History Confirmed 10/15/21] loperamide 2 mg tablet 2 mg PO QID 10/01/21 [History Confirmed 10/15/21] omeprazole 20 mg capsule,delayed release 20 mg PO BID 10/01/21 [History Confirmed 10/15/21] pantoprazole 40 mg tablet,delayed release 40 mg PO DAILY 10/01/21 [History Confirmed 10/15/21] sennosides 8.6 mg-docusate sodium 50 mg tablet (Senexon-S) 1 tab-cap PO BID PRN Constipation 10/01/21 [History Confirmed 10/15/21] Allergies codeine Allergy (Unknown, Unverified 11/13/22 14:19) Unknown Reaction, dizziness morphine Allergy (Unknown, Unverified 11/13/22 14:19) Nausea, stomach upset Wound/Ulcer Right Lower Leg: Type: Traumatic Thickness: Full Bed Appearance: Beefy Red and Yellow Percent of Wound Bed Granulated/Red: 25 Percent of Devitalized: 75 Length (cm): 4 Width (cm): 2.9 Depth (cm): 0.1 CM Sq: 11.600 Surrounding Tissue Appearance: Hyperpigmented Surrounding Tissue Temp: Warm Drainage Amount: Moderate Drainage Description: Serosanguineous Drainage Odor: No Odor Results Height: 6 ft 1 in Weight: 92.986 kg Body Mass Index: 27.0 Assessment/Plan Assessment/Plan (1) Leg wound, right: Code(s): S81.801A - Unspecified open wound, right lower leg, initial encounter Plan: September 20, 2024 (2) Varicose veins of both legs with edema: Code(s): I83.893 - Varicose veins of bilateral lower extremities with other complications Plan See orders and HPI. Time spent with patient Time Spent With Patient (min): 20 Dictated By: Jeni Muniz APRN DD/ 40 Signed By: <Electronically signed by JOANN Muniz> 09/22/24 1344 [facility] Work Phone: 1(792) 811-248105-01-2025 [place] [address] Wound Center Provider Note Signed Patient: Chayo Harris MR#: [id number] : 1960 Acct:[id number] Age/Sex: 64 / M Copies to: Anders Jerome,DO Jeni Muniz APRN~ HPI Date of Visit Date of Visit: Date of Service: 09/22/2024 Time of Service: 13:41 Narrative HPI: 09/22/2024-Chayo is a 64-year-old male who presents to [facility] wound center for evaluation and treatment of traumatic wound of the right lower leg. Patient reports that he was carrying a plant outside when he dropped the container on his leg, subsequently causing the wound. Shallow full-thickness wound is comprised of both red moist tissue and yellow adherent slough-we will plan to initiate Vashe cleanse, honey gel for autolytic debridement, alginate silver and a bordered foam. Periwound with notable signs of venous insufficiency including varicosities and hemosiderin staining. No acute signs or symptoms of infection present at today's visit. Patient reports he is comfortable performing his own dressings and we will send to yaima [facility]. I will see Chayo núñez in 1 to 2 weeks. Subjective Pain Right Lower Leg: Pain Intensity: 0 Wound/Ulcer History When did wound start?: September 20, 2024 Hit leg with a palm tree. Mode of Arrival/ Net C Developer: Personal vehicle Lives with:: Spouse Who helps w/ dressing change?: Self Smoking Status: Never smoker [facility] Medical History (Updated 09/22/24 @ 13:42 by Jeni Muniz APRN) Leg wound, right History of ulcerative colitis Vitamin D deficiency GERD (gastroesophageal reflux disease) Dyslipidemia HTN (hypertension) Surgical History H/O bursectomy H/O colectomy Family History Mother Diabetes Father Cancer Father Cancer Legacy FamHx Problem: Diagnosed with Cancer Family history of lung cancer Mother Diabetes Hypertension Heart disease Social History Smoking Status: Never smoker Substance Use Type: None Grafts History of Graft History of Graft?: No Exam Physical Exam Vital Signs: Temp Pulse Resp BP O2 Del Method 98.2 F 53 L 20 131/78 Room Air 09/22/24 13:32 09/22/24 13:32 09/22/24 13:32 09/22/24 13:32 09/22/24 13:32 Const General: cooperative, comfortable, no acute distress and well groomed Nutritional Appearance: average body habitus Lower/Upper Extremity Exam Vascular Exam-Edema Right Lower Extremity: Edema Type: Non-Pitting Vascular Exam-Pulses Right Brachial: Pulse Assessment Method: NIBP Right Dorsalis Pedis: Pulse Assessment Method: Palpation Right Posterior Tibial: Pulse Assessment Method: Palpation Objective Meds/Allergies Home Medications acetaminophen 500 mg capsule 500 mg PO QID PRN Pain 10/01/21 [History Confirmed 10/15/21] albuterol sulfate 90 mcg/actuation breath activated powder inhaler 2 inh inhalation Q4H PRN Shortness Of Breath 10/01/21 [History Confirmed 10/15/21] amlodipine 5 mg tablet 5 mg PO DAILY 10/01/21 [History Confirmed 10/15/21] ammonium lactate 12 % topical cream 1 applic topical BID 10/01/21 [History Confirmed 10/15/21] aspirin 81 mg capsule 81 mg PO DAILY 10/01/21 [History Confirmed 10/15/21] baclofen 10 mg tablet 10 mg PO TID 10/01/21 [History Confirmed 10/15/21] fluticasone propionate 220 mcg/actuation HFA aerosol inhaler (Flovent HFA) 1 puff inhalation BID 10/01/21 [History Confirmed 10/15/21] hydrocodone 5 mg-acetaminophen 325 mg tablet 1 tab PO Q6H PRN Pain 10/01/21 [History Confirmed 10/15/21] lisinopril 10 mg-hydrochlorothiazide 12.5 mg tablet 1 tab PO DAILY 10/01/21 [History Confirmed 10/15/21] loperamide 2 mg tablet 2 mg PO QID 10/01/21 [History Confirmed 10/15/21] omeprazole 20 mg capsule,delayed release 20 mg PO BID 10/01/21 [History Confirmed 10/15/21] pantoprazole 40 mg tablet,delayed release 40 mg PO DAILY 10/01/21 [History Confirmed 10/15/21] sennosides 8.6 mg-docusate sodium 50 mg tablet (Senexon-S) 1 tab-cap PO BID PRN Constipation 10/01/21 [History Confirmed 10/15/21] Allergies codeine Allergy (Unknown, Unverified 11/13/22 14:19) Unknown Reaction, dizziness morphine Allergy (Unknown, Unverified 11/13/22 14:19) Nausea, stomach upset Wound/Ulcer Right Lower Leg: Type: Traumatic Thickness: Full Bed Appearance: Beefy Red and Yellow Percent of Wound Bed Granulated/Red: 25 Percent of Devitalized: 75 Length (cm): 4 Width (cm): 2.9 Depth (cm): 0.1 CM Sq: 11.600 Surrounding Tissue Appearance: Hyperpigmented Surrounding Tissue Temp: Warm Drainage Amount: Moderate Drainage Description: Serosanguineous Drainage Odor: No Odor Results Height: 6 ft 1 in Weight: 92.986 kg Body Mass Index: 27.0 Assessment/Plan Assessment/Plan (1) Leg wound, right: Code(s): S81.801A - Unspecified open wound, right lower leg, initial encounter Plan: September 20, 2024 (2) Varicose veins of both legs with edema: Code(s): I83.893 - Varicose veins of bilateral lower extremities with other complications Plan See orders and HPI. Time spent with patient Time Spent With Patient (min): 20 Dictated By: Jeni Muniz APRN DD/ 1341 Signed By: 09/22/24 1344 [facility]12-04-2024 History of Present illness Narrative * Moreno Pineda MD - 04/27/2024 3:40 PM EST Subjective Chayo Harris is a 64 y.o. male Chief Complaint [...] history of ulcerative colitis. I told him totry Toprol-XL 12.5 mg once daily 4. Patient [...] 2 tablets (50 mcg) by mouth once daily.,Disp: , Rfl: glucosamine-chondroitin 500-400 mg tablet, Take [...] Up In Cardiology 3. SVT (supraventricular tachycardia) ([facility]) metoprolol succinate XL (Toprol- XL) 25 mg 24 hr tablet ECG 12 Lead 4. BMI 28.0-28.9,adult 5. Never smoked any substance Scribe Attestation By signing my name below, I, Roz Felix LPN , Scribpietro attest that this documentation has been prepared under the direction and in the presence of MD Brock. Provider Attestation - Scribe documentation All medical record entries made by the Scribe were at my direction and personally dictated by me. Ihave reviewed the chart and agree that the record accurately reflects my personal performance of the history, physical exam, discussion and plan. [facility] Work Phone: 1(398) 861-352712-04-2024 Instructions* Patient Instructions* Roz Pacheco LPN - 04/27/2024 3:40 PM [...] Follow up 6 months [facility] Work Phone: 1(407) 891-582306-05-2024 History of Present illness Narrative* Moreno Pineda MD - 10/28/2023 2:00 PM EDT Subjective Chayo Harris is a 63 y.o. male Chief Complaint [...] 2 tablets (50 mcg) by mouth once daily.,Disp: , Rfl: fluticasone (Flovent HFA) 220 mcg/actuation inhaler, Inhale 2 puffs 2 times a day. Rinse mouth withwater after use to reduce aftertaste and incidence [...] mg magnesium) tablet 3. SVT (supraventricular tachycardia) ([facility]) magnesium oxide (Mag-Ox) 400 mg (241.3 mg magnesium) tablet 4. BMI 28.0-28.9,adult 5. Never smoked any substance Scribe Attestation By signing my name below, Roz Mcelroy LPN, Scribe attest that this documentation has been prepared under the direction and in the presence of MD Brock. Provider Attestation - Scribe documentation All medical record entries made by the Scribe were at my direction and personally dictated by me. Bree reviewed the chart and agree that the record accurately reflects my personal performance of the history, physical exam, discussion and plan. [facility] Work Phone: 1(571) 667-621206-05-2024 Instructions* Patient Instructions* Roz Pacheco LPN - 10/28/2023 2:00 PM [...] instructions on dietary changes. [facility] Work Phone: 1(801) 140-312902-05-2024 History of Present illness Narrative* Moreno Pineda MD - 06/29/2023 2:00 PM EST Cardiology Consultation- New Consult Reason for referral: Bigeminy HPI: Chayo Harris is a 63 y.o. male well-known to [...] clinical examination suspected to be PVCs. Unfortunately hisoutside EKG is not available to me 2. [...] 2 tablets (50 mcg) by mouth once daily.,Disp: , Rfl: cyanocobalamin (Vitamin B-12) 100 mcg tablet, Take 1 tablet (100 mcg) by mouth once daily., Disp: ,Rfl: fluticasone (Flovent HFA) 220 mcg/actuation inhaler, Inhale 2 puffs 2 times a day. 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 SVT (supraventricular tachycardia) ECG 12 Lead 4. Never smoked any substance 5. BMI 28.0-28.9,adult Scribe Attestation By signing my name below, Lupe Mcelroy LPN , Scribe attest that this documentation has been prepared under the direction and in the presence of MD Brock. documented in this [facility] Work Phone: 1([phone]) 678-464202-05-2024 Instructions* Patient Instructions* Faisal Soni MA - 06/29/2023 2:00 PM [...] Fall Prevention Education Given [facility] Work Phone: Evaluation noteNo assessment information available [facility] Work Phone: Evaluation note* Diagnosis Essential hypertension- Primary Unspecified essential hypertension PVC (premature ventricular contraction) Other premature beats SVT (supraventricular tachycardia) Other specified cardiac dysrhythmias Never smoked any substance BMI 28.0-28.9,adult documented in this encounter [facility] Work Phone: Evaluation note* Diagnosis Essential hypertension- Primary Unspecified essential hypertension PVC (premature ventricular contraction) Other premature beats SVT (supraventricular tachycardia) (CMS-HCC) Other specified cardiac dysrhythmias BMI 28.0-28.9,adult Never smoked any substance documented in this encounter [facility] Work Phone: Evaluation note* Diagnosis PVC (premature ventricular contraction)- Primary Other premature beats Essential hypertension Unspecified essential hypertension SVT (supraventricular tachycardia) (CMS-HCC) Other specified cardiac dysrhythmias BMI 28.0-28.9,adult Never smoked any substance documented in this encounter [facility] Work Phone: Evaluation note* Diagnosis PVC (premature ventricular contraction)- Primary Other premature beats Essential hypertension Unspecified essential hypertension SVT (supraventricular tachycardia) Other specified cardiac dysrhythmias BMI 27.0-27.9,adult Never smoked any substance Palpitations Hx of varicose veins documented in this encounter [facility] Work Phone: Evaluation note* Diagnosis Onset Date Resolution Status Admit Date Leg wound, right acuteJuly 2024 11:21amVaricose veins of both legs with edemachronicJuly 2024 11:21am [facility] Work Phone: Reason for referral (narrative)* Consultation (Routine) - AuthorizedSpecialtyDiagnoses / ProceduresReferred By Contact Referred To ContactCardiology Diagnoses Essential hypertension Procedures Follow Up In Cardiology Moreno Pineda MD [address] [facility] [address], [address] [place] [id number] Moreno Pineda MD [address] [facility] [address] [place] [address] Referral IDStatusReasonStart DateExpiration DateVisits RequestedVisits [id number]/ T [facility] Work Phone: Reason for referral (narrative)No reason for referral information availableAshtabula [facility] Work Phone: Summary Purpose Family History No Family History Records Found Relationship Condition Age at Onset Recorded Date/T kenneth Not Specified Diabetes mellitus Unknown fatherMalignant neoplasmUnknown Relationship Condition Age at Onset Recorded Date/T kenneth mother Diabetes mellitus Unknown fatherMalignant neoplasmUnknownFamily history of lung cancerUnknownDeceased UnknownmotherDeceasedUnknownDiabetes mellitusUnknownHypertensionUnknownHeart diseaseUnknown Advance Directives No Advanced Directives Records Found Advance Directive Response Recorded Date/ Time Advance Directives No August 05 7:01am Advance Directive Response Recorded Date/ Time Advance Directives No August 05 8:01am Chief Complaint and Reason for Visit Chief Complaint ^ bradycardia Chief Complaint Admit Date ^ December 04, 2003 12:2 7pm Open Wound December 22, 2024 11:2 1am Reason for Visit Admit Date Leg wound, right December 22, 2024 11:2 1am Varicose veins of both legs with edema J zenaida 2024 11:21am Reason for Referral SpecialtyDiagnoses / ProceduresReferred By ContactReferred To Contact Diagnoses PVC (premature ventricular contraction) SVT (supraventricular tachycardia) Procedures ECG 12 Lead Moreno Pineda MD [facility], [address] [address] Referral IDStatusReasonStart DateExpiration DateVisits RequestedVisits [id number]/5/20242/4/[id number] / Procedures Referred By ContactReferred To ContactCardiology Diagnoses PVC (premature ventricular contraction) Procedures 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 Moreno Pineda MD [facility] [address], [address] [address] Referral IDStatusReasonStart DateExpiration DateVisits RequestedVisits [id number] [id number] / Procedures Referred By ContactReferred To ContactCardiology Diagnoses PVC (premature ventricular contraction) Procedures Follow Up In Cardiology Moreno Pineda MD [facility] [address], [address] [address] Moreno Pineda MD [facility] [address], [address] [address] Referral [facility]Status[facility] DateExpiration DateVisits RequestedVisits [id number]/5/20242/4/202511 Additional Source Comments (unrecognized sect ion and content) No Status Records FoundNo Status Records FoundNo Status Records FoundNo Status Records Found INFORMATION SOURCE (unrecogn ized section and content) DATE CREATED AUTHOR 09/09/2021 [facility] DATE CREATED AUTHOR AUTHOR'S ORGANIZ ATION 06/25/[address] [facility] DATE CREATED AUTHOR AUTHOR'S ORGANIZ ATION 11/11/2024 [facility] DATE CREATED AUTHOR AUTHOR'S ORGANIZ ATION 01/02/2025 [facility] Care Teams (unrecognized sec tion and content) Team Status: Active Member Role Status Dates Anders Jeorme DO Primary Care Provider Active Team Status: Active Member Role Status Dates Anders Jerome DO Attending Provider Active St art: December 04, 2003 Team Status: Inactive Member Role Status Dates Anders Jerome DO Primary Care Provide r, Attending Provider Active Start: June 23, 2023 End: June 23, 2023Team MemberRelationshipSpecialtyStart DateEnd Date Anders Jerome [facility] [address] [facility] [place] [address] PCP - [facility] Medicine06/29/23Team MemberRelationshipSpecialtyStart DateEnd Date Anders Jerome DO [address] [facility] [place] [address] PCP - [facility] Medicine06/29/23Team MemberRelationshipSpecialtyStart DateEnd Date Anders [facility] [address] [facility] [place] [address] PCP - [facility] Medicine06/29/23 Team Status: Inactive Member Role Status Dates Anders Jerome DO Primary Care Provider Active Start: December 22, 2024 End: December 22, 2024Napoleon Salas ProviderActiveStart: December 22, 2024 End: December 22, 2024 Goals (unrecognized section and content) Goals may be documented in a n alternate sectionGoals may be documented in an alternate section Reason for Visit (unrecogniz ed section and content) ReasonCommentsNew Patient QinrdDshysskg-Wlijwxo-IpwesedjObspiyjdnUtfsdsygl / ProceduresReferred By ContactReferred To Contact Diagnoses PVC (premature ventricular contraction) SVT (supraventricular tachycardia) Procedures ECG 12 Lead Moreno Pineda MD [facility] [address], [address] [address] Referral IDStatusReasonStart DateExpiration DateVisits RequestedVisits [id number]/5/20242/4/[id number]-fq7bLxvxaeaul Diagnoses / ProceduresReferred By ContactReferred To ContactCardiology Diagnoses PVC (premature ventricular contraction) Procedures Follow Up In Cardiology Moreno Pineda MD [facility], [place] [id number] Moreno Pineda MD [facility], [place] [id number] Referral IDStatusReasonStart DateExpiration DateVisits RequestedVisits [id number]/5/20242/4/330667MhqtlhYqntoyqiYcspdk-hb5o with ekg SpecialtyDiagnoses / ProceduresReferred By ContactReferred To ContactCardiology Diagnoses Essential hypertension Procedures Follow Up In Cardiology Moreno Pineda MD [facility] [facility], [place] [id number] Phone: tel: fax: Moreno Pineda MD [facility] [facility], [place] [address] Phone: tel: fax: Referral IDStatusReasonStart DateExpiration DateVisits RequestedVisits [id number]/5/20246/5/228978SesilhGwijsdnrDdpnhs-nr9 month, hypertensionSpecialtyDiagnoses / ProceduresReferred By ContactReferred To ContactCardiology Diagnoses Essential hypertension Procedures Follow Up In Cardiology Moreno Pineda MD [facility] [facility], [place] [id number] Phone: tel: fax: Moreno Pineda MD [facility] [facility] [address], [address] [address] Phone: tel: fax: Referral IDStatusReasonStart DateExpiration DateVisits RequestedVisits [id number]/4/202412/4/202511 FOR RECORDS PERTAINING TO PATIENTS WHO ARE [...] BE BASED ON THE PRIMARY CLINICAL RECORDS. [employer] [facility]. provides no warranty or guarantee of the accuracy or completeness of information in this document.
--- OUTSIDE RECORDS SUMMARY | 2025-04-03 00:08 | XMS_ITS | Clinical Summary ---
Author Organization [facility] Address [address] [place] [address] Phone Care Team Providers Care Neuropsychiatric Aide Name Role Phone Messi Jerome DO Primary Care Provider [phone] Allergies Active AllergyReactionsCriticalityNoted ScweBzryxjhuFcexnaxUtaevyjUtv02/05/2024 MorphineNausea/jntnvkaf37/05/2024 Medications MedicationSigDispense QuantityRefillsLast FilledStart DateEnd DateStatus pantoprazole (ProtoNix) 40 mg EC tablet Take 1 tablet (40 mg) by mouth 2 times a day. Do not crush, chew, or split. Active loperamide (Imodium A-D) 2 mg tablet Take 1 tablet (2 mg) by mouth 3 times a day as needed for diarrhea.Active lisinopril 20 mg tablet 20 mg, hydroCHLOROthiazide 12.5 mg tablet 12.5 mg Take 1 tablet by mouth once daily.Active amLODIPine (Norvasc) 5 mg tablet Take 1 tablet (5 mg) by mouth 2 times a day.Active glucosamine-chondroitin 500-400 mg tablet Take 1 tablet by mouth 2 times a day.Active cholecalciferol (Vitamin D3) 25 MCG (1000 UT) tablet Take 2 tablets (50 mcg) by mouth once daily.Active metoprolol succinate XL (Toprol-XL) 25 mg 24 hr tablet Indications:PVC (premature ventricular contraction),SVT (supraventricular tachycardia)Take 0.5 tablets (12.5 mg) by mouth once daily. Do not crush or chew. 45 tablet 5Active fluticasone (Flovent HFA) 220 mcg/actuation inhaler Inhale 1 puff 2 times a day. Rinse mouth with water after use to reduce aftertaste and incidence ofcandidiasis. Do not swallow.Active Active Problems ProblemNoted DateDiagnosed VgwcNqynhojmsafa05/17/2025Hx of varicose veins 11/08/2024PVC (premature ventricular contraction)06/29/2023Essential girtlqtqumcs55/05/2024SVT (supraventricular tachycardia)06/29/2023Never smoked any bryvdflib52/05/2024MI 27.0-27.9,adult06/29/2023 Family History Medical HistoryRelationNameCommentsbladder cancerBrotherLung cancerFatherAortic aneurysmMotherBreast cancerMotherDiabetesMotherThyroid cancerSisterRelationName StatusCommentsBrotherFatherMotherSister Social History Tobacco UseTypesPacks/DayYears UsedDateSmoking Tobacco: NeverSmokeless Tobacco: Never Tobacco Cessation:Counseling Given: Not Answered Alcohol UseStandard Drinks/WeekCommentsNot Currently0 (1 standard drink = 0.6 oz pure alcohol)Sex and Gender InformationValueDate RecordedSex Assigned at Not on fileLegal QccTlty11/26/2022 3:33 AM ESTGender IdentityNot on fileSexual OrientationNot on file Last Filed Vital Signs Vital SignReadingTime TakenCommentsBlood Rdkvxmiu651/72011/08/2024 3:18 PM EDT Omlqv4913/17/2025 3:18 PM EDTTemperature--Respiratory Rate--Oxygen Saturation-- Inhaled Oxygen Concentration--Vxyqxa14.3 kg (210 lb)11/08/2024 3:18 PM EDTHeight 185.4 cm (6' 1 )11/08/2024 3:18 PM EDTBody Mass Index27.71011/08/2024 3:18 PM EDT Plan of Treatment DateTypeDepartmentCare Team (Latest Contact Info)Gxrqpyfikke39/17/2026 2:30 PM EDTOffice Visit [facility] [address] [facility] [address] [place] [address] Moreno Pineda MD [address] [facility], [address] [place] [address] Health MaintenanceDue DateLast DoneCommentsBone Density Scan1958Lipid Panel1958Medicare Annual Wellness Visit (AWV)1958TB Test1958 Vitamin B-12106/09/1957Vitamin Y38-CK54 1958Hepatitis B Surface Antibody 1959MMR Vaccines (1 of 1 - Standard series)1959Diabetes Screening 1976Hepatitis C Wwqbfoald06/16/1976PSA Prostate Cancer Tbbemkgdd35/16/2008 Pneumococcal Vaccine (1 of 1 - PCV)2008Zoster Vaccines (1 of 2)2008 Influenza Vaccine (#1)5COVID-19 Vaccine (2 - season)2025 07/30/2020TaP/Tdap/Td Vaccines (3 - Td or Tdap), 11/30/2014 RSV High Risk: (Elderly (60+) or Population) (1 - 1-dose 75+ series) 2033HIB VaccinesAged OutNo longer eligible based on patient's age to complete this topicHPV VaccinesAged OutNo longer eligible based on patient's age to complete this topicHepatitis A VaccinesAged OutNo longer eligible based on patient's age to complete this topicHepatitis B VaccinesAged OutNo longer eligible based on patient's age to complete this topicIPV VaccinesAged OutNo longer eligible based on patient's age to complete this topicMeningococcal VaccineAged OutNo longer eligible based on patient's age to complete this topic Rotavirus VaccinesAged OutNo longer eligible based on patient's age to complete this topic Insurance Care Teams Team MemberRelationshipSpecialtyStart DateEnd Messi Alonso DO [address] [facility] [place] [address] [facility]
--- OUTSIDE RECORDS SUMMARY | 2025-04-03 00:08 | XMS_ITS | Clinical Summary ---
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 Name Role Phone Unavailable Primary Care Provider Unavailabl e Social History Tobacco UseTypesPacks/DayYears UsedDateSmoking Tobacco: Never AssessedUT Safety & EnvironmentAnswerDate RecordedFear of Current or Ex-PartnerNot on file 07/16/2023Emotionally AbusedNot on file07/16/2023hysically AbusedNot on file 07/16/2023Sexually AbusedNot on file07/16/2023hysically or Sexually AbusedNot on file07/16/2023Sex and Gender InformationValueDate RecordedSex Assigned at BirthNot on fileLegal XocPeny6211/20/2021 11:01 PM EDTGender IdentityNot on file Sexual OrientationNot on file Last Filed Vital Signs Vital SignReadingTime TakenCommentsBlood Soaabuil586/9504 10:19 AM EDT Ejoyj1431 10:19 AM RZUVpmjtzxkvks71.5 ??C (97.7 ??F)09/20/2021 10:18 AM EDTRespiratory Yrds750709/13/2021 11:20 AM EDTOxygen Saturation--Inhaled Oxygen Concentration--Lcyeiv57.5 kg (215 lb)09/20/2021 10:17 AM PSKAzuzsg525.4 cm (6' 1 )09/20/2021 10:16 AM EDTBody Mass Index28.37009/20/2021 10:16 AM EDT Plan of Treatment Not on file
[2025-04-03] MEDS: OXYMETAZOLINE HCL 0.05% NASAL SPRAY 2 SPRAY NS (00:18)
--- NOTE | 2025-04-03 00:56 | ED.EPISTAXI1 ---
HPI - Epistaxis General Chief Complaint: Epistaxis Stated Complaint: NOSEBLEED Time Seen by Provider: 04/02/25 23:20 Source: patient Mode of arrival: walk-in Limitations: no limitations History of Present Illness HPI Narrative: cc - nosebleed Pt reports bleeding out of the left nostril/nasal passage intermittently for the last 3 days - denies picking, blowing or scratching. It stops and then recurs - he finally decided to come to the ED for evaluation. He is not taking any blood thinners. Related Data Home Medications ?Medication ?Instructions ?Recorded ?Confirmed amlodipine 5 mg tablet 5 mg PO DAILY 04/02/25 04/02/25 fluticasone propionate 220 inhalation 04/02/25 mcg/actuation HFA aerosol inhaler lisinopril 20 1 tab PO 04/02/25 mg-hydrochlorothiazide 12.5 mg tablet metoprolol succinate 25 mg 12.5 mg PO 04/02/25 tablet,extended release 24 hr pantoprazole 40 mg tablet,delayed mg PO 04/02/25 release Allergies Allergy/AdvReac Type Severity Reaction Status Date / Time codeine Allergy Intermediate Agitated Verified 04/02/25 23:25 morphine Allergy Intermediate vomiting Verified 04/02/25 23:25 [facility] Medical History (Updated 04/03/25 @ 01:01 by Rick Diaz) Hypertension ?I10 - Essential (primary) hypertension (ICD-10) GERD (gastroesophageal reflux disease) ?K21.9 - Gastro-esophageal reflux disease without esophagitis (ICD-10) Social History Little interest or pleasure in doing things: not at all Feeling down, depressed, or hopeless: not at all Exam Narrative Exam Narrative: Nurses notes and vital signs reviewed and patient is not hypoxic. afebrile General: Well-appearing and in no apparent distress. Skin: Warm, dry, no pallor noted. Eye: Pupils are equal, round and EOMI. No scleral icterus. Ears, Nose, Mouth, and Throat: There is oozing noted in the nasal septum on the left. There is no postnasal drip noted. He does cough up a large bloody clot shortly after I walk into the room to examine him Cardiovascular: Regular Rate and Rhythm without murmur, gallop or rub. Respiratory: No accessory muscle use or respiratory distress. Lungs are clear to auscultation, no wheezing, rales or rhonchi Musculoskeletal: normal ROM Neurological: A&O x4. No cranial nerve dysfunction observed. No truncal ataxia. Moves all extremities. Sensation intact. Psychiatric: Cooperative and interactive. Normal mood and affect. Constitutional Vital Signs, click to edit/add: Last Vital Signs Temp 98.1 F 04/02/25 23:22 Pulse 60 04/02/25 23:22 Resp 18 04/02/25 23:22 BP 149/96 H 04/02/25 23:22 Pulse Ox 98 04/02/25 23:22 O2 Del Method Room Air 04/02/25 23:22 Course Vital Signs Vital signs: Vital Signs Temperature 98.1 F 04/02/25 23:22 Pulse Rate 60 04/02/25 23:22 Respiratory Rate 18 04/02/25 23:22 Blood Pressure 149/96 H 04/02/25 23:22 Pulse Oximetry 98 04/02/25 23:22 Oxygen Delivery Method Room Air 04/02/25 23:22 Temperature 98.1 F 04/02/25 23:22 Pulse Rate 60 04/02/25 23:22 Respiratory Rate 18 04/02/25 23:22 Blood Pressure 149/96 H 04/02/25 23:22 Pulse Oximetry 98 04/02/25 23:22 Oxygen Delivery Method Room Air 04/02/25 23:22 MDM - Epistaxis MDM Narrative Medical decision making narrative: Origin of the bleeding is at the left nasal septum. I sprayed Afrin into both nasal passages and then soaked 2 cotton balls and Afrin which I then placed into the left and right anterior nasal passage. Pressure was held using nasal clamps for about 20 minutes. I came back to reevaluate the patient and remove the cotton balls, the right hip completely cleared up and the left had a tiny area of oozing and excoriation on the nasal septum. I applied a little more Afrin and reapplied the nasal clamps for about 20 more minutes. On reinspection the bleeding had completely stopped. I applied a small amount of vitamin A&E ointment to the left nasal septum. The patient I talked about his diagnosis and plan for home treatment should the bleeding recur. He was given the Afrin to use at home. He was also given the remainder of the packet of vitamin A&E ointment along with some gauze. He was discharged home with referral information for Dr. Trimble for follow-up. Discharge Plan Discharge Chief Complaint: Epistaxis Clinical Impression: Acute anterior epistaxis Patient Disposition: Home, Self-Care Time of Disposition Decision: 01:00 Prescriptions / Home Meds: No Action lisinopril-hydrochlorothiazide 20-12.5 mg tablet 1 tab PO amlodipine 5 mg tablet 5 mg PO DAILY fluticasone propionate 220 mcg/actuation HFA aerosol inhaler INHALATION metoprolol succinate 25 mg tablet extended release 24 hr 12.5 mg PO pantoprazole 40 mg tablet,delayed release (DR/EC) PO Print Language: St Helen[place] Instructions: Nosebleed (ED) Referrals: Radha Feldman MD [Physician, Ear, Nose, Throat] - As needed
--- NOTE | 2025-04-03 01:08 | PC.NURSE ---
i gave this patient verbal and written discharge orders and this patient voices yes to understanding these. at time of discharge this patient voices no concerns, needs and shows no signs of distress
== END 2025-04-03 01:08 | disposition home or self-care (01) ==
PROVIDERS: Emergency Provider Emergency Medicine; PCP Family Medicine
DX: R04.0 Epistaxis (principal)
CPT/HCPCS: 99282